=== PATIENT | male | born 1955 | race Caucasian/White ===

== ENCOUNTER 2016-11-01 20:53 | Inpatient (IN) | payer OTHER ==
[~2016-11-01] VITALS: Ht 177.8 cm; Wt 167.9 kg
[~2016-11-01 20:53] MED LIST: ADVIN25/60 INH; ALBINS/ INH; ALPR-411 PO; ARFO15NE NEB; BENZ100C84 PO; CIPR1TAB11 PO; CRFL PO; GABA-112 PO; GLC/500 PO; GLY/5 PO; INSDGIPEN SQ; LPT40 PO; LSN5 PO; OXYC1CAP5 PO; PANT40TA PO; POTA-74 PO; PRD10 PO; SPIR25TA89 PO; TPRSR/25 PO; ULT/50 PO; WARF-246 PO; WARF5TAB90 PO; ZLF50 PO
[2016-11-01] MEDS ORDERED: BUMETANIDE SOLN 1 MG/4 ML VIAL IV STA (21:08)
[2016-11-01] MEDS ORDERED: LEVALBUTEROL 1.25MG/0.5ML NEB INH STA (21:08)
[2016-11-01] MEDS ORDERED: METOPROLOL TARTRATE 1 MG/ML VIAL IV STA (21:08)
[2016-11-01] MEDS ORDERED: IPRATROPIUM BROMIDE NEB SOLN 0.02% 2.5 ML VIAL INH STA (21:08)
--- NOTE | 2016-11-01 21:37 | EMERGENCY ROOM VISIT NOTE ---
History Report prepared by Jessica: Latasha Fraser Under the Supervision of: Dr. Robbin Zaidi M.D. First contact with patient: 21:06 Chief Complaint: IRREGULAR HEARTBEAT Stated Complaint: AFIB- FLUID BUILD UP History of Present Illness The patient is a 61 year old male who presents to the Emergency Room with complaints of worsening shortness of breath for the past week. The patient saw his PCP nine days ago and was noted to be 10-11 pounds heavier than usual. He has been retaining fluid and is more swollen in his legs. The patient is on 40mg of Lasix. He takes a potassium supplement with his Lasix. He was also noted to be in A-fib when he saw his doctor. Three days ago the patient followed -up with cardiology and was still in A-fib. His medications were adjusted at that time. The patient states that since then he has been getting worse. He feels more short of breath. His symptoms are worse with exertion and talking. He has been diaphoretic this evening. The patient denies fever and cough. He is on Coumadin. He notes a personal history of CHF, asthma, and COPD. He does not wear oxygen at home, but uses CPAP at night. The patient rates his current pain as a 4/10 in severity. Source of History: patient, spouse/significant other Onset: the past week Position: chest (respiratory) Symptom Intensity: 4/10 Quality: other (SOB) Timing: worsening Modifying Factors (Worsening): exertion, other (talking) Associated Symptoms: + diaphoresis, No cough, No fevers Note: Pt notes that he has been retaining fluid and he has been in A-fib. Review of Systems See HPI for pertinent positives & negatives. A total of 10 systems reviewed and were otherwise negative. Past Medical & Surgical Medical Problems: (1) Asthma (2) BODY MASS INDEX 50.0-59.9, ADULT (3) Cerebral aneurysm (4) CHRONIC OBSTRUCTIVE ASTHMA, W (ACUTE) EXACERBATION (5) Chronic obstructive lung disease (6) CHRONIC SYSTOLIC/DIASTOLIC HRT FAILURE (7) Congestive heart failure (8) CORONARY ATHEROSCLEROSIS OF [place] CORONARY VESSEL (9) DIAB MCKAYLA WO COMPL, TYPE II OR UNSPEC TYPE, UNCONTROLLED (10) Factor 5 Leiden mutation, heterozygous (11) Hernia (12) HYPERLIPIDEMIA NEC/NOS (13) HYPERTENSION NOS (14) MORBID OBESITY (15) Nonruptured cerebral aneurysm (16) Rapid atrial fibrillation Surgical Problems: (1) Hx of appendectomy (2) Hx of cholecystectomy Family History Diabetes mellitus FH: CAD (coronary artery disease) Gallbladder disease Hypertension Lung disease Thromboembolic disease Social History Smoking Status: Never Smoker Alcohol Use: none Drug Use: none Marital Status: Housing Status: lives with family Occupation Status: disabled Current/Historical Medications Scheduled Alprazolam (Xanax), 0.5 MG PO DAILY Arformoterol Tartrate (Brovana), 1 VIAL NEB DIRECTED Atorvastatin (Atorvastatin Calcium), 40 MG PO HS Fluticasone Prop/Salmeterol (Advair Diskus 250/50 60 Dose), 1 PUFF INH BID Gabapentin (Neurontin), 100 MG PO BID Insulin Glargine (Lantus Solostar), 35 UNITS SQ QAM Lisinopril (Lisinopril), 5 MG PO DAILY Metformin Hcl (Glucophage), 500 MG PO BID Metoprolol Succinate (Metoprolol Succinate ER), 50 MG PO DAILY Pantoprazole (Protonix), 40 MG PO BID Potassium Chloride (Potassium Chloride Er), 20 MEQ PO BID Sertraline HCl (Sertraline HCl), 50 MG PO DAILY Sitagliptin (Januvia), 1 TAB PO DAILY Spironolactone (Aldactone), 25 MG PO QAM Sucralfate (Carafate), 10 ML PO Q12 Warfarin Sodium (Warfarin Sodium), 5 MG PO [id number] Warfarin Sodium (Coumadin), 2.5 MG PO WK Scheduled PRN Albuterol Sulf (Proventil 0.083% 2.5MG/3ML), 1 AMP INH QID PRN for SOB/Wheezing Ciprofloxacin Tab (Cipro), 500 MG PO BID PRN for cold symptoms or prior to dent Prednisone (Prednisone), 10 MG PO DAILY PRN for Shortness of Breath Tramadol Hcl (Ultram), 50-100 MG PO Q8 PRN for Pain Allergies Coded Allergies: Iodinated Contrast Media (Verified Allergy, Severe, SHORTNESS OF BREATH, ) Imipenem (Verified Allergy, Unknown, ., 12/03/12) Penicillins (Verified Allergy, Unknown, UNSURE OF RXN, STATED ALLERGY A CHILD, 12/03/12) Edetic Acid (Verified Adverse Reaction, Severe, SHORTNESS OF BREATH, ) Propylene Glycol (Verified Adverse Reaction, Severe, SHORTNESS OF BREATH, 04/05/14) Regadenoson (Verified Adverse Reaction, Severe, SHORTNESS OF BREATH, ) Physical Exam Vital Signs Date Time Temp Pulse Resp B/P Pulse Ox O2 Delivery O2 Flow Rate FiO2 11/01/16 22:52 Nasal Cannula 2.0 11/01/16 22:32 100/67 11/01/16 22:23 112 21 97 11/01/16 22:02 149/94 11/01/16 22:00 106 20 149/94 97 11/01/16 21:53 100 18 94 11/01/16 21:38 123/85 11/01/16 21:38 88 20 123/85 98 11/01/16 21:36 97 Nasal Cannula 2.0 11/01/16 21:34 103 142/76 11/01/16 21:23 117 24 95 11/01/16 21:19 96 Room Air 11/01/16 21:19 96 Room Air 11/01/16 21:19 104 18 142/96 94 11/01/16 21:12 107 11/01/16 21:09 142/76 11/01/16 20:56 36.7 105 22 165/85 95 Room Air Physical Exam GENERAL: Patient is in no acute distress. HEENT: No acute trauma, normocephalic atraumatic, mucous membranes moist, no nasal congestion, no scleral icterus. NECK: No stridor, no adenopathy, no meningismus, trachea is midline. LUNGS: Decreased breath sounds bilaterally, breath sounds are equal. Wheezing bilaterally. Seems short of breath with speaking. HEART: Tachycardic with an irregular rhythm, no murmurs. ABDOMEN: Soft, nontender, bowel sounds positive, no hernias, no peritonitis. EXTREMITIES: Moderate bilateral pedal edema. No cyanosis, full range of motion of all the joints without pain or difficulty, no signs for acute trauma. NEUROLOGIC: Oriented x 3, no acute motor or sensory deficits, no focal weakness. SKIN: No rash, no jaundice. Mild diaphoresis. Medical Decision & Procedures ER Provider Diagnostic Interpretation: Radiology results as stated below per my review and radiologist interpretation: CHEST ONE VIEW PORTABLE CLINICAL HISTORY: Respiratory distress COMPARISON STUDY: 04/12/2015 FINDINGS: The heart is enlarged. There is no focal pulmonary consolidation. There are no pleural effusions. There is no overt failure. The study is limited from a technical standpoint due to the patient's large body habitus.[ IMPRESSION: Cardiomegaly. No evidence of overt failure. No evidence of focal pulmonary consolidation Electronically signed by: Mahad Baxter M.D. 11/01/2016 10:00 PM Dictated Date/Time: 11/01/2016 10:00 PM Laboratory Results 11/01/16 21:25 Red Blood Count 4.71, Mean Corpuscular Volume 85.4, Mean Corpuscular Hemoglobin 27.4, Mean Corpuscular Hemoglobin Concent 32.1, Mean Platelet Volume 9.5, Neutrophils (%) (Auto) 60.7, Lymphocytes (%) (Auto) 26.8, Monocytes (%) (Auto) 7.1, Eosinophils (%) (Auto) 4.7, Basophils (%) (Auto) 0.4, Neutrophils # (Auto) 6.33, Lymphocytes # (Auto) 2.80, Monocytes # (Auto) 0.74, Eosinophils # (Auto) 0.49, Basophils # (Auto) 0.04 11/01/16 21:25 Test 11/01/16 21:25 White Blood Count 10.43 K/uL (4.8-10.8) Red Blood Count 4.71 M/uL (4.7-6.1) Hemoglobin 12.9 g/dL (14.0-18.0) Hematocrit 40.2 % (42-52) Mean Corpuscular Volume 85.4 fL (80-100) Mean Corpuscular Hemoglobin 27.4 pg (25-34) Mean Corpuscular Hemoglobin Concent 32.1 g/dl (32-36) Platelet Count 218 K/uL (130-400) Mean Platelet Volume 9.5 fL (7.4-10.4) Neutrophils (%) (Auto) 60.7 % Lymphocytes (%) (Auto) 26.8 % Monocytes (%) (Auto) 7.1 % Eosinophils (%) (Auto) 4.7 % Basophils (%) (Auto) 0.4 % Neutrophils # (Auto) 6.33 K/uL (1.4-6.5) Lymphocytes # (Auto) 2.80 K/uL (1.2-3.4) Monocytes # (Auto) 0.74 K/uL (0.11-0.59) Eosinophils # (Auto) 0.49 K/uL (0-0.5) Basophils # (Auto) 0.04 K/uL (0-0.2) RDW Standard Deviation 47.8 fL (36.4-46.3) RDW Coefficient of Variation 15.1 % (11.5-14.5) Immature Granulocyte % (Auto) 0.3 % Immature Granulocyte # (Auto) 0.03 K/uL (0.00-0.02) Prothrombin Time 25.4 SECONDS (9.0-12.0) Prothromb Time International Ratio 2.3 (0.9-1.1) Activated Partial Thromboplast Time 39.6 SECONDS (21.0-31.0) Partial Thromboplastin Ratio 1.5 Anion Gap 11.0 mmol/L (3-11) Est Creatinine Clear Calc Drug Dose 118.0 ml/min Estimated GFR () 103.1 Estimated GFR (Non- 88.9 BUN/Creatinine Ratio 21.1 (10-20) Calcium Level 8.9 mg/dl (8.5-10.1) Magnesium Level 1.4 mg/dl (1.8-2.4) Total Bilirubin 0.9 mg/dl (0.2-1) Aspartate Amino Transf (AST/SGOT) 38 U/L (15-37) Alanine Aminotransferase (ALT/SGPT) 37 U/L (12-78) Alkaline Phosphatase 74 U/L (45-117) Troponin I 0.097 ng/ml (0-0.045) Pro-B-Type Natriuretic Peptide 544 pg/ml (0-900) Total Protein 7.3 gm/dl (6.4-8.2) Albumin 3.3 gm/dl (3.4-5.0) Globulin 4.0 gm/dl (2.5-4.0) Albumin/Globulin Ratio 0.8 (0.9-2) Laboratory results reviewed by me. Medications Administered Medications (Trade) Dose Ordered Sig/Ramirez Route Start Time Stop Time Status Last Admin Dose Admin Bumetanide (Bumex IV) 1 mg NOW STAT IV 11/01/16 21:08 11/01/16 21:14 DC 11/01/16 21:34 1 MG Levalbuterol (Xopenex 1.25MG/ 0.5ML Neb) 1.25 mg NOW STAT INH 11/01/16 21:08 11/01/16 21:14 DC 11/01/16 21:33 1.25 MG Ipratropium [place] (Atrovent 0.02% 0.5MG/2.5ML Neb) 0.5 mg NOW STAT INH 11/01/16 21:08 11/01/16 21:14 DC 11/01/16 21:33 0.5 MG Metoprolol Tartrate (Lopressor Iv) 5 mg NOW STAT IV 11/01/16 21:08 11/01/16 21:14 DC 11/01/16 21:34 5 MG Magnesium Sulfate (Magnesium Sulfate) 2 gm NOW STAT IV 11/01/16 22:06 11/01/16 22:07 DC 11/01/16 22:15 2 GM Potassium Chloride (Klor-Con M10) 40 meq NOW STAT PO 11/01/16 22:23 11/01/16 22:39 DC 11/01/16 22:54 40 MEQ ECG Indication: palpitations Rate (beats per minute): 106 Rhythm: atrial fibrillation Findings: PVC, no acute ischemic change ED Course 2105: The patient was evaluated in room B11B. A complete history and physical exam was performed. 2107: Lopressor 5 mg IV, Ipratropium [place] 0.5 mg INH, Levalbuterol 1.25 mg INH, Bumex 1 mg IV 2205: Magnesium sulfate 2 gm IV 4: I reassessed the patient at this time. He is feeling better and resting comfortably. I discussed the results and treatment plan with the patient. I answered all pertaining questions that he had. He expressed understanding and verbalized agreement. 2217: I spoke with Dr. Carlton. We discussed the patients results and treatment plan. The patient will be evaluated by the [facility] for further management. Medical Decision Differential diagnoses includes exacerbation of asthma, acute bronchitis, pneumonia, CHF, fluid overload, anemia, electrolyte imbalance, [place]. There is no leukocytosis or concerning anemia. Renal panel testing shows a hypomagnesemia, no kidney failure. There was no hepatitis. INR is therapeutic for someone using Coumadin. EKG showed a rapid A. fib with PVCs, no acute ischemic change. Cardiac enzyme testing 1 was slightly elevated, consistent with possible cardiac injury or strain. Chest x-ray shows cardiomegaly, no CHF or pneumonia. BNP was not elevated, this really makes CHF less likely. The patient did have blood cultures ordered because of his complaints of sweats , these are pending. He Patient was given IV Bumex, IV magnesium, a Xopenex Atrovent neb, IV Lopressor. He looks improved and seems to be resting comfortably. Given the fluid overload, given the dyspnea with speaking, given his wheezing, given the rapid A. fib and the elevated troponin, admission/observation was felt warranted. I did speak to the patient and to case management. The on- call hospitalist was consulted. Consults Time Called: 2215 Consulting Physician: Dr. Carlton Returned Call: [address] Carlton. We discussed the patients results and treatment plan. The patient will be evaluated by the [facility] for further management. Impression Primary Impression: Fluid overload Additional Impressions: Shortness of breath Rapid atrial fibrillation Elevated troponin Hypomagnesemia Scribe Attestation The scribe's documentation has been prepared under my direction and personally reviewed by me in its entirety. I confirm that the note above accurately reflects all work, treatment, procedures, and medical decision making performed by me. Departure Information Dispostion Being Evaluated By Hospitalist Referrals Tristen Gutierrez PA-C (PCP) Patient Instructions My [facility] Problem Qualifiers Primary Impression: Fluid overload Hypervolemia type: unspecified Qualified Codes: E87.70 - Fluid overload, unspecified
[2016-11-01 21:49] LABS: BASO % 0.4 %; BASO ABS # 0.04 K/uL (0-0.2); COMPLETE YES; EOS % 4.7 %; HEMATOCRIT 40.2 % (42-52); IG% 0.3 %; LYMPH % 26.8 %; MEAN CELL VOLUME 85.4 fL (80-100); MEAN CORPUSCULAR HEMOGLOBIN 27.4 pg (25-34); MEAN CORPUSCULAR HGB CONC 32.1 g/dl (32-36); MEAN PLATELET VOLUME 9.5 fL (7.4-10.4); MONO % 7.1 %; NEUT % 60.7 %; PLATELET COUNT 218 K/uL (130-400); RED BLOOD COUNT 4.71 M/uL (4.7-6.1); WHITE BLOOD COUNT 10.43 K/uL (4.8-10.8)
[2016-11-01] MEDS ORDERED: SITA50TA3 PO (21:54)
[2016-11-01 21:58] LABS: INR 2.3 (0.9-1.1); PARTIAL THROMBOPLASTIN RATIO 1.5; PROTHROMBIN TIME (PATIENT) 25.4 SECONDS (9.0-12.0)
[2016-11-01 22:01] LABS: BUN/CREATININE RATIO 21.1 (10-20); CREATININE 0.93 mg/dl (0.60-1.40); MAGNESIUM 1.4 mg/dl (1.8-2.4); POTASSIUM 3.8 mmol/L (3.5-5.1)
[2016-11-01 22:02] LABS: CALCIUM 8.9 mg/dl (8.5-10.1)
--- NOTE | 2016-11-01 22:02 | DIAGNOSTIC IMAGING REPORT ---
CHEST ONE VIEW PORTABLE CLINICAL HISTORY: Respiratory distress COMPARISON STUDY: 04/12/2015 FINDINGS: The heart is enlarged. There is no focal pulmonary consolidation. There are no pleural effusions. There is no overt failure. The study is limited from a technical standpoint due to the patient's large body habitus.[ IMPRESSION: Cardiomegaly. No evidence of overt failure. No evidence of focal pulmonary consolidation Electronically signed by: Mahad Baxter M.D. 11/01/2016 10:00 PM Dictated Date/Time: 11/01/2016 10:00 PM
[2016-11-01] MEDS ORDERED: MAGNESIUM SULFATE 1GM / D5W 1 GM BAG IV STA (22:06)
[2016-11-01 22:08] LABS: ALB/GLOB RATIO 0.8 (0.9-2)
[2016-11-01] MEDS ORDERED: POTASSIUM CHLORIDE 10 MEQ TABCR PO STA (22:23)
[2016-11-01 22:52] VITALS: Ht 177.8 cm; Wt 167.9 kg
[2016-11-01] MEDS ORDERED: METOPROLOL SUCC 25MG EXT REL TAB PO ONE (23:13)
[2016-11-01] MEDS ORDERED: MoRPHine SULFATE 4 MG/ML 1 ML CARP\\VIAL IV PRN (23:15)
[2016-11-01] MEDS ORDERED: ONDANSETRON INJ 2 MG/ML 2 ML VIAL IV PRN ×2 (23:15)
[2016-11-01] MEDS ORDERED: GLUCAGON FOR INJ 1 MG VIAL SQ PRN (23:15)
[2016-11-01] MEDS ORDERED: NITROGLYCERIN 0.4 MG SL PER TAB CHARGE SL PRN (23:15)
[2016-11-01] MEDS ORDERED: TRAMADOL HCL 50 MG TAB PO PRN (23:15)
[2016-11-01] MEDS ORDERED: DEXTROSE 50% 50 ML SYR IV PRN (23:15)
[2016-11-01] MEDS ORDERED: LEVALBUTEROL/IPRATROPIUM NEB INH PRN (23:15)
[2016-11-01] MEDS ORDERED: GLUCOSE 10 TABS/TUBE PO PRN (23:15)
[2016-11-01] MEDS ORDERED: ACETAMINOPHEN 325 MG TAB PO PRN (23:15)
[2016-11-01] MEDS ORDERED: GLUCOSE 40% GEL 15 GM TUBE PO PRN (23:15)
[2016-11-01 23:18] LABS: THYROID STIMULATING HORMONE 0.801 uIu/ml (0.300-4.500)
[2016-11-01] MEDS ORDERED: INSULIN GLARGINE SOLOSTAR 100 UNITS/ML 3 ML PEN SC STA (23:19)
[2016-11-01 23:25] VITALS: BP 138/90; PULSE 86; TEMP 37.1; O2SAT 98
[2016-11-01] MEDS ORDERED: INSULIN ASPART 100 UNITS/ML 3 ML PEN SC STA (23:34)
[2016-11-01] MEDS ORDERED: LEVALBUTEROL 1.25MG/0.5ML NEB INH PRN (23:45)
[2016-11-01] MEDS ORDERED: IPRATROPIUM BROMIDE NEB SOLN 0.02% 2.5 ML VIAL INH PRN (23:45)
[2016-11-01] MEDS ORDERED: METOPROLOL TARTRATE 25 MG TAB PO STA (23:57)
[2016-11-02] VITALS (10 sets, daily range): BP systolic 104–152; BP diastolic 59–88; PULSE 73–85; TEMP 36.4–36.9; O2SAT 94–97
--- NOTE | 2016-11-02 01:59 | HISTORY & PHYSICAL EXAMINATION ---
DATE OF ADMISSION: 11/01/2016 PRIMARY CARE DOCTOR: Miss Odalis RaineyJULIA of [facility] Hx obtained from px, , and records. CHIEF COMPLAINT: Shortness of breath, chest discomfort HISTORY OF PRESENT ILLNESS: Medical history is significant for COPD as per records, KIRSTEN on CPAP, chronic diastolic heart failure EF of 65% from March 2014, hypertension, A-Fib on Coumadin, DM2 on oral medications, medication noncompliance as per records, cerebral aneurysm status post surgery, hx factor V Leiden deficiency. chronic anemia (baseline hemoglobin of 12) Recent confinement in last December 2014 for decompensated heart failure. Px seen at PCP's office last week and noted to be 10 pounds heavier than usual Patient admits to some leg swelling, some shortness of breath on exertion. Px admits to partial noncompliance w/ home diuretics secondary to inconvenience from urination. Admits to be non-compliant w/ salt restriction. PCP recommended compliance with diuretic regimen. Px had a followup with [facility] last we. As per px, his heart beat was going a little fast. He was told to decrease his Toprol-XL from 100 mg to 50 mg daily and to start taking a new beta effie (px/ cannot recall name of new med) starting tomorrow. Tonight the patient noted palpitations, dull chest discomfort and increasing shortness of breath. No unusual cough symptoms. At the Emergency Room, the patient was noted to be in rapid A-Fib with heart rate in 110s. Given Lopressor IV. Also given Bumex for heart failure. MEDICAL HISTORY: As above. A 2D echo from March 2014 showed mildly dilated LV with normal wall motion, systolic function, EF of 65%, moderate to severe LVH and mildly dilated right ventricle with moderate biatrial dilatation. SURGERIES: He has had appendectomy, aneurysm surgery of the brain, tonsillectomy, cholecystectomy, hernia repair, ear surgery and vasectomy. HOME MEDICATIONS: Include; Xanax, Advair Diskus, Neurontin, lisinopril, Glucophage, metoprolol, potassium chloride, Protonix, Aldactone, Carafate, Januvia, Ultram and Coumadin, sertraline, glyburide, furosemide, Toprol XL 50 mg daily, sitagliptin, sucralfate, vitamin C, Aristocort, Lipitor, gabapentin, spironolactone, Spiriva. ALLERGIES: TO DYE, LORAZEPAM, CEFEPIME, PENICILLIN, [place] FAMILY HISTORY: Heart disease. PERSONAL AND SOCIAL HISTORY: Nonsmoker. No chronic intake of alcoholic beverages. Disabled. REVIEW OF SYSTEMS: As per HPI, all other ROS negative. PHYSICAL EXAMINATION: VITAL SIGNS: Blood pressure was noted to be 142/96, pulse rate 104, RR 24, temperature 36.7 and sats 95 on room air. GENERAL: Noted to be obese, uncomfortable SKIN: Pallor. HEENT: Pale palpebral conjunctivae. Dry mucosa. NECK: Short neck. LUNGS: Decreased breath sounds. Occasional wheeze. HEART: Irregular, tachycardic. ABDOMEN: Some distension, nontender. EXTREMITIES: Bilateral lower extremity edema. no tenderness NE No gross focality. LABORATORIES: Hemoglobin was noted to be 12.9, hematocrit 40, white cell count 10.4, platelets 218. Sodium 135, potassium 3.8, chloride 101, CO2 27, BUN 20, creatinine 0.9, glucose 215. Mag was 1.4 and troponin was 0.09. Normal BNP. INR 2.3, Chest x-ray; cardiomegaly, no overt failure. EKG; as per my interpretation rate of 105. Atrial fibrillation, LAD, LAFB, premature ventricular contractions, ASSESSMENT: 1. Decompensated heart failure mainly right-sided HF sx px admits medication noncompliance/dietary indiscretion 2. chest pain, palpitations from rapid atrial fibrillation likely related to recent decrease in dose for home beta effie (and contemplated switch to another BB) following recent outpatient cardiology visit, electrolyte abnormalities contributory. INR therapeutic 3. Hypertension, slightly elevated. 4. KIRSTEN on CPAP. 5. Chronic anemia, hemoglobin at baseline. 6. COPD as per records, not in acute exacerbation 7. DM2, on oral meds suboptimal control as of recent Hg 1c from 2016 ( 9.7 ) 8. hx cerebral aneurysm sp surgery PLAN: PCU. Diuretic therapy Strict IOs, daily weights, CHF education update TTE RE CHF Cardiology consult RE CHF, rapid AF (Patient known to Dr. Hansen) Increase maintenance home Toprol XL 50mg to BID dosing until px seen by Cardiology Replace electrolytes. Basal insulin, ISS BG goal 140-180. Carb count coverage indicated for suboptimal blood sugar control. Patient is due for hemoglobin A1c check. DVT prophylaxis. Coumadin INR 2-3. Full code. MTDD
[2016-11-02 06:53] LABS: ESTIMATED AVERAGE GLUCOSE 229 mg/dl; HA1C FLAG Normal (Normal)
[2016-11-02 07:05] LABS: BASO % 0.6 %; BASO ABS # 0.05 K/uL (0-0.2); COMPLETE YES; EOS % 6.5 %; HEMATOCRIT 39.3 % (42-52); IG% 0.1 %; LYMPH % 24.9 %; LYMPH ABS # 2.08 K/uL (1.2-3.4); MEAN CELL VOLUME 85.4 fL (80-100); MEAN CORPUSCULAR HEMOGLOBIN 27.2 pg (25-34); MEAN CORPUSCULAR HGB CONC 31.8 g/dl (32-36); MEAN PLATELET VOLUME 8.9 fL (7.4-10.4); MONO % 7.8 %; NEUT % 60.1 %; PLATELET COUNT 185 K/uL (130-400); WHITE BLOOD COUNT 8.34 K/uL (4.8-10.8)
[2016-11-02 07:14] LABS: INR 2.1 (0.9-1.1); PROTHROMBIN TIME (PATIENT) 23.4 SECONDS (9.0-12.0)
[2016-11-02] MEDS ORDERED: PERFLUTREN LIPID MICROSPHERE (DEFINITY) IV ONE (07:15)
[2016-11-02 07:32] LABS: BUN/CREATININE RATIO 19.7 (10-20); CALCIUM 8.6 mg/dl (8.5-10.1); CREATININE 0.87 mg/dl (0.60-1.40); POTASSIUM 4.2 mmol/L (3.5-5.1)
[2016-11-02] MEDS ORDERED: INSULIN GLARGINE SOLOSTAR 100 UNITS/ML 3 ML PEN SC SCH ×2 (09:00)
[2016-11-02] MEDS: GABAPENTIN 100 MG CAP PO SCH ×2 (09:10→19:56)
[2016-11-02] MEDS: FUROSEMIDE INJ 40 MG in SYRINGE 0 ML IV SCH ×2 (09:10→19:50)
[2016-11-02] MEDS: FLUTICASONE/SALMETEROL 250/50 (ADVAIR) 14 PUFF/1 INHALER INH SCH ×2 (09:11→19:49)
[2016-11-02] MEDS: METOPROLOL SUCC 25MG EXT REL TAB PO SCH ×2 (09:11→19:53)
[2016-11-02] MEDS: SUCRALFATE 1 GM/10 ML UDC PO SCH ×2 (09:12→19:56)
[2016-11-02] MEDS: DRONEDARONE 400 MG TAB PO SCH ×2 (09:12→19:54)
[2016-11-02] MEDS: POTASSIUM CHLORIDE 10 MEQ TABCR PO SCH ×2 (09:12→19:55)
[2016-11-02] MEDS: PANTOprazole SOD 40 MG TAB PO SCH ×2 (09:13→19:56)
[2016-11-02] MEDS: INSULIN ASPART 100 UNITS/ML 3 ML PEN SC SCH ×4 (09:14→21:48)
[2016-11-02] MEDS: SPIRONOLACTONE 25 MG TAB PO SCH (09:15)
[2016-11-02] MEDS: LISINOPRIL 5 MG TAB PO SCH (09:15)
[2016-11-02] MEDS: SERTRALINE HCL 50 MG TAB PO SCH (09:15)
[2016-11-02] MEDS: ALPRAZOLAM 0.5 MG TAB PO SCH (09:19)
--- NOTE | 2016-11-02 10:15 | CARDIOLOGY CONSULTATION ---
DATE OF CONSULTATION: 11/02/2016 CONSULTING PHYSICIAN: Dr. David Carlton. REASON FOR CONSULTATION: AFib with RVR and heart failure. HISTORY OF PRESENT ILLNESS: Mr. Carroll is a pleasant 61-year-old gentleman with a history significant for paroxysmal atrial fibrillation, diastolic CHF, hypertension, paroxysmal ventricular tachycardia noted on event monitor (4-beat run), dyslipidemia, medication noncompliance, and chest discomfort. He also has type 2 diabetes and obstructive sleep apnea on CPAP at bedtime. He was last seen in cardiology office on 10/27/2016 at which point he was found to be in a rate controlled atrial fibrillation. He is symptomatic with his atrial fibrillation and has described it as a fluttering sensation intermittently. He is known to have paroxysmal atrial fibrillation. He also feels fatigued and worn out throughout the day while in atrial fibrillation. For that reason, antiarrhythmic therapy was recommended. He has declined that in the past, but was agreeable last week. Therefore, Multaq was initiated 400 mg twice daily. Given the fact that he was already rate controlled, metoprolol was recommended to be reduced from a 100 mg daily to 50 mg daily. He did not change either of these medications. He continued to take metoprolol 100 mg daily, and did not yet start Multaq. He purchased it but wanted to finish out his pillbox for the week before adjusting any medications. Therefore, he has continued to take metoprolol succinate 100 mg daily, which is his usual dose, Lasix 80 mg daily, had been prescribed in the past. He did not take Lasix on a regular basis. In fact, he would go long periods of time without taking any diuretic. Due to increased weight of approximately 10 pounds and feeling as though he was retaining fluid, he started taking Lasix 80 mg daily for the past 2-3 weeks. Despite this, he had no improvement in his symptoms. Yesterday, he acutely became short of breath and described it both shortness of breath at rest and with exertion. He also had orthopnea. He had a nonproductive cough. Later that evening, he developed substernal chest discomfort described as a pressure feeling. It did not radiate. He was not given nitroglycerin, but did receive intravenous Bumex. After several hours of chest discomfort, his chest discomfort spontaneously resolved overnight. He now feels much better, both from breathing and a chest discomfort standpoint. While hospitalized, he has been given IV metoprolol 5 mg as well as metoprolol tartrate 12.5 mg. He still feels as though he is retaining fluid but breathing has improved and he no longer experiences chest pain. He denies fevers, rash, stroke or like symptoms, syncope, near syncope or bleeding such as melena, hematochezia or hematuria. He has chronic lower extremity edema and he believes that symptom is stable. He states he is trying to do a better job with a low sodium diet. He does eat at restaurants but states otherwise he has been doing a better job from the sodium consumption standpoint. REVIEW OF SYSTEMS: As above and review of systems otherwise negative. PAST MEDICAL HISTORY: 1. Chronic diastolic CHF. 2. Hypertension. 3. Paroxysmal atrial fibrillation. 4. Medication noncompliance. 5. Hypertension. 6. Dyslipidemia. 7. Paroxysmal ventricular tachycardia described as a 4-beat run on a 30-day event monitor, for which he was asymptomatic. 8. Chest discomfort. 9. Type 2 diabetes. 10. Obstructive sleep apnea on CPAP at bedtime. 11. Right internal carotid aneurysm status post clipping. 12. Morbid obesity. 13. Anemia. 14. Arthritis. 15. COPD. 16. Esophagitis. 17. Depression. 18. Diabetic nephropathy. 19. Nephrolithiasis. HOME MEDICATIONS: Include: 1. Metoprolol succinate however, it was recommended that that be reduced to 50 mg daily while start any antiarrhythmic therapy. 2. Multaq 400 mg twice daily, which he has not yet started, however, was prescribed last week on 10/27/2016. 3. Potassium chloride 10 mEq twice daily. 4. Advair Diskus. 5. Glyburide 10 mg twice daily. 6. Gabapentin 100 mg twice daily. 7. Alprazolam. 8. Atorvastatin 40 mg daily. 9. Lisinopril 10 mg daily. 10. Warfarin 7.5 mg on Tuesdays and 5 mg all other days. 11. Carafate 2 teaspoons hours. 12. Clindamycin prior to dental appointments. 13. Lasix 80 mg daily, however, he has been noncompliant. 14. Metformin 1000 mg twice daily. 15. Protonix 40 mg twice daily. 16. Zoloft 75 mg daily. INPATIENT MEDICATIONS: Include: 1. Atorvastatin 40 mg at bedtime. 2. Bumex 1 mg IV x1. 3. Lasix 40 mg IV b.i.d. 4. Gabapentin 100 mg b.i.d. 5. Metoprolol succinate 50 mg twice daily. 6. Lisinopril 5 mg daily. 7. Protonix 40 mg b.i.d. 8. Potassium chloride 20 mEq p.o. b.i.d. 9. Spironolactone 25 mg daily. 10. Carafate 1 gram p.o. q. 12 hours. ALLERGIES: INCLUDE: 1. IMIPENEM. 2. IV CONTRAST. 3. PENICILLIN. 4. PROPYLENE GLYCOL. 5. REGADENOSON. 6. EDETIC ACID. SOCIAL HISTORY: Denies tobacco, alcohol or drug abuse. He is . Two children. Currently, unaccompanied in his hospital room. FAMILY HISTORY: Father had heart disease and at the age of 80. His father apparently developed embolization of plaque during a cardiac catheterization requiring surgical intervention of his lower extremities. His mother also has history of heart disease and hypertension. There is a family history of factor V Leiden deficiency. PHYSICAL EXAMINATION: VITAL SIGNS: Temperature 36.6 degrees, heart rate 75 beats per minute, respiration rate 19, blood pressure 138/84 mmHg, oxygen saturation 95% on room air. I's and O's negative 1.5 liters thus far during this hospitalization. Weight is 168.7 kg. GENERAL: No acute distress. He is alert and oriented. HEENT: Anicteric sclerae. NECK: Thick, cannot assess JVD. Cardiac upstrokes normal bilaterally. No carotid bruits. CARDIAC EXAMINATION: PMI was nonpalpable. There was no ventricular heave, irregularly irregular, normal S1, S2. There were no audible murmurs, rubs or gallops. LUNGS: Clear to auscultation bilaterally without wheezes, rales or rhonchi. ABDOMEN: Obese, soft, nontender, nondistended, normoactive bowel sounds, no bruits noted. EXTREMITIES: Trace bilateral lower extremity edema. Bilateral lower extremity varicose veins. 2+ radial pulses bilaterally. 2+ dorsalis pedis pulses bilaterally. No cyanosis, no palpable cords. PSYCHIATRIC: Affect appears appropriate. LABORATORY DATA: INR 2.1. Sodium 140, potassium 4.2, BUN 17, creatinine 0.87, glucose 224, magnesium 2; however, it was 1.4 on presentation. Troponin 0.097. TSH 0.801. White blood cell count 8.34, hemoglobin 12.5, platelets 185. IMAGING DATA: Chest x-ray underpenetrated. No obvious infiltrate. Chest x-ray image personally reviewed. Radiology interpretation cardiomegaly, no evidence of overt failure. No evidence of focal consolidation. ECGs personally reviewed. ECG upon presentation; atrial fibrillation with PVCs at 106 beats per minute. Left anterior fascicular block. Repeat ECG performed this morning, atrial fibrillation at 91 beats per minute. Left axis deviation. He has an echocardiogram currently pending. His last echocardiogram was 04/04/2014 demonstrating mildly dilated LV with normal systolic function and wall motion EF 65%. Moderate to severe LVH. Mildly dilated RV with normal systolic function. Moderate biatrial dilation. No significant valvular abnormalities. Event monitor report reviewed from 03/30/2014-05/04/2014 demonstrating paroxysmal atrial fibrillation with RVR. Average heart rate in AFib was 96 beats per minute. One episode of ventricular tachycardia consisting of 4 beats. The predominant rhythm was sinus. Estimated time in atrial fibrillation was 1%, 4 hours and 51 minutes. ASSESSMENT AND PLAN: 1. Paroxysmal atrial fibrillation: It appears as though he has been in atrial fibrillation more often than not recently. He is symptomatic and tends to develop fatigue, fluttering and shortness of breath. For these reasons, antiarrhythmic therapy is recommended. He has Multaq at home but did not yet started taking it. It was prescribed on 10/27/2016. He is willing to initiate that medication now and therefore Multaq 400 mg twice daily will be started in the hospital. Maintain INR at a therapeutic level. Coumadin will be ordered at this time at his home dose 7.5 mg on Tuesdays, 5 mg all others. He will be given a total of 7.5 mg today; however, it appears as though he did not receive Coumadin yesterday and his INR has trended down. He is adequately rate controlled at this time. If he does not convert to sinus rhythm on Multaq, electrical cardioversion will be contemplated as an outpatient as there is no urgent indication and this will give ample time for Multaq to be loaded into the system. 2. Chronic diastolic congestive heart failure: He does not appear overtly hypervolemic on exam; however, his exam is limited due to morbid obesity. Given his symptoms of increased weight gain and shortness of breath and also medication noncompliance as an outpatient, agree with intravenous diuretic therapy. Can continue Lasix 40 mg IV b.i.d., but if he does not have adequate output, can increase to 80 mg twice daily. Thus far, he is negative 1.5 liters. We discussed again the importance of low sodium diet and medication compliance. Check daily weights and strict I's and O's. 3. Chest pain: Etiology uncertain. Troponins are not diagnostic of myocardial infarction. Could be secondary to atrial fibrillation with rapid ventricular response from demand ischemia as well as with his shortness of breath. 4. Elevated troponins: It is not diagnostic of myocardial infarction. We discussed further evaluation. He has had stress testing in the past. He does not wish to undergo cardiac catheterization and states that he would like to do so only as a "last resort." There is no urgent indication for cardiac catheterization and demand ischemia could be responsible for these minimally elevated troponin levels. Conservative management is reasonable at this time. Continue beta effie. 5. Hypertension: Blood pressure adequately controlled currently. However, he was hypertensive upon presentation. Continue lisinopril and consider increasing 10 mg which is his list of home dose; however, currently his blood pressure is adequately controlled. Continue beta effie and diuretic. 6. Disposition: Cardiology will continue to follow. I will be away from the hospital tomorrow if there are any questions or concerns, please do not hesitate to contact the on-call dental manager for [facility]. Echocardiogram is pending. Thank you for allowing me to participate in the care of Mr. Carroll.
--- NOTE | 2016-11-02 14:35 | ECHOCARDIOGRAM REPORT ---
*NOTICE TO RECEIVING CONSTITUTION [employer]Y AGENCY This information is strictly Confidential and protected under [place] law. [place] law prohibits you from making any further disclosure of this information unless further disclosure is expressly permitted by the written consent of the person to whom it pertains or is authorized by law. A general authorization for the release of medical or other information is not sufficient for this purpose. Hospital accepts no responsibility if the information is made available to any other person, INCLUDING THE PATIENT. Interpretation Summary * Name: YEN HIDALGO Study Date: 11/02/2016 06:51 AM BP: 114/75 mmHg * Patient Location: C.2T\S\S244\S\1 HR: 76 * : 1955 (M/d/yyyy) Gender: Male Height: 70 in * Age: 61 yrs Ethnicity: [place] Weight: 302 lb * Ordering Physician: David Carlton * Referring Physician: LAVELL * Performed By: Karine Otero RDCS * * Reason For Study: CHF, CP * BSA: 2.5 m2 * -- Conclusions -- * Technically limited study despite use of ultrasound contrast. * 1. Normal LV size. Moderate concentric LVH. * 2. Grossly normal systolic function. LVEF 50-55%. Paradoxical septal motion consistent with conduction abnormality. * 3. RV not well visualized. Mildly dilated RV. Normal RV function. * 4. No significant valvular pathology. * 5. Compared with prior study from 04/04/2014: No significant changes. Procedure Details * A contrast injection of Definity was performed to improve assessment of LV function. * Contrast was injected into an intravenous site in the right arm. * One vial of Definity ultrasound contrast was diluted in normal saline to a total volume of 10 ml. A total of '2' ml of solution was administered during imaging. * Lot # [id number] of Definity utilized for procedure. * Expiration date OCT 13. * The attending nurse who injected the contrast agent was NAT GIBSON. Left Ventricle * The left ventricle is grossly normal size. * There is moderate concentric left ventricular hypertrophy. * Ejection Fraction = 50-55%. * Septal motion is consistent with conduction abnormality. Right Ventricle * The right ventricle is mildly dilated. * The right ventricle is not well visualized. * The right ventricular systolic function is normal as assessed by tricuspid annular plane systolic excursion (TAPSE) (normal >1.5 cm). Atria * The left atrial size is normal. * The right atrium is moderately dilated. * No ASD detected; PFO is not assessed. Mitral Valve * The mitral valve is grossly normal. * There is no mitral valve stenosis. * Significant mitral regurgitation is absent. Tricuspid Valve * The tricuspid valve is not well visualized. * Significant tricuspid regurgitation is absent. Aortic Valve * The aortic valve opens well. * No hemodynamically significant valvular aortic stenosis. * There is no significant aortic regurgitation. Great Vessels * Borderline dilated ascending aorta. Pericardium/Pleural * There is no pericardial effusion. MMode 2D Measurements and Calculations IVSd 1.7 cm IVSs 1.7 cm LVIDd 5.2 cm LVIDs 3.7 cm LVPWd 2.0 cm LVPWs 2.3 cm IVS/LVPW 0.83 FS 28.5 % EDV(Teich) 127.0 ml ESV(Teich) 57.6 ml EF(Teich) 54.6 % EDV(cubed) 137.1 ml ESV(cubed) 50.1 ml EF(cubed) 63.5 % % IVS thick 3.5 % % LVPW thick 14.2 % LV mass(C)d 452.2 grams LV mass(C)dI 181.8 grams/m\S\2 LV mass(C)s 333.1 grams LV mass(C)sI 133.9 grams/m\S\2 SV(Teich) 69.4 ml SI(Teich) 27.9 ml/m\S\2 SV(cubed) 87.0 ml SI(cubed) 35.0 ml/m\S\2 Ao root diam 3.9 cm Ao root area 12.0 cm\S\2 LA dimension 4.7 cm LA/Ao 1.2 LVAd ap4 44.3 cm\S\2 LVLd ap4 9.8 cm EDV(MOD-sp4) 165.0 ml LVAs ap4 28.9 cm\S\2 LVLs ap4 9.1 cm ESV(MOD-sp4) 75.9 ml EF(MOD-sp4) 54.0 % LVAd ap2 31.7 cm\S\2 LVLd ap2 8.8 cm EDV(MOD-sp2) 91.6 ml LVAs ap2 17.8 cm\S\2 LVLs ap2 8.0 cm ESV(MOD-sp2) 34.2 ml EF(MOD-sp2) 62.7 % SV(MOD-sp4) 89.1 ml SI(MOD-sp4) 35.8 ml/m\S\2 SV(MOD-sp2) 57.4 ml SI(MOD-sp2) 23.1 ml/m\S\2 Doppler Measurements and Calculations Ao V2 max 88.2 cm/sec Ao max PG 3.1 mmHg Ao max PG (full) 0.70 mmHg LV V1 max PG 2.4 mmHg LV V1 max 77.6 cm/sec
[2016-11-02] MEDS ORDERED: WARFARIN SOD 7.5 MG TAB PO SCH (16:00)
[2016-11-02] MEDS: WARFARIN SOD 5 MG TAB PO SCH (16:50)
[2016-11-02] MEDS: ATORVASTATIN 40 MG TAB PO SCH (19:54)
[2016-11-02] MEDS ORDERED: PHARMACY GLYCEMIC MGMT CONSULT PRN (22:24)
--- NOTE | 2016-11-02 22:25 | Progress Note ---
Medicine Progress Note Date & Time of Visit: November 02, 2016 at 11:04. Subjective 61 yo M presents with SOB for one week associated with weight gain -pt reports noncompliance with diuretics and salt restriction -denies chest pain -feels somewhat improved since admission -doesn't feel like he is urinating as much as he expected on the IV Lasix. -tolerating PO Objective Last 8 Hrs Date Time Temp Pulse Resp B/P Pulse Ox O2 Delivery O2 Flow Rate FiO2 11/02/16 07:51 Room Air 11/02/16 07:34 36.6 75 19 138/84 95 Room Air 11/02/16 04:00 CPAP 2.0 11/02/16 04:00 36.4 76 20 114/75 97 CPAP Physical Exam: GEN: obesity, in no acute distress, alert and appropriate, not tachypneic, no conversational dyspnea HEENT: NC/AT, PERRL, normal sclerae, MMM CARDIO: irreg rhythm, S1/2 heard without m/g/r, no JVD noted LUNGS: CTA bilaterally, no crackles, rales or wheezes, good diaphragmatic excursion ABD: soft, protuberant, non-tender, non-distended, no rebound or guarding, +BS EXTREMITY: RP and DP palpable 2+ bilat, 1+ edema, extremities are warm and well- perfused N/M: CN 2-12 grossly intact, no gross focal deficits SKIN: warm and dry Laboratory Results: 11/02/16 06:55 Red Blood Count 4.60, Mean Corpuscular Volume 85.4, Mean Corpuscular Hemoglobin 27.2, Mean Corpuscular Hemoglobin Concent 31.8, Mean Platelet Volume 8.9, Neutrophils (%) (Auto) 60.1, Lymphocytes (%) (Auto) 24.9, Monocytes (%) (Auto) 7.8, Eosinophils (%) (Auto) 6.5, Basophils (%) (Auto) 0.6, Neutrophils # (Auto) 5.01, Lymphocytes # (Auto) 2.08, Monocytes # (Auto) 0.65, Eosinophils # (Auto) 0.54, Basophils # (Auto) 0.05 11/02/16 06:55 Test 11/01/16 21:25 11/02/16 06:55 11/02/16 16:31 Activated Partial Thromboplast Time 39.6 SECONDS (21.0-31.0) Partial Thromboplastin Ratio 1.5 Estimated Average Glucose 229 mg/dl Hemoglobin A1c 9.6 % (4.5-5.6) Total Bilirubin 0.9 mg/dl (0.2-1) Aspartate Amino Transf (AST/SGOT) 38 U/L (15-37) Alanine Aminotransferase (ALT/SGPT) 37 U/L (12-78) Alkaline Phosphatase 74 U/L (45-117) Pro-B-Type Natriuretic Peptide 544 pg/ml (0-900) Total Protein 7.3 gm/dl (6.4-8.2) Albumin 3.3 gm/dl (3.4-5.0) Globulin 4.0 gm/dl (2.5-4.0) Albumin/Globulin Ratio 0.8 (0.9-2) Thyroid Stimulating Hormone (TSH) 0.801 uIu/ml (0.300-4.500) White Blood Count 8.34 K/uL (4.8-10.8) Red Blood Count 4.60 M/uL (4.7-6.1) Hemoglobin 12.5 g/dL (14.0-18.0) Hematocrit 39.3 % (42-52) Mean Corpuscular Volume 85.4 fL (80-100) Mean Corpuscular Hemoglobin 27.2 pg (25-34) Mean Corpuscular Hemoglobin Concent 31.8 g/dl (32-36) Platelet Count 185 K/uL (130-400) Mean Platelet Volume 8.9 fL (7.4-10.4) Neutrophils (%) (Auto) 60.1 % Lymphocytes (%) (Auto) 24.9 % Monocytes (%) (Auto) 7.8 % Eosinophils (%) (Auto) 6.5 % Basophils (%) (Auto) 0.6 % Neutrophils # (Auto) 5.01 K/uL (1.4-6.5) Lymphocytes # (Auto) 2.08 K/uL (1.2-3.4) Monocytes # (Auto) 0.65 K/uL (0.11-0.59) Eosinophils # (Auto) 0.54 K/uL (0-0.5) Basophils # (Auto) 0.05 K/uL (0-0.2) RDW Standard Deviation 48.1 fL (36.4-46.3) RDW Coefficient of Variation 15.3 % (11.5-14.5) Immature Granulocyte % (Auto) 0.1 % Immature Granulocyte # (Auto) 0.01 K/uL (0.00-0.02) Prothrombin Time 23.4 SECONDS (9.0-12.0) Prothromb Time International Ratio 2.1 (0.9-1.1) Anion Gap 6.0 mmol/L (3-11) Est Creatinine Clear Calc Drug Dose 142.1 ml/min Estimated GFR () 108.7 Estimated GFR (Non- 93.8 BUN/Creatinine Ratio 19.7 (10-20) Calcium Level 8.6 mg/dl (8.5-10.1) Magnesium Level 2.0 mg/dl (1.8-2.4) Troponin I 0.088 ng/ml (0-0.045) Bedside Glucose 217 mg/dl (70-99) Date/Time Source Procedure Growth Status 11/01/16 21:30 Blood Blood Culture Pending Received Last 24 Hours Test 11/01/16 21:25 11/01/16 23:41 11/02/16 06:34 11/02/16 06:55 White Blood Count 10.43 K/uL 8.34 K/uL Red Blood Count 4.71 M/uL 4.60 M/uL Hemoglobin 12.9 g/dL 12.5 g/dL Hematocrit 40.2 % 39.3 % Mean Corpuscular Volume 85.4 fL 85.4 fL Mean Corpuscular Hemoglobin 27.4 pg 27.2 pg Mean Corpuscular Hemoglobin Concent 32.1 g/dl 31.8 g/dl Platelet Count 218 K/uL 185 K/uL Mean Platelet Volume 9.5 fL 8.9 fL Neutrophils (%) (Auto) 60.7 % 60.1 % Lymphocytes (%) (Auto) 26.8 % 24.9 % Monocytes (%) (Auto) 7.1 % 7.8 % Eosinophils (%) (Auto) 4.7 % 6.5 % Basophils (%) (Auto) 0.4 % 0.6 % Neutrophils # (Auto) 6.33 K/uL 5.01 K/uL Lymphocytes # (Auto) 2.80 K/uL 2.08 K/uL Monocytes # (Auto) 0.74 K/uL 0.65 K/uL Eosinophils # (Auto) 0.49 K/uL 0.54 K/uL Basophils # (Auto) 0.04 K/uL 0.05 K/uL RDW Standard Deviation 47.8 fL 48.1 fL RDW Coefficient of Variation 15.1 % 15.3 % Immature Granulocyte % (Auto) 0.3 % 0.1 % Immature Granulocyte # (Auto) 0.03 K/uL 0.01 K/uL Prothrombin Time 25.4 SECONDS 23.4 SECONDS Prothromb Time International Ratio 2.3 2.1 Activated Partial Thromboplast Time 39.6 SECONDS Partial Thromboplastin Ratio 1.5 Sodium Level 139 mmol/L 140 mmol/L Potassium Level 3.8 mmol/L 4.2 mmol/L Chloride Level 101 mmol/L 102 mmol/L Carbon Dioxide Level 27 mmol/L 32 mmol/L Anion Gap 11.0 mmol/L 6.0 mmol/L Blood Urea Nitrogen 20 mg/dl 17 mg/dl Creatinine 0.93 mg/dl 0.87 mg/dl Est Creatinine Clear Calc Drug Dose 118.0 ml/min 142.1 ml/min Estimated GFR () 103.1 108.7 Estimated GFR (Non- 88.9 93.8 BUN/Creatinine Ratio 21.1 19.7 Random Glucose 215 mg/dl 224 mg/dl Estimated Average Glucose 229 mg/dl Hemoglobin A1c 9.6 % Calcium Level 8.9 mg/dl 8.6 mg/dl Magnesium Level 1.4 mg/dl 2.0 mg/dl Total Bilirubin 0.9 mg/dl Aspartate Amino Transf (AST/SGOT) 38 U/L Alanine Aminotransferase (ALT/SGPT) 37 U/L Alkaline Phosphatase 74 U/L Troponin I 0.097 ng/ml 0.088 ng/ml Pro-B-Type Natriuretic Peptide 544 pg/ml Total Protein 7.3 gm/dl Albumin 3.3 gm/dl Globulin 4.0 gm/dl Albumin/Globulin Ratio 0.8 Thyroid Stimulating Hormone (TSH) 0.801 uIu/ml Bedside Glucose 205 mg/dl 214 mg/dl Date/Time Source Procedure Growth Status 11/01/16 21:30 Blood Blood Culture Pending Received 11/01/16 21:25 Blood Blood Culture Pending Received Assessment & Plan 61 yo obese M with acute heart failure 1. Chronic diastolic heart failure-recent weight gain, LE edema. Pt admits to diuretic and salt restriction non-compliance. IV Lasix per Cardiology, TTE 2. Afib w/ RVR-pt was advised to start dronedarone and decrease metoprolol in recent outpatient cardiology visit, but didn't do this because his pills were already set out for the week. Dronedarone was added and metoprolol continued with continuous tele monitoring. Cont coumadin with goal INR 2-3 3. HTN-controlled, cont lisinopril 4. KIRSTEN on CPAP. 5. Chronic anemia, hemoglobin at baseline. 6. COPD as per records, not in acute exacerbation 7. DM2-ISS/Lantus 8. hx cerebral aneurysm sp surgery DVT prophylaxis- Coumadin Full code. Ksenia Swartz DO [facility] Hospitalist Current Inpatient Medications: Current Inpatient Medications Medications (Trade) Dose Ordered Sig/Ramirez Route Start Time Stop Time Status Last Admin Dose Admin Acetaminophen (Tylenol Tab) 650 mg Q4H PRN PO 11/01/16 23:15 12/01/16 23:14 Nitroglycerin (Nitrostat Tab) 0.4 mg UD PRN SL 11/01/16 23:15 12/01/16 23:14 Insulin Aspart (novoLOG ASPART) SLIDING SCALE If C... ACHS SC 11/02/16 07:00 12/02/16 06:59 11/02/16 09:14 3 UNITS Glucose (Glucose 40% Gel) 15-30 GRAMS 15 GRAMS... UD PRN PO 11/01/16 23:15 12/01/16 23:14 Glucose (Glucose Chew Tab) 4-8 Tablets 4 Tabl... UD PRN PO 11/01/16 23:15 12/01/16 23:14 Dextrose (Dextrose 50% 50ML Syringe) 25-50ML OF 50% DW IV FOR... UD PRN IV 11/01/16 23:15 12/01/16 23:14 Glucagon (Glucagon Inj) 1 mg UD PRN SQ 11/01/16 23:15 12/01/16 23:14 Tramadol HCl (Ultram Tab) 25 mg Q6H PRN PO 11/01/16 23:15 12/01/16 23:14 Morphine Sulfate (MoRPHine SULFATE INJ) 4 mg Q4H PRN IV 11/01/16 23:15 11/15/16 23:14 Alprazolam (Xanax Tab) 0.5 mg DAILY PO 11/02/16 09:00 12/02/16 08:59 11/02/16 09:19 0.5 MG Atorvastatin Calcium (Lipitor Tab) 40 mg HS PO 11/02/16 21:00 12/02/16 20:59 Salmeterol Xinafoate/ Fluticasone (Advair Diskus 250/50 Inh) 1 puff BID INH 11/02/16 09:00 12/02/16 08:59 11/02/16 09:11 1 PUFF Gabapentin (Neurontin Cap) 100 mg BID PO 11/02/16 09:00 12/02/16 08:59 11/02/16 09:10 100 MG Lisinopril (Zestril Tab) 5 mg DAILY PO 11/02/16 09:00 12/02/16 08:59 11/02/16 09:15 5 MG Metoprolol Succinate (Toprol Xl Tab) 50 mg BID PO 11/02/16 09:00 12/02/16 08:59 11/02/16 09:11 50 MG Pantoprazole Sodium (Protonix Tab) 40 mg BID PO 11/02/16 09:00 12/02/16 08:59 11/02/16 09:13 40 MG Sertraline HCl (Zoloft Tab) 50 mg DAILY PO 11/02/16 09:00 12/02/16 08:59 11/02/16 09:15 50 MG Spironolactone (Aldactone Tab) 25 mg QAM PO 11/02/16 09:00 12/02/16 08:59 11/02/16 09:15 25 MG Sucralfate (Carafate Susp) 1 gm Q12 PO 11/02/16 09:00 12/02/16 08:59 11/02/16 09:12 1 GM Potassium Chloride 20 meq 20 meq BID PO 11/02/16 09:00 12/02/16 08:59 11/02/16 09:12 20 MEQ Furosemide/Syringe (Lasix Inj/ Syringe) 4 ml @ 4 mls/min BID IV 11/02/16 09:00 11/03/16 08:59 11/02/16 09:10 4 MLS/MIN Ondansetron HCl (Zofran Inj) 4 mg Q6H PRN IV 11/01/16 23:15 12/01/16 23:14 Ipratropium [place] (Atrovent 0.02% 0.5MG/2.5ML Neb) 0.5 mg Q4H PRN INH 11/01/16 23:45 12/01/16 23:44 Levalbuterol (Xopenex 1.25MG/ 0.5ML Neb) 1.25 mg Q4H PRN INH 11/01/16 23:45 12/01/16 23:44 Insulin Glargine (Lantus Solostar Pen) 10 unit DAILY SC 11/02/16 09:00 12/02/16 08:59 11/02/16 09:13 10 UNIT Dronedarone (Multaq Tab) 400 mg BID PO 11/02/16 09:00 12/02/16 08:59 11/02/16 09:12 400 MG Warfarin Sodium (Coumadin Tab) 5 mg SuMoWeThFrSa@1600 PO 11/04/16 16:00 12/04/16 15:59 Warfarin Sodium (Coumadin Tab) 5 mg MoTu@1600 PO 11/02/16 16:00 11/03/16 16:01 Warfarin Sodium (Coumadin Tab) 2.5 mg Tu@1600 PO 11/10/16 16:00 12/10/16 15:59
--- NOTE | 2016-11-02 22:57 | Pharmacy Progress Note ---
Glycemic Control Intl Consult Date of Service November 02, 2016. Scope Glycemic Pharmacist consulted by Dr Swartz on 11/02/16 for glycemic control and to write orders per [facility] inpatient glycemic control protocol Objective Weight (Kilograms): 168.700 Accuchecks BSG (last 24hrs): Test 11/01/16 23:41 11/02/16 06:34 11/02/16 06:55 11/02/16 11:21 Bedside Glucose 205 mg/dl (70-99) 214 mg/dl (70-99) 265 mg/dl (70-99) Random Glucose 224 mg/dl (70-99) Test 11/02/16 16:31 Bedside Glucose 217 mg/dl (70-99) Laboratory Data (last 24hrs) Test 11/02/16 06:55 Anion Gap 6.0 mmol/L BUN/Creatinine Ratio 19.7 Blood Urea Nitrogen 17 mg/dl Creatinine 0.87 mg/dl Potassium Level 4.2 mmol/L Sodium Level 140 mmol/L White Blood Count 8.34 K/uL Red Blood Count 4.60 M/uL Hemoglobin 12.5 g/dL Hematocrit 39.3 % Mean Corpuscular Volume 85.4 fL Mean Corpuscular Hemoglobin 27.2 pg Mean Corpuscular Hemoglobin Concent 31.8 g/dl Platelet Count 185 K/uL Mean Platelet Volume 8.9 fL Neutrophils (%) (Auto) 60.1 % Lymphocytes (%) (Auto) 24.9 % Monocytes (%) (Auto) 7.8 % Eosinophils (%) (Auto) 6.5 % Basophils (%) (Auto) 0.6 % Neutrophils # (Auto) 5.01 K/uL Lymphocytes # (Auto) 2.08 K/uL Monocytes # (Auto) 0.65 K/uL Eosinophils # (Auto) 0.54 K/uL Basophils # (Auto) 0.05 K/uL HbA1c Test 11/01/16 21:25 Hemoglobin A1c 9.6 % (4.5-5.6) H Recent Pertinent Medications Outpatient Anti-diabetic Regimen: * Lantus 35 units SC qAM * Metformin 500mg BID * Januvia 50mg daily * A1c = 9.6 % (11/01/16) The patient is currently receiving: * Basal insulin: Lantus 10 units every 24 hours * Correctional Insulin: Novolog Correction per scale ACHS Goal Range: Low 140 mg/dL - High 180 mg/dL Correction Factor: 25 mg/dL/unit * Prandial insulin: Per carb ratio of 1 unit per 15 grams CHO consumed Risk Factors for Insulin Resistance: * Diet: Type II DM Assessment & Plan ASSESSMENT: * ADA & AACE recommend a goal blood sugar range 140-180 mg/dl for the majority of critically ill & non-critically ill patients. However, more stringent targets may be selected in individual cases. * Patient admitted on 11/01/16 for exacerbation of diastolic HF and AF. * Recent HbA1c of 9.6% shows poor outpatient DM control. However, HbA1c possibly not accurate due to his anemia. He has persistent hyperglycemia with BG >200 mg/dL since admission. Will increase basal insulin and tighten Novolog to target lower BG. Novolog CF and CR picked using median value between weight- based and outpatient regimen of 35 units of insulin per day. PLAN FOR INPATIENT GLYCEMIC CONTROL: * Holding outpatient oral diabetes medications * Increasing Lantus to 20 units SQ BID * Give Lantus 10 units if BG <140 mg/dL * Correctional Insulin with NOVOLOG / REGULAR per scale ACHS or Q6hrs while NPO * Goal Range: Low 140 mg/dL - High 180 mg/dL * Changing correction factor to 20 mg/dl/unit * Changing carb ratio to 1 unit per 10 grams CHO consumed * Please note that the plan above was derived based on current level of insulin resistance and hospital stress. These recommendations are appropriate for inpatient admission only. Plan of care upon discharge will need to be reassessed to avoid potential outpatient hypo/hyperglycemia. Thank you.
[2016-11-02] MEDS: INSULIN GLARGINE SOLOSTAR 100 UNITS/ML 3 ML PEN SC SCH (23:34)
[2016-11-03] VITALS (7 sets, daily range): BP systolic 96–133; BP diastolic 61–88; PULSE 68–85; TEMP 36.4–37.2; O2SAT 91–98
[2016-11-03] MEDS: INSULIN ASPART 100 UNITS/ML 3 ML PEN SC SCH ×4 (07:00→20:48)
[2016-11-03 07:11] LABS: INR 1.9 (0.9-1.1); PROTHROMBIN TIME (PATIENT) 21.1 SECONDS (9.0-12.0)
[2016-11-03 07:30] LABS: CALCIUM 8.2 mg/dl (8.5-10.1); CREATININE 0.85 mg/dl (0.60-1.40); MAGNESIUM 2.1 mg/dl (1.8-2.4); POTASSIUM 3.7 mmol/L (3.5-5.1)
[2016-11-03] MEDS: INSULIN GLARGINE SOLOSTAR 100 UNITS/ML 3 ML PEN SC SCH ×2 (07:55→20:53)
[2016-11-03] MEDS: FLUTICASONE/SALMETEROL 250/50 (ADVAIR) 14 PUFF/1 INHALER INH SCH ×2 (08:09→20:45)
[2016-11-03] MEDS: ALPRAZOLAM 0.5 MG TAB PO SCH (08:09)
[2016-11-03] MEDS: POTASSIUM CHLORIDE 10 MEQ TABCR PO SCH ×2 (08:10→20:46)
[2016-11-03] MEDS: METOPROLOL SUCC 25MG EXT REL TAB PO SCH ×2 (08:10→20:48)
[2016-11-03] MEDS: GABAPENTIN 100 MG CAP PO SCH ×2 (08:10→20:47)
[2016-11-03] MEDS: LISINOPRIL 5 MG TAB PO SCH (08:11)
[2016-11-03] MEDS: SERTRALINE HCL 50 MG TAB PO SCH (08:12)
[2016-11-03] MEDS: DRONEDARONE 400 MG TAB PO SCH ×2 (08:12→20:47)
[2016-11-03] MEDS: SPIRONOLACTONE 25 MG TAB PO SCH (08:12)
[2016-11-03] MEDS: SUCRALFATE 1 GM/10 ML UDC PO SCH ×2 (08:13→20:46)
[2016-11-03] MEDS: PANTOprazole SOD 40 MG TAB PO SCH ×2 (08:13→20:48)
--- NOTE | 2016-11-03 10:04 | Progress Note ---
Medicine Progress Note Date & Time of Visit: November 03, 2016 at 09:55. Subjective -tele reviewed, still in afib but rate controlled -diuresed >2L yesterday in response to furosemide -feels improved today reporting improvement in breathing, denies chest pain -ambulatory -tolerating PO Objective Last 8 Hrs Date Time Temp Pulse Resp B/P Pulse Ox O2 Delivery O2 Flow Rate FiO2 11/03/16 08:05 Room Air 11/03/16 07:33 36.7 82 18 133/84 91 CPAP 11/03/16 04:22 36.5 68 20 96/61 97 CPAP 11/03/16 04:00 94 Room Air Physical Exam: GEN: obesity, in no acute distress, alert and appropriate, not tachypneic, no conversational dyspnea HEENT: NC/AT, normal sclerae, MMM CARDIO: irreg rhythm, S1/2 heard without m/g/r, no JVD noted LUNGS: CTA bilaterally, no crackles, rales or wheezes, good diaphragmatic excursion ABD: soft, protuberant, non-tender, non-distended, no rebound or guarding, +BS EXTREMITY: RP and DP palpable 2+ bilat, no edema, extremities are warm and well- perfused N/M: CN 2-12 grossly intact, no gross focal deficits SKIN: warm and dry Laboratory Results: 11/02/16 06:55 Red Blood Count 4.60, Mean Corpuscular Volume 85.4, Mean Corpuscular Hemoglobin 27.2, Mean Corpuscular Hemoglobin Concent 31.8, Mean Platelet Volume 8.9, Neutrophils (%) (Auto) 60.1, Lymphocytes (%) (Auto) 24.9, Monocytes (%) (Auto) 7.8, Eosinophils (%) (Auto) 6.5, Basophils (%) (Auto) 0.6, Neutrophils # (Auto) 5.01, Lymphocytes # (Auto) 2.08, Monocytes # (Auto) 0.65, Eosinophils # (Auto) 0.54, Basophils # (Auto) 0.05 11/03/16 06:56 Test 11/01/16 21:25 11/02/16 06:55 11/03/16 06:38 11/03/16 06:56 Activated Partial Thromboplast Time 39.6 SECONDS (21.0-31.0) Partial Thromboplastin Ratio 1.5 Estimated Average Glucose 229 mg/dl Hemoglobin A1c 9.6 % (4.5-5.6) Total Bilirubin 0.9 mg/dl (0.2-1) Aspartate Amino Transf (AST/SGOT) 38 U/L (15-37) Alanine Aminotransferase (ALT/SGPT) 37 U/L (12-78) Alkaline Phosphatase 74 U/L (45-117) Pro-B-Type Natriuretic Peptide 544 pg/ml (0-900) Total Protein 7.3 gm/dl (6.4-8.2) Albumin 3.3 gm/dl (3.4-5.0) Globulin 4.0 gm/dl (2.5-4.0) Albumin/Globulin Ratio 0.8 (0.9-2) Thyroid Stimulating Hormone (TSH) 0.801 uIu/ml (0.300-4.500) White Blood Count 8.34 K/uL (4.8-10.8) Red Blood Count 4.60 M/uL (4.7-6.1) Hemoglobin 12.5 g/dL (14.0-18.0) Hematocrit 39.3 % (42-52) Mean Corpuscular Volume 85.4 fL (80-100) Mean Corpuscular Hemoglobin 27.2 pg (25-34) Mean Corpuscular Hemoglobin Concent 31.8 g/dl (32-36) Platelet Count 185 K/uL (130-400) Mean Platelet Volume 8.9 fL (7.4-10.4) Neutrophils (%) (Auto) 60.1 % Lymphocytes (%) (Auto) 24.9 % Monocytes (%) (Auto) 7.8 % Eosinophils (%) (Auto) 6.5 % Basophils (%) (Auto) 0.6 % Neutrophils # (Auto) 5.01 K/uL (1.4-6.5) Lymphocytes # (Auto) 2.08 K/uL (1.2-3.4) Monocytes # (Auto) 0.65 K/uL (0.11-0.59) Eosinophils # (Auto) 0.54 K/uL (0-0.5) Basophils # (Auto) 0.05 K/uL (0-0.2) RDW Standard Deviation 48.1 fL (36.4-46.3) RDW Coefficient of Variation 15.3 % (11.5-14.5) Immature Granulocyte % (Auto) 0.1 % Immature Granulocyte # (Auto) 0.01 K/uL (0.00-0.02) Troponin I 0.088 ng/ml (0-0.045) Bedside Glucose 202 mg/dl (70-99) Prothrombin Time 21.1 SECONDS (9.0-12.0) Prothromb Time International Ratio 1.9 (0.9-1.1) Anion Gap 8.0 mmol/L (3-11) Est Creatinine Clear Calc Drug Dose 145.5 ml/min Estimated GFR () 109.8 Estimated GFR (Non- 94.7 BUN/Creatinine Ratio 22.0 (10-20) Calcium Level 8.2 mg/dl (8.5-10.1) Magnesium Level 2.1 mg/dl (1.8-2.4) Date/Time Source Procedure Growth Status 11/01/16 21:30 Blood Blood Culture - Preliminary NO GROWTH TO DATE. Resulted Last 24 Hours Test 11/02/16 11:21 11/02/16 16:31 11/02/16 20:37 11/03/16 06:38 Bedside Glucose 265 mg/dl 217 mg/dl 216 mg/dl 202 mg/dl Test 11/03/16 06:56 Prothrombin Time 21.1 SECONDS Prothromb Time International Ratio 1.9 Sodium Level 138 mmol/L Potassium Level 3.7 mmol/L Chloride Level 101 mmol/L Carbon Dioxide Level 29 mmol/L Anion Gap 8.0 mmol/L Blood Urea Nitrogen 19 mg/dl Creatinine 0.85 mg/dl Est Creatinine Clear Calc Drug Dose 145.5 ml/min Estimated GFR () 109.8 Estimated GFR (Non- 94.7 BUN/Creatinine Ratio 22.0 Random Glucose 217 mg/dl Calcium Level 8.2 mg/dl Magnesium Level 2.1 mg/dl Assessment & Plan 61 yo obese M with acute heart failure 1. Chronic diastolic heart failure-recent weight gain, LE edema. Pt admits to diuretic and salt restriction non-compliance. IV Lasix per Cardiology, TTE with no acute findings and preserved EF 50-55% 2. Afib-rate control achieved. Pt was advised to start dronedarone and decrease metoprolol in recent outpatient cardiology visit, but didn't do this because his pills were already set out for the week. Dronedarone was added and metoprolol continued with continuous tele monitoring. Cont with current dosing and any adjustments by cardiology. Full dose coumadin today as INR slightly below 2. 3. HTN-controlled, cont lisinopril 4. KIRSTEN on CPAP. 5. Chronic anemia, hemoglobin at baseline. 6. COPD as per records, not in acute exacerbation 7. DM2-ISS/Lantus-appreciate pharmacy glycemic consult 8. hx cerebral aneurysm sp surgery DVT prophylaxis- Coumadin Full code. DO [facility] Current Inpatient Medications: Current Inpatient Medications Medications (Trade) Dose Ordered Sig/Ramirez Route Start Time Stop Time Status Last Admin Dose Admin Acetaminophen (Tylenol Tab) 650 mg Q4H PRN PO 11/01/16 23:15 12/01/16 23:14 Nitroglycerin (Nitrostat Tab) 0.4 mg UD PRN SL 11/01/16 23:15 12/01/16 23:14 Insulin Aspart (novoLOG ASPART) SLIDING SCALE If C... ACHS SC 11/02/16 07:00 12/02/16 06:59 11/03/16 07:00 9 UNITS Glucose (Glucose 40% Gel) 15-30 GRAMS 15 GRAMS... UD PRN PO 11/01/16 23:15 12/01/16 23:14 Glucose (Glucose Chew Tab) 4-8 Tablets 4 Tabl... UD PRN PO 11/01/16 23:15 12/01/16 23:14 Dextrose (Dextrose 50% 50ML Syringe) 25-50ML OF 50% DW IV FOR... UD PRN IV 11/01/16 23:15 12/01/16 23:14 Glucagon (Glucagon Inj) 1 mg UD PRN SQ 11/01/16 23:15 12/01/16 23:14 Tramadol HCl (Ultram Tab) 25 mg Q6H PRN PO 11/01/16 23:15 12/01/16 23:14 Morphine Sulfate (MoRPHine SULFATE INJ) 4 mg Q4H PRN IV 11/01/16 23:15 11/15/16 23:14 Alprazolam (Xanax Tab) 0.5 mg DAILY PO 11/02/16 09:00 12/02/16 08:59 11/03/16 08:09 0.5 MG Atorvastatin Calcium (Lipitor Tab) 40 mg HS PO 11/02/16 21:00 12/02/16 20:59 11/02/16 19:54 40 MG Salmeterol Xinafoate/ Fluticasone (Advair Diskus 250/50 Inh) 1 puff BID INH 11/02/16 09:00 12/02/16 08:59 11/03/16 08:09 1 PUFF Gabapentin (Neurontin Cap) 100 mg BID PO 11/02/16 09:00 12/02/16 08:59 11/03/16 08:10 100 MG Lisinopril (Zestril Tab) 5 mg DAILY PO 11/02/16 09:00 12/02/16 08:59 11/03/16 08:11 5 MG Metoprolol Succinate (Toprol Xl Tab) 50 mg BID PO 11/02/16 09:00 12/02/16 08:59 11/03/16 08:10 50 MG Pantoprazole Sodium (Protonix Tab) 40 mg BID PO 11/02/16 09:00 12/02/16 08:59 11/03/16 08:13 40 MG Sertraline HCl (Zoloft Tab) 50 mg DAILY PO 11/02/16 09:00 12/02/16 08:59 11/03/16 08:12 50 MG Spironolactone (Aldactone Tab) 25 mg QAM PO 11/02/16 09:00 12/02/16 08:59 11/03/16 08:12 25 MG Sucralfate (Carafate Susp) 1 gm Q12 PO 11/02/16 09:00 12/02/16 08:59 11/03/16 08:13 1 GM Potassium Chloride (Klor-Con M10) 20 meq BID PO 11/02/16 09:00 12/02/16 08:59 11/03/16 08:10 20 MEQ Ondansetron HCl (Zofran Inj) 4 mg Q6H PRN IV 11/01/16 23:15 12/01/16 23:14 Ipratropium [place] (Atrovent 0.02% 0.5MG/2.5ML Neb) 0.5 mg Q4H PRN INH 11/01/16 23:45 12/01/16 23:44 Levalbuterol (Xopenex 1.25MG/ 0.5ML Neb) 1.25 mg Q4H PRN INH 11/01/16 23:45 12/01/16 23:44 Dronedarone (Multaq Tab) 400 mg BID PO 11/02/16 09:00 12/02/16 08:59 11/03/16 08:12 400 MG Warfarin Sodium (Coumadin Tab) 5 mg SuMoWeThFrSa@1600 PO 11/04/16 16:00 12/04/16 15:59 Warfarin Sodium (Coumadin Tab) 5 mg MoTu@1600 PO 11/02/16 16:00 11/03/16 16:01 11/02/16 16:50 5 MG Warfarin Sodium (Coumadin Tab) 2.5 mg Tu@1600 PO 11/10/16 16:00 12/10/16 15:59 Miscellaneous Information (Consult Glycemic Management Pharmacy) 1 ea UD PRN N/A 11/02/16 22:24 12/02/16 22:23 Insulin Glargine (Lantus Solostar Pen) SEE PROTOCOL BID SC 11/02/16 23:00 12/02/16 20:59 11/03/16 07:55 20 UNIT Insulin Aspart (novoLOG ASPART) SLIDING SCALE If C... 0200 SC 11/04/16 02:00 12/04/16 01:59
--- NOTE | 2016-11-03 12:09 | Pharmacy Progress Note ---
Glycemic Control: Progress Nt Date of Service November 03, 2016. Scope Glycemic Pharmacist consulted by on 11/02/16 for glycemic control and to write orders per [facility] inpatient glycemic control protocol. Objective Accuchecks BSG (last 24hrs): Test 11/02/16 16:31 11/02/16 20:37 11/03/16 06:38 11/03/16 06:56 Bedside Glucose 217 mg/dl (70-99) 216 mg/dl (70-99) 202 mg/dl (70-99) Random Glucose 217 mg/dl (70-99) Test 11/03/16 11:18 Bedside Glucose 260 mg/dl (70-99) Laboratory Data (last 24hrs) Test 11/03/16 06:56 Anion Gap 8.0 mmol/L BUN/Creatinine Ratio 22.0 Blood Urea Nitrogen 19 mg/dl Creatinine 0.85 mg/dl Potassium Level 3.7 mmol/L Sodium Level 138 mmol/L HbA1c: Test 11/01/16 21:25 Hemoglobin A1c 9.6 % (4.5-5.6) H Recent Pertinent Medications Outpatient Anti-diabetic Regimen: * Lantus 35 units SC qAM ( reports the pt does NOT take) * Metformin 500mg BID * Januvia 50mg daily * A1c = 9.6 % (11/01/16) Risk Factors for Insulin Resistance: * Diet: Type II DM Assessment & Plan ASSESSMENT: * ADA & AACE recommend a goal blood sugar range 140-180 mg/dl for the majority of critically ill & non-critically ill patients. However, more stringent targets may be selected in individual cases. Initial: * Patient admitted on 11/01/16 for exacerbation of diastolic HF and AF. * Recent HbA1c of 9.6% shows poor outpatient DM control. However, HbA1c possibly not accurate due to his anemia. He has persistent hyperglycemia with BG >200 mg/dL since admission. Will increase basal insulin and tighten Novolog to target lower BG. Novolog CF and CR picked using median value between weight- based and outpatient regimen of 35 units of insulin per day. 11/03/16: * Pt's BSGs remain moderately elevated > 200 mg/dl today. * BSGs are not correcting to goal range post-prandially so I suspect he may benefit from tighter Novolog parameters. * Lantus dose was increased at bedtime yesterday so have yet to reach SS and see full effect of dose increase. Will wait for more data to determine whether basal rate needs adjusted. * Add overnight accuchek at 0200 to assess basal rate more effectively and also resolve potential overnight hyperglycemia. * Of note, the pt's med rec indicates that the pt does NOT take Lantus as prescribed (per pt's ). See CDE note for further details. PLAN FOR INPATIENT GLYCEMIC CONTROL: * Holding outpatient oral diabetes medications * Continue Lantus to 20 units SQ BID * Give Lantus 10 units if BG <110 mg/dL * Correctional Insulin with NOVOLOG per scale ACHS + 02 (or Q6hrs while NPO) * Goal Range: Low 110 mg/dL - High 140 mg/dL * Changing correction factor to 15 mg/dl/unit * Changing carb ratio to 1 unit per 5 grams CHO consumed Looking ahead to discharge: * The patient's A1c indicates poorly controlled BSGs as an outpatient. However , pt does not take Lantus as prescribed. Per CDE note yesterday, the pt refuses to take insulin as an outpatient. Of note, doses of oral DM agents could be optimized further. The patient would benefit from intensive diabetes counselling and f/u with a CDE or MTM pharmacist as an outpatient. * Please note that the plan above was derived based on current level of insulin resistance and hospital stress. These recommendations are appropriate for inpatient admission only. Plan of care upon discharge will need to be reassessed to avoid potential outpatient hypo/hyperglycemia. Thank you.
[2016-11-03] MEDS ORDERED: FUROSEMIDE INJ 40 MG in SYRINGE 0 ML IV ONE (15:30)
[2016-11-03] MEDS ORDERED: WARFARIN SOD 5 MG TAB PO SCH (16:00)
[2016-11-03] MEDS: WARFARIN SOD 5 MG TAB PO SCH (16:47)
[2016-11-03] MEDS: ATORVASTATIN 40 MG TAB PO SCH (20:46)
[2016-11-04] VITALS: BP 120/73; PULSE 89; TEMP 36.9; O2SAT 97
[2016-11-04] MEDS ORDERED: INSULIN ASPART 100 UNITS/ML 3 ML PEN SC SCH (02:00)
[2016-11-04 04:00] VITALS: BP 99/64; PULSE 77; TEMP 36.7; O2SAT 97
[2016-11-04 07:41] VITALS: BP 167/95; PULSE 81; TEMP 36.8; O2SAT 96
[2016-11-04 08:03] LABS: INR 2.1 (0.9-1.1); PROTHROMBIN TIME (PATIENT) 23.4 SECONDS (9.0-12.0)
[2016-11-04 08:30] LABS: CREATININE 0.86 mg/dl (0.60-1.40); POTASSIUM 3.7 mmol/L (3.5-5.1)
[2016-11-04] MEDS: PANTOprazole SOD 40 MG TAB PO SCH (08:35)
[2016-11-04] MEDS: SERTRALINE HCL 50 MG TAB PO SCH (08:35)
[2016-11-04] MEDS: METOPROLOL SUCC 25MG EXT REL TAB PO SCH (08:35)
[2016-11-04] MEDS: DRONEDARONE 400 MG TAB PO SCH (08:36)
[2016-11-04] MEDS: SPIRONOLACTONE 25 MG TAB PO SCH (08:36)
[2016-11-04] MEDS: GABAPENTIN 100 MG CAP PO SCH (08:36)
[2016-11-04] MEDS: FLUTICASONE/SALMETEROL 250/50 (ADVAIR) 14 PUFF/1 INHALER INH SCH (08:37)
[2016-11-04] MEDS: SUCRALFATE 1 GM/10 ML UDC PO SCH (08:37)
[2016-11-04] MEDS: LISINOPRIL 5 MG TAB PO SCH (08:37)
[2016-11-04] MEDS: POTASSIUM CHLORIDE 10 MEQ TABCR PO SCH (08:37)
[2016-11-04] MEDS: INSULIN GLARGINE SOLOSTAR 100 UNITS/ML 3 ML PEN SC SCH (08:43)
[2016-11-04] MEDS: ALPRAZOLAM 0.5 MG TAB PO SCH (08:43)
[2016-11-04] MEDS: INSULIN ASPART 100 UNITS/ML 3 ML PEN SC SCH ×2 (08:43→12:07)
[2016-11-04 08:45] LABS: CALCIUM 8.6 mg/dl (8.5-10.1)
[2016-11-04] MEDS ORDERED: FUROSEMIDE INJ 40 MG in SYRINGE 0 ML IV SCH (09:00)
--- NOTE | 2016-11-04 09:00 | CARDIOLOGY PROGRESS NOTE ---
DATE: 11/04/2016 DATE: 11/04/2016. TIME: 8:22 a.m. SUBJECTIVE: Mr. Carroll feels much better. He states he feels back to baseline as far as his breathing goes. He was able to ambulate around the hallway on multiple occasions yesterday and tolerated it well. He denies chest pain, syncope, near syncope. He had one episode of palpitations; however, telemetry was personally reviewed and the rhythm remains a rate controlled atrial fibrillation with some ventricular ectopy versus aberrancy. OBJECTIVE: VITAL SIGNS: Temperature 36.8 degrees, heart rate 81 beats per minute, respiration rate 18, blood pressure mostly normotensive. He had one episode of 99/64 mmHg earlier this morning followed by 167/95 mmHg, but otherwise he has been normotensive since yesterday morning. Oxygen saturation 96% on room air. I's and O's positive 320 mL yesterday, weight is 167.9 kg. GENERAL: No acute distress. He is alert and oriented. NECK: Thick, cannot appreciate JVD. CARDIAC EXAMINATION: No ventricular heave, irregularly irregular, normal S1, S2. No audible murmurs, rubs or gallops. LUNGS: Clear to auscultation bilaterally without wheezes, rales or rhonchi. ABDOMEN: Soft, nontender, nondistended, normoactive bowel sounds. Obese. EXTREMITIES: Trace bilateral lower extremity edema. No cyanosis. PSYCHIATRIC: Affect appears appropriate. MEDICATIONS: Include atorvastatin 40 mg daily, Multaq 400 mg p.o. b.i.d., Lasix 40 mg IV b.i.d. He received only 1 dose of Lasix yesterday 40 mg, lisinopril 5 mg daily, metoprolol succinate 50 mg p.o. b.i.d., Protonix 40 mg p.o. b.i.d., potassium chloride 20 mEq p.o. b.i.d., spironolactone 25 mg daily, Coumadin 5 mg. Telemetry reviewed as noted above. LABORATORY DATA: INR therapeutic at 2.1. It was 1.9 yesterday. Basic metabolic panel is still pending. ASSESSMENT AND PLAN: 1. Atrial fibrillation with rapid ventricular response: His heart rate is now well controlled. Now that he is on Multaq, would like to achieve sinus rhythm. He was slightly subtherapeutic yesterday with his INR and therefore will not perform cardioversion as an inpatient. If he does not convert while on Multaq, then he will be arranged for outpatient electrical cardioversion after he is therapeutic for 4 weeks on his Coumadin. He has a history of paroxysmal atrial fibrillation; however, this episode appears to be persistent at this time. He is asymptomatic at the moment from his atrial fibrillation now that his heart rate is better controlled. Continue beta effie. Continue anticoagulation for stroke risk reduction. 2. Chronic diastolic congestive heart failure: He has termination clerk issues with noncompliance. He does not take Lasix as an outpatient on a regular basis. We discussed the importance of doing so. Continue Lasix 40 mg IV b.i.d. if his renal function remains stable. Labs are currently pending. He does feel back to baseline and therefore could be discharged later today if his labs are unremarkable but would discharge him home on his home dose of diuretic and strongly encouraged him to take as instructed. Low sodium diet. Daily weights. Strict I's and O's while hospitalized. 3. Chest pain: Etiology uncertain. Troponins were not diagnostic of myocardial infarction. Could be secondary to demand ischemia from atrial fibrillation with rapid ventricular response and hypervolemia. 4. Elevated troponins: He is not interested in undergoing cardiac catheterization. His chest pain occurred in the setting of hypervolemia and atrial fibrillation with rapid ventricular response and could be due to those issues and the elevated troponins from demand ischemia. He prefers conservative therapy. 5. Hypertension: Blood pressure has been adequately controlled for most of the last 24 hours with one episode of hypotension and one episode of hypertension. He was asymptomatic. 6. Disposition: If his labs are unremarkable and he continues to feel at baseline, could be discharged later today from a cardiac perspective. Recommend follow up in the outpatient cardiology office within 2-4 weeks to check an ECG, determine rhythm, evaluate volume status, and potentially arrange for electrical cardioversion as an outpatient if his INR remains therapeutic. Plan of care was discussed yesterday with Dr. Swartz of the [facility] hospitalist team. Please call with any questions or concerns.
[2016-11-04 11:26] VITALS: BP 124/88; PULSE 71; TEMP 37; O2SAT 94
--- NOTE | 2016-11-04 13:20 | Progress Note ---
Subjective Date of Service: November 04, 2016. Subjective Pt evaluation today including: conversation w/ patient, physical exam, lab review, review of studies, review of inpatient medication list Saw/examined the patient in room 244 No acute problems, no chest pain/palpitations/shortness of breath No other issues to note at this time Problem List Medical Problems: (1) Elevated troponin Status: Acute (2) Fluid overload Status: Acute (3) Hypomagnesemia Status: Acute (4) Rapid atrial fibrillation Status: Acute (5) Shortness of breath Status: Acute Review of Systems Constitutional: No chills, No fever Respiratory: No cough, No dyspnea at rest, No dyspnea on exertion, No hemoptysis, No shortness of breath (baseline), No sputum, No wheezing Cardiac: + edema, No chest pain (resolved), No palpitations Abdomen: No diarrhea, No nausea, No pain, No vomiting Male : No dysuria, No urinary frequency Medications Current Inpatient Medications Medications (Trade) Dose Ordered Sig/Ramirez Route Start Time Stop Time Status Last Admin Dose Admin Acetaminophen (Tylenol Tab) 650 mg Q4H PRN PO 11/01/16 23:15 12/01/16 23:14 Nitroglycerin (Nitrostat Tab) 0.4 mg UD PRN SL 11/01/16 23:15 12/01/16 23:14 Insulin Aspart (novoLOG ASPART) SLIDING SCALE If C... ACHS SC 11/02/16 07:00 12/02/16 06:59 11/04/16 12:07 18 UNITS Glucose (Glucose 40% Gel) 15-30 GRAMS 15 GRAMS... UD PRN PO 11/01/16 23:15 12/01/16 23:14 Glucose (Glucose Chew Tab) 4-8 Tablets 4 Tabl... UD PRN PO 11/01/16 23:15 12/01/16 23:14 Dextrose (Dextrose 50% 50ML Syringe) 25-50ML OF 50% DW IV FOR... UD PRN IV 11/01/16 23:15 12/01/16 23:14 Glucagon (Glucagon Inj) 1 mg UD PRN SQ 11/01/16 23:15 12/01/16 23:14 Tramadol HCl (Ultram Tab) 25 mg Q6H PRN PO 11/01/16 23:15 12/01/16 23:14 Morphine Sulfate (MoRPHine SULFATE INJ) 4 mg Q4H PRN IV 11/01/16 23:15 11/15/16 23:14 Alprazolam (Xanax Tab) 0.5 mg DAILY PO 11/02/16 09:00 12/02/16 08:59 11/04/16 08:43 0.5 MG Atorvastatin Calcium (Lipitor Tab) 40 mg HS PO 11/02/16 21:00 12/02/16 20:59 11/03/16 20:46 40 MG Salmeterol Xinafoate/ Fluticasone (Advair Diskus 250/50 Inh) 1 puff BID INH 11/02/16 09:00 12/02/16 08:59 11/04/16 08:37 1 PUFF Gabapentin (Neurontin Cap) 100 mg BID PO 11/02/16 09:00 12/02/16 08:59 11/04/16 08:36 100 MG Lisinopril (Zestril Tab) 5 mg DAILY PO 11/02/16 09:00 12/02/16 08:59 11/04/16 08:37 5 MG Metoprolol Succinate (Toprol Xl Tab) 50 mg BID PO 11/02/16 09:00 12/02/16 08:59 11/04/16 08:35 50 MG Pantoprazole Sodium (Protonix Tab) 40 mg BID PO 11/02/16 09:00 12/02/16 08:59 11/04/16 08:35 40 MG Sertraline HCl (Zoloft Tab) 50 mg DAILY PO 11/02/16 09:00 12/02/16 08:59 11/04/16 08:35 50 MG Spironolactone (Aldactone Tab) 25 mg QAM PO 11/02/16 09:00 12/02/16 08:59 11/04/16 08:36 25 MG Sucralfate (Carafate Susp) 1 gm Q12 PO 11/02/16 09:00 12/02/16 08:59 11/04/16 08:37 1 GM Potassium Chloride (Klor-Con M10) 20 meq BID PO 11/02/16 09:00 12/02/16 08:59 11/04/16 08:37 20 MEQ Ondansetron HCl (Zofran Inj) 4 mg Q6H PRN IV 11/01/16 23:15 12/01/16 23:14 Ipratropium [place] (Atrovent 0.02% 0.5MG/2.5ML Neb) 0.5 mg Q4H PRN INH 11/01/16 23:45 12/01/16 23:44 Levalbuterol (Xopenex 1.25MG/ 0.5ML Neb) 1.25 mg Q4H PRN INH 11/01/16 23:45 12/01/16 23:44 Dronedarone (Multaq Tab) 400 mg BID PO 11/02/16 09:00 12/02/16 08:59 11/04/16 08:36 400 MG Warfarin Sodium (Coumadin Tab) 5 mg SuMoWeThFrSa@1600 PO 11/04/16 16:00 12/04/16 15:59 Miscellaneous Information (Consult Glycemic Management Pharmacy) 1 ea UD PRN N/A 11/02/16 22:24 12/02/16 22:23 Insulin Glargine (Lantus Solostar Pen) SEE PROTOCOL BID SC 11/02/16 23:00 12/02/16 20:59 11/04/16 08:43 30 UNIT Insulin Aspart SLIDING SCALE If C... 0200 SC 11/04/16 02:00 12/04/16 01:59 11/04/16 02:12 2 UNITS Furosemide/Syringe (Lasix Inj/ Syringe) 4 ml @ 4 mls/min BID17 IV 11/04/16 09:00 12/04/16 08:59 11/04/16 08:39 4 MLS/MIN Objective Vital Signs Date Time Temp Pulse Resp B/P Pulse Ox O2 Delivery O2 Flow Rate FiO2 11/04/16 12:00 Room Air 11/04/16 11:26 37.0 71 18 124/88 94 Room Air 11/04/16 08:00 Room Air 11/04/16 07:41 36.8 81 18 167/95 96 Room Air 11/04/16 04:00 36.7 77 20 99/64 97 CPAP 11/04/16 03:40 BiPAP 11/04/16 00:00 36.9 89 20 120/73 97 CPAP 11/03/16 23:40 BiPAP 11/03/16 20:00 Room Air 11/03/16 19:59 37.2 82 18 123/73 94 Room Air 11/03/16 16:00 Room Air 11/03/16 15:35 36.4 76 18 119/69 96 Room Air Physical Exam General Appearance: no apparent distress, + obese Respiratory/Chest: no respiratory distress, no accessory muscle use, + wheezing (mild end expiratory wheezing) Cardiovascular: no murmur, + irregularly irregular Abdomen: normal bowel sounds, non tender, soft Extremities: + swelling (+1 pitting edema b/l LE) Neurologic/Psychiatric: no motor/sensory deficits, alert, normal mood/affect Skin: normal color Lymphatic: no adenopathy Laboratory Results Last 24 Hours Test 11/03/16 16:15 11/03/16 20:29 11/04/16 02:08 11/04/16 07:40 Bedside Glucose 216 mg/dl 138 mg/dl 159 mg/dl Prothrombin Time 23.4 SECONDS Prothromb Time International Ratio 2.1 Sodium Level 137 mmol/L Potassium Level 3.7 mmol/L Chloride Level 99 mmol/L Carbon Dioxide Level 28 mmol/L Anion Gap 10.0 mmol/L Blood Urea Nitrogen 17 mg/dl Creatinine 0.86 mg/dl Est Creatinine Clear Calc Drug Dose 143.4 ml/min Estimated GFR () 109.2 Estimated GFR (Non- 94.3 BUN/Creatinine Ratio 20.0 Random Glucose 192 mg/dl Calcium Level 8.6 mg/dl Test 11/04/16 11:15 Bedside Glucose 264 mg/dl Assessment and Plan This is a 61 year old male with a PMH of atrial fibrillation, DM2, asthma, chronic diastolic CHF, HTN, KIRSTEN on CPAP, Factor V Leiden deficiency, hx. of cerebral aneurysm s/p surgery presented with shortness of breath and chest pain and subsequently found to have A. Fib with RVR Atrial Fibrillation with RVR appreciate cardiology input for this patient, Multaq 400mg BID was started for rhythm control continue Toprol XL 50mg BID for rate control continue Coumadin - INR is therapeutic today outpatient cardiology follow-up in 2 weeks possible electrical cardioversion in 4 weeks Acute on Chronic Diastolic CHF patient with noncompliance with diuretic use he states he gained 10 lbs. prior to arrival with shortness of breath was given IV Lasix 40mg BID breathing improved, diuresed fairly well plan is to discharge home with home dose of diuretics (Lasix + Aldactone) - he is encouraged to never miss a dose Chest Pain/Elevated Troponin Level elevated troponin level, likely secondary to fluid overload from diastolic CHF as well as rapid A. Fib not likely myocardial infarction; patient does not want to pursue further, will manage medically continue b-effie, statin, RYAN-I DM2 patient is non-compliant was told to use insulin in the past, but refusing to do so Ha1c = 9.6%, very uncontrolled will adjust oral medications - counseled on the importance of compliance HTN blood pressure is stable continue current medications, including Toprol XL 50mg BID, Lisinopril 5mg daily and Lasix/Aldactone KIRSTEN uses CPAP nocturnally DVT ppx Coumadin FULL CODE
[2016-11-04] MEDS ORDERED: SITA50TA9 PO (13:30)
[2016-11-04] MEDS ORDERED: DRN400 PO (13:30)
[2016-11-04] MEDS ORDERED: METO-217 PO (13:30)
[2016-11-04] MEDS ORDERED: GLIP5TAB11 PO (13:30)
[2016-11-04] MEDS ORDERED: FRS/40 PO (13:31)
--- NOTE | 2016-11-04 13:43 | Discharge Instructions ---
Discharge Instructions Date of Service November 04, 2016. Admission Reason for Admission: Acute Exacerbation Of Chf, Rapid Atrial Fibrillati Discharge Discharge Diagnosis / Problem: Acute on Chronic Diastolic CHF, A. Fib with RVR , Elevated Troponin Discharge Goals Goal(s): Decrease discomfort, Improve function, Diagnostic testing, Therapeutic intervention Activity Recommendations Activity Limitations: resume your previous activity . Instructions / Follow-Up Instructions / Follow-Up Please follow-up with your primary care physician - Odalis Rainey NP in [place] on November 09 at 2:35PM * For your Atrial Fibrillation * You will be discharged with a new medication - Multaq; follow-up with cardiology in 2 weeks * You will be discharged on a new dose of Metoprolol - 50mg twice a day * Continue taking Coumadin as prescribed and have outpatient INR checks * Possible Electrical cardioversion in 4 weeks * For your diastolic heart failure * You will be discharged with Lasix 40mg twice a day and Aldactone - please take these as prescribed * Keep taking your potassium supplements - outpatient potassium and magnesium check in 1 week * Keep track of your weight; call primary care with weight gain * For your diabetes * Your A1c is 9.6%, which is very uncontrolled * You have stated that you would not use insulin; therefore, your dose of Januvia and metformin will be adjusted - take Janumet one tablet twice a day * Glipizide has been added Current Hospital Diet Patient's current hospital diet: Low Sodium Diet (2gm Na), Diabetes Type 2 Diet Discharge Diet Recommended Diet: Low Sodium Diet (2gm Na), Diabetes Type 2 Diet Pending Studies Studies pending at discharge: no Laboratory Results Hemoglobin A1c Test 11/01/16 21:25 Range/Units Estimated Average Glucose 229 mg/dl Hemoglobin A1c 9.6 H 4.5-5.6 % Medical Emergencies . Who to Call and When: Medical Emergencies: If at any time you feel your situation is an emergency, please call 911 immediately. . Non-Emergent Contact Non-Emergency issues call your: Primary Care Provider, Broadcast Chief Engineer . . "Provider Documentation" section prepared by Robbi Shaw. . VTE Core Measure Inpt VTE Proph given/why not?: Warfarin (Coumadin)
--- NOTE | 2016-11-04 13:45 | Discharge Summary ---
Discharge Summary Date of Service November 04, 2016. Discharge Summary Admission Date: November 01, 2016 at 22:29 Discharge Date: November 04, 2016 Discharge Disposition: Home Principal Diagnosis: Alon Lucio with RVR Acute on Chronic Diastolic CHF Elevated Troponin Medication Reconciliation New Medications: Furosemide (Lasix) 40 Mg Tab 40 MG PO BID for 30 Days, #60 TAB Glipizide (Glucotrol) 5 Mg Tab 1 TAB PO DAILY for 30 Days, #30 TAB 1 Refill Sitagliptin-Metformin Hcl (Janumet) 1 Tab Tab 1 TAB PO BID for 30 Days, #60 TAB 5 Refills Dronedarone (Multaq) 400 Mg Tab 400 MG PO BID for 30 Days, #60 TAB Changed Medications: Metoprolol Succinate (Toprol Xl) 50 Mg Tabcr 50 MG PO BID for 30 Days, #60 TAB (Changed from: Metoprolol Succinate ( Metoprolol Succinate ER) 25 Mg Tabcr 50 Mg PO DAILY) Continued Medications: Albuterol Sulf (Proventil 0.083% 2.5MG/3ML) 2.5 Mg/3 Ml Nebu 1 AMP INH QID PRN for SOB/Wheezing, #1 1 Refill Alprazolam (Xanax) 0.5 Mg Tab 0.5 MG PO DAILY, 0 Refills Arformoterol Tartrate (Brovana) 15 Mcg/2 Ml Neb 1 VIAL NEB DIRECTED for 30 Days bid as directed Atorvastatin (Atorvastatin Calcium) 40 Mg Tab 40 MG PO HS for 30 Days, TAB 1 Refill Ciprofloxacin Tab (Cipro) 250 Mg Tab 500 MG PO BID PRN for cold symptoms or prior to dent, TAB Fluticasone Prop/Salmeterol (Advair Diskus 250/50 60 Dose) 1 Ea Aerp 1 PUFF INH BID, INHALER Gabapentin (Neurontin) 100 Mg Cap 100 MG PO BID, 0 Refills Lisinopril (Lisinopril) 5 Mg Tab 5 MG PO DAILY Pantoprazole (Protonix) 40 Mg Tab 40 MG PO BID, #30 TAB Potassium Chloride (Potassium Chloride Er) 10 Meq Tab 20 MEQ PO BID Prednisone (Prednisone) 10 Mg Tab 10 MG PO DAILY PRN for Shortness of Breath Sertraline HCl (Sertraline HCl) 50 Mg Tab 50 MG PO DAILY, #30 TAB Spironolactone (Aldactone) 25 Mg Tab 25 MG PO QAM, TAB Sucralfate (Carafate) 1 Gm/10 Ml Dali 10 ML PO Q12 Tramadol Hcl (Ultram) 50 Mg Tab 50-100 MG PO Q8 PRN for Pain, TAB Warfarin Sodium (Warfarin Sodium) 5 Mg Tab 5 MG PO 6XWK all days except wednesday Warfarin Sodium (Coumadin) 5 Mg Tab 2.5 MG PO WK TUESDAYS Discontinued Medications: Insulin Glargine (Lantus Solostar) 100 Unit/Ml Inj 35 UNITS SQ QAM PER , HE WILL NOT TAKE THIS. Metformin Hcl (Glucophage) 500 Mg Tab 500 MG PO BID, TAB Sitagliptin (Januvia) 50 Mg Tab 1 TAB PO DAILY Admission Information HPI (per Admitting provider): DATE OF ADMISSION: 11/01/2016 PRIMARY CARE DOCTOR: JULIA Curry of [facility] Hx obtained from px, , and records. CHIEF COMPLAINT: Shortness of breath, chest discomfort HISTORY OF PRESENT ILLNESS: Medical history is significant for COPD as per records, KIRSTEN on CPAP, chronic diastolic heart failure EF of 65% from March 2014, hypertension, A-Fib on Coumadin, DM2 on oral medications, medication noncompliance as per records, cerebral aneurysm status post surgery, hx factor V Leiden deficiency. chronic anemia (baseline hemoglobin of 12) Recent confinement in last December 2014 for decompensated heart failure. Px seen at PCP's office last week and noted to be 10 pounds heavier than usual Patient admits to some leg swelling, some shortness of breath on exertion. Px admits to partial noncompliance w/ home diuretics secondary to inconvenience from urination. Admits to be non-compliant w/ salt restriction. PCP recommended compliance with diuretic regimen. P[place] [facility] [place] [facility] [place]. As per px, his heart beat was going a little fast. He was told to decrease his Toprol-XL from 100 mg to 50 mg daily and to start taking a new beta effie (px/ cannot recall name of new med) starting tomorrow. Tonight the patient noted palpitations, dull chest discomfort and increasing shortness of breath. No unusual cough symptoms. At the Emergency Room, the patient was noted to be in rapid A-Fib with heart rate in 110s. Given Lopressor IV. Also given Bumex for heart failure. MEDICAL HISTORY: As above. A 2D echo from March 2014 showed mildly dilated LV with normal wall motion, systolic function, EF of 65%, moderate to severe LVH and mildly dilated right ventricle with moderate biatrial dilatation. SURGERIES: He has had appendectomy, aneurysm surgery of the brain, tonsillectomy, cholecystectomy, hernia repair, ear surgery and vasectomy. HOME MEDICATIONS: Include; Xanax, Advair Diskus, Neurontin, lisinopril, Glucophage, metoprolol, potassium chloride, Protonix, Aldactone, Carafate, Januvia, Ultram and Coumadin, sertraline, glyburide, furosemide, Toprol XL 50 mg daily, sitagliptin, sucralfate, vitamin C, Aristocort, Lipitor, gabapentin, spironolactone, Spiriva. ALLERGIES: TO DYE, LORAZEPAM, CEFEPIME, PENICILLIN, REGADENOSON FAMILY HISTORY: Heart disease. PERSONAL AND SOCIAL HISTORY: Nonsmoker. No chronic intake of alcoholic beverages. Disabled. REVIEW OF SYSTEMS: As per HPI, all other ROS negative. PHYSICAL EXAMINATION: VITAL SIGNS: Blood pressure was noted to be 142/96, pulse rate 104, RR 24, temperature 36.7 and sats 95 on room air. GENERAL: Noted to be obese, uncomfortable SKIN: Pallor. HEENT: Pale palpebral conjunctivae. Dry mucosa. NECK: Short neck. LUNGS: Decreased breath sounds. Occasional wheeze. HEART: Irregular, tachycardic. ABDOMEN: Some distension, nontender. EXTREMITIES: Bilateral lower extremity edema. no tenderness NE No gross focality. LABORATORIES: Hemoglobin was noted to be 12.9, hematocrit 40, white cell count 10.4, platelets 218. Sodium 135, potassium 3.8, chloride 101, CO2 27, BUN 20, creatinine 0.9, glucose 215. Mag was 1.4 and troponin was 0.09. Normal BNP. INR 2.3, Chest x-ray; cardiomegaly, no overt failure. EKG; as per my interpretation rate of 105. Atrial fibrillation, LAD, LAFB, premature ventricular contractions, ASSESSMENT: 1. Decompensated heart failure mainly right-sided HF sx px admits medication noncompliance/dietary indiscretion 2. chest pain, palpitations from rapid atrial fibrillation likely related to recent decrease in dose for home beta effie (and contemplated switch to another BB) following recent outpatient cardiology visit, electrolyte abnormalities contributory. INR therapeutic 3. Hypertension, slightly elevated. 4. KIRSTEN on CPAP. 5. Chronic anemia, hemoglobin at baseline. 6. COPD as per records, not in acute exacerbation 7. DM2, on oral meds suboptimal control as of recent Hg 1c from 2016 ( 9.7 ) 8. hx cerebral aneurysm sp surgery PLAN: PCU. Diuretic therapy Strict IOs, daily weights, CHF education update TTE RE CHF Cardiology consult RE CHF, rapid AF (Patient known to Dr. Hansen) Increase maintenance home Toprol XL 50mg to BID dosing until px seen by Cardiology Replace electrolytes. Basal insulin, ISS BG goal 140-180. Carb count coverage indicated for suboptimal blood sugar control. Patient is due for hemoglobin A1c check. DVT prophylaxis. Coumadin INR 2-3. Full code. Hospital Course This is a 61 year old male with a PMH of atrial fibrillation, DM2, asthma, chronic diastolic CHF, HTN, KIRSTEN on CPAP, Factor V Leiden deficiency, hx. of cerebral aneurysm s/p surgery presented with shortness of breath and chest pain and subsequently found to have A. Fib with RVR Atrial Fibrillation with RVR appreciate cardiology input for this patient, Multaq 400mg BID was started for rhythm control continue Toprol XL 50mg BID for rate control continue Coumadin - INR is therapeutic today outpatient cardiology follow-up in 2 weeks possible electrical cardioversion in 4 weeks Acute on Chronic Diastolic CHF patient with noncompliance with diuretic use he states he gained 10 lbs. prior to arrival with shortness of breath was given IV Lasix 40mg BID breathing improved, diuresed fairly well plan is to discharge home with home dose of diuretics (Lasix + Aldactone) - he is encouraged to never miss a dose Chest Pain/Elevated Troponin Level elevated troponin level, likely secondary to fluid overload from diastolic CHF as well as rapid A. Fib not likely myocardial infarction; patient does not want to pursue further, will manage medically continue b-effie, statin, RYAN-I DM2 patient is non-compliant was told to use insulin in the past, but refusing to do so Ha1c = 9.6%, very uncontrolled will adjust oral medications - counseled on the importance of compliance HTN blood pressure is stable continue current medications, including Toprol XL 50mg BID, Lisinopril 5mg daily and Lasix/Aldactone KIRSTEN uses CPAP nocturnally DVT ppx Coumadin FULL CODE Total time spent on discharge = 45 minutes This includes examination of the patient, discharge planning, medication reconciliation, and communication with other providers. Discharge Instructions Please follow-up with your primary care physician - Odalis Rainey NP in [place] on November 09 at 2:35PM For your Atrial Fibrillation You will be discharged with a new medication - Multaq; follow-up with cardiology in 2 weeks You will be discharged on a new dose of Metoprolol - 50mg twice a day Continue taking Coumadin as prescribed and have outpatient INR checks Possible Electrical cardioversion in 4 weeks For your diastolic heart failure You will be discharged with Lasix 40mg twice a day and Aldactone - please take these as prescribed Keep taking your potassium supplements - outpatient potassium and magnesium check in 1 week Keep track of your weight; call primary care with weight gain For your diabetes Your A1c is 9.6%, which is very uncontrolled You have stated that you would not use insulin; therefore, your dose of Januvia and metformin will be adjusted - take Janumet one tablet twice a day Glipizide has been added Additional Copies To Odalis Rainey.
[2016-11-04 13:56] VITALS: BP 124/88; PULSE 71; TEMP 37; O2SAT 94
[2016-11-04] MEDS ORDERED: WARFARIN SOD 5 MG TAB PO SCH ×2 (16:00)
[2016-11-10] MEDS ORDERED: WARFARIN SOD 2.5 MG TAB PO SCH (16:00)
[2016-11-10] MEDS ORDERED: WARFARIN SOD 7.5 MG TAB PO SCH (16:00)
[2016-12-10] MEDS ORDERED: FERR324T PO (07:15)
[2016-12-10] MEDS ORDERED: FRS/40 PO (07:15)
[2016-12-10] MEDS ORDERED: METO-217 PO (07:15)
[2016-12-10] MEDS ORDERED: LISI-461 PO (07:15)
[2016-12-10] MEDS ORDERED: METF-384 PO (07:15)
[2016-12-10] MEDS ORDERED: SERT50TA PO (07:15)
[2017-02-12] MEDS ORDERED: AMIO200T4 PO ×2 (06:53→07:59)
== END 2016-11-04 14:43 | disposition home or self-care (01) | DRG 308 ==
LOC: ENRESERVDT → ENRESERVTM → C.EDB 20:55 → C.2T 22:29
PROVIDERS: ADMIT Hospitalist; ATTEND Hospitalist
DX: I48.91 Unspecified atrial fibrillation (principal); I50.43 Acute on chronic combined systolic (congestive) and diastolic (congestive) heart failure; Z68.43 Body mass index [BMI] 50.0-59.9, adult; G47.33 Obstructive sleep apnea (adult) (pediatric); R79.89 Other specified abnormal findings of blood chemistry; R07.9 Chest pain, unspecified; D64.9 Anemia, unspecified; J44.9 Chronic obstructive pulmonary disease, unspecified; F32.9 Major depressive disorder, single episode, unspecified; E78.5 Hyperlipidemia, unspecified; E66.01 Morbid (severe) obesity due to excess calories; R00.2 Palpitations; T44.7X6A Underdosing of beta-adrenoreceptor antagonists, initial encounter; E87.8 Other disorders of electrolyte and fluid balance, not elsewhere classified; I10 Essential (primary) hypertension; E11.40 Type 2 diabetes mellitus with diabetic neuropathy, unspecified; E87.70 Fluid overload, unspecified; M19.90 Unspecified osteoarthritis, unspecified site; E83.42 Hypomagnesemia; Z91.11 Patient's noncompliance with dietary regimen; Z99.89 Dependence on other enabling machines and devices; Z82.49 Family history of ischemic heart disease and other diseases of the circulatory system; Z86.2 Personal history of diseases of the blood and blood-forming organs and certain disorders involving the immune mechanism; Z95.828 Presence of other vascular implants and grafts; Z79.899 Other long term (current) drug therapy; Z91.14 Patient's other noncompliance with medication regimen; Z86.79 Personal history of other diseases of the circulatory system; Z79.51 Long term (current) use of inhaled steroids; Z79.4 Long term (current) use of insulin; Z79.84 Long term (current) use of oral hypoglycemic drugs; Z79.01 Long term (current) use of anticoagulants; Z79.52 Long term (current) use of systemic steroids

== ENCOUNTER → 2016-11-26 | Outpatient (CLI) | payer OTHER ==
[~2016-11-26] MED LIST changes: +AMIO200T4 PO; -BENZ100C84 PO; +DRN400 PO; +FERR324T PO; +FRS/40 PO; -GLC/500 PO; +GLIP5TAB11 PO; -GLY/5 PO; -INSDGIPEN SQ; +LISI-461 PO; +METF-384 PO; +METO-217 PO; -OXYC1CAP5 PO; +PRED-301 PO; +SERT50TA PO; +SITA50TA9 PO; -TPRSR/25 PO; +TPRSR25 PO
[2016-11-26 13:15] LABS: INR 3.6 (0.9-1.1); PROTHROMBIN TIME (PATIENT) 40.4 SECONDS (9.0-12.0)
== END | disposition home or self-care (01) ==
LOC: C.LABMFLN 09:21
PROVIDERS: ATTEND Internal Medicine Cardiovascular Disease
DX: I48.0 Paroxysmal atrial fibrillation (principal)

== ENCOUNTER → 2016-12-10 | Day surgery (SDC) | payer OTHER ==
[~2016-12-10] VITALS: Ht 160 cm; Wt 163.5 kg
[2016-12-10] VITALS (7 sets, daily range): BP systolic 99–161; BP diastolic 48–73; PULSE 52–88; TEMP 36.3; O2SAT 96–98; Ht 160 cm; Wt 163.5 kg
--- NOTE | 2016-12-10 07:53 | History & Physical Bridge Note ---
H&P Re-Evaluation Bridge Note: I have examined the patient, reviewed the History & Physical and in the interval since the performance of the History & Physical I have noted the following changes of clinical significance: No changes noted
--- NOTE | 2016-12-10 07:56 | Cardiology Procedure Brief Nt ---
Preliminary Cardiology Note Procedure Date Dec 10, 2016. Pre-Procedure Diagnosis Atrial fibrillation Post-Procedure Diagnosis Afib converted to sinus Procedure(s) Performed DC CV Hand Crocheter Tyrone Silk Winding Machine Operator(s) none Estimated Blood Loss none Preliminary Findings Sedation provided by Dr. Kauffman of Anesthesiology. Synchronized 300 J successfully converted afib to sinus rhythm. Recommendations continue anticoagulation and multaq therapy. Specimens none Complication(s) None Disposition
--- NOTE | 2016-12-10 08:06 | Anesthesiology Progress Note ---
Anesthesia Post Op Note Date & Time Dec 10, 2016 at 08:06 Vital Signs Pain Intensity: 0 Vital Signs Past 12 Hours Date Time Temp Pulse Resp B/P (MAP) Pulse Ox O2 Delivery O2 Flow Rate FiO2 12/10/16 07:55 70 16 103/52 96 Room Air 4 Nasal Cannula 12/10/16 07:50 52 16 99/48 96 Room Air 4 Nasal Cannula 12/10/16 07:45 88 16 116/73 96 Room Air 4 Nasal Cannula 12/10/16 07:42 87 16 161/73 96 Room Air 4 Nasal Cannula 12/10/16 07:09 36.3 88 16 161/73 96 Room Air Notes Mental Status: alert / awake / arousable, participated in evaluation Pt Amnestic to Procedure: Yes Nausea / Vomiting: adequately controlled Pain: adequately controlled Airway Patency, RR, SpO2: stable & adequate BP & HR: stable & adequate Hydration State: stable & adequate Anesthetic Complications: no major complications apparent
--- NOTE | 2016-12-10 08:42 | Discharge Instructions ---
Discharge Instructions Date of Service Dec 10, 2016. Visit Reason for Visit: Cardioversion for atrial fibrillation Discharge Discharge Diagnosis / Problem: Atrial fibrillation successfully cardioverted to sinus rhythm. Discharge Goals Goal(s): Therapeutic intervention Medications Restart Stopped Medication(s): Continue your usual medications. No changes were made toady. Activity Recommendations Activity Limitations: per Instructions/Follow-up section Anesthesia . Post Anesthesia Instructions: If you have had General Anesthesia or IV Sedation: * Do not drive today. * Resume driving when surgeon permits. * Do not make important decisions or sign legal documents today. * Call surgeon for: 1. Temperature elevations greater than 101 degrees F. 2. Uncontrollable pain. 3. Excessive bleeding. 4. Persistent nausea and vomiting. 5. Medication intolerance (nausea, vomiting or rash). * For nausea and vomiting use only clear liquids such as: tea, soda, bouillon until nausea subsides, then gradually increase diet as tolerated. * If you have any concerns or questions, call your surgeon's office. If physician is unavailable and it is an emergency, call 911 or go to the nearest emergency room. . Instructions / Follow-Up Instructions / Follow-Up Follow up: 1. Keep scheduled appointment with Ms. Elif Keen on December 22, 2016 at 0830 AM in [facility]. ACTIVITY RECOMMENDATIONS: * May resume driving tomorrow. SPECIAL CARE: * May apply burn ointment for skin irritation. * Please contact physician for any lightheadedness, dizziness or palpitations. Diet Recommendations Recommended Home Diet: resume previous diet Procedures Procedures Performed: Electrical cardioversion Pending Studies Studies pending at discharge: no Medical Emergencies . Who to Call and When: Medical Emergencies: If at any time you feel your situation is an emergency, please call 911 immediately. . Non-Emergent Contact Non-Emergency issues call your: Primary Care Provider, Press Tender [employer] . . "Provider Documentation" section prepared by Siva Vila. .
--- NOTE | 2016-12-10 09:12 | CARDIOVERSION ---
DATE OF OPERATION: 12/10/2016 TIME: 08:47 a.m. PRIMARY CARE PHYSICIAN: Dr. Odalis Rainey. RAIL CAR MAINTENANCE MECHANIC: Dr. Hansen. PROCEDURE: 1. Direct current cardioversion. INDICATIONS: 1. Atrial fibrillation. CONSENT: Informed and written consent was obtained prior to the procedure. SEDATION: Sedation was provided by Dr. Kauffman of anesthesiology. Please see his note under separate cover. PROCEDURAL DETAILS: After a time-out procedure, Mr. Carroll was sedated by anesthesiology. Once he was sufficiently sedated, 300 joules in a synchronized fashion were used to convert him to sinus rhythm successfully. Telemetry and ECG demonstrated sinus rhythm with PACs. He tolerated the procedure well and remained hemodynamically stable. There were no known complications. He had been maintained on anticoagulation in the form of Coumadin, and should continue Coumadin indefinitely. Continue Multaq 400 mg twice daily for antiarrhythmic therapy. Cardioversion was performed after several weeks of Multaq therapy. FOLLOW UP: He has a followup appointment in approximately 2 weeks in the outpatient setting, call sooner for any other questions or concerns. I attest to the content of the Intraoperative Record and any orders documented therein. Any exception s are noted below.
== END | disposition home or self-care (01) ==
LOC: C.CATH 06:25
PROVIDERS: ATTEND Internal Medicine Cardiovascular Disease
DX: I48.91 Unspecified atrial fibrillation (principal); I50.32 Chronic diastolic (congestive) heart failure; E78.5 Hyperlipidemia, unspecified; I10 Essential (primary) hypertension; E66.01 Morbid (severe) obesity due to excess calories; I47.2 Ventricular tachycardia; J44.9 Chronic obstructive pulmonary disease, unspecified; E11.40 Type 2 diabetes mellitus with diabetic neuropathy, unspecified; G47.33 Obstructive sleep apnea (adult) (pediatric); K21.9 Gastro-esophageal reflux disease without esophagitis; M19.90 Unspecified osteoarthritis, unspecified site; Z86.73 Personal history of transient ischemic attack (TIA), and cerebral infarction without residual deficits

== ENCOUNTER → 2017-01-19 | Outpatient (CLI) | payer OTHER ==
[~2017-01-19] MED LIST changes: -CIPR1TAB11 PO; -GLIP5TAB11 PO; -LSN5 PO; -PRD10 PO; -SITA50TA9 PO; -SPIR25TA89 PO; -ZLF50 PO
[2017-01-19 14:23] LABS: THYROID STIMULATING HORMONE 0.47 uIu/ml (0.300-4.500)
== END | disposition home or self-care (01) ==
LOC: C.LABMFLN 09:31
PROVIDERS: ATTEND Physician Assistant
DX: I48.0 Paroxysmal atrial fibrillation (principal)

== ENCOUNTER → 2017-02-12 | Day surgery (SDC) | payer OTHER ==
[~2017-02-12] VITALS: Ht 165.1 cm; Wt 171.0 kg
[~2017-02-12] MED LIST changes: +LIDOCAINE HCL 2% 2 ML VIAL (20MG/ML) ONE; +PROPOFOL IV EMULSION 10 MG/ML 20 ML VIAL IV ONE
[2017-02-12 06:54] VITALS: BP 157/75; PULSE 77; TEMP 36.7; O2SAT 98; Ht 165.1 cm; Wt 171.0 kg
[2017-02-12 07:35] VITALS: BP 153/56; PULSE 80; O2SAT 99
[2017-02-12 07:40] VITALS: BP 135/63; PULSE 61; O2SAT 99
[2017-02-12 07:45] VITALS: BP 135/63; PULSE 62; O2SAT 98
--- NOTE | 2017-02-12 07:57 | Cardioversion ---
Electricial Cardioversion Rpt Date of Service: 02/12/17 Electrical Cardioversion Rprt PROCEDURE: Direct current cardioversion Indications: Atrial fibrillation/flutter Consent: Informed written consent was obtained. Sedation: Dr. Wolff of Anesthesiology provided sedation. Procedure details: After a time-out was performed, patient was sedated and once appropriate, cardioverted successfully in a synchronized fashion with 300 joules. He converted to sinus rhythm. He remained hemodynamically stable. There were no known complications he was awake and was able to move all 4 extremities following the procedure. Plan: Continue amiodarone 200 mg twice daily as well as anticoagulation within the therapeutic range.
--- NOTE | 2017-02-12 08:02 | Discharge Instructions ---
Discharge Instructions Date of Service Feb 12, 2017. Visit Reason for Visit: Cardioversion Discharge Discharge Diagnosis / Problem: Atrial fibrillation successfully cardioverted to sinus rhythm Discharge Goals Goal(s): Therapeutic intervention Medications Restart Stopped Medication(s): Resume usual medications. Amiodarone dose is 200 mg orally twice daily. Activity Recommendations Activity Limitations: per Instructions/Follow-up section Anesthesia . Post Anesthesia Instructions: If you have had General Anesthesia or IV Sedation: * Do not drive today. * Resume driving when surgeon permits. * Do not make important decisions or sign legal documents today. * Call surgeon for: 1. Temperature elevations greater than 101 degrees F. 2. Uncontrollable pain. 3. Excessive bleeding. 4. Persistent nausea and vomiting. 5. Medication intolerance (nausea, vomiting or rash). * For nausea and vomiting use only clear liquids such as: tea, soda, bouillon until nausea subsides, then gradually increase diet as tolerated. * If you have any concerns or questions, call your surgeon's office. If physician is unavailable and it is an emergency, call 911 or go to the nearest emergency room. . Instructions / Follow-Up Instructions / Follow-Up ACTIVITY RECOMMENDATIONS: * May resume driving tomorrow. SPECIAL CARE: * May apply burn ointment for skin irritation. * Please contact physician for any lightheadedness, dizziness or palpitations. Diet Recommendations Recommended Home Diet: resume previous diet, diabetes diet Procedures Procedures Performed: Direct current cardioversion Pending Studies Studies pending at discharge: no Medical Emergencies . Who to Call and When: Medical Emergencies: If at any time you feel your situation is an emergency, please call 911 immediately. . Non-Emergent Contact Non-Emergency issues call your: Beam Worker . . "Provider Documentation" section prepared by Siva Vila. .
--- NOTE | 2017-02-12 08:03 | Anesthesiology Progress Note ---
Anesthesia Post Op Note Date & Time Feb 12, 2017 at 08:02 Vital Signs Pain Intensity: 0 Vital Signs Past 12 Hours Date Time Temp Pulse Resp B/P (MAP) Pulse Ox O2 Delivery O2 Flow Rate FiO2 02/12/17 07:55 65 18 106/55 (72) 97 Room Air 02/12/17 07:45 63 18 113/46 (68) 98 Room Air 02/12/17 07:45 62 16 135/63 98 Room Air 02/12/17 07:40 61 16 135/63 99 Nasal Cannula 6 02/12/17 07:35 80 16 153/56 99 Nasal Cannula 6 02/12/17 06:54 36.7 77 16 157/75 98 Room Air Notes Mental Status: alert / awake / arousable, participated in evaluation Pt Amnestic to Procedure: Yes Nausea / Vomiting: adequately controlled Pain: adequately controlled Airway Patency, RR, SpO2: stable & adequate BP & HR: stable & adequate Hydration State: stable & adequate Anesthetic Complications: no major complications apparent
[2017-02-12 08:15] VITALS: BP 132/74; PULSE 67; O2SAT 98
== END | disposition home or self-care (01) ==
LOC: C.CATH 06:40
PROVIDERS: ATTEND Internal Medicine Cardiovascular Disease
DX: I48.0 Paroxysmal atrial fibrillation (principal); I48.92 Unspecified atrial flutter; I11.0 Hypertensive heart disease with heart failure; I50.32 Chronic diastolic (congestive) heart failure; J44.9 Chronic obstructive pulmonary disease, unspecified; E78.5 Hyperlipidemia, unspecified; E66.01 Morbid (severe) obesity due to excess calories; G47.33 Obstructive sleep apnea (adult) (pediatric); Z90.49 Acquired absence of other specified parts of digestive tract; Z82.49 Family history of ischemic heart disease and other diseases of the circulatory system

== ENCOUNTER 2017-02-13 21:26 | Inpatient (IN) | payer OTHER ==
[~2017-02-13] VITALS: Ht 177.8 cm; Wt 178.7 kg
[~2017-02-13 21:26] MED LIST changes: -DRN400 PO; -LIDOCAINE HCL 2% 2 ML VIAL (20MG/ML) ONE; -PRED-301 PO; -PROPOFOL IV EMULSION 10 MG/ML 20 ML VIAL IV ONE; -TPRSR25 PO
[2017-02-13] MEDS ORDERED: ALBUT/IPRATROP 3MG/0.5MG NEB 3 ML VIAL ONE (21:53)
[2017-02-13] MEDS ORDERED: ALBUT/IPRATROP 3MG/0.5MG NEB 3 ML VIAL INH STA (21:54)
[2017-02-13 21:57] LABS: BASO % 0.4 %; BASO ABS # 0.04 K/uL (0-0.2); COMPLETE YES; EOS % 6.8 %; HEMATOCRIT 35.9 % (42-52); IG% 0.4 %; LYMPH % 18.3 %; LYMPH ABS # 1.64 K/uL (1.2-3.4); MEAN CELL VOLUME 87.6 fL (80-100); MEAN CORPUSCULAR HEMOGLOBIN 26.8 pg (25-34); MEAN CORPUSCULAR HGB CONC 30.6 g/dl (32-36); MONO % 6.8 %; NEUT % 67.3 %; PLATELET COUNT 190 K/uL (130-400); WHITE BLOOD COUNT 8.96 K/uL (4.8-10.8)
--- NOTE | 2017-02-13 22:10 | DIAGNOSTIC IMAGING REPORT ---
CHEST ONE VIEW PORTABLE CLINICAL HISTORY: Shortness of breath. COMPARISON STUDY: Chest radiograph November 01, 2016. FINDINGS: Exam is mildly compromised by suboptimal penetration. No pneumothorax or pleural effusion is present. Mild to moderate cardiomegaly is unchanged. There is no evidence of pulmonary edema. No consolidation is present. IMPRESSION: No acute cardiopulmonary findings. No change in appearance of the chest. Electronically signed by: Gianni Paniagua M.D. 02/13/2017 10:09 PM Dictated Date/Time: 02/13/2017 10:06 PM
[2017-02-13 22:12] LABS: INR 2.4 (0.9-1.1); PARTIAL THROMBOPLASTIN RATIO 1.6; PROTHROMBIN TIME (PATIENT) 26.9 SECONDS (9.0-12.0)
[2017-02-13 22:25] LABS: CALCIUM 8.8 mg/dl (8.5-10.1); CREATININE 1.1 mg/dl (0.60-1.40); POTASSIUM 3.9 mmol/L (3.5-5.1)
[2017-02-13 22:28] LABS: ALB/GLOB RATIO 0.8 (0.9-2)
[2017-02-13] MEDS ORDERED: ALBUTEROL 0.083% NEBU SOLN 3 ML VIAL INH STA (22:35)
[2017-02-13] MEDS ORDERED: METHYLPREDNISOLONE 125 MG VIAL IV STA (22:35)
[2017-02-13] MEDS ORDERED: LEVAQUIN 750MG / 150ML D5W IV ONE (22:45)
[2017-02-13 22:50] VITALS: O2SAT 100
[2017-02-13 23:00] VITALS: PULSE 88; O2SAT 100
[2017-02-13] MEDS ORDERED: ACETAMINOPHEN 325 MG TAB PO ONE (23:05)
[2017-02-13] MEDS ORDERED: ACETAMINOPHEN 325 MG TAB PO PRN (23:15)
[2017-02-13 23:32] LABS: MAGNESIUM 1.4 mg/dl (1.8-2.4)
[2017-02-13] MEDS ORDERED: INSULIN GLARGINE SOLOSTAR 100 UNITS/ML 3 ML PEN SC ONE (23:32)
[2017-02-13] MEDS ORDERED: INSULIN ASPART 100 UNITS/ML 3 ML PEN SC ONE (23:47)
[2017-02-13 23:55] LABS: VEN BLD GAS O2 SATURATION 61.6 %; VEN BLOOD GAS BASE EXCESS 4.4 mEq/L; VENOUS BLOOD GAS PCO2 55 mmHg (38.0-50.0); VENOUS BLOOD GAS PO2 34 mmHg
[2017-02-14] VITALS (18 sets, daily range): BP systolic 109–160; BP diastolic 52–81; PULSE 54–88; TEMP 36.5–36.7; O2SAT 90–99; Ht 177.8 cm; Wt 178.7 kg
[2017-02-14] MEDS ORDERED: GLUCOSE 40% GEL 15 GM TUBE PO PRN
[2017-02-14] MEDS ORDERED: GLUCAGON FOR INJ 1 MG VIAL SQ PRN
[2017-02-14] MEDS ORDERED: GLUCOSE 10 TABS/TUBE PO PRN
[2017-02-14] MEDS ORDERED: DEXTROSE 50% 50 ML SYR IV PRN
[2017-02-14] MEDS ORDERED: DOXYCYCLINE IV 100 MG in DEXTROSE 5% 100ML 100 ML IV ONE (00:07)
[2017-02-14] MEDS ORDERED: ONDANSETRON INJ 2 MG/ML 2 ML VIAL IV PRN (00:15)
[2017-02-14] MEDS ORDERED: TRAMADOL HCL 50 MG TAB PO PRN (00:15)
[2017-02-14] MEDS ORDERED: NSS + 20MEQ KCL 1000ML 1,000 ML IV ONE ×2 (00:15→01:00)
[2017-02-14] MEDS ORDERED: ACETAMINOPHEN 325 MG TAB PO PRN (00:15)
[2017-02-14] MEDS ORDERED: NITROGLYCERIN 0.4 MG SL PER TAB CHARGE SL PRN (00:15)
--- NOTE | 2017-02-14 00:41 | EMERGENCY ROOM VISIT NOTE ---
History Report prepared by Jessica: Noe Chirinos Under the Supervision of: Dr. Jam Cruz D.O. First contact with patient: 22:28 Chief Complaint: SHORTNESS OF BREATH Stated Complaint: SOB Nursing Triage Summary: sob x 1 week. pt had cardioversion yesterday and was told his lungs were okay. hx copd, asthma. History of Present Illness The patient is a 61 year old male who presents to the Emergency Room with complaints of worsening shortness of breath for the past week. The patient additionally states that he has been having a worsening cough. He states that yesterday he was cardioverted and put on new medications due to A-fib for the past month or so. Additionally, he states that he is on Coumadin, and his level was 4.2 yesterday, and he has not had any lows. The patient denies any history of valve replacements or blood clots in his legs. The patient states that he uses a nebulizer, though it does not help, and he uses CPAP when he sleeps. He has a history of asthma and COPD. Pt denies headache, change in vision, fevers, chest pain, nausea, vomiting, diarrhea, pain with urination, and melena. Source of History: patient Onset: a week Position: other (global) Quality: other (shortness of breath) Timing: worsening Associated Symptoms: No chest pain, No nausea, No vomiting Review of Systems See HPI for pertinent positives & negatives. A total of 10 systems reviewed and were otherwise negative. Past Medical & Surgical Medical Problems: (1) Asthma (2) BODY MASS INDEX 50.0-59.9, ADULT (3) Cerebral aneurysm (4) CHRONIC OBSTRUCTIVE ASTHMA, W (ACUTE) EXACERBATION (5) Chronic obstructive lung disease (6) CHRONIC SYSTOLIC/DIASTOLIC HRT FAILURE (7) Congestive heart failure (8) CORONARY ATHEROSCLEROSIS OF [place] CORONARY VESSEL (9) DIAB MCKAYLA WO COMPL, TYPE II OR UNSPEC TYPE, UNCONTROLLED (10) Factor 5 Leiden mutation, heterozygous (11) Hernia (12) HYPERLIPIDEMIA NEC/NOS (13) HYPERTENSION NOS (14) MORBID OBESITY (15) Nonruptured cerebral aneurysm (16) Rapid atrial fibrillation (17) Respiratory failure, acute Surgical Problems: (1) Hx of appendectomy (2) Hx of cholecystectomy Family History Diabetes mellitus FH: CAD (coronary artery disease) Gallbladder disease Hypertension Lung disease Thromboembolic disease Social History Smoking Status: Never Smoker Alcohol Use: none Drug Use: none Marital Status: Housing Status: lives with family Occupation Status: disabled Current/Historical Medications Scheduled Alprazolam (Xanax), 0.5 MG PO BID Amiodarone Hcl (Cordarone), 1 TAB PO BID Arformoterol Tartrate (Brovana), 1 VIAL NEB DIRECTED Atorvastatin (Atorvastatin Calcium), 40 MG PO HS Ferrous Gluconate (Iron Supplement), 324 MG PO BID Fluticasone Prop/Salmeterol (Advair Diskus 250/50 60 Dose), 1 PUFF INH BID Furosemide (Lasix), 40 MG PO BID Gabapentin (Neurontin), 100 MG PO BID Lisinopril (Zestril), 10 MG PO DAILY Metformin Hcl (Glucophage), 1,000 MG PO BID Metoprolol Succinate (Toprol Xl), 100 MG PO DAILY Pantoprazole (Protonix), 40 MG PO BID Potassium Chloride (Potassium Chloride Er), 10 MEQ PO BID Sertraline (Zoloft), 1.5 TAB PO DAILY Sucralfate (Carafate), 10 ML PO Q12 Warfarin Sodium (Warfarin Sodium), 5 MG PO [id number] Warfarin Sodium (Coumadin), 2.5 MG PO WK Scheduled PRN Albuterol Sulf (Proventil 0.083% 2.5MG/3ML), 1 AMP INH QID PRN for SOB/Wheezing Tramadol Hcl (Ultram), 50-100 MG PO Q8 PRN for Pain Allergies Coded Allergies: Iodinated Contrast Media (Verified Allergy, Severe, SHORTNESS OF BREATH, ) Lorazepam (Verified Allergy, Mild, HIVES, 02/13/17) Imipenem (Verified Allergy, Unknown, ., 12/03/12) Penicillins (Verified Allergy, Unknown, UNSURE OF RXN, STATED ALLERGY A CHILD, 12/03/12) Edetic Acid (Verified Adverse Reaction, Severe, SHORTNESS OF BREATH, ) Propylene Glycol (Verified Adverse Reaction, Severe, SHORTNESS OF BREATH, 04/05/14) Regadenoson (Verified Adverse Reaction, Severe, SHORTNESS OF BREATH, ) Physical Exam Vital Signs Date Time Temp Pulse Resp B/P (MAP) Pulse Ox O2 Delivery O2 Flow Rate FiO2 8/19/17 23:21 37.8 80 28 105/84 100 BiPAP 40 02/13/17 23:00 88 16 100 BiPAP/CPAP 02/13/17 22:50 100 02/13/17 22:23 77 32 125/59 98 Nasal Cannula 2.0 02/13/17 21:59 99 Nasal Cannula 2.0 02/13/17 21:48 99 Nasal Cannula 2.0 02/13/17 21:47 99 Nasal Cannula 2.0 02/13/17 21:45 70 02/13/17 21:30 37.6 84 165/88 89 Room Air Physical Exam GENERAL: Sitting up in bed, disheveled, dyspneic, ill-appearing in moderate distress EYE EXAM: normal conjunctiva OROPHARYNX: no exudate, no erythema, lips, buccal mucosa, and tongue normal and mucous membranes are moist NECK: supple, no nuchal rigidity, no adenopathy, non-tender LUNGS: Minimal air movement bilaterally. Normal chest wall mechanics HEART: no murmurs, S1 normal and S2 normal ABDOMEN: abdomen soft, non-tender, normo-active bowel sounds, no masses, no rebound or guarding. BACK: Back is symmetrical on inspection and there is no deformity, no midline tenderness, no CVA tenderness. SKIN: no rashes and no bruising UPPER EXTREMITIES: upper extremities are grossly normal. LOWER EXTREMITIES: Calves equal bilaterally. Pitting edema bilaterally. NEURO EXAM: Normal sensorium, cranial nerves II-XII grossly intact, normal speech, no gross weakness of arms, no gross weakness of legs. Gross sensation intact. Medical Decision & Procedures ER Provider Diagnostic Interpretation: Radiology results as stated below per my review and the radiologist's interpretation: CHEST ONE VIEW PORTABLE CLINICAL HISTORY: Shortness of breath. COMPARISON STUDY: Chest radiograph November 01, 2016. FINDINGS: Exam is mildly compromised by suboptimal penetration. No pneumothorax or pleural effusion is present. Mild to moderate cardiomegaly is unchanged. There is no evidence of pulmonary edema. No consolidation is present. IMPRESSION: No acute cardiopulmonary findings. No change in appearance of the chest. Electronically signed by: Gianni Paniagua M.D. 02/13/2017 10:09 PM Dictated Date/Time: 02/13/2017 10:06 PM Laboratory Results 02/13/17 21:45 Red Blood Count 4.10, Mean Corpuscular Volume 87.6, Mean Corpuscular Hemoglobin 26.8, Mean Corpuscular Hemoglobin Concent 30.6, Mean Platelet Volume 9.0, Neutrophils (%) (Auto) 67.3, Lymphocytes (%) (Auto) 18.3, Monocytes (%) (Auto) 6.8, Eosinophils (%) (Auto) 6.8, Basophils (%) (Auto) 0.4, Neutrophils # (Auto) 6.02, Lymphocytes # (Auto) 1.64, Monocytes # (Auto) 0.61, Eosinophils # (Auto) 0.61, Basophils # (Auto) 0.04 02/13/17 21:45 Test 02/13/17 21:45 02/13/17 22:05 02/13/17 23:30 White Blood Count 8.96 K/uL (4.8-10.8) Red Blood Count 4.10 M/uL (4.7-6.1) Hemoglobin 11.0 g/dL (14.0-18.0) Hematocrit 35.9 % (42-52) Mean Corpuscular Volume 87.6 fL (80-100) Mean Corpuscular Hemoglobin 26.8 pg (25-34) Mean Corpuscular Hemoglobin Concent 30.6 g/dl (32-36) Platelet Count 190 K/uL (130-400) Mean Platelet Volume 9.0 fL (7.4-10.4) Neutrophils (%) (Auto) 67.3 % Lymphocytes (%) (Auto) 18.3 % Monocytes (%) (Auto) 6.8 % Eosinophils (%) (Auto) 6.8 % Basophils (%) (Auto) 0.4 % Neutrophils # (Auto) 6.02 K/uL (1.4-6.5) Lymphocytes # (Auto) 1.64 K/uL (1.2-3.4) Monocytes # (Auto) 0.61 K/uL (0.11-0.59) Eosinophils # (Auto) 0.61 K/uL (0-0.5) Basophils # (Auto) 0.04 K/uL (0-0.2) RDW Standard Deviation 50.8 fL (36.4-46.3) RDW Coefficient of Variation 15.9 % (11.5-14.5) Immature Granulocyte % (Auto) 0.4 % Immature Granulocyte # (Auto) 0.04 K/uL (0.00-0.02) Prothrombin Time 26.9 SECONDS (9.0-12.0) Prothromb Time International Ratio 2.4 (0.9-1.1) Activated Partial Thromboplast Time 42.7 SECONDS (21.0-31.0) Partial Thromboplastin Ratio 1.6 Anion Gap 7.0 mmol/L (3-11) Est Creatinine Clear Calc Drug Dose 112.7 ml/min Estimated GFR () 84.1 Estimated GFR (Non- 72.6 BUN/Creatinine Ratio 14.0 (10-20) Calcium Level 8.8 mg/dl (8.5-10.1) Magnesium Level 1.4 mg/dl (1.8-2.4) Total Bilirubin 1.0 mg/dl (0.2-1) Aspartate Amino Transf (AST/SGOT) 32 U/L (15-37) Alanine Aminotransferase (ALT/SGPT) 39 U/L (12-78) Alkaline Phosphatase 71 U/L (45-117) Pro-B-Type Natriuretic Peptide 338 pg/ml (0-900) Total Protein 7.0 gm/dl (6.4-8.2) Albumin 3.2 gm/dl (3.4-5.0) Globulin 3.8 gm/dl (2.5-4.0) Albumin/Globulin Ratio 0.8 (0.9-2) Bedside Troponin I 0.030 ng/ml (0-0.045) Venous Blood pH 7.37 (7.36-7.41) Venous Blood Partial Pressure CO2 55 mmHg (38.0-50.0) Venous Blood Partial Pressure O2 34 mmHg Venous Blood HCO3 31 mmol/L Venous Blood Oxygen Saturation 61.6 % Venous Blood Base Excess 4.4 mEq/L Lactic Acid Level 2.7 mmol/L (0.4-2.0) Laboratory results per my review. Medications Administered Medications (Trade) Dose Ordered Sig/Ramierz Route Start Time Stop Time Status Last Admin Dose Admin Albuterol/ Ipratropium (Duoneb) 3 ml STK-MED ONCE .ROUTE 02/13/17 21:53 02/13/17 21:54 DC 02/13/17 21:56 3 ML Albuterol Sulfate (Ventolin 0.083% 2.5MG/3ML Neb) 7.5 mg NOW STAT INH 02/13/17 22:35 02/13/17 22:37 DC 02/13/17 22:35 7.5 MG Methylprednisolone Sodium Succinate (Solu-Medrol IV) 125 mg NOW STAT IV 02/13/17 22:35 02/13/17 22:37 DC 02/13/17 22:49 125 MG Levofloxacin (Levaquin / D5W) 750 mg NOW ONCE IV 02/13/17 22:45 02/13/17 22:46 DC 02/13/17 22:49 750 MG Acetaminophen (Tylenol Tab) 650 mg 2305 ONCE PO 02/13/17 23:05 02/13/17 23:14 DC 02/13/17 23:21 650 MG Insulin Glargine (Lantus Solostar Pen) 20 units 2332 ONCE SC 02/13/17 23:32 02/13/17 23:35 DC 02/14/17 00:17 20 UNITS ECG Indication: SOB/dyspnea Rate (beats per minute): 70 Rhythm: sinus rhythm Findings: left axis deviation, other (Intraventricular conduction delay) ED Course ED COURSE: Vital signs were reviewed and showed hypoxia and tachypnea The patients medical record was reviewed The above diagnostic studies were performed and reviewed. ED treatments and interventions as stated above. 2228: The patient was evaluated in room C9. A complete history and physical examination was performed. 2235: Solu-Medrol 125mg IV, Ventolin 0.083% 2.5mg/3ml Neb 7.5mg INH 2245: Levaquin/D5W 750mg IV 2252: I reviewed the patient's case with Dr. Carlton. He will evaluate the patient for further management. 2324: Upon reevaluation, the patient is feeling slightly better on the BIPAP.I discussed my findings with the patient and he understands and agrees with the treatment plan. Based on the patients age, coexisting illnesses, exam and lab findings the decision to treat as an inpatient was made. The patient remained stable while under my care. The patient will be evaluated for further management. Medical Decision Differential diagnoses includes but is not limited to pneumonia, bronchitis, COPD/Asthma exacerbation, pneumothorax, pulmonary embolism, congestive heart failure, acute coronary syndrome. Patient is a 61-year-old male who presents the ER for shortness of breath associated with a cough which has been worsening over the past week. He was cardioverted yesterday. He has not missed any doses of his Coumadin. His Coumadin levels have been high recently. Patient has a history of CHF, COPD and asthma per report. CBC shows no significant leukocytosis. BMP along with LFTs, troponin and BNP was unremarkable. Chest x-ray shows no infiltrate. INR was therapeutic at 2.4. VBG shows a slight elevation in CO2. EKG shows no acute ischemia. With his therapeutic INR PE was not pursued. I do favor this is likely secondary to a bronchitis versus COPD flare. He is placed on BiPAP and given albuterol 3. He was given IV steroids and Levaquin and admitted to internal medicine for COPD exacerbation with hypoxia. Medication Reconcilliation Current Medication List: was personally reviewed by me Blood Pressure Screening Patient's blood pressure: Normal blood pressure Consults Time Called: 2249 Consulting Physician: Dr. Carlton Returned Call: [phone] I reviewed the patient's case with Dr. Cartlon. He will evaluate the patient for further management. Impression Primary Impression: COPD exacerbation Critical Care I have personally spent 35 minutes of critical care time in the direct management of this patient. This includes bedside care, interpretation of diagnostic studies, and testing, discussion with consultants, patient, and family members, and other required patient management activities. This 35 minutes is in excess of all separately billable procedures. Scribe Attestation The scribe's documentation has been prepared under my direction and personally reviewed by me in its entirety. I confirm that the note above accurately reflects all work, treatment, procedures, and medical decision making performed by me. Departure Information Dispostion Being Evaluated By Hospitalist Referrals Odalis Rainey (PCP) Patient Instructions My [facility]
[2017-02-14] MEDS ORDERED: LEVALBUTEROL/IPRATROPIUM NEB INH PRN (00:45)
[2017-02-14] MEDS: MAGNESIUM SULFATE 1GM / D5W 1 GM in PREMIXED IN D5W 100 ML IV SCH ×2 (01:06→02:23)
[2017-02-14] MEDS: IPRATROPIUM BROMIDE NEB SOLN 0.02% 2.5 ML VIAL INH SCH ×4 (02:00→18:53)
[2017-02-14] MEDS: LEVALBUTEROL 1.25MG/0.5ML NEB INH SCH ×4 (02:00→18:53)
[2017-02-14] MEDS ORDERED: LEVALBUTEROL/IPRATROPIUM NEB INH SCH (03:00)
[2017-02-14 04:24] LABS: BASO % 0.4 %; BASO ABS # 0.03 K/uL (0-0.2); COMPLETE YES; EOS % 0.8 %; HEMATOCRIT 34.2 % (42-52); IG% 0.6 %; LYMPH % 10.1 %; LYMPH ABS # 0.85 K/uL (1.2-3.4); MEAN CELL VOLUME 87.5 fL (80-100); MEAN CORPUSCULAR HEMOGLOBIN 28.1 pg (25-34); MEAN CORPUSCULAR HGB CONC 32.2 g/dl (32-36); MEAN PLATELET VOLUME 9.1 fL (7.4-10.4); NEUT % 86.1 %; PLATELET COUNT 163 K/uL (130-400); RED BLOOD COUNT 3.91 M/uL (4.7-6.1); WHITE BLOOD COUNT 8.41 K/uL (4.8-10.8)
[2017-02-14 04:29] LABS: ARTERIAL BLD GAS O2 SATURATION 97.8 % (90-95); ARTERIAL BLOOD GAS BASE EXCESS -3.3 mEq/L (-9-1.8); ARTERIAL BLOOD GAS HCO3 23 mmol/L (19-24); ARTERIAL BLOOD GAS PO2 119 mm/Hg (80-95); ARTERIAL BLOOD GAS pH 7.32 (7.35-7.45)
[2017-02-14 04:40] LABS: INR 2.5 (0.9-1.1); PROTHROMBIN TIME (PATIENT) 28.1 SECONDS (9.0-12.0)
[2017-02-14 04:52] LABS: ALLEN TEST POS (POS); O2 ADMINISTRATION 30%
[2017-02-14 05:10] LABS: BUN/CREATININE RATIO 11.6 (10-20); CALCIUM 8.6 mg/dl (8.5-10.1); CREATININE 1.3 mg/dl (0.60-1.40); MAGNESIUM 1.9 mg/dl (1.8-2.4); POTASSIUM 4.2 mmol/L (3.5-5.1)
[2017-02-14 05:21] LABS: BETA-HYDROXYBUTYRATE 3.6 mg/dL (0.2-2.81)
[2017-02-14] MEDS ORDERED: INSULIN GLARGINE SOLOSTAR 100 UNITS/ML 3 ML PEN SC ONE ×2 (05:32→05:43)
[2017-02-14] MEDS ORDERED: INSULIN ASPART 100 UNITS/ML 3 ML PEN SC ONE (05:32)
--- NOTE | 2017-02-14 05:40 | HISTORY & PHYSICAL EXAMINATION ---
DATE OF ADMISSION: 02/13/2017 PATIENT'S PRIMARY CARE DOCTOR: JULIA Gambino CHIEF COMPLAINT: Shortness of breath. HISTORY OF PRESENT ILLNESS: History was obtained from patient and records. Medical history is significant for chronic respiratory failure secondary to COPD on home O2, sleep apnea on CPAP, chronic diastolic heart failure with EF of 50- 55%, PA-Fib status post recent cardioversion on Coumadin, hypertension, chronic anemia (baseline hemoglobin of 11-12), DM2 on oral meds. Recent confinement in last October 2016 for decompensated heart failure and A-Fib with RVR. Patient underwent elective electrical cardioversion a few days ago. Yesterday, the patient noted cough symptoms, unable to expectorate, shortness of breath, low-grade fever and no aspiration. He was around a sick aunt at [facility]. No chest pain. He denies unusual weight gain. At the Emergency Room the patient was noted to be in respiratory distress, 89 on room air. Px placed on BiPAP. Given Levaquin, Solu-Medrol and nebs for COPD exacerbation. MEDICAL HISTORY: As above. SURGERIES: History of appendectomy, tonsillectomy, hernia surgery, ear surgery and vasectomy. HOME MEDICATIONS: Include; Coumadin, Glucophage, Toprol, potassium, Protonix, sucralfate, Zoloft, Ultram, Xanax, Advair Diskus, Lasix, gabapentin and lisinopril. ALLERGIES: TO EDTA, LORAZEPAM, PROPYLENE GLYCOL, IMIPENEM, PENICILLIN, IODINATED CONTRAST MEDIA AND REGADENOSON. FAMILY HISTORY: Heart disease. PERSONAL AND SOCIAL HISTORY: Nonsmoker. No chronic intake of alcoholic beverages. Disabled. REVIEW OF SYSTEMS: As per HPI, all other ROS negative. PHYSICAL EXAMINATION: VITAL SIGNS: Blood pressure was noted to be 165/88 later 135/80, pulse rate 84, RR 32, temperature 37.8 and O2 sats initially 89 on room air and later 100 on BiPAP. GENERAL: Morbidly obese, minimal respiratory distress, slightly anxious. SKIN: Pallor. HEENT: Pale palpable conjunctivae. Dry mucosa. NECK: Short neck. LUNGS: Decreased breath sounds. HEART: Regular rate and rhythm. ABDOMEN: Some distention, nontender. EXTREMITIES: Minimal LE edema, no tenderness. NEUROLOGIC: No gross focality. LABORATORIES: Hemoglobin was noted to be 11, hematocrit 35, white cell count 8.9 and platelets 190. Sodium 139, potassium 3.9, chloride 105, CO2 21, BUN 50, creatinine of 1 and glucose was noted to be 246. Troponin was 0.03. INR was noted to be 2.4. Hemoglobin A1c from January 2017 was 10. Chest x-ray showed no pleural effusion, cardiomegaly, no consolidation. EKG as per my interpretation : normal sinus rhythm, left axis deviation, LAFB, T-wave flattening in the inferior and septal leads. ASSESSMENT: 1. Acute on chronic hypoxemic respiratory failure secondary to chronic obstructive pulmonary disease exacerbation 2 to complicated bronchitis, possible sepsis. 2. Hypertension, stable 3. chronic diastolic heart failure, patient on the dry side. 4. Atrial fibrillation sp recent cardioversion. NSR, INR therapeutic. 5. DM2, on oral medications, suboptimal control as of recent hemoglobin A1c Has adamantly refused PCPs recommendations for home insulin Rx. 6. Chronic anemia, hemoglobin at baseline. PLAN: PCU. BiPAP. Baseline ABG. Cultures, check lactic acid. Doxycycline for now. IV fluids. Hold home diuretics for now. nebs, steroids for COPD exacerbation. Pulmonary consultation. RE respiratory failure, COPD exacerbation (Patient known to Dr. Pickering.) Basal insulin, ISS BG goal 140-180 Carb count coverage indicated for suboptimal blood sugar control. Patient will benefit from diabetic education. DVT prophylaxis, Coumadin. INR 2-3. Full code. MTDD
[2017-02-14] MEDS ORDERED: SODIUM CHLORIDE 0.9% 1000ML 1,000 ML IV ONE (05:45)
[2017-02-14] MEDS ORDERED: INSULIN ASPART 100 UNITS/ML 3 ML PEN SC SCH ×2 (07:00→11:00)
--- NOTE | 2017-02-14 08:41 | Progress Note ---
Subjective Date of Service: Feb 14, 2017. Subjective Pt evaluation today including: conversation w/ patient, physical exam, lab review, review of studies, review of inpatient medication list Saw/examined the patient in room 244 Wednesday, had elective cardioversion for paroxysmal a. fib - felt fine throughout the day States his breathing worsened Wednesday morning; Wednesday he tried CPAP and oxygen (which he has at home for nocturnal use) - with little improvement, so he came to the ER bipap currently on; in no distress, sitting up during exam, denies chest pain/ fevers/nausea/vomiting Problem List Medical Problems: (1) COPD exacerbation Status: Acute (2) Fluid overload Status: Acute (3) Hypomagnesemia Status: Acute (4) Rapid atrial fibrillation Status: Acute (5) Shortness of breath Status: Acute Review of Systems Constitutional: No fever, No chills Respiratory: + wheezing, + shortness of breath, + dyspnea on exertion, + dyspnea at rest, + hemoptysis, No cough, No sputum Cardiac: + PND, No chest pain, No edema, No palpitations Abdomen: No pain, No nausea, No vomiting, No diarrhea Musculoskeletal: No joint pain Male : No dysuria, No urinary frequency Heme: No abnormal bleeding/bruising Medications Current Inpatient Medications Medications (Trade) Dose Ordered Sig/Ramirez Route Start Time Stop Time Status Last Admin Dose Admin Glucose (Glucose 40% Gel) 15-30 GRAMS 15 GRAMS... UD PRN PO 02/14/17 00:00 03/16/17 00:00 Glucose (Glucose Chew Tab) 4-8 Tablets 4 Tabl... UD PRN PO 02/14/17 00:00 03/16/17 00:00 Dextrose (Dextrose 50% 50ML Syringe) 25-50ML OF 50% DW IV FOR... UD PRN IV 02/14/17 00:00 03/16/17 00:00 Glucagon (Glucagon Inj) 1 mg UD PRN SQ 02/14/17 00:00 03/16/17 00:00 Doxycycline Hyclate 100 mg/ Dextrose 110 ml @ 50 mls/hr BID@0200,1400 IV 02/14/17 14:00 02/21/17 13:59 Acetaminophen (Tylenol Tab) 650 mg Q4H PRN PO 02/14/17 00:15 03/16/17 00:14 Nitroglycerin (Nitrostat Tab) 0.4 mg UD PRN SL 02/14/17 00:15 03/16/17 00:14 Alprazolam (Xanax Tab) 0.5 mg BID PO 02/14/17 09:00 03/16/17 08:59 Amiodarone HCl (Cordarone Tab) 200 mg BID PO 02/14/17 09:00 03/16/17 08:59 Atorvastatin Calcium (Lipitor Tab) 40 mg HS PO 02/14/17 21:00 03/16/17 20:59 Ferrous Gluconate (Ferrous Gluconate Tab) 324 mg BID PO 02/14/17 09:00 03/16/17 08:59 Gabapentin (Neurontin Cap) 100 mg BID PO 02/14/17 09:00 03/16/17 08:59 Pantoprazole Sodium (Protonix Tab) 40 mg BID PO 02/14/17 09:00 03/16/17 08:59 Sertraline HCl (Zoloft Tab) 75 mg DAILY PO 02/14/17 09:00 03/16/17 08:59 Sucralfate (Carafate Susp) 1 gm Q12 PO 02/14/17 09:00 03/16/17 08:59 Tramadol HCl (Ultram Tab) not relieved by tylenol @ Q6H PRN PO 02/14/17 00:15 03/16/17 00:14 Ondansetron HCl (Zofran Inj) 4 mg Q6H PRN IV 02/14/17 00:15 03/16/17 00:14 Ipratropium Moffit (Atrovent 0.02% 0.5MG/2.5ML Neb) 0.5 mg Q6R INH 02/14/17 03:00 03/16/17 02:59 02/14/17 07:14 0.5 MG Levalbuterol (Xopenex 1.25MG/ 0.5ML Neb) 1.25 mg Q6R INH 02/14/17 03:00 03/16/17 02:59 02/14/17 07:14 1.25 MG Insulin Aspart (novoLOG ASPART) SLIDING SCALE If C... ACHS SC 02/14/17 11:00 03/16/17 06:59 Sodium Chloride 1,000 ml @ 250 mls/hr Q4H ONCE IV 02/14/17 05:45 02/14/17 09:44 02/14/17 06:03 250 MLS/HR Insulin Glargine (Lantus Solostar Pen) 30 units BID SC 02/14/17 21:00 03/16/17 20:59 Sodium Chloride 1,000 ml @ 100 mls/hr Q10H IV 02/14/17 10:00 02/14/17 17:59 Prednisone (PredniSONE TAB) 20 mg DAILY PO 02/14/17 09:00 02/19/17 08:59 Metoprolol Succinate (Toprol Xl Tab) 25 mg DAILY PO 02/14/17 09:00 03/16/17 08:59 Lisinopril (Zestril Tab) 10 mg DAILY PO 02/15/17 09:00 03/16/17 08:59 Objective Vital Signs Date Time Temp Pulse Resp B/P (MAP) Pulse Ox O2 Delivery O2 Flow Rate FiO2 02/14/17 07:15 76 99 30 02/14/17 07:14 76 16 99 BiPAP/CPAP 30 02/14/17 06:06 64 97 30 02/14/17 04:00 BiPAP 30 02/14/17 03:44 36.6 61 20 109/52 (71) 98 BiPAP 02/14/17 02:01 73 98 30 02/14/17 02:00 73 17 98 BiPAP/CPAP 30 02/14/17 01:00 BiPAP 30 02/14/17 00:39 36.7 78 18 152/61 99 BiPAP 30 02/14/17 00:35 88 98 30 02/14/17 00:20 37.5 02/13/17 23:21 37.8 80 28 105/84 100 BiPAP 40 02/13/17 23:00 88 16 100 BiPAP/CPAP 40 02/13/17 22:50 100 02/13/17 22:23 77 32 125/59 98 Nasal Cannula 2.0 02/13/17 21:59 99 Nasal Cannula 2.0 02/13/17 21:48 99 Nasal Cannula 2.0 02/13/17 21:47 99 Nasal Cannula 2.0 02/13/17 21:45 70 02/13/17 21:30 37.6 84 165/88 89 Room Air Physical Exam General Appearance: no apparent distress, + obese (morbidly obese) ENT: hearing grossly normal Respiratory/Chest: no respiratory distress, no accessory muscle use, + decreased breath sounds Cardiovascular: regular rate, rhythm, no murmur Abdomen: + pertinent finding (+obese) Extremities: normal inspection, no pedal edema, + pertinent finding (no pitting edema noted, no erythema) Neurologic/Psychiatric: no motor/sensory deficits, alert, normal mood/affect Laboratory Results Last 24 Hours Test 02/13/17 21:45 02/13/17 22:05 02/13/17 23:30 02/14/17 00:38 White Blood Count 8.96 K/uL Red Blood Count 4.10 M/uL Hemoglobin 11.0 g/dL Hematocrit 35.9 % Mean Corpuscular Volume 87.6 fL Mean Corpuscular Hemoglobin 26.8 pg Mean Corpuscular Hemoglobin Concent 30.6 g/dl Platelet Count 190 K/uL Mean Platelet Volume 9.0 fL Neutrophils (%) (Auto) 67.3 % Lymphocytes (%) (Auto) 18.3 % Monocytes (%) (Auto) 6.8 % Eosinophils (%) (Auto) 6.8 % Basophils (%) (Auto) 0.4 % Neutrophils # (Auto) 6.02 K/uL Lymphocytes # (Auto) 1.64 K/uL Monocytes # (Auto) 0.61 K/uL Eosinophils # (Auto) 0.61 K/uL Basophils # (Auto) 0.04 K/uL RDW Standard Deviation 50.8 fL RDW Coefficient of Variation 15.9 % Immature Granulocyte % (Auto) 0.4 % Immature Granulocyte # (Auto) 0.04 K/uL Prothrombin Time 26.9 SECONDS Prothromb Time International Ratio 2.4 Activated Partial Thromboplast Time 42.7 SECONDS Partial Thromboplastin Ratio 1.6 Sodium Level 139 mmol/L Potassium Level 3.9 mmol/L Chloride Level 101 mmol/L Carbon Dioxide Level 31 mmol/L Anion Gap 7.0 mmol/L Blood Urea Nitrogen 15 mg/dl Creatinine 1.10 mg/dl Est Creatinine Clear Calc Drug Dose 112.7 ml/min Estimated GFR () 84.1 Estimated GFR (Non- 72.6 BUN/Creatinine Ratio 14.0 Random Glucose 246 mg/dl Calcium Level 8.8 mg/dl Magnesium Level 1.4 mg/dl Total Bilirubin 1.0 mg/dl Aspartate Amino Transf (AST/SGOT) 32 U/L Alanine Aminotransferase (ALT/SGPT) 39 U/L Alkaline Phosphatase 71 U/L Pro-B-Type Natriuretic Peptide 338 pg/ml Total Protein 7.0 gm/dl Albumin 3.2 gm/dl Globulin 3.8 gm/dl Albumin/Globulin Ratio 0.8 Bedside Troponin I 0.030 ng/ml Venous Blood pH 7.37 Venous Blood Partial Pressure CO2 55 mmHg Venous Blood Partial Pressure O2 34 mmHg Venous Blood HCO3 31 mmol/L Venous Blood Oxygen Saturation 61.6 % Venous Blood Base Excess 4.4 mEq/L Lactic Acid Level 2.7 mmol/L Bedside Glucose 366 mg/dl Test 02/14/17 04:12 02/14/17 07:30 White Blood Count 8.41 K/uL Red Blood Count 3.91 M/uL Hemoglobin 11.0 g/dL Hematocrit 34.2 % Mean Corpuscular Volume 87.5 fL Mean Corpuscular Hemoglobin 28.1 pg Mean Corpuscular Hemoglobin Concent 32.2 g/dl Platelet Count 163 K/uL Mean Platelet Volume 9.1 fL Neutrophils (%) (Auto) 86.1 % Lymphocytes (%) (Auto) 10.1 % Monocytes (%) (Auto) 2.0 % Eosinophils (%) (Auto) 0.8 % Basophils (%) (Auto) 0.4 % Neutrophils # (Auto) 7.24 K/uL Lymphocytes # (Auto) 0.85 K/uL Monocytes # (Auto) 0.17 K/uL Eosinophils # (Auto) 0.07 K/uL Basophils # (Auto) 0.03 K/uL RDW Standard Deviation 51.1 fL RDW Coefficient of Variation 15.9 % Immature Granulocyte % (Auto) 0.6 % Immature Granulocyte # (Auto) 0.05 K/uL Prothrombin Time 28.1 SECONDS Prothromb Time International Ratio 2.5 Arterial Blood pH 7.32 Arterial Blood Partial Pressure CO2 46 mmHg Arterial Blood Partial Pressure O2 119 mm/Hg Arterial Blood HCO3 23 mmol/L Arterial Blood Oxygen Saturation 97.8 % Arterial Blood Base Excess -3.3 mEq/L Arterial Blood Gas Delivery 30% [place] Test POS Sodium Level 137 mmol/L Potassium Level 4.2 mmol/L Chloride Level 103 mmol/L Carbon Dioxide Level 24 mmol/L Anion Gap 10.0 mmol/L Blood Urea Nitrogen 15 mg/dl Creatinine 1.30 mg/dl Est Creatinine Clear Calc Drug Dose 96.5 ml/min Estimated GFR () 68.7 Estimated GFR (Non- 59.3 BUN/Creatinine Ratio 11.6 Random Glucose 389 mg/dl Lactic Acid Level 6.5 mmol/L Calcium Level 8.6 mg/dl Magnesium Level 1.9 mg/dl Troponin I 0.105 ng/ml Beta-Hydroxybutyric Acid 3.60 mg/dL Bedside Glucose 324 mg/dl Assessment and Plan This is a 61 year old morbidly obese male with a PMH of COPD, KIRSTEN on CPAP, uncontrolled DM2, paroxysmal atrial fibrillation with recent elective cardioversion, Factor V Leiden mutation on long-term anticoagulation, HTN, anxiety/depression presents with worsening shortness of breath Acute Hypoxemic Respiratory Failure Acute COPD exacerbation significant issues due to morbid obesity likely obesity hypoventilation follows with pulmonology - will consult pulm for further input for now, started on low dose prednisone due to blood sugar issues continue IV doxy nebulizers as needed wean bipap as tolerated KIRSTEN continue nocturnal CPAP/O2 use Uncontrolled DM2 patient with an A1c >10% refuses insulin treatment at home significant morbid obesity; counseled on weight management and dietary changes diabetic education consulted will start insulin 30 units BID and sliding scale monitor BSGs, if still >350 during next reading will need insulin infusion will wean steroids quickly to prevent further hyperglycemia Elevated Troponin level this is likely due to recent cardioversion on Wednesday (February 12) denies chest pain monitor in tele Lactic Acidemia does not seem to be related to infection no leukocytosis noted, afebrile, hemodynamically stable possibly related to medications, including metformin give fluids, recheck lactic acid at 1000 Paroxysmal A. Fib recent cardioversion, currently NSR continue Amiodarone continue Coumadin Factor V Leiden mutation on Coumadin, which we will continue with a goal INR of 2-3 HTN blood pressure is on the lower end hold Lasix Depression/Anxiety continue home medications DVT ppx Coumadin FULL CODE
[2017-02-14] MEDS: AMIODARONE 200 MG TAB PO SCH ×2 (08:56→20:53)
[2017-02-14] MEDS: FERROUS GLUCONATE 324 MG TAB PO SCH ×2 (08:56→20:53)
[2017-02-14] MEDS: SUCRALFATE 1 GM/10 ML UDC PO SCH ×2 (08:56→20:52)
[2017-02-14] MEDS: GABAPENTIN 100 MG CAP PO SCH ×2 (08:56→20:53)
[2017-02-14] MEDS: METOPROLOL SUCC 25MG EXT REL TAB PO SCH (08:57)
[2017-02-14] MEDS: PANTOprazole SOD 40 MG TAB PO SCH ×2 (08:57→20:53)
[2017-02-14] MEDS: SERTRALINE HCL 50 MG TAB PO SCH (08:58)
[2017-02-14] MEDS ORDERED: METOPROLOL SUCC 50MG EXT REL TAB PO SCH (09:00)
[2017-02-14] MEDS ORDERED: LISINOPRIL 10 MG TAB PO SCH (09:00)
[2017-02-14] MEDS ORDERED: INSULIN GLARGINE SOLOSTAR 100 UNITS/ML 3 ML PEN SC SCH ×3 (09:00→21:00)
[2017-02-14] MEDS: ALPRAZOLAM 0.5 MG TAB PO SCH ×2 (09:05→20:53)
--- NOTE | 2017-02-14 09:56 | Pulmonary Consultation ---
History General Date of Service: Feb 14, 2017. Stated Complaint: Respiratory Failure, Acute HPI The patient is a 61 year old male who presents to [facility] with complaints of Respiratory Failure, Acute. The patient's primary care provider is Odalis Rainey. Mr. Carroll is a 61-year-old male with history history of asthma since age 20 , chronic hypercapnic respiratory failure on home oxygen, obstructive sleep apnea on CPAP, obesity hypoventilation syndrome secondary to morbid obesity with a BMI of 57.6, chronic diastolic heart failure with EF of 50-55%. Status post recent ablation and cardioversion for atrial fibrillation on 02/12/2017. One day prior to admission he noted low-grade subjective fever, increased shortness of breath, dyspnea at rest, and increased cough associated with wheezing and chest tightness. He states that cough is dry and nonproductive, but increased over the last week making him feel lousy. He denies chest pain, palpitations, hemoptysis, night sweats, lower extremity edema or swelling, or recent travel. He admits to exposure to sick contact recently. He put on his CPAP most of the day yesterday after ablation on Wednesday, but did not feel any better on Wednesday. Vital signs at admission showed temperature 37.6, pulse 84, blood pressure 165/ 88 pulse oximetry 89% on room air. He was subsequently placed on 2 L nasal cannula and his pulse oximetry increased to 99%. Due to his increased respiratory rate of 32 he was placed on BiPAP settings 15/5 respiratory rate of 15. Chemistry on admission was within normal limits except for random glucose of 246 and albumin of 3.2. This morning creatinine has increased slightly to 1.3 from 1.1 yesterday glucose remained high at 324. His hematology labs white blood cell count of 8.96 on admission, hemoglobin of 11 and platelet count of 190. Lactate was 2.7 which increased to 6.5. Troponin this morning was 0.105. His coagulation was PT 26.9 PTT 42.7 and INR 2.4. This morning INR is 2.5 VBG 7.37/55/34/31/61.6% on BiPAP settings 12/5- with FiO2 of 40% he was titrated down to 30% and with the course of the morning. ABG this when he was 7.32/46/119/23/97.8%. EKG showed sinus rhythm with first-degree AV block. Ventricular rate of 70 bpm , left axis deviation and intraventricular conduction delay and nonspecific T- wave abnormalities. Chest x-ray showed mild to moderate cardiomegaly with no acute cardiopulmonary findings. In the ER he received DuoNeb , Solu-Medrol 125 IV 1 dose, Levaquin 750 mg IV, doxycycline IV, acetaminophen 650 mg by mouth 1 dose, insulin glargine 20 units , and insulin sliding scale. He was admitted for acute on chronic hypoxic respiratory failure secondary to possible COPD exacerbation. He is currently on albuterol and ipratropium nebulizers every 6 hours. He states that he feels a little better today. He is coughing less since coming in. However, still feels dyspneic when off of the BIPAP. Her pulmonary standpoint he follows with Dr. Pickering/Zahida García in outpatient clinic. He is currently on Advair Diskus 500/50, Brovana nebulizer twice daily as well as albuterol nebulizer every 4-6 hours when necessary. He also takes Coumadin, Glucophage Topol, potassium, Protonix, sucralfate, Zoloft, Xanax, Lasix, gabapentin, lisinopril and Ultram. He was last seen in the office 12/27/2016. He had an overnight sleep study titration study done on 05/23/2013 and CPAP at that time was titrated to 14 cm of water with an AHI of 0 events per hour. On 04/26/2013 he had a nocturnal oximetry done which showed mean high was 94.8% . The mean low was 88.2%. The meaning this event was 29.3 seconds PFT done on 10/26/2012 showed FEV1 to FVC ratio 74% pre-and post bronchodilator. FEV1 of 61% pre-and 71% post-bronchodilation response. Patient had a significant bronchodilator response. Vital capacity was 82%. Total lung capacity 82%. Review of Systems Constitutional: reports: fever Respiratory: reports: cough, shortness of breath Past Medical History Past Medical History: Morbid obesity Moderate persistent asthma Chronic hypercapnic respiratory failure on home oxygen Sleep apnea on CPAP Pulmonary hypertension Chronic diastolic failure with EF of 50-55% Atrial fibrillation status post recent ablation and cardioversion Hypertension hyperlipidemia History of seizures Anemia GERD Factor V Leyden deficiency Chronic anemia (Baseline hemoglobin 11-12) Type 2 diabetes. Diabetic peripheral neuropathy Nephrolithiasis Generalized anxiety disorder Last admission was in October 2016 for decompensated heart failure secondary to A. fib with RVR Past Medical History: COPD, diabetes, high cholesterol Past Surgical History: Appendectomy Tonsillectomy Umbilical Hernia repair Cholecystectomy Appendectomy Vasectomy Bilateral carpal tunnel repair Bilateral tympanostomy tube Right internal carotid aneurysm clipping in 2010 Past Surgical History: no surgical history Family History Diabetes mellitus FH: CAD (coronary artery disease) Gallbladder disease Hypertension Lung disease Thromboembolic disease Family history significant for mother with heart disease, aneurysm and hypertension. Maternal relatives have history of asthma. Father had peripheral vascular disease and at age 60 secondary to accept. His symptoms are healthy. Social History He is a nonsmoker. Denies any alcohol or illicit drug use. He is disabled. 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 He is and lives at home with his . Hx Tobacco Use In Past Year?: No Smoking Status: Never Smoker Alcohol: never Marital status: Housing status: lives with family Occupational Status: disabled Immunizations History of Influenza Vaccine: Yes Influenza Vaccine Date: Mar 14, 2013 History of Tetanus Vaccine?: Yes Tetanus Immunization Date: Jul 23, 2011 History of Pneumococcal: Yes Pneumococcal Date: Mar 23, 2010 History of Hepatitis B Vaccine: Yes Hepatitis Immunization Date: Jul 23, 2011 Allergies Coded Allergies: Iodinated Diagnostic Agents (Verified Allergy, Severe, SHORTNESS OF BREATH , 02/14/17) Lorazepam (Verified Allergy, Mild, HIVES, 02/13/17) Imipenem (Verified Allergy, Unknown, ., 12/03/12) Penicillins (Verified Allergy, Unknown, UNSURE OF RXN, STATED ALLERGY A CHILD, 12/03/12) Edetic Acid (Verified Adverse Reaction, Severe, SHORTNESS OF BREATH, ) Propylene Glycol (Verified Adverse Reaction, Severe, SHORTNESS OF BREATH, 04/05/14) Regadenoson (Verified Adverse Reaction, Severe, SHORTNESS OF BREATH, ) Current Medications Reported Home Medications Medications Dose Route/Sig Max Daily Dose Days Date Category Dose Instructions Cordarone (Amiodarone Hcl) 200 Mg Tab 1 Tab PO BID 90 02/12/17 Rx Zoloft (Sertraline HCl) 50 Mg Tab 1.5 Tab PO DAILY 30 12/10/16 Reported Glucophage (Metformin Hcl) 1,000 Mg Tab 1,000 Mg PO BID 12/10/16 Reported Lasix (Furosemide) 40 Mg Tab 40 Mg PO BID 12/10/16 Reported Iron Supplement (Ferrous Gluconate) 324 Mg Tab 324 Mg PO BID 12/10/16 Reported Toprol Xl (Metoprolol Succinate) 50 Mg Tabcr 100 Mg PO DAILY 12/10/16 Reported Zestril (Lisinopril) 10 Mg Tab 10 Mg PO DAILY 12/10/16 Reported Advair Diskus 250/50 60 Dose (Fluticasone Prop/Salmeterol) 1 Ea Aerp 1 Puff INH BID 01/21/15 Reported Coumadin (Warfarin Sodium) 5 Mg Tab 2.5 Mg PO WK 01/21/15 Reported TUESDAYS Protonix (Pantoprazole Sodium) 40 Mg Tab 40 Mg PO BID 01/21/15 Reported Atorvastatin Calcium (Atorvastatin) 40 Mg Tab 40 Mg PO HS 30 04/05/14 Rx Brovana (Arformoterol Tartrate) 15 Mcg/2 Ml Neb 1 Vial NEB DIRECTED 30 04/05/14 Rx bid as directed Proventil 0.083% 2.5MG/3ML (Albuterol Sulf) 2.5 Mg/3 Ml Nebu 1 Amp INH QID PRN 04/05/14 Rx Carafate (Sucralfate) 1 Gm/10 Ml Dali 10 Ml PO Q12 04/03/14 Reported Warfarin Sodium 5 Mg Tab 5 Mg PO [id number] 09/08/13 Reported all days except wednesday Potassium Chloride Er (Potassium Chloride) 10 Meq Tab 10 Meq PO BID 12/03/12 Reported Ultram (Tramadol Hcl) 50 Mg Tab 50-100 Mg PO Q8 PRN 03/16/12 Reported Xanax (Alprazolam) 0.5 Mg Tab 0.5 Mg PO BID 09/18/10 Reported Neurontin (Gabapentin) 100 Mg Cap 100 Mg PO BID 09/18/10 Reported Physical Physical Exam Vital Signs: Date Time Temp Pulse Resp B/P (MAP) Pulse Ox O2 Delivery O2 Flow Rate FiO2 02/14/17 08:16 36.6 80 24 160/81 (107) 90 Room Air 02/14/17 07:15 76 99 30 02/14/17 07:14 76 16 99 BiPAP/CPAP 30 02/14/17 06:06 64 97 30 02/14/17 04:00 BiPAP 30 02/14/17 03:44 36.6 61 20 109/52 (71) 98 BiPAP 02/14/17 02:01 73 98 30 02/14/17 02:00 73 17 98 BiPAP/CPAP 30 02/14/17 01:00 BiPAP 30 02/14/17 00:39 36.7 78 18 152/61 99 BiPAP 30 02/14/17 00:35 88 98 30 02/14/17 00:20 37.5 02/13/17 23:21 37.8 80 28 105/84 100 BiPAP 40 02/13/17 23:00 88 16 100 BiPAP/CPAP 40 02/13/17 22:50 100 02/13/17 22:23 77 32 125/59 98 Nasal Cannula 2.0 02/13/17 21:59 99 Nasal Cannula 2.0 02/13/17 21:48 99 Nasal Cannula 2.0 02/13/17 21:47 99 Nasal Cannula 2.0 02/13/17 21:45 70 02/13/17 21:30 37.6 84 165/88 89 Room Air General Appearance: WD/WN, NO APPARENT DISTRESS, obese Diagnostics Labs Results Past 24 Hours Test 02/13/17 21:45 02/13/17 22:05 02/13/17 23:30 02/14/17 00:38 Range/Units White Blood Count 8.96 4.8-10.8 K/uL Red Blood Count 4.10 4.7-6.1 M/uL Hemoglobin 11.0 14.0-18.0 g/dL Hematocrit 35.9 42-52 % Mean Corpuscular Volume 87.6 80-100 fL Mean Corpuscular Hemoglobin 26.8 25-34 pg Mean Corpuscular Hemoglobin Concent 30.6 32-36 g/dl Platelet Count 190 130-400 K/uL Mean Platelet Volume 9.0 7.4-10.4 fL Neutrophils (%) (Auto) 67.3 % Lymphocytes (%) (Auto) 18.3 % Monocytes (%) (Auto) 6.8 % Eosinophils (%) (Auto) 6.8 % Basophils (%) (Auto) 0.4 % Neutrophils # (Auto) 6.02 1.4-6.5 K/uL Lymphocytes # (Auto) 1.64 1.2-3.4 K/uL Monocytes # (Auto) 0.61 0.11-0.59 K/uL Eosinophils # (Auto) 0.61 0-0.5 K/uL Basophils # (Auto) 0.04 0-0.2 K/uL RDW Standard Deviation 50.8 36.4-46.3 fL RDW Coefficient of Variation 15.9 11.5-14.5 % Immature Granulocyte % (Auto) 0.4 % Immature Granulocyte # (Auto) 0.04 0.00-0.02 K/uL Prothrombin Time 26.9 9.0-12.0 SECONDS Prothromb Time International Ratio 2.4 0.9-1.1 Activated Partial Thromboplast Time 42.7 21.0-31.0 SECONDS Partial Thromboplastin Ratio 1.6 Sodium Level 139 136-145 mmol/L Potassium Level 3.9 3.5-5.1 mmol/L Chloride Level 101 98-107 mmol/L Carbon Dioxide Level 31 21-32 mmol/L Anion Gap 7.0 3-11 mmol/L Blood Urea Nitrogen 15 7-18 mg/dl Creatinine 1.10 0.60-1.40 mg/dl Est Creatinine Clear Calc Drug Dose 112.7 ml/min Estimated GFR () 84.1 Estimated GFR (Non- 72.6 BUN/Creatinine Ratio 14.0 10-20 Random Glucose 246 70-99 mg/dl Calcium Level 8.8 8.5-10.1 mg/dl Magnesium Level 1.4 1.8-2.4 mg/dl Total Bilirubin 1.0 0.2-1 mg/dl Aspartate Amino Transf (AST/SGOT) 32 15-37 U/L Alanine Aminotransferase (ALT/SGPT) 39 12-78 U/L Alkaline Phosphatase 71 45-117 U/L Pro-B-Type Natriuretic Peptide 338 0-900 pg/ml Total Protein 7.0 6.4-8.2 gm/dl Albumin 3.2 3.4-5.0 gm/dl Globulin 3.8 2.5-4.0 gm/dl Albumin/Globulin Ratio 0.8 0.9-2 Bedside Troponin I 0.030 0-0.045 ng/ml Venous Blood pH 7.37 7.36-7.41 Venous Blood Partial Pressure CO2 55 38.0-50.0 mmHg Venous Blood Partial Pressure O2 34 mmHg Venous Blood HCO3 31 mmol/L Venous Blood Oxygen Saturation 61.6 % Venous Blood Base Excess 4.4 mEq/L Lactic Acid Level 2.7 0.4-2.0 mmol/L Bedside Glucose 366 70-99 mg/dl Test 02/14/17 04:12 02/14/17 07:30 Range/Units White Blood Count 8.41 4.8-10.8 K/uL Red Blood Count 3.91 4.7-6.1 M/uL Hemoglobin 11.0 14.0-18.0 g/dL Hematocrit 34.2 42-52 % Mean Corpuscular Volume 87.5 80-100 fL Mean Corpuscular Hemoglobin 28.1 25-34 pg Mean Corpuscular Hemoglobin Concent 32.2 32-36 g/dl Platelet Count 163 130-400 K/uL Mean Platelet Volume 9.1 7.4-10.4 fL Neutrophils (%) (Auto) 86.1 % Lymphocytes (%) (Auto) 10.1 % Monocytes (%) (Auto) 2.0 % Eosinophils (%) (Auto) 0.8 % Basophils (%) (Auto) 0.4 % Neutrophils # (Auto) 7.24 1.4-6.5 K/uL Lymphocytes # (Auto) 0.85 1.2-3.4 K/uL Monocytes # (Auto) 0.17 0.11-0.59 K/uL Eosinophils # (Auto) 0.07 0-0.5 K/uL Basophils # (Auto) 0.03 0-0.2 K/uL RDW Standard Deviation 51.1 36.4-46.3 fL RDW Coefficient of Variation 15.9 11.5-14.5 % Immature Granulocyte % (Auto) 0.6 % Immature Granulocyte # (Auto) 0.05 0.00-0.02 K/uL Prothrombin Time 28.1 9.0-12.0 SECONDS Prothromb Time International Ratio 2.5 0.9-1.1 Arterial Blood pH 7.32 7.35-7.45 Arterial Blood Partial Pressure CO2 46 35-46 mmHg Arterial Blood Partial Pressure O2 119 80-95 mm/Hg Arterial Blood HCO3 23 19-24 mmol/L Arterial Blood Oxygen Saturation 97.8 90-95 % Arterial Blood Base Excess -3.3 -9-1.8 mEq/L Arterial Blood Gas Delivery 30% [place] Test POS POS Sodium Level 137 136-145 mmol/L Potassium Level 4.2 3.5-5.1 mmol/L Chloride Level 103 98-107 mmol/L Carbon Dioxide Level 24 21-32 mmol/L Anion Gap 10.0 3-11 mmol/L Blood Urea Nitrogen 15 7-18 mg/dl Creatinine 1.30 0.60-1.40 mg/dl Est Creatinine Clear Calc Drug Dose 96.5 ml/min Estimated GFR () 68.7 Estimated GFR (Non- 59.3 BUN/Creatinine Ratio 11.6 10-20 Random Glucose 389 70-99 mg/dl Lactic Acid Level 6.5 0.4-2.0 mmol/L Calcium Level 8.6 8.5-10.1 mg/dl Magnesium Level 1.9 1.8-2.4 mg/dl Troponin I 0.105 0-0.045 ng/ml Beta-Hydroxybutyric Acid 3.60 0.2-2.81 mg/dL Bedside Glucose 324 70-99 mg/dl Microbiology Results 02/13/17 Blood Culture, Received Pending 02/13/17 Blood Culture, Received Pending Diagnostic Radiology Chest x-ray from 02/13/2017 FINDINGS: Exam is mildly compromised by suboptimal penetration. No pneumothorax or pleural effusion is present. Mild to moderate cardiomegaly is unchanged. There is no evidence of pulmonary edema. No consolidation is present. IMPRESSION: No acute cardiopulmonary findings. No change in appearance of the chest. TTE on 11/02/2016 * -- Conclusions -- * Technically limited study despite use of ultrasound contrast. * 1. Normal LV size. Moderate concentric LVH. * 2. Grossly normal systolic function. LVEF 50-55%. Paradoxical septal motion consistent with conduction abnormality. * 3. RV not well visualized. Mildly dilated RV. Normal RV function. * 4. No significant valvular pathology. * 5. Compared with prior study from 04/04/2014: No significant changes. Impression Assessment and Plan Acute on chronic hypercarbic respiratory failure Asthma/COPD overlap Obesity hypoventilation syndrome Morbid obesity Nocturnal hypoxemia Diastolic dysfunction Troponinemia Uncontrolled diabetes Patient symptoms are multifactorial in nature. He carries a diagnosis of asthma /COPD this may be an overlap syndrome. He does have a very good bronchodilator response on PFTs. Patient does have a history of chronic dyspnea on exertion, however due to increased dyspnea and cough, I would treat this and is as an exacerbation of COPD. He does have baseline hypercapnic with an increase in BiPAP seen on his chemistry. He is also on diuretics which can increase this as well as anxiolytics decreased respiratory drive and precipitate worsening hypercapnia. In the meantime I would continue with BiPAP as needed to maintain PaO2 of 88-92% . I would be judicious about decreasing his PCO2 to less than 50. I feel that this is his baseline. Decreasing this much further may precipitate respiratory alkalosis. Continue with supplemental oxygen as needed. Continue with antibiotics, bronchodilators and inhaled corticosteroids. Continue will all other management per primary team. I appreciate the consult and will continue to follow with you.
[2017-02-14] MEDS ORDERED: SODIUM CHLORIDE 0.9% 1000ML 1,000 ML IV SCH (10:00)
[2017-02-14 11:01] LABS: THYROID STIMULATING HORMONE 0.54 uIu/ml (0.300-4.500)
[2017-02-14] MEDS ORDERED: PHARMACY GLYCEMIC MGMT CONSULT SCH (13:55)
[2017-02-14] MEDS ORDERED: INSULIN HUMAN REGULAR IV BOLUS 10 UNIT in SYRINGE 0 ML IV SCH (14:00)
[2017-02-14] MEDS: DOXYCYCLINE IV 100 MG in DEXTROSE 5% 100ML 100 ML IV SCH (15:16)
--- NOTE | 2017-02-14 15:23 | Pharmacy Progress Note ---
Glycemic Control Intl Consult Date of Service Feb 14, 2017. Scope Glycemic Pharmacist consulted by Dr Shaw on 02/14/2017 for glycemic control and to write orders per [facility] inpatient glycemic control protocol Objective Weight (Kilograms): 182.200 Accuchecks BSG (last 24hrs): Test 02/13/17 21:45 02/14/17 00:38 02/14/17 04:12 02/14/17 07:30 Random Glucose 246 mg/dl (70-99) 389 mg/dl (70-99) Bedside Glucose 366 mg/dl (70-99) 324 mg/dl (70-99) Test 02/14/17 11:13 Bedside Glucose 385 mg/dl (70-99) Laboratory Data (last 24hrs) Test 02/13/17 21:45 02/14/17 04:12 Anion Gap 7.0 mmol/L 10.0 mmol/L BUN/Creatinine Ratio 14.0 11.6 Blood Urea Nitrogen 15 mg/dl 15 mg/dl Creatinine 1.10 mg/dl 1.30 mg/dl Potassium Level 3.9 mmol/L 4.2 mmol/L Sodium Level 139 mmol/L 137 mmol/L White Blood Count 8.96 K/uL 8.41 K/uL Red Blood Count 4.10 M/uL 3.91 M/uL Hemoglobin 11.0 g/dL 11.0 g/dL Hematocrit 35.9 % 34.2 % Mean Corpuscular Volume 87.6 fL 87.5 fL Mean Corpuscular Hemoglobin 26.8 pg 28.1 pg Mean Corpuscular Hemoglobin Concent 30.6 g/dl 32.2 g/dl Platelet Count 190 K/uL 163 K/uL Mean Platelet Volume 9.0 fL 9.1 fL Neutrophils (%) (Auto) 67.3 % 86.1 % Lymphocytes (%) (Auto) 18.3 % 10.1 % Monocytes (%) (Auto) 6.8 % 2.0 % Eosinophils (%) (Auto) 6.8 % 0.8 % Basophils (%) (Auto) 0.4 % 0.4 % Neutrophils # (Auto) 6.02 K/uL 7.24 K/uL Lymphocytes # (Auto) 1.64 K/uL 0.85 K/uL Monocytes # (Auto) 0.61 K/uL 0.17 K/uL Eosinophils # (Auto) 0.61 K/uL 0.07 K/uL Basophils # (Auto) 0.04 K/uL 0.03 K/uL Recent Pertinent Medications Outpatient Anti-diabetic Regimen: * metformin 1 gm PO BID (patient refuses metformin) * A1c = pending (over 9% previously) The patient is currently receiving: * Basal insulin: Lantus 20 units SQ x 1 yesterday and 30 units this morning * Correctional Insulin: Novolog Correction per scale ACHS Goal Range: Low 140 mg/dL - High 180 mg/dL Correction Factor: 25 mg/dL/unit * Prandial insulin: Per carb ratio of 1 unit per 15 grams CHO consumed Risk Factors for Insulin Resistance: * Steroids: 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 However, more stringent targets may be selected in individual cases. Will utilize more stringent goal of 110-140mg/dl based on patient age & comorbidities. Additionally, tighter glycemic control is warranted to facilitate infection healing. * Mr Carroll is a 61 y/o M who presented with difficulty breathing after having a cardioversion on Wednesday. He was in excellent health after the procedure but had progressive SOB and low grade fever. He has a PMH of COPD on home oxygen, CHF, and anemia. He was admitted with a COPD exacerbation. At home , the patient is on metformin 1 gm PO BID; it is recorded that he refuses insulin at home. * Last night the patient was given Solu-Medrol 125 mg IV x 1 then started on prednisone 20 mg PO daily. His blood sugar this morning was 324 mg/dL. The patient was given Lantus 20 units last night and 30 units this morning (31 units is weight based stress of 2). The patient received 9 units of Novolog and at lunch he was 385 mg/dL. He received 14 units of Novolog. * Once pharmacy was consulted, an insulin bolus of 10 units was sent. Will await recheck with dinner. If blood sugar still above 300 mg/dL, it is reasonable to start an insulin infusion (confirmed with Dr Shaw). Will continue Lantus during insulin infusion to ease transition. * Correctional insulin weight based stress of 2-3 will be started as well unless insulin infusion necessary. PLAN FOR INPATIENT GLYCEMIC CONTROL: * Holding outpatient oral diabetes medications * Basal insulin with LANTUS 30 units SQ BID * Correctional Insulin with NOVOLOG per scale ACHS * Goal Range: Low 110 mg/dL - High 140 mg/dL * Correction Factor: 15 mg/dL/unit * Nutritional / Prandial insulin per carb ratio of 1 unit per 3 grams CHO consumed * Please note that the plan above was derived based on current level of insulin resistance and hospital stress. These recommendations are appropriate for inpatient admission only. Plan of care upon discharge will need to be reassessed to avoid potential outpatient hypo/hyperglycemia. Thank you.
[2017-02-14] MEDS ORDERED: INSULIN IV INFUSION PROTOCOL STA (17:07)
[2017-02-14] MEDS ORDERED: MODERATE STRESS LEVEL ONE (17:15)
[2017-02-14] MEDS ORDERED: INSULIN PROTOCOL GOAL RANGE ONE (17:15)
[2017-02-14] MEDS: INSULIN ASPART 100 UNITS/ML 3 ML PEN SC SCH ×2 (17:30→20:57)
[2017-02-14] MEDS ORDERED: INSULIN HUMAN REGULAR IV BOLUS 4.5 UNIT in SYRINGE 0 ML IV ONE (17:45)
[2017-02-14] MEDS: INSULIN REGULAR 250 UNITS in SODIUM CHLORIDE 0.9% 250ML 250 ML IV SCH (18:35)
[2017-02-14] MEDS ORDERED: NURSING VERBAL MED ORDER ONE (19:15)
[2017-02-14] MEDS: ATORVASTATIN 40 MG TAB PO SCH (20:53)
[2017-02-14] MEDS ORDERED: WARFARIN SOD 2.5 MG TAB PO STA (22:35)
[2017-02-15] VITALS (17 sets, daily range): BP systolic 112–156; BP diastolic 60–72; PULSE 55–84; TEMP 36.6–37.6; O2SAT 86–98
[2017-02-15] MEDS ORDERED: INSULIN ASPART 100 UNITS/ML 3 ML PEN SC SCH
[2017-02-15] MEDS: DOXYCYCLINE IV 100 MG in DEXTROSE 5% 100ML 100 ML IV SCH ×2 (01:35→16:24)
[2017-02-15] MEDS: IPRATROPIUM BROMIDE NEB SOLN 0.02% 2.5 ML VIAL INH SCH ×4 (02:03→19:15)
[2017-02-15] MEDS: LEVALBUTEROL 1.25MG/0.5ML NEB INH SCH ×4 (02:03→19:13)
[2017-02-15 07:36] LABS: BASO % 0.2 %; BASO ABS # 0.02 K/uL (0-0.2); COMPLETE YES; EOS % 0.2 %; HEMATOCRIT 31.9 % (42-52); IG% 0.5 %; LYMPH % 10.4 %; MEAN CELL VOLUME 88.9 fL (80-100); MEAN CORPUSCULAR HEMOGLOBIN 27.9 pg (25-34); MEAN CORPUSCULAR HGB CONC 31.3 g/dl (32-36); MEAN PLATELET VOLUME 8.6 fL (7.4-10.4); NEUT % 82.7 %; PLATELET COUNT 154 K/uL (130-400); RED BLOOD COUNT 3.59 M/uL (4.7-6.1); WHITE BLOOD COUNT 12.46 K/uL (4.8-10.8)
[2017-02-15 07:49] LABS: INR 2.8 (0.9-1.1); PROTHROMBIN TIME (PATIENT) 31.6 SECONDS (9.0-12.0)
[2017-02-15] MEDS: SUCRALFATE 1 GM/10 ML UDC PO SCH ×2 (07:57→20:49)
[2017-02-15] MEDS: GABAPENTIN 100 MG CAP PO SCH ×2 (07:58→20:47)
[2017-02-15] MEDS: AMIODARONE 200 MG TAB PO SCH ×2 (07:58→20:49)
[2017-02-15] MEDS: FERROUS GLUCONATE 324 MG TAB PO SCH ×2 (07:58→20:49)
[2017-02-15] MEDS: LISINOPRIL 10 MG TAB PO SCH (07:59)
[2017-02-15] MEDS: METOPROLOL SUCC 25MG EXT REL TAB PO SCH (07:59)
[2017-02-15] MEDS: PANTOprazole SOD 40 MG TAB PO SCH ×2 (07:59→20:48)
[2017-02-15] MEDS ORDERED: INSULIN GLARGINE SOLOSTAR 100 UNITS/ML 3 ML PEN SC SCH (08:00)
[2017-02-15] MEDS: SERTRALINE HCL 50 MG TAB PO SCH (08:00)
[2017-02-15] MEDS: ALPRAZOLAM 0.5 MG TAB PO SCH ×2 (08:05→20:45)
[2017-02-15] MEDS: INSULIN ASPART 100 UNITS/ML 3 ML PEN SC SCH ×4 (09:42→20:53)
--- NOTE | 2017-02-15 09:48 | Pulmonology Progress Note ---
Pulmonary Progress Note Date of Service Feb 15, 2017. Attending Dr. Pickering Subjective [place] improved this AM. Removed BiPAP and ate breakfast without difficulty then reports increased dyspnea and return to BiPAP where her can rest more comfortably. Denies associated chest pain or abdominal symptoms. Denies fevers or pharyngitis. States dyspnea is "in my bronchiole" with the sensation cannot get a deep breath. Objective 61-yo male with h/o asthma/COPD, home O2, diastolic dysfunction, KIRSTEN (CPAP 14cm H20 + 2LPM), and morbid obesity admitted through [facility] 02/14/17 symptomatic of cough and hypoxia in the setting of atrial fibrillation s/p recent cardioversion (on amiodarone) and supra-therapeutic INR. VBG 02/13/17: 7.37/55/34 /31. Also noted up-trending lactic acid with hyperglycemia. CXR 02/13/17: mild/moderate cardiomegaly. No acute cardiopulmonary process. He was treated with O2, BiPAP, steroids, antibiotics, and scheduled bronchodilators. ABG 02/14/17: 7.32/46/119-30%/23 Today: - SaO2 96-97% on BiPAP: i15/e5- 30% - Afebrile, HD stable, Wt: 182.54kg - WBC/Hgb/Hct/Plts: 12.46/10/31.9/154 - INR: 2.8, Lactic acid: pending - Prednisone: 20mg Physical Exam: Constitutional: Well developed, morbidly obese male lying in right lateral position on BiPAP. No acute distress. Head: + facial symmetry Eyes: EOMi, PERRLA, no conjunctival injection Mouth: BIPAP mask with good seal. Neck: Trachea midline. No adenopathy or masses Respiratory: Non-labored respirations. Very reduced BS bilaterally. NO wheeze audible. No clubbing or cyanosis. Cardiovascular: RRR, no MRG. +2 radial pulses. <1s capillary refill. Abdomen: soft, obese, active bowel sounds Integumentary: no rashes, or ecchymosis MSK/Extremities: Moving and developed symmetrically. Bilateral LE edema - no erythema or calf tenderness. Neurologic: A&O, data recall in-tact. Appropriate affect. Assessment & Plan 61-yo male admitted hypercarbic hypoxic respiratory failure complicated by elevated lactic acid and and hyperglycemia: - Responded well to BiPAP, slight regression today: repeat CXR - Add INH ICS - continue scheduled bronchodilators - Once lactic acid and hyperglycemia normalize, consider 1x andrew diuresis Patient indicates reviewed and agree with plan Data Medications: Current Inpatient Medications Medications (Trade) Dose Ordered Sig/Ramirez Route Start Time Stop Time Status Last Admin Dose Admin Glucose (Glucose 40% Gel) 15-30 GRAMS 15 GRAMS... UD PRN PO 02/14/17 00:00 03/16/17 00:00 Glucose (Glucose Chew Tab) 4-8 Tablets 4 Tabl... UD PRN PO 02/14/17 00:00 03/16/17 00:00 Dextrose (Dextrose 50% 50ML Syringe) 25-50ML OF 50% DW IV FOR... UD PRN IV 02/14/17 00:00 03/16/17 00:00 Glucagon (Glucagon Inj) 1 mg UD PRN SQ 02/14/17 00:00 03/16/17 00:00 Doxycycline Hyclate 100 mg/ Dextrose 110 ml @ 50 mls/hr BID@0200,1400 IV 02/14/17 14:00 02/21/17 13:59 02/15/17 01:35 50 MLS/HR Acetaminophen (Tylenol Tab) 650 mg Q4H PRN PO 02/14/17 00:15 03/16/17 00:14 Nitroglycerin (Nitrostat Tab) 0.4 mg UD PRN SL 02/14/17 00:15 03/16/17 00:14 Alprazolam (Xanax Tab) 0.5 mg BID PO 02/14/17 09:00 03/16/17 08:59 02/15/17 08:05 0.5 MG Amiodarone HCl (Cordarone Tab) 200 mg BID PO 02/14/17 09:00 03/16/17 08:59 02/15/17 07:58 200 MG Atorvastatin Calcium (Lipitor Tab) 40 mg HS PO 02/14/17 21:00 03/16/17 20:59 02/14/17 20:53 40 MG Ferrous Gluconate (Ferrous Gluconate Tab) 324 mg BID PO 02/14/17 09:00 03/16/17 08:59 02/15/17 07:58 324 MG Gabapentin (Neurontin Cap) 100 mg BID PO 02/14/17 09:00 03/16/17 08:59 02/15/17 07:58 100 MG Pantoprazole Sodium (Protonix Tab) 40 mg BID PO 02/14/17 09:00 03/16/17 08:59 02/15/17 07:59 40 MG Sertraline HCl (Zoloft Tab) 75 mg DAILY PO 02/14/17 09:00 03/16/17 08:59 02/15/17 08:00 75 MG Sucralfate (Carafate Susp) 1 gm Q12 PO 02/14/17 09:00 03/16/17 08:59 02/15/17 07:57 1 GM Tramadol HCl (Ultram Tab) not relieved by tylenol @ Q6H PRN PO 02/14/17 00:15 03/16/17 00:14 Ondansetron HCl (Zofran Inj) 4 mg Q6H PRN IV 02/14/17 00:15 03/16/17 00:14 Ipratropium [place] (Atrovent 0.02% 0.5MG/2.5ML Neb) 0.5 mg Q6R INH 02/14/17 03:00 03/16/17 02:59 02/15/17 07:11 0.5 MG Levalbuterol (Xopenex 1.25MG/ 0.5ML Neb) 1.25 mg Q6R INH 02/14/17 03:00 03/16/17 02:59 02/15/17 07:10 1.25 MG Prednisone (PredniSONE TAB) 20 mg DAILY PO 02/14/17 09:00 02/19/17 08:59 02/15/17 07:59 20 MG Metoprolol Succinate (Toprol Xl Tab) 25 mg DAILY PO 02/14/17 09:00 03/16/17 08:59 02/15/17 07:59 25 MG Lisinopril (Zestril Tab) 10 mg DAILY PO 02/15/17 09:00 03/16/17 08:59 02/15/17 07:59 10 MG Miscellaneous Information (Consult Glycemic Management Pharmacy) 1 ea UD N/A 02/14/17 13:55 03/16/17 13:54 Insulin Aspart (novoLOG ASPART) SLIDING SCALE PCHS NC 02/14/17 17:30 02/15/17 14:00 02/15/17 09:42 14 UNITS Insulin Human Regular 250 units/ Sodium Chloride 252.5 ml @ 0 mls/hr DAILY@1130 IV 02/14/17 17:45 02/15/17 14:00 02/14/17 18:35 4.546 MLS/HR Miscellaneous Information (Dc Iv Insulin Infusion) 1 ea TODAY@1400 N/A 02/15/17 14:00 02/15/17 14:01 Vital Signs: Date Time Temp Pulse Resp B/P (MAP) Pulse Ox O2 Delivery O2 Flow Rate FiO2 02/15/17 09:15 97 BiPAP 2.0 30 02/15/17 07:19 36.6 66 18 132/72 (92) 97 BiPAP CPAP 02/15/17 07:13 84 96 30 02/15/17 07:12 84 19 96 BiPAP/CPAP 30 02/15/17 05:34 59 98 30 02/15/17 04:00 36.7 57 24 156/70 (98) 97 BiPAP 30 02/15/17 04:00 98 BiPAP 2.0 30 02/15/17 02:04 55 86 30 02/15/17 02:03 55 16 96 BiPAP/CPAP 30 02/14/17 23:59 36.5 54 22 147/74 (98) 97 BiPAP 30 02/14/17 23:59 97 BiPAP 30 02/14/17 22:19 68 90 30 02/14/17 20:00 99 BiPAP 30 02/14/17 19:09 36.7 65 24 132/68 (89) 99 BiPAP 02/14/17 18:56 74 96 30 02/14/17 18:53 74 20 96 BiPAP/CPAP 30 02/14/17 16:00 BiPAP 30 02/14/17 15:20 36.6 61 20 111/56 (74) 97 BiPAP 02/14/17 14:25 68 16 98 BiPAP/CPAP 30 02/14/17 14:25 68 98 30 02/14/17 12:00 BiPAP 30 02/14/17 11:27 36.6 61 22 117/62 (80) 97 BiPAP Laboratory Results: Last 24 Hours Test 02/14/17 10:13 02/14/17 11:13 02/14/17 14:05 02/14/17 16:26 Lactic Acid Level 5.5 mmol/L Troponin I 0.101 ng/ml Thyroid Stimulating Hormone (TSH) 0.540 uIu/ml Bedside Glucose 385 mg/dl 312 mg/dl Procalcitonin < 0.05 ng/ml Test 02/14/17 16:27 02/14/17 18:31 02/14/17 19:30 02/14/17 20:43 Bedside Glucose 324 mg/dl 323 mg/dl 286 mg/dl 278 mg/dl Test 02/14/17 21:35 02/14/17 22:29 02/14/17 23:24 02/15/17 00:26 Bedside Glucose 265 mg/dl 239 mg/dl 244 mg/dl 184 mg/dl Test 02/15/17 01:33 02/15/17 02:21 02/15/17 03:26 02/15/17 04:24 Bedside Glucose 147 mg/dl 157 mg/dl 138 mg/dl 112 mg/dl Test 02/15/17 05:23 02/15/17 06:35 02/15/17 07:16 02/15/17 07:55 Bedside Glucose 108 mg/dl 117 mg/dl 91 mg/dl White Blood Count 12.46 K/uL Red Blood Count 3.59 M/uL Hemoglobin 10.0 g/dL Hematocrit 31.9 % Mean Corpuscular Volume 88.9 fL Mean Corpuscular Hemoglobin 27.9 pg Mean Corpuscular Hemoglobin Concent 31.3 g/dl Platelet Count 154 K/uL Mean Platelet Volume 8.6 fL Neutrophils (%) (Auto) 82.7 % Lymphocytes (%) (Auto) 10.4 % Monocytes (%) (Auto) 6.0 % Eosinophils (%) (Auto) 0.2 % Basophils (%) (Auto) 0.2 % Neutrophils # (Auto) 10.31 K/uL Lymphocytes # (Auto) 1.30 K/uL Monocytes # (Auto) 0.75 K/uL Eosinophils # (Auto) 0.02 K/uL Basophils # (Auto) 0.02 K/uL RDW Standard Deviation 52.8 fL RDW Coefficient of Variation 16.4 % Immature Granulocyte % (Auto) 0.5 % Immature Granulocyte # (Auto) 0.06 K/uL Prothrombin Time 31.6 SECONDS Prothromb Time International Ratio 2.8
--- NOTE | 2017-02-15 10:01 | Pharmacy Progress Note ---
Glycemic Control Progress Note Date of Service Feb 15, 2017. Scope Glycemic Pharmacist consulted for glycemic control to write orders per [facility] inpatient glycemic control protocol. Objective Accuchecks BSG (last 24hrs): Test 02/14/17 11:13 02/14/17 16:26 02/14/17 16:27 02/14/17 18:31 Bedside Glucose 385 mg/dl (70-99) 312 mg/dl (70-99) 324 mg/dl (70-99) 323 mg/dl (70-99) Test 02/14/17 19:30 02/14/17 20:43 02/14/17 21:35 02/14/17 22:29 Bedside Glucose 286 mg/dl (70-99) 278 mg/dl (70-99) 265 mg/dl (70-99) 239 mg/dl (70-99) Test 02/14/17 23:24 02/15/17 00:26 02/15/17 01:33 02/15/17 02:21 Bedside Glucose 244 mg/dl (70-99) 184 mg/dl (70-99) 147 mg/dl (70-99) 157 mg/dl (70-99) Test 02/15/17 03:26 02/15/17 04:24 02/15/17 05:23 02/15/17 06:35 Bedside Glucose 138 mg/dl (70-99) 112 mg/dl (70-99) 108 mg/dl (70-99) 117 mg/dl (70-99) Test 02/15/17 07:55 Bedside Glucose 91 mg/dl (70-99) HbA1c: Item Value Date Time Hemoglobin A1c 9.6 % H 11/01/162124 Estimated Average Glucose 229 mg/dl 11/01/162124 Recent Pertinent Medications The patient is currently receiving: * Basal insulin: Lantus 30 units every 12 hours * IV insulin drip per protocol Outpatient Anti-Diabetic Meds Metformin only; patient refuses insulin as outpatient Assessment & Plan ASSESSMENT: * See progress note from 02/14/17 for more background info, in short: * Pt receiving SQ basal bolus insulin regimen for hyperglycemia secondary to baseline DM (A1c >9%),stress/infection, and steroids. * Pt initiated on insulin drip in addition to Lantus last night ~1999 for BSGs > 300 mg/dL * BSGs have trended down nicely and patient is ready to transition off insulin drip * Insulin drip rates are very high, estimating insulin needs anywhere between 150-200 units per day * Rates driven up due to IV steroids; patient now on PO which will drastically reduce insulin requirements * Given uncontrolled diabetes and change to PO prednisone, I prefer to use wt based insulin recommendations instead of drip rates * Give Lantus 50 units X 1 now and turn drip off at 1400 PLAN FOR INPATIENT GLYCEMIC CONTROL: * Continue insulin drip per protocol until 1400 * Continue to hold metformin * Basal insulin * Lantus 50 units SQ X 1; continue BID based on BSG trend * BSG <180: 30 units (stress of 2) * BSG >180: 45 units (stress of 3) * Bolus insulin * NovoLog per scale ACHS + 00,04 * Goal Range: Low 110 mg/dL - High 150 mg/dL * Correction Factor: 10 mg/dL/unit * Nutritional / Prandial insulin per carb ratio of 1 unit per 4 grams CHO consumed RECOMMENDATIONS FOR DISCHARGE: * Metformin alone is not appropriate. Recommend insulin therapy if patient changes mind. * Please note that the plan above was derived based on current level of insulin resistance and hospital stress. These recommendations are appropriate for inpatient admission only. Plan of care upon discharge will need to be reassessed to avoid potential outpatient hypo/hyperglycemia. Thank you.
--- NOTE | 2017-02-15 10:54 | Progress Note ---
Subjective Date of Service: Feb 15, 2017. Subjective Pt evaluation today including: conversation w/ patient, physical exam, lab review, review of studies, review of inpatient medication list Saw/examined the patient in room 244 Has been requiring bipap for oxygen saturation, states his breathing is much improved Denies chest pain/palpitations Problem List Medical Problems: (1) COPD exacerbation Status: Acute (2) Fluid overload Status: Acute (3) Hypomagnesemia Status: Acute (4) Rapid atrial fibrillation Status: Acute (5) Shortness of breath Status: Acute Review of Systems Constitutional: No fever, No chills Respiratory: + wheezing, + shortness of breath, + dyspnea on exertion, + dyspnea at rest, No cough, No sputum, No hemoptysis Cardiac: No chest pain, No edema, No palpitations Abdomen: No nausea, No vomiting, No diarrhea Medications Current Inpatient Medications Medications (Trade) Dose Ordered Sig/Ramirez Route Start Time Stop Time Status Last Admin Dose Admin Glucose (Glucose 40% Gel) 15-30 GRAMS 15 GRAMS... UD PRN PO 02/14/17 00:00 03/16/17 00:00 Glucose (Glucose Chew Tab) 4-8 Tablets 4 Tabl... UD PRN PO 02/14/17 00:00 03/16/17 00:00 Dextrose (Dextrose 50% 50ML Syringe) 25-50ML OF 50% DW IV FOR... UD PRN IV 02/14/17 00:00 03/16/17 00:00 Glucagon (Glucagon Inj) 1 mg UD PRN SQ 02/14/17 00:00 03/16/17 00:00 Doxycycline Hyclate 100 mg/ Dextrose 110 ml @ 50 mls/hr BID@0200,1400 IV 02/14/17 14:00 02/21/17 13:59 02/15/17 01:35 50 MLS/HR Acetaminophen (Tylenol Tab) 650 mg Q4H PRN PO 02/14/17 00:15 03/16/17 00:14 Nitroglycerin (Nitrostat Tab) 0.4 mg UD PRN SL 02/14/17 00:15 03/16/17 00:14 Alprazolam (Xanax Tab) 0.5 mg BID PO 02/14/17 09:00 03/16/17 08:59 02/15/17 08:05 0.5 MG Amiodarone HCl (Cordarone Tab) 200 mg BID PO 02/14/17 09:00 03/16/17 08:59 02/15/17 07:58 200 MG Atorvastatin Calcium (Lipitor Tab) 40 mg HS PO 02/14/17 21:00 03/16/17 20:59 02/14/17 20:53 40 MG Ferrous Gluconate (Ferrous Gluconate Tab) 324 mg BID PO 02/14/17 09:00 03/16/17 08:59 02/15/17 07:58 324 MG Gabapentin (Neurontin Cap) 100 mg BID PO 02/14/17 09:00 03/16/17 08:59 02/15/17 07:58 100 MG Pantoprazole Sodium (Protonix Tab) 40 mg BID PO 02/14/17 09:00 03/16/17 08:59 02/15/17 07:59 40 MG Sertraline HCl (Zoloft Tab) 75 mg DAILY PO 02/14/17 09:00 03/16/17 08:59 02/15/17 08:00 75 MG Sucralfate (Carafate Susp) 1 gm Q12 PO 02/14/17 09:00 03/16/17 08:59 02/15/17 07:57 1 GM Tramadol HCl (Ultram Tab) not relieved by tylenol @ Q6H PRN PO 02/14/17 00:15 03/16/17 00:14 Ondansetron HCl (Zofran Inj) 4 mg Q6H PRN IV 02/14/17 00:15 03/16/17 00:14 Ipratropium [place] (Atrovent 0.02% 0.5MG/2.5ML Neb) 0.5 mg Q6R INH 02/14/17 03:00 03/16/17 02:59 02/15/17 07:11 0.5 MG Levalbuterol (Xopenex 1.25MG/ 0.5ML Neb) 1.25 mg Q6R INH 02/14/17 03:00 03/16/17 02:59 02/15/17 07:10 1.25 MG Prednisone (PredniSONE TAB) 20 mg DAILY PO 02/14/17 09:00 02/19/17 08:59 02/15/17 07:59 20 MG Metoprolol Succinate (Toprol Xl Tab) 25 mg DAILY PO 02/14/17 09:00 03/16/17 08:59 02/15/17 07:59 25 MG Lisinopril (Zestril Tab) 10 mg DAILY PO 02/15/17 09:00 03/16/17 08:59 02/15/17 07:59 10 MG Miscellaneous Information (Consult Glycemic Management Pharmacy) 1 ea UD N/A 02/14/17 13:55 03/16/17 13:54 Insulin Aspart (novoLOG ASPART) SLIDING SCALE PCHS SC 02/14/17 17:30 02/15/17 14:00 02/15/17 09:42 14 UNITS Insulin Human Regular 250 units/ Sodium Chloride 252.5 ml @ 0 mls/hr DAILY@1130 IV 02/14/17 17:45 02/15/17 14:00 02/14/17 18:35 4.546 MLS/HR Miscellaneous Information (Dc Iv Insulin Infusion) 1 ea TODAY@1400 N/A 02/15/17 14:00 02/15/17 14:01 Objective Vital Signs Date Time Temp Pulse Resp B/P (MAP) Pulse Ox O2 Delivery O2 Flow Rate FiO2 02/15/17 09:15 97 BiPAP 2.0 30 02/15/17 07:19 36.6 66 18 132/72 (92) 97 BiPAP CPAP 02/15/17 07:13 84 96 30 02/15/17 07:12 84 19 96 BiPAP/CPAP 30 02/15/17 05:34 59 98 30 02/15/17 04:00 36.7 57 24 156/70 (98) 97 BiPAP 30 02/15/17 04:00 98 BiPAP 2.0 30 02/15/17 02:04 55 86 30 02/15/17 02:03 55 16 96 BiPAP/CPAP 30 02/14/17 23:59 36.5 54 22 147/74 (98) 97 BiPAP 30 02/14/17 23:59 97 BiPAP 30 02/14/17 22:19 68 90 30 02/14/17 20:00 99 BiPAP 30 02/14/17 19:09 36.7 65 24 132/68 (89) 99 BiPAP 02/14/17 18:56 74 96 30 02/14/17 18:53 74 20 96 BiPAP/CPAP 30 02/14/17 16:00 BiPAP 30 02/14/17 15:20 36.6 61 20 111/56 (74) 97 BiPAP 02/14/17 14:25 68 16 98 BiPAP/CPAP 30 02/14/17 14:25 68 98 30 02/14/17 12:00 BiPAP 30 02/14/17 11:27 36.6 61 22 117/62 (80) 97 BiPAP Physical Exam General Appearance: no apparent distress, + obese, + pertinent finding (Bipap in place) Respiratory/Chest: + decreased breath sounds, + wheezing Cardiovascular: + irregularly irregular Extremities: normal inspection, no pedal edema Laboratory Results Last 24 Hours Test 02/14/17 11:13 02/14/17 14:05 02/14/17 16:26 02/14/17 16:27 Bedside Glucose 385 mg/dl 312 mg/dl 324 mg/dl Procalcitonin < 0.05 ng/ml Test 02/14/17 18:31 02/14/17 19:30 02/14/17 20:43 02/14/17 21:35 Bedside Glucose 323 mg/dl 286 mg/dl 278 mg/dl 265 mg/dl Test 02/14/17 22:29 02/14/17 23:24 02/15/17 00:26 02/15/17 01:33 Bedside Glucose 239 mg/dl 244 mg/dl 184 mg/dl 147 mg/dl Test 02/15/17 02:21 02/15/17 03:26 02/15/17 04:24 02/15/17 05:23 Bedside Glucose 157 mg/dl 138 mg/dl 112 mg/dl 108 mg/dl Test 02/15/17 06:35 02/15/17 07:16 02/15/17 07:55 02/15/17 09:36 Bedside Glucose 117 mg/dl 91 mg/dl 195 mg/dl White Blood Count 12.46 K/uL Red Blood Count 3.59 M/uL Hemoglobin 10.0 g/dL Hematocrit 31.9 % Mean Corpuscular Volume 88.9 fL Mean Corpuscular Hemoglobin 27.9 pg Mean Corpuscular Hemoglobin Concent 31.3 g/dl Platelet Count 154 K/uL Mean Platelet Volume 8.6 fL Neutrophils (%) (Auto) 82.7 % Lymphocytes (%) (Auto) 10.4 % Monocytes (%) (Auto) 6.0 % Eosinophils (%) (Auto) 0.2 % Basophils (%) (Auto) 0.2 % Neutrophils # (Auto) 10.31 K/uL Lymphocytes # (Auto) 1.30 K/uL Monocytes # (Auto) 0.75 K/uL Eosinophils # (Auto) 0.02 K/uL Basophils # (Auto) 0.02 K/uL RDW Standard Deviation 52.8 fL RDW Coefficient of Variation 16.4 % Immature Granulocyte % (Auto) 0.5 % Immature Granulocyte # (Auto) 0.06 K/uL Prothrombin Time 31.6 SECONDS Prothromb Time International Ratio 2.8 Assessment and Plan This is a 61 year old morbidly obese male with a PMH of COPD, KIRSTEN on CPAP, uncontrolled DM2, paroxysmal atrial fibrillation with recent elective cardioversion, Factor V Leiden mutation on long-term anticoagulation, HTN, anxiety/depression presents with worsening shortness of breath Acute Hypoxemic Respiratory Failure Acute COPD exacerbation 02/15 prednisone 20mg for now continue doxycycline appreciate pulmonology input bipap for now, will wean if tolerated 02/14 significant issues due to morbid obesity likely obesity hypoventilation follows with pulmonology - will consult pulm for further input for now, started on low dose prednisone due to blood sugar issues continue IV doxy nebulizers as needed wean bipap as tolerated KIRSTEN continue nocturnal CPAP/O2 use Uncontrolled DM2 02/15 appreciate glycemic control consultation started on insulin drip transition to subq insulin when able diabetic education consult placed 02/14 patient with an A1c >10% refuses insulin treatment at home significant morbid obesity; counseled on weight management and dietary changes diabetic education consulted will start insulin 30 units BID and sliding scale monitor BSGs, if still >350 during next reading will need insulin infusion will wean steroids quickly to prevent further hyperglycemia Elevated Troponin level this is likely due to recent cardioversion on Wednesday (February 12) denies chest pain monitor in tele Lactic Acidemia 02/15 procalcitonin negative recheck lactic acid, but more likely related to medication and not infection BP stable 02/14 does not seem to be related to infection no leukocytosis noted, afebrile, hemodynamically stable possibly related to medications, including metformin give fluids, recheck lactic acid at 1000 Paroxysmal A. Fib recent cardioversion, currently NSR continue Amiodarone continue Coumadin Factor V Leiden mutation on Coumadin, which we will continue with a goal INR of 2-3 HTN blood pressure is on the lower end hold Lasix Depression/Anxiety continue home medications DVT ppx Coumadin FULL CODE
[2017-02-15] MEDS: INSULIN REGULAR 250 UNITS in SODIUM CHLORIDE 0.9% 250ML 250 ML IV SCH (11:58)
--- NOTE | 2017-02-15 12:17 | DIAGNOSTIC IMAGING REPORT ---
CHEST ONE VIEW PORTABLE HISTORY: 61 years-old Male dyspnea COMPARISON: Chest radiograph 02/13/2017 TECHNIQUE: Portable semiupright AP view of the chest FINDINGS: Cardiac silhouette is again enlarged. There is prominence of the pulmonary vascularity with background interstitial coarsening. Hazy perihilar and bibasilar opacities are also noted which have progressed from prior study. No pneumothorax. Additionally, there is blunting of the cost phrenic angles. Patient obesity is noted. Bones appear grossly intact. IMPRESSION: Cardiomegaly with interval development of mixed bilateral interstitial and alveolar opacities with trace bilateral pleural effusions suggesting mild pulmonary edema with atelectasis. Superimposed pneumonia is also in the differential. The above report was generated using voice recognition software. It may contain grammatical, syntax or spelling errors. Electronically signed by: Juan Chicas M.D. 02/15/2017 12:15 PM Dictated Date/Time: 02/15/2017 12:14 PM
[2017-02-15] MEDS ORDERED: DC IV INSULIN INFUSION SCH (14:00)
[2017-02-15] MEDS ORDERED: FUROSEMIDE INJ 20 MG in SYRINGE 0 ML IV ONE (20:45)
[2017-02-15] MEDS: BUDESONIDE 90 MCG INH INH SCH (20:47)
[2017-02-15] MEDS: ATORVASTATIN 40 MG TAB PO SCH (20:48)
[2017-02-15] MEDS: INSULIN GLARGINE SOLOSTAR 100 UNITS/ML 3 ML PEN SC SCH (20:54)
[2017-02-15 22:02] LABS: ARTERIAL BLOOD GAS BASE EXCESS 1.7 mEq/L (-9-1.8); ARTERIAL BLOOD GAS HCO3 26 mmol/L (19-24); ARTERIAL BLOOD GAS PO2 65 mm/Hg (80-95); ARTERIAL BLOOD GAS pH 7.44 (7.35-7.45)
[2017-02-15 22:03] LABS: ALLEN TEST POS (POS); O2 ADMINISTRATION 2 L
[2017-02-15 22:18] LABS: BUN/CREATININE RATIO 21.6 (10-20); CALCIUM 8.1 mg/dl (8.5-10.1); CREATININE 0.82 mg/dl (0.60-1.40); MAGNESIUM 1.7 mg/dl (1.8-2.4); POTASSIUM 3.3 mmol/L (3.5-5.1)
[2017-02-15] MEDS ORDERED: POTASSIUM CHLORIDE 10 MEQ TABCR PO STA (22:30)
[2017-02-15] MEDS ORDERED: MAGNESIUM SULFATE 1GM / D5W 1 GM in PREMIXED IN D5W 100 ML IV ONE (22:45)
[2017-02-16] VITALS (9 sets, daily range): BP systolic 131–158; BP diastolic 70–80; PULSE 49–90; TEMP 36.4–37.5; O2SAT 87–98
[2017-02-16] MEDS: INSULIN ASPART 100 UNITS/ML 3 ML PEN SC SCH ×7 (00:34→23:49)
[2017-02-16] MEDS: DOXYCYCLINE IV 100 MG in DEXTROSE 5% 100ML 100 ML IV SCH ×2 (01:29→17:02)
[2017-02-16] MEDS: LEVALBUTEROL 1.25MG/0.5ML NEB INH SCH ×4 (02:13→19:31)
[2017-02-16] MEDS: IPRATROPIUM BROMIDE NEB SOLN 0.02% 2.5 ML VIAL INH SCH ×4 (02:13→19:31)
[2017-02-16 07:18] LABS: INR 2.3 (0.9-1.1); PROTHROMBIN TIME (PATIENT) 25.1 SECONDS (9.0-12.0)
[2017-02-16] MEDS: BUDESONIDE 90 MCG INH INH SCH ×2 (08:54→21:00)
[2017-02-16] MEDS: METOPROLOL SUCC 25MG EXT REL TAB PO SCH (08:54)
[2017-02-16] MEDS: PANTOprazole SOD 40 MG TAB PO SCH ×2 (08:54→21:04)
[2017-02-16] MEDS: SERTRALINE HCL 50 MG TAB PO SCH (08:54)
[2017-02-16] MEDS: FERROUS GLUCONATE 324 MG TAB PO SCH ×2 (08:55→21:04)
[2017-02-16] MEDS: GABAPENTIN 100 MG CAP PO SCH ×2 (08:55→21:04)
[2017-02-16] MEDS: AMIODARONE 200 MG TAB PO SCH ×2 (08:55→21:04)
[2017-02-16] MEDS: LISINOPRIL 10 MG TAB PO SCH (08:55)
[2017-02-16] MEDS: SUCRALFATE 1 GM/10 ML UDC PO SCH ×2 (08:55→21:03)
[2017-02-16] MEDS: ALPRAZOLAM 0.5 MG TAB PO SCH ×2 (08:59→21:04)
[2017-02-16] MEDS: INSULIN GLARGINE SOLOSTAR 100 UNITS/ML 3 ML PEN SC SCH ×2 (09:11→21:02)
[2017-02-16] MEDS ORDERED: MAGNESIUM SULFATE 1GM / D5W 1 GM in PREMIXED IN D5W 100 ML IV STA (11:44)
[2017-02-16] MEDS: POTASSIUM CHLR 10 MEQ / WTR 10 MEQ in PREMIXED WATER 100 ML IV SCH ×2 (12:23→14:10)
--- NOTE | 2017-02-16 13:01 | Progress Note ---
Subjective Date of Service: Feb 16, 2017. Subjective Pt evaluation today including: conversation w/ patient, physical exam, lab review, review of studies, review of inpatient medication list Saw/examined the patient in room 244 He is off of bipap, currently on nasal cannula states that the bipap was hurting his head, so he asked for it to be removed was on cpap overnight and he was doing well with that states he is a little short of breath with O2 via NC - willing to switch to bipap after lunch No chest pain/palpitations Problem List Medical Problems: (1) COPD exacerbation Status: Acute (2) Fluid overload Status: Acute (3) Hypomagnesemia Status: Acute (4) Rapid atrial fibrillation Status: Acute (5) Shortness of breath Status: Acute Review of Systems Constitutional: No fever, No chills Respiratory: + wheezing, + shortness of breath, + dyspnea on exertion, + dyspnea at rest, No cough, No sputum, No hemoptysis Cardiac: No chest pain, No palpitations Abdomen: No pain, No nausea, No vomiting, No diarrhea Medications Current Inpatient Medications Medications (Trade) Dose Ordered Sig/Ramirez Route Start Time Stop Time Status Last Admin Dose Admin Glucose (Glucose 40% Gel) 15-30 GRAMS 15 GRAMS... UD PRN PO 02/14/17 00:00 03/16/17 00:00 Glucose (Glucose Chew Tab) 4-8 Tablets 4 Tabl... UD PRN PO 02/14/17 00:00 03/16/17 00:00 Dextrose (Dextrose 50% 50ML Syringe) 25-50ML OF 50% DW IV FOR... UD PRN IV 02/14/17 00:00 03/16/17 00:00 Glucagon (Glucagon Inj) 1 mg UD PRN SQ 02/14/17 00:00 03/16/17 00:00 Doxycycline Hyclate 100 mg/ Dextrose 110 ml @ 50 mls/hr BID@0200,1400 IV 02/14/17 14:00 02/21/17 13:59 02/16/17 01:29 50 MLS/HR Acetaminophen (Tylenol Tab) 650 mg Q4H PRN PO 02/14/17 00:15 03/16/17 00:14 Nitroglycerin (Nitrostat Tab) 0.4 mg UD PRN SL 02/14/17 00:15 03/16/17 00:14 Alprazolam (Xanax Tab) 0.5 mg BID PO 02/14/17 09:00 03/16/17 08:59 02/16/17 08:59 0.5 MG Amiodarone HCl (Cordarone Tab) 200 mg BID PO 02/14/17 09:00 03/16/17 08:59 02/16/17 08:55 200 MG Atorvastatin Calcium (Lipitor Tab) 40 mg HS PO 02/14/17 21:00 03/16/17 20:59 02/15/17 20:48 40 MG Ferrous Gluconate (Ferrous Gluconate Tab) 324 mg BID PO 02/14/17 09:00 03/16/17 08:59 02/16/17 08:55 324 MG Gabapentin (Neurontin Cap) 100 mg BID PO 02/14/17 09:00 03/16/17 08:59 02/16/17 08:55 100 MG Pantoprazole Sodium (Protonix Tab) 40 mg BID PO 02/14/17 09:00 03/16/17 08:59 02/16/17 08:54 40 MG Sertraline HCl (Zoloft Tab) 75 mg DAILY PO 02/14/17 09:00 03/16/17 08:59 02/16/17 08:54 75 MG Sucralfate (Carafate Susp) 1 gm Q12 PO 02/14/17 09:00 03/16/17 08:59 02/16/17 08:55 1 GM Tramadol HCl (Ultram Tab) not relieved by tylenol @ Q6H PRN PO 02/14/17 00:15 03/16/17 00:14 02/15/17 20:46 50 MG Ondansetron HCl (Zofran Inj) 4 mg Q6H PRN IV 02/14/17 00:15 03/16/17 00:14 02/15/17 13:59 4 MG Ipratropium [place] (Atrovent 0.02% 0.5MG/2.5ML Neb) 0.5 mg Q6R INH 02/14/17 03:00 03/16/17 02:59 02/16/17 07:18 0.5 MG Levalbuterol (Xopenex 1.25MG/ 0.5ML Neb) 1.25 mg Q6R INH 02/14/17 03:00 03/16/17 02:59 02/16/17 07:18 1.25 MG Prednisone (PredniSONE TAB) 20 mg DAILY PO 02/14/17 09:00 02/19/17 08:59 02/16/17 08:54 20 MG Metoprolol Succinate (Toprol Xl Tab) 25 mg DAILY PO 02/14/17 09:00 03/16/17 08:59 02/16/17 08:54 25 MG Lisinopril (Zestril Tab) 10 mg DAILY PO 02/15/17 09:00 03/16/17 08:59 02/16/17 08:55 10 MG Miscellaneous Information (Consult Glycemic Management Pharmacy) 1 ea UD N/A 02/14/17 13:55 03/16/17 13:54 Budesonide (Pulmicort Inhaler) 2 puffs Q12 INH 02/15/17 21:00 03/17/17 20:59 02/16/17 08:54 2 PUFFS Insulin Aspart (novoLOG ASPART) SLIDING SCALE ACHS SC 02/15/17 16:15 03/17/17 16:14 02/16/17 12:26 20 UNITS Insulin Aspart (novoLOG ASPART) SLIDING SCALE 0000,0400 SC 02/16/17 00:00 03/18/17 00:00 Insulin Glargine (Lantus Solostar Pen) SEE PROTOCOL BID SC 02/15/17 21:00 03/17/17 20:59 02/16/17 09:11 30 UNITS Potassium Chloride 10 meq/ Prmx 100 ml @ 100 mls/hr Q1H IV 02/16/17 12:00 02/16/17 13:59 02/16/17 12:23 100 MLS/HR Objective Vital Signs Date Time Temp Pulse Resp B/P (MAP) Pulse Ox O2 Delivery O2 Flow Rate FiO2 02/16/17 11:46 36.8 63 16 158/73 (101) 98 Nasal Cannula 02/16/17 08:06 37.4 78 20 155/71 (99) 93 Nasal Cannula 4.0 02/16/17 07:20 90 20 91 BiPAP/CPAP 2.0 02/16/17 04:00 CPAP 2.0 02/16/17 03:24 37.5 70 20 131/70 (90) 87 CPAP 2.0 02/16/17 02:13 83 20 91 BiPAP/CPAP 2.0 02/15/17 23:59 CPAP 2.0 02/15/17 23:57 37.5 68 20 151/63 (92) 90 CPAP 02/15/17 20:00 98 BiPAP 2.0 30 02/15/17 19:15 67 28 97 BiPAP/CPAP 30 02/15/17 19:15 67 97 30 02/15/17 19:07 37.2 66 20 126/62 (83) 97 BiPAP 02/15/17 16:30 97 BiPAP 2.0 30 02/15/17 15:14 37.6 71 22 153/67 (95) 94 BiPAP 02/15/17 14:20 78 95 30 02/15/17 14:20 78 24 95 BiPAP/CPAP 30 02/15/17 13:00 97 BiPAP 2.0 30 Physical Exam General Appearance: no apparent distress, + obese Respiratory/Chest: no respiratory distress, no accessory muscle use, + decreased breath sounds, + wheezing Cardiovascular: regular rate, rhythm, no murmur Extremities: normal inspection, no pedal edema Laboratory Results Last 24 Hours Test 02/15/17 13:49 02/15/17 15:48 02/15/17 20:05 02/15/17 21:52 Bedside Glucose 107 mg/dl 82 mg/dl 192 mg/dl Arterial Blood pH 7.44 Arterial Blood Partial Pressure CO2 39 mmHg Arterial Blood Partial Pressure O2 65 mm/Hg Arterial Blood HCO3 26 mmol/L Arterial Blood Oxygen Saturation 91.0 % Arterial Blood Base Excess 1.7 mEq/L Arterial Blood Gas Delivery 2 L [place] Test POS Sodium Level 139 mmol/L Potassium Level 3.3 mmol/L Chloride Level 104 mmol/L Carbon Dioxide Level 26 mmol/L Anion Gap 9.0 mmol/L Blood Urea Nitrogen 18 mg/dl Creatinine 0.82 mg/dl Est Creatinine Clear Calc Drug Dose 158.2 ml/min Estimated GFR () 111.4 Estimated GFR (Non- 96.1 BUN/Creatinine Ratio 21.6 Random Glucose 125 mg/dl Calcium Level 8.1 mg/dl Magnesium Level 1.7 mg/dl Test 02/16/17 00:32 02/16/17 04:12 02/16/17 06:54 02/16/17 07:05 Bedside Glucose 105 mg/dl 112 mg/dl 129 mg/dl Prothrombin Time 25.1 SECONDS Prothromb Time International Ratio 2.3 Procalcitonin < 0.05 ng/ml Test 02/16/17 11:31 Bedside Glucose 200 mg/dl Assessment and Plan This is a 61 year old morbidly obese male with a PMH of COPD, KIRSTEN on CPAP, uncontrolled DM2, paroxysmal atrial fibrillation with recent elective cardioversion, Factor V Leiden mutation on long-term anticoagulation, HTN, anxiety/depression presents with worsening shortness of breath Acute Hypercarbic Respiratory Failure Acute COPD exacerbation 02/16 as of now prednisone and doxycycline has been on bipap and intermittently on O2 via [facility] pulmonary for further management 02/15 prednisone 20mg for now continue doxycycline appreciate pulmonology input bipap for now, will wean if tolerated 02/14 significant issues due to morbid obesity likely obesity hypoventilation follows with pulmonology - will consult pulm for further input for now, started on low dose prednisone due to blood sugar issues continue IV doxy nebulizers as needed wean bipap as tolerated KIRSTEN continue nocturnal CPAP/O2 use Uncontrolled DM2 02/15 appreciate glycemic control consultation started on insulin drip transition to subq insulin when able diabetic education consult placed 02/14 patient with an A1c >10% refuses insulin treatment at home significant morbid obesity; counseled on weight management and dietary changes diabetic education consulted will start insulin 30 units BID and sliding scale monitor BSGs, if still >350 during next reading will need insulin infusion will wean steroids quickly to prevent further hyperglycemia Elevated Troponin level this is likely due to recent cardioversion on Wednesday (February 12) denies chest pain monitor in tele Lactic Acidemia - resolved 02/15 procalcitonin negative recheck lactic acid, but more likely related to medication and not infection BP stable 02/14 does not seem to be related to infection no leukocytosis noted, afebrile, hemodynamically stable possibly related to medications, including metformin give fluids, recheck lactic acid at 1000 Paroxysmal A. Fib recent cardioversion, currently NSR continue Amiodarone continue Coumadin Factor V Leiden mutation on Coumadin, which we will continue with a goal INR of 2-3 HTN blood pressure is on the lower end hold Lasix Depression/Anxiety continue home medications DVT ppx Coumadin FULL CODE
--- NOTE | 2017-02-16 17:27 | Pulmonology Progress Note ---
Pulmonary Progress Note Date of Service Feb 16, 2017. Attending Dr. Pickering Subjective Patient notes he is still having dyspnea on exertion and minimal dyspnea at rest Objective Patient sitting up in bed able to eat his dinner and complete full sentences without signs of respiratory insufficiency VS: I/Os: +4.2L RR: 16-20 SaO2: 87-98% FiO2: 2-4Lnc RESP: Minimal expiratory wheezing is appreciated CARD: Distant heart sounds irregular rhythm unable to auscultate for murmurs rubs or gallops ABD: Positive bowel sounds soft nontender EXT: Bilateral lower extremity 2+ pitting edema as well as in the dependent regions LABS: WBC: 12K Platelet: 154K INR: 2.3 ABG (02/15/17) 7.44/39/65/26 2L Chest x-ray 02/15/2017: Cephalization, peribronchial cuffing, left costophrenic angle blunting Medications 1. Pulmonary cord 2 puffs b.i.d. 2. Doxycycline 100 milligrams b.i.d. 3. Xopenex nebulizer q.6 hours 4. Atrovent nebulizer q.6 hours Past medical history Morbid obesity Moderate persistent asthma Chronic hypercapnic respiratory failure on home oxygen Sleep apnea on CPAP Pulmonary hypertension Chronic diastolic failure with EF of 50-55% Atrial fibrillation status post recent ablation and cardioversion Hypertension hyperlipidemia History of seizures Anemia GERD Factor V Leyden deficiency Chronic anemia (Baseline hemoglobin 11-12) Type 2 diabetes. Diabetic peripheral neuropathy Nephrolithiasis Generalized anxiety disorder Last admission was in October 2016 for decompensated heart failure secondary to A. fib with RVR Assessment & Plan 61-year-old male admitted for acute on chronic respiratory insufficiency/ hypercapnia #1 Respiratory: Patient's acute on chronic respiratory insufficiency most likely combination of morbid obesity/obesity hypoventilation/diastolic heart failure/pulmonary hypertension (Group 2 & 3). This time continue patient's current medical regimen as well as his oxygen support and CPAP. #2 Hypercoagulable: Patient does have a history of factor V Leiden deficiency as well as atrial fibrillation suggesting hypercoagulable states. I will order a bilateral lower extremity DVT study. Also to speak to the radiologist and when the patient is ready perform V/Q evaluation for possible chronic thromboembolic pulmonary hypertension. Continue current Coumadin with INR 2.3. The patient is noted to have DVTs or possible notable V/Q mismatching might have to increase his overall INR dosing to 2.5-2.5 levels. Data Medications: Current Inpatient Medications Medications (Trade) Dose Ordered Sig/Ramirez Route Start Time Stop Time Status Last Admin Dose Admin Glucose (Glucose 40% Gel) 15-30 GRAMS 15 GRAMS... UD PRN PO 02/14/17 00:00 03/16/17 00:00 Glucose (Glucose Chew Tab) 4-8 Tablets 4 Tabl... UD PRN PO 02/14/17 00:00 03/16/17 00:00 Dextrose (Dextrose 50% 50ML Syringe) 25-50ML OF 50% DW IV FOR... UD PRN IV 02/14/17 00:00 03/16/17 00:00 Glucagon (Glucagon Inj) 1 mg UD PRN SQ 02/14/17 00:00 03/16/17 00:00 Doxycycline Hyclate 100 mg/ Dextrose 110 ml @ 50 mls/hr BID@0200,1400 IV 02/14/17 14:00 02/21/17 13:59 02/16/17 17:02 50 MLS/HR Acetaminophen (Tylenol Tab) 650 mg Q4H PRN PO 02/14/17 00:15 03/16/17 00:14 Nitroglycerin (Nitrostat Tab) 0.4 mg UD PRN SL 02/14/17 00:15 03/16/17 00:14 Alprazolam (Xanax Tab) 0.5 mg BID PO 02/14/17 09:00 03/16/17 08:59 02/16/17 08:59 0.5 MG Amiodarone HCl (Cordarone Tab) 200 mg BID PO 02/14/17 09:00 03/16/17 08:59 02/16/17 08:55 200 MG Atorvastatin Calcium (Lipitor Tab) 40 mg HS PO 02/14/17 21:00 03/16/17 20:59 02/15/17 20:48 40 MG Ferrous Gluconate (Ferrous Gluconate Tab) 324 mg BID PO 02/14/17 09:00 03/16/17 08:59 02/16/17 08:55 324 MG Gabapentin (Neurontin Cap) 100 mg BID PO 02/14/17 09:00 03/16/17 08:59 02/16/17 08:55 100 MG Pantoprazole Sodium (Protonix Tab) 40 mg BID PO 02/14/17 09:00 03/16/17 08:59 02/16/17 08:54 40 MG Sertraline HCl (Zoloft Tab) 75 mg DAILY PO 02/14/17 09:00 03/16/17 08:59 02/16/17 08:54 75 MG Sucralfate (Carafate Susp) 1 gm Q12 PO 02/14/17 09:00 03/16/17 08:59 02/16/17 08:55 1 GM Tramadol HCl (Ultram Tab) not relieved by tylenol @ Q6H PRN PO 02/14/17 00:15 03/16/17 00:14 02/15/17 20:46 50 MG Ondansetron HCl (Zofran Inj) 4 mg Q6H PRN IV 02/14/17 00:15 03/16/17 00:14 02/15/17 13:59 4 MG Ipratropium [place] (Atrovent 0.02% 0.5MG/2.5ML Neb) 0.5 mg Q6R INH 02/14/17 03:00 03/16/17 02:59 02/16/17 14:18 0.5 MG Levalbuterol (Xopenex 1.25MG/ 0.5ML Neb) 1.25 mg Q6R INH 02/14/17 03:00 03/16/17 02:59 02/16/17 14:18 1.25 MG Prednisone (PredniSONE TAB) 20 mg DAILY PO 02/14/17 09:00 02/19/17 08:59 02/16/17 08:54 20 MG Metoprolol Succinate (Toprol Xl Tab) 25 mg DAILY PO 02/14/17 09:00 03/16/17 08:59 02/16/17 08:54 25 MG Lisinopril (Zestril Tab) 10 mg DAILY PO 02/15/17 09:00 03/16/17 08:59 02/16/17 08:55 10 MG Miscellaneous Information (Consult Glycemic Management Pharmacy) 1 ea UD N/A 02/14/17 13:55 03/16/17 13:54 Budesonide (Pulmicort Inhaler) 2 puffs Q12 INH 02/15/17 21:00 03/17/17 20:59 02/16/17 08:54 2 PUFFS Insulin Aspart (novoLOG ASPART) SLIDING SCALE ACHS ME 02/15/17 16:15 03/17/17 16:14 02/16/17 17:04 25 UNITS Insulin Aspart (novoLOG ASPART) SLIDING SCALE 0000,0400 ME 02/16/17 00:00 03/18/17 00:00 Insulin Glargine (Lantus Solostar Pen) SEE PROTOCOL BID ME 02/15/17 21:00 03/17/17 20:59 02/16/17 09:11 30 UNITS I & O: 24-Hour Column 02/17/17 08:00 Intake Total 690 ml Output Total 600 ml Balance 90 ml Vital Signs: Date Time Temp Pulse Resp B/P (MAP) Pulse Ox O2 Delivery O2 Flow Rate FiO2 02/16/17 16:30 Nasal Cannula 4.0 02/16/17 14:59 36.4 60 22 135/74 (94) 97 Nasal Cannula 5.0 02/16/17 14:19 90 20 89 Nasal Cannula 2.0 02/16/17 12:00 Nasal Cannula 4.0 02/16/17 11:46 36.8 63 16 158/73 (101) 98 Nasal Cannula 02/16/17 08:06 37.4 78 20 155/71 (99) 93 Nasal Cannula 4.0 02/16/17 08:00 Nasal Cannula 4.0 02/16/17 07:20 90 20 91 BiPAP/CPAP 2.0 02/16/17 04:00 CPAP 2.0 02/16/17 03:24 37.5 70 20 131/70 (90) 87 CPAP 2.0 02/16/17 02:13 83 20 91 BiPAP/CPAP 2.0 02/15/17 23:59 CPAP 2.0 02/15/17 23:57 37.5 68 20 151/63 (92) 90 CPAP 02/15/17 20:00 98 BiPAP 2.0 30 02/15/17 19:15 67 28 97 BiPAP/CPAP 30 02/15/17 19:15 67 97 30 02/15/17 19:07 37.2 66 20 126/62 (83) 97 BiPAP Laboratory Results: Last 24 Hours Test 02/15/17 20:05 02/15/17 21:52 02/16/17 00:32 02/16/17 04:12 Bedside Glucose 192 mg/dl 105 mg/dl 112 mg/dl Arterial Blood pH 7.44 Arterial Blood Partial Pressure CO2 39 mmHg Arterial Blood Partial Pressure O2 65 mm/Hg Arterial Blood HCO3 26 mmol/L Arterial Blood Oxygen Saturation 91.0 % Arterial Blood Base Excess 1.7 mEq/L Arterial Blood Gas Delivery 2 L [place] Test POS Sodium Level 139 mmol/L Potassium Level 3.3 mmol/L Chloride Level 104 mmol/L Carbon Dioxide Level 26 mmol/L Anion Gap 9.0 mmol/L Blood Urea Nitrogen 18 mg/dl Creatinine 0.82 mg/dl Est Creatinine Clear Calc Drug Dose 158.2 ml/min Estimated GFR () 111.4 Estimated GFR (Non- 96.1 BUN/Creatinine Ratio 21.6 Random Glucose 125 mg/dl Calcium Level 8.1 mg/dl Magnesium Level 1.7 mg/dl Test 02/16/17 06:54 02/16/17 07:05 02/16/17 11:31 02/16/17 16:07 Prothrombin Time 25.1 SECONDS Prothromb Time International Ratio 2.3 Procalcitonin < 0.05 ng/ml Bedside Glucose 129 mg/dl 200 mg/dl 245 mg/dl
[2017-02-16] MEDS: ATORVASTATIN 40 MG TAB PO SCH (21:04)
[2017-02-16] MEDS ORDERED: WARFARIN SOD 3 MG TAB PO STA (21:33)
--- NOTE | 2017-02-16 22:03 | DIAGNOSTIC IMAGING REPORT ---
BILATERAL LOWER EXTREMITY VENOUS DOPPLER CLINICAL HISTORY: Respiratory failure. COMPARISON STUDY: Bilateral lower extremity venous Doppler April 25, 2013. TECHNIQUE: Sonography of the deep venous system of the bilateral lower extremities was performed. Compression and augmentation were evaluated. FINDINGS: The common femoral, superficial femoral and popliteal veins were compressible. Augmentation was normal. Flow was shown within the deep calf vessels although the calf vessels were suboptimally assessed on this exam. IMPRESSION: No evidence of deep venous thrombus within the bilateral lower extremities although the calf vessels were suboptimally assessed on this exam. Electronically signed by: Gianni Paniagua M.D. 02/16/2017 10:01 PM Dictated Date/Time: 02/16/2017 10:00 PM
[2017-02-17] VITALS (12 sets, daily range): BP systolic 112–171; BP diastolic 53–101; PULSE 47–77; TEMP 36.3–37.1; O2SAT 92–98
[2017-02-17] MEDS: LEVALBUTEROL 1.25MG/0.5ML NEB INH SCH ×4 (02:05→19:18)
[2017-02-17] MEDS: IPRATROPIUM BROMIDE NEB SOLN 0.02% 2.5 ML VIAL INH SCH ×4 (02:05→19:18)
[2017-02-17] MEDS: DOXYCYCLINE IV 100 MG in DEXTROSE 5% 100ML 100 ML IV SCH ×2 (02:09→13:08)
[2017-02-17] MEDS: INSULIN ASPART 100 UNITS/ML 3 ML PEN SC SCH ×5 (04:04→21:38)
[2017-02-17 07:36] LABS: INR 1.8 (0.9-1.1); PROTHROMBIN TIME (PATIENT) 19.9 SECONDS (9.0-12.0)
[2017-02-17] MEDS: SERTRALINE HCL 50 MG TAB PO SCH (07:42)
[2017-02-17] MEDS: SUCRALFATE 1 GM/10 ML UDC PO SCH ×2 (07:42→20:53)
[2017-02-17] MEDS: PANTOprazole SOD 40 MG TAB PO SCH ×2 (07:42→20:51)
[2017-02-17] MEDS: GABAPENTIN 100 MG CAP PO SCH ×2 (07:43→20:51)
[2017-02-17] MEDS: LISINOPRIL 10 MG TAB PO SCH (07:44)
[2017-02-17] MEDS: FERROUS GLUCONATE 324 MG TAB PO SCH ×2 (07:44→20:50)
[2017-02-17] MEDS: METOPROLOL SUCC 25MG EXT REL TAB PO SCH (07:44)
[2017-02-17] MEDS: BUDESONIDE 90 MCG INH INH SCH ×2 (07:45→20:53)
[2017-02-17] MEDS: AMIODARONE 200 MG TAB PO SCH ×2 (07:45→20:54)
[2017-02-17] MEDS: ALPRAZOLAM 0.5 MG TAB PO SCH ×2 (07:49→20:49)
[2017-02-17 07:55] LABS: BUN/CREATININE RATIO 20.9 (10-20); CALCIUM 7.8 mg/dl (8.5-10.1); CREATININE 0.78 mg/dl (0.60-1.40); POTASSIUM 3.4 mmol/L (3.5-5.1)
[2017-02-17] MEDS: INSULIN GLARGINE SOLOSTAR 100 UNITS/ML 3 ML PEN SC SCH ×2 (07:58→21:38)
[2017-02-17] MEDS ORDERED: POTASSIUM CHLORIDE 10 MEQ TABCR PO SCH (09:00)
--- NOTE | 2017-02-17 10:32 | Progress Note ---
Subjective Date of Service: Feb 17, 2017. Subjective Pt evaluation today including: conversation w/ patient, physical exam, lab review, review of studies, review of inpatient medication list Saw/examined the patient in room 244 seated in a chair still intermittently SOB, but improving Problem List Medical Problems: (1) COPD exacerbation Status: Acute (2) Fluid overload Status: Acute (3) Hypomagnesemia Status: Acute (4) Rapid atrial fibrillation Status: Acute (5) Shortness of breath Status: Acute Review of Systems Respiratory: + wheezing, + shortness of breath, + dyspnea on exertion, + dyspnea at rest, No cough, No sputum, No hemoptysis Cardiac: + edema, No chest pain, No palpitations Heme: No abnormal bleeding/bruising Medications Current Inpatient Medications Medications (Trade) Dose Ordered Sig/Ramirez Route Start Time Stop Time Status Last Admin Dose Admin Glucose (Glucose 40% Gel) 15-30 GRAMS 15 GRAMS... UD PRN PO 02/14/17 00:00 03/16/17 00:00 Glucose (Glucose Chew Tab) 4-8 Tablets 4 Tabl... UD PRN PO 02/14/17 00:00 03/16/17 00:00 Dextrose (Dextrose 50% 50ML Syringe) 25-50ML OF 50% DW IV FOR... UD PRN IV 02/14/17 00:00 03/16/17 00:00 Glucagon (Glucagon Inj) 1 mg UD PRN SQ 02/14/17 00:00 03/16/17 00:00 Doxycycline Hyclate 100 mg/ Dextrose 110 ml @ 50 mls/hr BID@0200,1400 IV 02/14/17 14:00 02/21/17 13:59 02/17/17 02:09 50 MLS/HR Acetaminophen (Tylenol Tab) 650 mg Q4H PRN PO 02/14/17 00:15 03/16/17 00:14 Nitroglycerin (Nitrostat Tab) 0.4 mg UD PRN SL 02/14/17 00:15 03/16/17 00:14 Alprazolam (Xanax Tab) 0.5 mg BID PO 02/14/17 09:00 03/16/17 08:59 02/17/17 07:49 0.5 MG Amiodarone HCl (Cordarone Tab) 200 mg BID PO 02/14/17 09:00 03/16/17 08:59 02/17/17 07:45 200 MG Atorvastatin Calcium (Lipitor Tab) 40 mg HS PO 02/14/17 21:00 03/16/17 20:59 02/16/17 21:04 40 MG Ferrous Gluconate (Ferrous Gluconate Tab) 324 mg BID PO 02/14/17 09:00 03/16/17 08:59 02/17/17 07:44 324 MG Gabapentin (Neurontin Cap) 100 mg BID PO 02/14/17 09:00 03/16/17 08:59 02/17/17 07:43 100 MG Pantoprazole Sodium (Protonix Tab) 40 mg BID PO 02/14/17 09:00 03/16/17 08:59 02/17/17 07:42 40 MG Sertraline HCl (Zoloft Tab) 75 mg DAILY PO 02/14/17 09:00 03/16/17 08:59 02/17/17 07:42 75 MG Sucralfate (Carafate Susp) 1 gm Q12 PO 02/14/17 09:00 03/16/17 08:59 02/17/17 07:42 1 GM Tramadol HCl (Ultram Tab) not relieved by tylenol @ Q6H PRN PO 02/14/17 00:15 03/16/17 00:14 02/15/17 20:46 50 MG Ondansetron HCl (Zofran Inj) 4 mg Q6H PRN IV 02/14/17 00:15 03/16/17 00:14 02/15/17 13:59 4 MG Ipratropium [place] (Atrovent 0.02% 0.5MG/2.5ML Neb) 0.5 mg Q6R INH 02/14/17 03:00 03/16/17 02:59 02/17/17 07:12 0.5 MG Levalbuterol (Xopenex 1.25MG/ 0.5ML Neb) 1.25 mg Q6R INH 02/14/17 03:00 03/16/17 02:59 02/17/17 07:12 1.25 MG Prednisone (PredniSONE TAB) 20 mg DAILY PO 02/14/17 09:00 02/19/17 08:59 02/17/17 07:42 20 MG Metoprolol Succinate (Toprol Xl Tab) 25 mg DAILY PO 02/14/17 09:00 03/16/17 08:59 02/17/17 07:44 25 MG Lisinopril (Zestril Tab) 10 mg DAILY PO 02/15/17 09:00 03/16/17 08:59 02/17/17 07:44 10 MG Miscellaneous Information (Consult Glycemic Management Pharmacy) 1 ea UD N/A 02/14/17 13:55 03/16/17 13:54 Budesonide (Pulmicort Inhaler) 2 puffs Q12 INH 02/15/17 21:00 03/17/17 20:59 02/17/17 07:45 2 PUFFS Insulin Aspart (novoLOG ASPART) SLIDING SCALE ACHS SC 02/15/17 16:15 03/17/17 16:14 02/17/17 07:57 28 UNITS Insulin Aspart (novoLOG ASPART) SLIDING SCALE 0000,0400 FL 02/16/17 00:00 03/18/17 00:00 02/17/17 04:04 3 UNITS Insulin Glargine (Lantus Solostar Pen) 38 units BID SC 02/17/17 09:00 03/19/17 08:59 02/17/17 07:58 38 UNITS Potassium Chloride (Klor-Con M10) 10 meq BID PO 02/17/17 09:00 03/19/17 08:59 Warfarin Sodium (Coumadin Tab) 5 mg DAILY@16 PO 02/17/17 16:00 03/19/17 15:59 Furosemide (Lasix Tab) 40 mg BID17 PO 02/17/17 21:00 03/19/17 20:59 Objective Vital Signs Date Time Temp Pulse Resp B/P (MAP) Pulse Ox O2 Delivery O2 Flow Rate FiO2 02/17/17 08:08 36.3 77 20 171/101 (124) 93 Nasal Cannula 4.0 02/17/17 08:00 Room Air 3.0 CPAP 02/17/17 07:14 52 18 94 Room Air 02/17/17 04:23 36.4 48 24 144/77 (99) 92 Room Air 02/17/17 04:00 Room Air 3.0 CPAP 02/17/17 02:05 47 18 96 BiPAP/CPAP 3.0 02/17/17 00:00 36.5 54 21 115/53 (73) 94 CPAP 02/16/17 23:59 CPAP 3.0 02/16/17 20:00 Nasal Cannula 3.0 CPAP 02/16/17 19:35 49 20 98 Nasal Cannula 4.0 02/16/17 18:35 36.7 50 20 143/80 (101) 98 Nasal Cannula 5.0 02/16/17 16:30 Nasal Cannula 4.0 02/16/17 14:59 36.4 60 22 135/74 (94) 97 Nasal Cannula 5.0 02/16/17 14:19 90 20 89 Nasal Cannula 2.0 02/16/17 12:00 Nasal Cannula 4.0 02/16/17 11:46 36.8 63 16 158/73 (101) 98 Nasal Cannula Physical Exam General Appearance: + mild distress (mild respiratory distress), + obese Respiratory/Chest: + respiratory distress, + decreased breath sounds, + wheezing Cardiovascular: regular rate, rhythm, no murmur Extremities: + pertinent finding (+edema noted, b/l LE) Neurologic/Psychiatric: no motor/sensory deficits, alert, normal mood/affect Laboratory Results Last 24 Hours Test 02/16/17 11:31 02/16/17 16:07 02/16/17 19:52 02/16/17 23:42 Bedside Glucose 200 mg/dl 245 mg/dl 249 mg/dl 206 mg/dl Test 02/17/17 03:58 02/17/17 07:01 02/17/17 07:05 Bedside Glucose 175 mg/dl 161 mg/dl Prothrombin Time 19.9 SECONDS Prothromb Time International Ratio 1.8 Sodium Level 139 mmol/L Potassium Level 3.4 mmol/L Chloride Level 104 mmol/L Carbon Dioxide Level 30 mmol/L Anion Gap 5.0 mmol/L Blood Urea Nitrogen 16 mg/dl Creatinine 0.78 mg/dl Est Creatinine Clear Calc Drug Dose 166.6 ml/min Estimated GFR () 113.7 Estimated GFR (Non- 98.1 BUN/Creatinine Ratio 20.9 Random Glucose 158 mg/dl Calcium Level 7.8 mg/dl Assessment and Plan This is a 61 year old morbidly obese male with a PMH of COPD, KIRSTEN on CPAP, uncontrolled DM2, paroxysmal atrial fibrillation with recent elective cardioversion, Factor V Leiden mutation on long-term anticoagulation, HTN, anxiety/depression presents with worsening shortness of breath Acute Hypercarbic Respiratory Failure Acute COPD exacerbation 02/17 appreciate pulmonary input agree about multifactorial nature of his respiratory distress: diastolic CHF, pulmonary HTN, obesity-hypoventilation currently on a fluid restriction 1.5L Lasix restarted at 40mg PO BID potassium started continue prednisone and doxycycline for now nocturnal CPAP/O2 02/16 as of now prednisone and doxycycline has been on bipap and intermittently on O2 via NC pulmonary for further management 02/15 prednisone 20mg for now continue doxycycline appreciate pulmonology input bipap for now, will wean if tolerated 02/14 significant issues due to morbid obesity likely obesity hypoventilation follows with pulmonology - will consult pulm for further input for now, started on low dose prednisone due to blood sugar issues continue IV doxy nebulizers as needed wean bipap as tolerated KIRSTEN continue nocturnal CPAP/O2 use Uncontrolled DM2 02/15 appreciate glycemic control consultation started on insulin drip transition to subq insulin when able diabetic education consult placed 02/14 patient with an A1c >10% refuses insulin treatment at home significant morbid obesity; counseled on weight management and dietary changes diabetic education consulted will start insulin 30 units BID and sliding scale monitor BSGs, if still >350 during next reading will need insulin infusion will wean steroids quickly to prevent further hyperglycemia Elevated Troponin level this is likely due to recent cardioversion on Wednesday (February 12) denies chest pain monitor in tele Lactic Acidemia - resolved 02/15 procalcitonin negative recheck lactic acid, but more likely related to medication and not infection BP stable 02/14 does not seem to be related to infection no leukocytosis noted, afebrile, hemodynamically stable possibly related to medications, including metformin give fluids, recheck lactic acid at 1000 Paroxysmal A. Fib recent cardioversion, currently NSR continue Amiodarone continue Coumadin Factor V Leiden mutation on Coumadin, which we will continue with a goal INR of 2-3 HTN blood pressure is on the lower end hold Lasix Depression/Anxiety continue home medications DVT ppx Coumadin FULL CODE
--- NOTE | 2017-02-17 10:40 | Pharmacy Progress Note ---
Glycemic Control Progress Note Date of Service Feb 17, 2017. Scope Glycemic Pharmacist consulted for glycemic control to write orders per [facility] inpatient glycemic control protocol. Objective Accuchecks BSG (last 24hrs): Test 02/16/17 11:31 02/16/17 16:07 02/16/17 19:52 02/16/17 23:42 Bedside Glucose 200 mg/dl (70-99) 245 mg/dl (70-99) 249 mg/dl (70-99) 206 mg/dl (70-99) Test 02/17/17 03:58 02/17/17 07:01 02/17/17 07:05 Bedside Glucose 175 mg/dl (70-99) 161 mg/dl (70-99) Random Glucose 158 mg/dl (70-99) HbA1c: Recent A1c noted per MD as >10% in outpatient setting Recent Pertinent Medications The patient is currently receiving: * Lantus 30 units Q12h * Novolog ACHS * Goal: 110-150 * CF: 10 * CR: 3 Outpatient Anti-Diabetic Meds Oral Agents Assessment & Plan ASSESSMENT: * See progress note from 02/14/17 for more background info, in short: * Pt receiving SQ basal bolus insulin regimen for hyperglycemia secondary to baseline DM (A1c >10%),stress/infection, and steroids. * BSGs climbed throughout the day indicating a need to tighten the entire regimen * Of note, wrong dose of Lantus given per nurse last night * Fasting BSG this AM 161 mg/dL * Continue to tighten regimen as necessary. Patient still refuses outpatient insulin. PLAN FOR INPATIENT GLYCEMIC CONTROL: * Continue to hold metformin * Basal insulin: Increase * Lantus 38 units SC BID * Bolus insulin: Tighten * NovoLog per scale ACHS * Goal Range: Low 110 mg/dL - High 150 mg/dL * Correction Factor: 8 mg/dL/unit * Nutritional / Prandial insulin per carb ratio of 1 unit per 2 grams CHO consumed RECOMMENDATIONS FOR DISCHARGE: * Metformin alone is not appropriate. Recommend insulin therapy if patient changes mind. * Please note that the plan above was derived based on current level of insulin resistance and hospital stress. These recommendations are appropriate for inpatient admission only. Plan of care upon discharge will need to be reassessed to avoid potential outpatient hypo/hyperglycemia. Thank you.
[2017-02-17] MEDS ORDERED: INSULIN ASPART 100 UNITS/ML 3 ML PEN SC SCH (11:00)
--- NOTE | 2017-02-17 11:39 | PROGRESS NOTE ---
DATE: 02/17/2017 DATE: 02/17/2017 PROBLEM LIST: Includes: 1. Acute on chronic respiratory insufficiency 2. Morbid obesity. 3. Hypoventilation syndrome. 4. Diastolic heart failure. 5. Pulmonary hypertension. SUBJECTIVE: The patient reports that he is feeling a little bit better today than he was yesterday. He states that he is feeling noticeably better than when he came in on Wednesday. States he still is having some shortness of breath when he gets up and moves around, not really having shortness of breath at rest. When I entered the room, he was standing looking out the window, did not appear in any acute respiratory distress. He has a little bit of cough, no significant mucus production. Does have a little bit of wheezing off and on. Has not really notice anything lately. He states just feeling tired and run down. No chest pain. No chest pressure. No chest heaviness or tightness. No abdominal pain. Bowels are moving well. Does have some chronic swelling in his extremities which is about the same as it normally is. No pain in his extremities at this time. The patient did have venous Doppler yesterday of the lower extremities which was unremarkable. OBJECTIVE: GENERAL: The patient is a 61-year-old male, morbidly obese. He is alert and oriented x3. Mood is good. Affect is good. No acute distress. No respiratory distress. He is able to complete sentences without breathlessness. VITAL SIGNS: Temperature is 36.3, pulse 77, respirations 20, blood pressure 170/100, pulse ox 93% on 4 liters. HEAD, EYES, EARS, NOSE, AND THROAT: Normocephalic, atraumatic. Pupils equal, round react to light and accommodation. Extraocular movements are intact. [place] moist gingival and buccal mucosa. NECK: Short, thick. No mass. No adenopathy. No bruit. CHEST: Diminished breath sounds bilaterally. I do not appreciate any wheeze, rales or rhonchi. CARDIOVASCULAR: When I listen to the patient, he actually sounded to be in regular rate and rhythm. Did look at the monitor and he was in regular rate and rhythm. Heart sounds are quiet, difficult to hear. I could not appreciate any murmurs, gallops or rubs. ABDOMEN: Morbidly obese, soft, nontender. No guarding, rigidity or organomegaly. EXTREMITIES: 2+ pitting edema bilaterally. NEUROLOGIC: Cranial nerves II through XII are intact. No focal deficit noted. LABORATORY DATA: Shows a white count of 12,000, H&H 10.0 and 31.9, platelet count 154,000. INR 1.8, BUN 16, creatinine 0.78. The patient did have venous Doppler studies that were negative for DVT. IMPRESSION: 1. This is a 61-year-old morbidly obese male, admitted for acute on chronic respiratory insufficiency, hypercapnia. From a pulmonary standpoint the patient is showing some slow improvement, although he does continue to have some difficulty with his breathing, difficulty with combination of his chronic respiratory insufficiency, morbid obesity as well as his diastolic heart failure. Of note, the patient did undergo cardioversion 2 days prior to admission. According to the patient, cardioversion went well. We have no record of this currently. 2. Chronic hypercoagulable state. The patient is on Coumadin. I did talk with Dr. Pickering who recommended we check the patient for chronic thromboembolic pulmonary hypertension. At this point, we need to see if the patient possibly could undergo a ventilation perfusion scan. Dr. Pickering recommended talking with radiology about this to see with the patient's respiratory status today being improved but still difficult. May be prudent to wait at least until tomorrow before attempting. Otherwise l plan is to continue his current treatments as they are. We will continue to follow through hospitalization. Will discuss with radiology about the possibility of doing a V/Q scan. Continue to monitor fluid balance as patient did have a positive fluid balance initially but unfortunately this has been going the other way the past day. His weight is also coming down a little bit. We will continue to follow through hospitalization. Patient and case reviewed and plan agreed upon. DENITA
[2017-02-17] MEDS ORDERED: NURSING VERBAL MED ORDER ONE (12:30)
[2017-02-17] MEDS ORDERED: LEVALBUTEROL 1.25MG/0.5ML NEB INH STA (12:37)
[2017-02-17] MEDS: WARFARIN SOD 5 MG TAB PO SCH (15:39)
[2017-02-17] MEDS: FUROSEMIDE 40 MG TAB PO SCH (20:51)
[2017-02-17] MEDS: ATORVASTATIN 40 MG TAB PO SCH (20:52)
[2017-02-17] MEDS: POTASSIUM CHLORIDE 10 MEQ TABCR PO SCH (20:52)
[2017-02-18] VITALS (10 sets, daily range): BP systolic 111–162; BP diastolic 50–82; PULSE 51–70; TEMP 36.5–37.1; O2SAT 92–98
[2017-02-18] MEDS: DOXYCYCLINE IV 100 MG in DEXTROSE 5% 100ML 100 ML IV SCH ×2 (01:23→14:38)
[2017-02-18] MEDS: IPRATROPIUM BROMIDE NEB SOLN 0.02% 2.5 ML VIAL INH SCH ×4 (02:26→19:55)
[2017-02-18] MEDS: LEVALBUTEROL 1.25MG/0.5ML NEB INH SCH ×4 (02:26→19:55)
[2017-02-18 07:00] LABS: BASO % 0.2 %; BASO ABS # 0.02 K/uL (0-0.2); COMPLETE YES; EOS % 2.7 %; IG% 0.6 %; LYMPH % 25.6 %; LYMPH ABS # 2.18 K/uL (1.2-3.4); MEAN CELL VOLUME 86.7 fL (80-100); MEAN CORPUSCULAR HEMOGLOBIN 28.3 pg (25-34); MEAN CORPUSCULAR HGB CONC 32.7 g/dl (32-36); MONO % 6.3 %; NEUT % 64.6 %; PLATELET COUNT 183 K/uL (130-400); RED BLOOD COUNT 3.46 M/uL (4.7-6.1); WHITE BLOOD COUNT 8.52 K/uL (4.8-10.8)
[2017-02-18 07:09] LABS: INR 1.9 (0.9-1.1); PROTHROMBIN TIME (PATIENT) 20.8 SECONDS (9.0-12.0)
[2017-02-18] MEDS: GABAPENTIN 100 MG CAP PO SCH ×2 (07:19→20:17)
[2017-02-18] MEDS: LISINOPRIL 10 MG TAB PO SCH (07:19)
[2017-02-18] MEDS: SUCRALFATE 1 GM/10 ML UDC PO SCH ×2 (07:19→20:18)
[2017-02-18] MEDS: AMIODARONE 200 MG TAB PO SCH ×2 (07:20→20:16)
[2017-02-18] MEDS: POTASSIUM CHLORIDE 10 MEQ TABCR PO SCH (07:20)
[2017-02-18] MEDS: FERROUS GLUCONATE 324 MG TAB PO SCH ×2 (07:20→20:17)
[2017-02-18] MEDS: SERTRALINE HCL 50 MG TAB PO SCH (07:21)
[2017-02-18] MEDS: PANTOprazole SOD 40 MG TAB PO SCH ×2 (07:21→20:19)
[2017-02-18] MEDS: METOPROLOL SUCC 25MG EXT REL TAB PO SCH ×2 (07:22→07:45)
[2017-02-18] MEDS: ALPRAZOLAM 0.5 MG TAB PO SCH ×2 (07:26→20:28)
[2017-02-18] MEDS: BUDESONIDE 90 MCG INH INH SCH ×2 (07:29→20:20)
[2017-02-18] MEDS: FUROSEMIDE 40 MG TAB PO SCH ×2 (07:29→15:46)
[2017-02-18] MEDS: INSULIN GLARGINE SOLOSTAR 100 UNITS/ML 3 ML PEN SC SCH ×2 (07:36→20:23)
[2017-02-18 07:42] LABS: BUN/CREATININE RATIO 18.2 (10-20); CALCIUM 7.7 mg/dl (8.5-10.1); CREATININE 0.73 mg/dl (0.60-1.40)
[2017-02-18] MEDS: INSULIN ASPART 100 UNITS/ML 3 ML PEN SC SCH ×4 (07:44→20:23)
[2017-02-18] MEDS: POTASSIUM CHLR 10 MEQ / WTR 10 MEQ in PREMIXED WATER 100 ML IV SCH ×2 (11:01→12:31)
--- NOTE | 2017-02-18 11:39 | Progress Note ---
Subjective Date of Service: Feb 18, 2017. Subjective Pt evaluation today including: conversation w/ patient, physical exam, lab review, review of studies, review of inpatient medication list Saw/examined the patient in room 244 Doing okay today; on O2 via NC at around 3L Improving, but episodes of dyspnea still occur, especially worse with exertion Problem List Medical Problems: (1) COPD exacerbation Status: Acute (2) Fluid overload Status: Acute (3) Hypomagnesemia Status: Acute (4) Rapid atrial fibrillation Status: Acute (5) Shortness of breath Status: Acute Review of Systems Constitutional: No fever, No chills Respiratory: + shortness of breath, + dyspnea on exertion Cardiac: + edema, No chest pain, No palpitations Abdomen: No pain, No nausea, No vomiting, No diarrhea Heme: No abnormal bleeding/bruising Medications Current Inpatient Medications Medications (Trade) Dose Ordered Sig/Ramirez Route Start Time Stop Time Status Last Admin Dose Admin Glucose (Glucose 40% Gel) 15-30 GRAMS 15 GRAMS... UD PRN PO 02/14/17 00:00 03/16/17 00:00 Glucose (Glucose Chew Tab) 4-8 Tablets 4 Tabl... UD PRN PO 02/14/17 00:00 03/16/17 00:00 Dextrose (Dextrose 50% 50ML Syringe) 25-50ML OF 50% DW IV FOR... UD PRN IV 02/14/17 00:00 03/16/17 00:00 Glucagon (Glucagon Inj) 1 mg UD PRN SQ 02/14/17 00:00 03/16/17 00:00 Doxycycline Hyclate 100 mg/ Dextrose 110 ml @ 50 mls/hr BID@0200,1400 IV 02/14/17 14:00 02/21/17 13:59 02/18/17 01:23 50 MLS/HR Acetaminophen (Tylenol Tab) 650 mg Q4H PRN PO 02/14/17 00:15 03/16/17 00:14 Nitroglycerin (Nitrostat Tab) 0.4 mg UD PRN SL 02/14/17 00:15 03/16/17 00:14 Alprazolam (Xanax Tab) 0.5 mg BID PO 02/14/17 09:00 03/16/17 08:59 02/18/17 07:26 0.5 MG Amiodarone HCl (Cordarone Tab) 200 mg BID PO 02/14/17 09:00 03/16/17 08:59 02/18/17 07:20 200 MG Atorvastatin Calcium (Lipitor Tab) 40 mg HS PO 02/14/17 21:00 03/16/17 20:59 02/17/17 20:52 40 MG Ferrous Gluconate (Ferrous Gluconate Tab) 324 mg BID PO 02/14/17 09:00 03/16/17 08:59 02/18/17 07:20 324 MG Gabapentin (Neurontin Cap) 100 mg BID PO 02/14/17 09:00 03/16/17 08:59 02/18/17 07:19 100 MG Pantoprazole Sodium (Protonix Tab) 40 mg BID PO 02/14/17 09:00 03/16/17 08:59 02/18/17 07:21 40 MG Sertraline HCl (Zoloft Tab) 75 mg DAILY PO 02/14/17 09:00 03/16/17 08:59 02/18/17 07:21 75 MG Sucralfate (Carafate Susp) 1 gm Q12 PO 02/14/17 09:00 03/16/17 08:59 02/18/17 07:19 1 GM Tramadol HCl (Ultram Tab) not relieved by tylenol @ Q6H PRN PO 02/14/17 00:15 03/16/17 00:14 02/15/17 20:46 50 MG Ondansetron HCl (Zofran Inj) 4 mg Q6H PRN IV 02/14/17 00:15 03/16/17 00:14 02/15/17 13:59 4 MG Ipratropium [place] (Atrovent 0.02% 0.5MG/2.5ML Neb) 0.5 mg Q6R INH 02/14/17 03:00 03/16/17 02:59 02/18/17 07:35 0.5 MG Levalbuterol (Xopenex 1.25MG/ 0.5ML Neb) 1.25 mg Q6R INH 02/14/17 03:00 03/16/17 02:59 02/18/17 07:35 1.25 MG Prednisone (PredniSONE TAB) 20 mg DAILY PO 02/14/17 09:00 02/19/17 08:59 02/18/17 07:21 20 MG Metoprolol Succinate (Toprol Xl Tab) 25 mg DAILY PO 02/14/17 09:00 03/16/17 08:59 02/17/17 07:44 25 MG Lisinopril (Zestril Tab) 10 mg DAILY PO 02/15/17 09:00 03/16/17 08:59 02/18/17 07:19 10 MG Miscellaneous Information (Consult Glycemic Management Pharmacy) 1 ea UD N/A 02/14/17 13:55 03/16/17 13:54 Budesonide (Pulmicort Inhaler) 2 puffs Q12 INH 02/15/17 21:00 03/17/17 20:59 02/18/17 07:29 2 PUFFS Insulin Aspart (novoLOG ASPART) SLIDING SCALE ACHS SC 02/15/17 16:15 03/17/17 16:14 02/18/17 07:44 26 UNITS Insulin Glargine (Lantus Solostar Pen) 38 units BID SC 02/17/17 09:00 03/19/17 08:59 02/18/17 07:36 38 UNITS Warfarin Sodium (Coumadin Tab) 5 mg DAILY@16 PO 02/17/17 16:00 03/19/17 15:59 02/17/17 15:39 5 MG Furosemide (Lasix Tab) 40 mg BID17 PO 02/17/17 21:00 03/19/17 20:59 02/18/17 07:29 40 MG Potassium Chloride (Klor-Con Tab) 40 meq TID PO 02/18/17 14:00 03/19/17 08:59 Potassium Chloride 10 meq/ Prmx 100 ml @ 100 mls/hr TODAY@1000,1100 IV 02/18/17 10:00 02/18/17 11:59 02/18/17 11:01 100 MLS/HR Objective Vital Signs Date Time Temp Pulse Resp B/P (MAP) Pulse Ox O2 Delivery O2 Flow Rate FiO2 02/18/17 11:24 Nasal Cannula 3.0 02/18/17 08:00 Nasal Cannula 3.0 02/18/17 07:35 67 16 98 Nasal Cannula 3.0 02/18/17 07:27 37.1 53 18 150/82 (104) 98 CPAP 02/18/17 04:04 36.6 51 18 111/50 (70) 96 CPAP 02/18/17 04:00 Nasal Cannula 3.0 02/18/17 02:26 51 18 93 BiPAP/CPAP 3.0 02/18/17 00:00 Nasal Cannula 3.0 02/17/17 23:03 36.8 54 22 112/56 (74) 95 CPAP 02/17/17 20:00 Nasal Cannula 3.0 02/17/17 19:50 37.1 59 20 160/64 (96) 97 Nasal Cannula 4.0 02/17/17 19:20 56 18 98 Nasal Cannula 4.0 02/17/17 15:32 36.8 61 18 161/70 (100) 97 Nasal Cannula 4.0 02/17/17 15:07 Room Air 3.0 CPAP 02/17/17 14:22 66 18 93 Nasal Cannula 4.0 02/17/17 12:42 51 18 92 Nasal Cannula 4.0 02/17/17 12:39 Room Air 3.0 CPAP 02/17/17 12:11 36.5 55 18 143/69 (93) 97 Nasal Cannula 4.0 Physical Exam General Appearance: no apparent distress, + obese Respiratory/Chest: no respiratory distress, no accessory muscle use, + decreased breath sounds, + wheezing Cardiovascular: regular rate, rhythm, no murmur Abdomen: normal bowel sounds, non tender, soft Extremities: + pertinent finding (+1 pitting edema b/l LE) Laboratory Results Last 24 Hours Test 02/17/17 16:11 02/17/17 21:17 02/18/17 06:07 02/18/17 06:47 Bedside Glucose 255 mg/dl 180 mg/dl 107 mg/dl White Blood Count 8.52 K/uL Red Blood Count 3.46 M/uL Hemoglobin 9.8 g/dL Hematocrit 30.0 % Mean Corpuscular Volume 86.7 fL Mean Corpuscular Hemoglobin 28.3 pg Mean Corpuscular Hemoglobin Concent 32.7 g/dl Platelet Count 183 K/uL Mean Platelet Volume 9.0 fL Neutrophils (%) (Auto) 64.6 % Lymphocytes (%) (Auto) 25.6 % Monocytes (%) (Auto) 6.3 % Eosinophils (%) (Auto) 2.7 % Basophils (%) (Auto) 0.2 % Neutrophils # (Auto) 5.50 K/uL Lymphocytes # (Auto) 2.18 K/uL Monocytes # (Auto) 0.54 K/uL Eosinophils # (Auto) 0.23 K/uL Basophils # (Auto) 0.02 K/uL RDW Standard Deviation 51.3 fL RDW Coefficient of Variation 16.1 % Immature Granulocyte % (Auto) 0.6 % Immature Granulocyte # (Auto) 0.05 K/uL Prothrombin Time 20.8 SECONDS Prothromb Time International Ratio 1.9 Sodium Level 143 mmol/L Potassium Level 3.0 mmol/L Chloride Level 107 mmol/L Carbon Dioxide Level 33 mmol/L Anion Gap 3.0 mmol/L Blood Urea Nitrogen 13 mg/dl Creatinine 0.73 mg/dl Est Creatinine Clear Calc Drug Dose 178.0 ml/min Estimated GFR () 116.9 Estimated GFR (Non- 100.8 BUN/Creatinine Ratio 18.2 Random Glucose 110 mg/dl Calcium Level 7.7 mg/dl Test 02/18/17 11:23 Bedside Glucose 137 mg/dl Assessment and Plan This is a 61 year old morbidly obese male with a PMH of COPD, KIRSTEN on CPAP, uncontrolled DM2, paroxysmal atrial fibrillation with recent elective cardioversion, Factor V Leiden mutation on long-term anticoagulation, HTN, anxiety/depression presents with worsening shortness of breath Acute Hypercarbic Respiratory Failure Acute COPD exacerbation 02/18 patient with intermittent improvement in his breathing Plan is for a V/Q scan later today vs. tomorrow INR is 1.9, will check tomorrow with a goal of 2-3 for now, may need a higher goal of 2.5-3.5 due to body weight, hypercoagulable state, etc. For now, continue Lasix 40mg PO BID; replace potassium continue Prednisone at current dose Doxycycline Nocturnal CPAP and O2 as needed, wean as tolerated, OOB to chair, PT/OT 02/17 appreciate pulmonary input agree about multifactorial nature of his respiratory distress: diastolic CHF, pulmonary HTN, obesity-hypoventilation currently on a fluid restriction 1.5L Lasix restarted at 40mg PO BID potassium started continue prednisone and doxycycline for now nocturnal CPAP/O2 02/16 as of now prednisone and doxycycline has been on bipap and intermittently on O2 via NC pulmonary for further management 02/15 prednisone 20mg for now continue doxycycline appreciate pulmonology input bipap for now, will wean if tolerated 02/14 significant issues due to morbid obesity likely obesity hypoventilation follows with pulmonology - will consult pulm for further input for now, started on low dose prednisone due to blood sugar issues continue IV doxy nebulizers as needed wean bipap as tolerated KIRSTEN continue nocturnal CPAP/O2 use Uncontrolled DM2 02/18 currently better controlled BSGs appreciate pharmacy glycemic control consult Lantus increased to 38 units BID sliding scale adjusted will need insulin on discharge, he seems agreeable, but compliance has been an issue with other medical conditions 02/15 appreciate glycemic control consultation started on insulin drip transition to subq insulin when able diabetic education consult placed 02/14 patient with an A1c >10% refuses insulin treatment at home significant morbid obesity; counseled on weight management and dietary changes diabetic education consulted will start insulin 30 units BID and sliding scale monitor BSGs, if still >350 during next reading will need insulin infusion will wean steroids quickly to prevent further hyperglycemia Elevated Troponin level this is likely due to recent cardioversion on Wednesday (February 12) denies chest pain monitor in tele Lactic Acidemia - resolved 02/15 procalcitonin negative recheck lactic acid, but more likely related to medication and not infection BP stable 02/14 does not seem to be related to infection no leukocytosis noted, afebrile, hemodynamically stable possibly related to medications, including metformin give fluids, recheck lactic acid at 1000 Paroxysmal A. Fib recent cardioversion, currently NSR continue Amiodarone continue Coumadin Factor V Leiden mutation on Coumadin, which we will continue with a goal INR of 2-3 HTN BP stable Depression/Anxiety continue home medications DVT ppx Coumadin FULL CODE
--- NOTE | 2017-02-18 12:44 | PROGRESS NOTE ---
DATE: 02/18/2017 DATE: 02/18/2017 PROBLEM LIST: Includes: 1. Acute on chronic respiratory insufficiency. 2. Morbid obesity. 3. Hypoventilation syndrome. 4. Diastolic heart failure. 5. Pulmonary hypertension. SUBJECTIVE: The patient reports that he is slowly feeling a little bit better. He still is requiring oxygen use during the day which is unusual for him. He still is having some cough. He has not really noticed any significant congestion. He is not really coughing anything up. He does have some wheezing when he is up moving around. He states that he did well yesterday until he tried to get a shower. He states that he was pretty short of breath and tired after the shower. He is not having any chest pain. No chest pressure. No chest heaviness or tightness. He denies any GI symptoms at this time. No abdominal pain, no nausea or vomiting, no indigestion or heartburn. He still has swelling in her legs, but it is improved compared to yesterday. Denies any numbness or tingling or weakness in the extremities. OBJECTIVE: GENERAL: The patient is a 61-year-old male in no acute distress. He is alert and oriented x3. Mood is good. Affect is good. VITAL SIGNS: Temp 36.8, pulse 64, respirations 22, blood pressure is 154/82, pulse ox 96% on 3-4 liters. HEAD, EYES, EARS, NOSE, AND THROAT: Normocephalic, atraumatic. Pupils equal, round and reactive to light and accommodation. Extraocular movements are intact. [place] moist gingival and buccal mucosa. NECK: Supple. No mass. No adenopathy. No bruit. CHEST: The patient has had a few expiratory wheeze, some of which clear with coughing. No rale or rhonchi noted. CARDIOVASCULAR: Regular rate and rhythm. No murmurs, gallops or rubs. ABDOMEN: Obese, soft, nontender. No guarding, rigidity or organomegaly. EXTREMITIES: The patient has 2+ pitting edema bilaterally, no erythema, no tenderness. LABORATORY DATA: Shows white count of 8.5, H&H 9.8 and 30.0, platelet count 183,000. INR 1.9. No new imaging. IMPRESSION: This is a 61-year-old male with morbid obesity who was admitted for acute on chronic respiratory insufficiency, hypercapnia. At this time, he does continue to show some slow improvement, but he is not responding as he typically does. He still has increased shortness of breath as well as increased oxygen demand. The patient currently is on a fluid restriction. Would recommend to continue that. Continue his other medications as they are. The patient does have chronic hypercoagulable state. The patient is on Coumadin routinely. At this point I would like to order a VQ scan tomorrow to evaluate for chronic thromboembolic pulmonary hypertension. The patient will be set up for this. This was explained to him. He is agreeable to having this done. Otherwise, he is to continue his medications as they are. We will await the results of the VQ scan in the morning. We will continue to follow through hospitalization. Patient plan reviewed and agreed upon. DENITA
[2017-02-18] MEDS: POTASSIUM CHLORIDE 20 MEQ TABCR PO SCH ×2 (13:10→20:19)
[2017-02-18] MEDS: WARFARIN SOD 5 MG TAB PO SCH (15:45)
[2017-02-18] MEDS: ATORVASTATIN 40 MG TAB PO SCH (20:17)
[2017-02-19] VITALS (11 sets, daily range): BP systolic 127–184; BP diastolic 63–97; PULSE 47–78; TEMP 36.5–36.8; O2SAT 95–98
[2017-02-19] MEDS: IPRATROPIUM BROMIDE NEB SOLN 0.02% 2.5 ML VIAL INH SCH ×4 (01:36→19:18)
[2017-02-19] MEDS: LEVALBUTEROL 1.25MG/0.5ML NEB INH SCH ×4 (01:36→19:19)
[2017-02-19] MEDS: DOXYCYCLINE IV 100 MG in DEXTROSE 5% 100ML 100 ML IV SCH (02:09)
[2017-02-19 07:59] LABS: PROTHROMBIN TIME (PATIENT) 22.2 SECONDS (9.0-12.0)
[2017-02-19 08:20] LABS: BUN/CREATININE RATIO 18.2 (10-20); CALCIUM 7.8 mg/dl (8.5-10.1); CREATININE 0.74 mg/dl (0.60-1.40); MAGNESIUM 1.9 mg/dl (1.8-2.4); POTASSIUM 3.5 mmol/L (3.5-5.1)
--- NOTE | 2017-02-19 09:10 | DIAGNOSTIC IMAGING REPORT ---
NUCLEAR MEDICINE VENTILATION/PERFUSION SCAN CLINICAL HISTORY: Acute respiratory failure. Evaluate for chronic thromboembolic disease. COMPARISON: Chest radiograph February 15, 2017. TECHNIQUE: For the ventilation portion of this exam, 33 mCi of DTPA was inhaled at 8:00 AM on February 19, 2017. Immediately following inhalation, imaging of the chest was carried out in the anterior, posterior, left lateral, right lateral, LPO, RPO, GHANAIAN and FLOOD projections. For the perfusion portion of exam, 5.5 mCi of technetium 99m MAA was injected IV at 8:40 AM on February 19, 2017. Immediately following injection, imaging of the chest was carried out in the same projections. FINDINGS: Central radiotracer deposition is noted on the ventilation images which suggests chronic lung disease. No mismatched defects are identified on the perfusion images. This study is considered low probability for pulmonary embolus. IMPRESSION: 1. Low probability for pulmonary embolus. 2. Central radiotracer deposition on the ventilation images suggestive of chronic lung disease. Electronically signed by: Gianni Paniagua M.D. 02/19/2017 9:09 AM Dictated Date/Time: 02/19/2017 9:06 AM
--- NOTE | 2017-02-19 09:21 | DIAGNOSTIC IMAGING REPORT ---
TWO VIEW CHEST CLINICAL HISTORY: Respiratory failure. FINDINGS: PA and lateral chest radiographs are compared to study dated 02/15/2017 and correlated with chest CT dated 07/23/2013. The examination is degraded by large body habitus. The heart is enlarged and there is atherosclerotic calcification of the thoracic aorta. There is mild pulmonary vascular congestion. Chronic interstitial thickening is similar to previous. Trace pleural effusions are suggested on the lateral view. There is no pneumothorax. The skeletal structures are osteopenic. Degenerative change is noted throughout the thoracic spine. IMPRESSION: 1. Cardiomegaly with mild pulmonary vascular congestion. 2. Trace pleural effusions Electronically signed by: Robbin Engle M.D. 02/19/2017 9:19 AM Dictated Date/Time: 02/19/2017 9:17 AM
[2017-02-19] MEDS: BUDESONIDE 90 MCG INH INH SCH ×2 (09:27→20:45)
[2017-02-19] MEDS: METOPROLOL SUCC 25MG EXT REL TAB PO SCH (09:28)
[2017-02-19] MEDS: FERROUS GLUCONATE 324 MG TAB PO SCH ×2 (09:28→20:47)
[2017-02-19] MEDS: PANTOprazole SOD 40 MG TAB PO SCH ×2 (09:29→20:47)
[2017-02-19] MEDS: FUROSEMIDE 40 MG TAB PO SCH ×2 (09:29→17:35)
[2017-02-19] MEDS: SERTRALINE HCL 50 MG TAB PO SCH (09:29)
[2017-02-19] MEDS: AMIODARONE 200 MG TAB PO SCH ×2 (09:30→20:47)
[2017-02-19] MEDS: LISINOPRIL 10 MG TAB PO SCH (09:30)
[2017-02-19] MEDS: POTASSIUM CHLORIDE 20 MEQ TABCR PO SCH ×3 (09:31→20:46)
[2017-02-19] MEDS: GABAPENTIN 100 MG CAP PO SCH ×2 (09:31→20:47)
[2017-02-19] MEDS: ALPRAZOLAM 0.5 MG TAB PO SCH ×2 (09:39→20:51)
[2017-02-19] MEDS: SUCRALFATE 1 GM/10 ML UDC PO SCH ×2 (09:40→20:45)
[2017-02-19] MEDS: INSULIN GLARGINE SOLOSTAR 100 UNITS/ML 3 ML PEN SC SCH ×2 (09:50→20:57)
[2017-02-19] MEDS: INSULIN ASPART 100 UNITS/ML 3 ML PEN SC SCH ×4 (09:50→20:56)
--- NOTE | 2017-02-19 11:25 | Progress Note ---
Subjective Date of Service: Feb 19, 2017. Subjective Pt evaluation today including: conversation w/ patient, physical exam, lab review, review of studies, review of inpatient medication list Saw/examined the patient in room 244 improving with his breathing, though still requiring O2 throughout the day, which is new for him had V/Q scan this morning, doing well afterwards, no chest pain Problem List Medical Problems: (1) COPD exacerbation Status: Acute (2) Fluid overload Status: Acute (3) Hypomagnesemia Status: Acute (4) Rapid atrial fibrillation Status: Acute (5) Shortness of breath Status: Acute Review of Systems Constitutional: No fever, No chills Respiratory: + wheezing, + shortness of breath, + dyspnea on exertion, + dyspnea at rest, No cough, No sputum, No hemoptysis Cardiac: No chest pain, No palpitations Abdomen: No pain, No nausea, No vomiting, No diarrhea Medications Current Inpatient Medications Medications (Trade) Dose Ordered Sig/Ramirez Route Start Time Stop Time Status Last Admin Dose Admin Glucose (Glucose 40% Gel) 15-30 GRAMS 15 GRAMS... UD PRN PO 02/14/17 00:00 03/16/17 00:00 Glucose (Glucose Chew Tab) 4-8 Tablets 4 Tabl... UD PRN PO 02/14/17 00:00 03/16/17 00:00 Dextrose (Dextrose 50% 50ML Syringe) 25-50ML OF 50% DW IV FOR... UD PRN IV 02/14/17 00:00 03/16/17 00:00 Glucagon (Glucagon Inj) 1 mg UD PRN SQ 02/14/17 00:00 03/16/17 00:00 Doxycycline Hyclate 100 mg/ Dextrose 110 ml @ 50 mls/hr BID@0200,1400 IV 02/14/17 14:00 02/21/17 13:59 02/19/17 02:09 50 MLS/HR Acetaminophen (Tylenol Tab) 650 mg Q4H PRN PO 02/14/17 00:15 03/16/17 00:14 Nitroglycerin (Nitrostat Tab) 0.4 mg UD PRN SL 02/14/17 00:15 03/16/17 00:14 Alprazolam (Xanax Tab) 0.5 mg BID PO 02/14/17 09:00 03/16/17 08:59 02/19/17 09:39 0.5 MG Amiodarone HCl (Cordarone Tab) 200 mg BID PO 02/14/17 09:00 03/16/17 08:59 02/19/17 09:30 200 MG Atorvastatin Calcium (Lipitor Tab) 40 mg HS PO 02/14/17 21:00 03/16/17 20:59 02/18/17 20:17 40 MG Ferrous Gluconate (Ferrous Gluconate Tab) 324 mg BID PO 02/14/17 09:00 03/16/17 08:59 02/19/17 09:28 324 MG Gabapentin (Neurontin Cap) 100 mg BID PO 02/14/17 09:00 03/16/17 08:59 02/19/17 09:31 100 MG Pantoprazole Sodium (Protonix Tab) 40 mg BID PO 02/14/17 09:00 03/16/17 08:59 02/19/17 09:29 40 MG Sertraline HCl (Zoloft Tab) 75 mg DAILY PO 02/14/17 09:00 03/16/17 08:59 02/19/17 09:29 75 MG Sucralfate (Carafate Susp) 1 gm Q12 PO 02/14/17 09:00 03/16/17 08:59 02/19/17 09:40 1 GM Tramadol HCl (Ultram Tab) not relieved by tylenol @ Q6H PRN PO 02/14/17 00:15 03/16/17 00:14 02/15/17 20:46 50 MG Ondansetron HCl (Zofran Inj) 4 mg Q6H PRN IV 02/14/17 00:15 03/16/17 00:14 02/15/17 13:59 4 MG Ipratropium [place] (Atrovent 0.02% 0.5MG/2.5ML Neb) 0.5 mg Q6R INH 02/14/17 03:00 03/16/17 02:59 02/19/17 07:18 0.5 MG Levalbuterol (Xopenex 1.25MG/ 0.5ML Neb) 1.25 mg Q6R INH 02/14/17 03:00 03/16/17 02:59 02/19/17 07:18 1.25 MG Metoprolol Succinate (Toprol Xl Tab) 25 mg DAILY PO 02/14/17 09:00 03/16/17 08:59 02/19/17 09:28 25 MG Lisinopril (Zestril Tab) 10 mg DAILY PO 02/15/17 09:00 03/16/17 08:59 02/19/17 09:30 10 MG Miscellaneous Information (Consult Glycemic Management Pharmacy) 1 ea UD N/A 02/14/17 13:55 03/16/17 13:54 Budesonide (Pulmicort Inhaler) 2 puffs Q12 INH 02/15/17 21:00 03/17/17 20:59 02/19/17 09:27 2 PUFFS Insulin Aspart (novoLOG ASPART) SLIDING SCALE ACHS SC 02/15/17 16:15 03/17/17 16:14 02/19/17 09:50 27 UNITS Insulin Glargine (Lantus Solostar Pen) 38 units BID SC 02/17/17 09:00 03/19/17 08:59 02/19/17 09:50 38 UNITS Warfarin Sodium (Coumadin Tab) 5 mg DAILY@16 PO 02/17/17 16:00 03/19/17 15:59 02/18/17 15:45 5 MG Furosemide (Lasix Tab) 40 mg BID17 PO 02/17/17 21:00 03/19/17 20:59 02/19/17 09:29 40 MG Potassium Chloride (Klor-Con Tab) 40 meq TID PO 02/18/17 14:00 03/19/17 08:59 02/19/17 09:31 40 MEQ Objective Vital Signs Date Time Temp Pulse Resp B/P (MAP) Pulse Ox O2 Delivery O2 Flow Rate FiO2 02/19/17 09:26 60 145/82 (103) 02/19/17 07:48 36.8 59 20 175/97 (123) 98 02/19/17 07:18 78 12 96 Nasal Cannula 3.0 02/19/17 04:00 CPAP 02/19/17 03:00 36.5 50 22 127/63 (84) 97 BiPAP 02/19/17 01:36 69 18 96 BiPAP/CPAP 3.0 02/19/17 00:00 CPAP 02/18/17 23:36 36.5 53 22 141/74 (96) 92 BiPAP 02/18/17 20:12 36.9 59 22 162/62 (95) 97 Nasal Cannula 4.0 02/18/17 20:00 Nasal Cannula 3.0 02/18/17 19:56 59 16 98 Nasal Cannula 3.0 02/18/17 16:14 36.9 58 20 138/61 (86) 97 Nasal Cannula 4.0 02/18/17 15:00 Nasal Cannula 3.0 02/18/17 14:15 70 16 97 Nasal Cannula 3.0 02/18/17 11:43 36.8 64 22 154/82 (106) 96 Nasal Cannula 4.0 02/18/17 11:24 Nasal Cannula 3.0 Physical Exam General Appearance: no apparent distress, + obese Respiratory/Chest: + decreased breath sounds, + wheezing Cardiovascular: regular rate, rhythm, no murmur Abdomen: normal bowel sounds, non tender, soft Extremities: + pertinent finding (+1 pitting edema b/l LE) Laboratory Results Last 24 Hours Test 02/18/17 11:23 02/18/17 16:16 02/18/17 20:16 02/19/17 07:09 Bedside Glucose 137 mg/dl 166 mg/dl 116 mg/dl 107 mg/dl Test 02/19/17 07:11 Prothrombin Time 22.2 SECONDS Prothromb Time International Ratio 2.0 Sodium Level 142 mmol/L Potassium Level 3.5 mmol/L Chloride Level 106 mmol/L Carbon Dioxide Level 33 mmol/L Anion Gap 3.0 mmol/L Blood Urea Nitrogen 14 mg/dl Creatinine 0.74 mg/dl Est Creatinine Clear Calc Drug Dose 175.7 ml/min Estimated GFR () 116.2 Estimated GFR (Non- 100.3 BUN/Creatinine Ratio 18.2 Random Glucose 90 mg/dl Calcium Level 7.8 mg/dl Magnesium Level 1.9 mg/dl Assessment and Plan This is a 61 year old morbidly obese male with a PMH of COPD, KIRSTEN on CPAP, uncontrolled DM2, paroxysmal atrial fibrillation with recent elective cardioversion, Factor V Leiden mutation on long-term anticoagulation, HTN, anxiety/depression presents with worsening shortness of breath Acute Hypercarbic Respiratory Failure Acute COPD exacerbation 02/19 V/Q scan done and negative CXR looks okay from this morning appreciate pulmonary input - due to patient's obesity/hypoventilation, COPD, KIRSTEN , etc. may need to stay over the weekend will stop IV doxycycline continue prednisone 20mg with nebulizer treatments wean O2 as tolerated continue PT/OT and ambulation 02/18 patient with intermittent improvement in his breathing Plan is for a V/Q scan later today vs. tomorrow INR is 1.9, will check tomorrow with a goal of 2-3 for now, may need a higher goal of 2.5-3.5 due to body weight, hypercoagulable state, etc. For now, continue Lasix 40mg PO BID; replace potassium continue Prednisone at current dose Doxycycline Nocturnal CPAP and O2 as needed, wean as tolerated, OOB to chair, PT/OT 02/17 appreciate pulmonary input agree about multifactorial nature of his respiratory distress: diastolic CHF, pulmonary HTN, obesity-hypoventilation currently on a fluid restriction 1.5L Lasix restarted at 40mg PO BID potassium started continue prednisone and doxycycline for now nocturnal CPAP/O2 02/16 as of now prednisone and doxycycline has been on bipap and intermittently on O2 via [facility] for further management 02/15 prednisone 20mg for now continue doxycycline appreciate pulmonology input bipap for now, will wean if tolerated 02/14 significant issues due to morbid obesity likely obesity hypoventilation follows with pulmonology - will consult pulm for further input for now, started on low dose prednisone due to blood sugar issues continue IV doxy nebulizers as needed wean bipap as tolerated KIRSTEN continue nocturnal CPAP/O2 use Uncontrolled DM2 02/19 agreeable to insulin use on discharge may be beneficial to use just Lantus and avoid Novolog for compliance issues 02/18 currently better controlled BSGs appreciate pharmacy glycemic control consult Lantus increased to 38 units BID sliding scale adjusted will need insulin on discharge, he seems agreeable, but compliance has been an issue with other medical conditions 02/15 appreciate glycemic control consultation started on insulin drip transition to subq insulin when able diabetic education consult placed 02/14 patient with an A1c >10% refuses insulin treatment at home significant morbid obesity; counseled on weight management and dietary changes diabetic education consulted will start insulin 30 units BID and sliding scale monitor BSGs, if still >350 during next reading will need insulin infusion will wean steroids quickly to prevent further hyperglycemia Elevated Troponin level this is likely due to recent cardioversion on Wednesday (February 12) denies chest pain monitor in tele Lactic Acidemia - resolved 02/15 procalcitonin negative recheck lactic acid, but more likely related to medication and not infection BP stable 02/14 does not seem to be related to infection no leukocytosis noted, afebrile, hemodynamically stable possibly related to medications, including metformin give fluids, recheck lactic acid at 1000 Paroxysmal A. Fib recent cardioversion, currently NSR continue Amiodarone continue Coumadin Factor V Leiden mutation on Coumadin, which we will continue with a goal INR of 2-3 HTN BP stable Depression/Anxiety continue home medications DVT ppx Coumadin FULL CODE
--- NOTE | 2017-02-19 11:58 | PROGRESS NOTE ---
DATE: 02/19/2017 PROBLEM LIST: Includes: 1. Acute on chronic respiratory insufficiency. 2. Morbid obesity. 3. Hypoventilation syndrome. 4. Diastolic heart failure. 5. Pulmonary hypertension. SUBJECTIVE: The patient reports that his breathing is doing okay. He feels that it is continuing to slowly improve. He states that this morning he did start with some coughing. The cough has been nonproductive, although he feels like there may be a little bit of mucus in there. He has not noted any wheezing, no chest congestion or tightness, no chest heaviness. He still is requiring some oxygen, more so when he lays down and when he is upright. He has not noted any chest pain. No chest pressure, no chest heaviness. He has not had any GI symptoms at this point. No diarrhea, no nausea or vomiting. Appetite is normal, continues to avoid, has not had any increased swelling in his extremities. In fact his swelling has started to decrease a little bit. The patient did have a V/Q scan this morning to evaluate for chronic thromboembolic disease. OBJECTIVE: GENERAL: The patient is a 61-year-old male in no acute distress. He is alert and oriented x3. Mood is good. Affect is good. VITAL SIGNS: Temp 36.8, pulse 60, respirations 20, blood pressure is 145/82, pulse ox is 98% on 3 liters. HEENT: Normocephalic, atraumatic. Pupils equal, round and react to light and accommodation. Extraocular movements are intact. [place] moist gingival and buccal mucosa. NECK: Short, thick, no mass. No adenopathy. No bruit. CHEST: Breath sounds are diminished, but overall clear today. No appreciated wheeze, rale or rhonchi noted. CARDIOVASCULAR: Regular rate and rhythm. There are no murmurs, gallops or rubs. ABDOMEN: Bowel sounds are present. Abdomen soft, nontender. No guarding, rigidity or organomegaly. EXTREMITIES: +2 edema bilaterally, no erythema, no tenderness. NEUROLOGIC: Cranial nerves II-XII are intact. No focal deficit noted. LABORATORY DATA: INR 2.0. V/Q scan showing low probability for pulmonary embolism. The patient did have a chest x-ray today, showing persistent cardiomegaly and pulmonary vascular congestion. IMPRESSION: 1. This is a 61-year-old male who is morbidly obese, admitted for acute on chronic respiratory insufficiency and hypercapnia. The patient did have V/Q study done, showing no probability, therefore possibility of chronic thromboembolic disease is relatively low. Because of that, we will continue his INR target range of 2.0-3.0. 2. Acute on chronic respiratory insufficiency. The patient is showing slow improvement. He is coughing a little bit today, which makes me wonder if he is starting to have some loosening of the mucus in the chest, I think that is what is contributing to shortness of breath. 3. Hypoventilation syndrome. The patient is on BiPAP and oxygen at nighttime for diastolic heart failure, improving. 4. Hypoxia. The patient's oxygen demand is still present, but I believe is improving. PLAN: At this point is to continue to monitor the patient. My past experience with the patient, he sometimes is very slow to recover and I think this may be one of those cases. May need to consider continuing prednisone, but for now with no wheezing, we will hold off. Continue aggressive pulmonary toilet. We will continue to follow through hospitalization. The patient and plan has been reviewed and agreed upon. DENITA
[2017-02-19] MEDS: WARFARIN SOD 5 MG TAB PO SCH (15:52)
[2017-02-19] MEDS: ATORVASTATIN 40 MG TAB PO SCH (20:47)
[2017-02-20] VITALS (10 sets, daily range): BP systolic 157–183; BP diastolic 72–93; PULSE 46–62; TEMP 36.5–36.9; O2SAT 94–99
[2017-02-20] MEDS: LEVALBUTEROL 1.25MG/0.5ML NEB INH SCH ×4 (01:50→19:59)
[2017-02-20] MEDS: IPRATROPIUM BROMIDE NEB SOLN 0.02% 2.5 ML VIAL INH SCH ×4 (01:50→19:59)
[2017-02-20] MEDS ORDERED: INSULIN ASPART 100 UNITS/ML 3 ML PEN SC SCH (02:00)
[2017-02-20 08:11] LABS: HEMATOCRIT 32.7 % (42-52); MEAN CELL VOLUME 86.7 fL (80-100); MEAN CORPUSCULAR HEMOGLOBIN 27.6 pg (25-34); MEAN CORPUSCULAR HGB CONC 31.8 g/dl (32-36); MEAN PLATELET VOLUME 8.6 fL (7.4-10.4); PLATELET COUNT 208 K/uL (130-400); RED BLOOD COUNT 3.77 M/uL (4.7-6.1)
[2017-02-20 08:32] LABS: INR 2.2 (0.9-1.1); PROTHROMBIN TIME (PATIENT) 24.1 SECONDS (9.0-12.0)
[2017-02-20] MEDS: BUDESONIDE 90 MCG INH INH SCH ×2 (08:41→20:38)
[2017-02-20] MEDS: PANTOprazole SOD 40 MG TAB PO SCH ×2 (08:43→20:39)
[2017-02-20] MEDS: SUCRALFATE 1 GM/10 ML UDC PO SCH ×2 (08:43→20:39)
[2017-02-20] MEDS: GABAPENTIN 100 MG CAP PO SCH ×2 (08:43→20:39)
[2017-02-20] MEDS: AMIODARONE 200 MG TAB PO SCH ×2 (08:44→20:39)
[2017-02-20] MEDS: FERROUS GLUCONATE 324 MG TAB PO SCH ×2 (08:44→20:39)
[2017-02-20] MEDS: FUROSEMIDE 40 MG TAB PO SCH ×2 (08:44→17:14)
[2017-02-20 08:46] LABS: BUN/CREATININE RATIO 17.1 (10-20); CALCIUM 8.1 mg/dl (8.5-10.1); CREATININE 0.73 mg/dl (0.60-1.40); MAGNESIUM 1.9 mg/dl (1.8-2.4); POTASSIUM 3.8 mmol/L (3.5-5.1)
[2017-02-20] MEDS: POTASSIUM CHLORIDE 20 MEQ TABCR PO SCH ×3 (08:46→20:40)
[2017-02-20] MEDS: METOPROLOL SUCC 25MG EXT REL TAB PO SCH (09:00)
[2017-02-20] MEDS: INSULIN ASPART 100 UNITS/ML 3 ML PEN SC SCH ×4 (09:03→20:45)
[2017-02-20] MEDS: INSULIN GLARGINE SOLOSTAR 100 UNITS/ML 3 ML PEN SC SCH ×2 (09:04→20:46)
[2017-02-20] MEDS: LISINOPRIL 10 MG TAB PO SCH (09:08)
[2017-02-20] MEDS: SERTRALINE HCL 50 MG TAB PO SCH (09:08)
[2017-02-20] MEDS: ALPRAZOLAM 0.5 MG TAB PO SCH ×2 (09:11→20:38)
--- NOTE | 2017-02-20 11:36 | Pharmacy Progress Note ---
Glycemic Control Progress Note Date of Service Feb 20, 2017. Scope Glycemic Pharmacist consulted for glycemic control to write orders per [facility] inpatient glycemic control protocol. Objective Accuchecks BSG (last 24hrs): Test 02/19/17 11:34 02/19/17 16:32 02/19/17 16:33 02/19/17 16:52 Bedside Glucose 128 mg/dl (70-99) 68 mg/dl (70-99) 65 mg/dl (70-99) 72 mg/dl (70-99) Test 02/19/17 17:31 02/19/17 20:19 02/19/17 22:40 02/20/17 07:41 Bedside Glucose 112 mg/dl (70-99) 182 mg/dl (70-99) 206 mg/dl (70-99) 134 mg/dl (70-99) Test 02/20/17 07:43 02/20/17 11:11 Random Glucose 152 mg/dl (70-99) Bedside Glucose 98 mg/dl (70-99) Recent Pertinent Medications The patient is currently receiving: * Lantus 38 units Q12h * Novolog ACHS * Goal: 110-150 * CF: 8 * CR: 2 Outpatient Anti-Diabetic Meds Oral Agents Assessment & Plan ASSESSMENT: * See progress note from 02/14/17 for more background info, in short: * Pt receiving SQ basal bolus insulin regimen for hyperglycemia secondary to baseline DM (A1c >10%),stress/infection, and steroids. * Patient is currently receiving an average of 142 units of insulin per day * 76 units of basal insulin * 66 units of prandial/correctional insulin * BSGs ranging 68 -185 over the past 24hrs * Anticipating insulin regimen will need DECREASED for the next 24hrs d/t : * Patient had symptomatic hypoglycemia at dinner last night (BSG = 68), drank juice, refused coverage and was back up to 185 at bedtime * Fasting BSG this AM 134 and Lunch BSG 98 * My plan today is to overall reduce regimen by loosening both Lantus and Novolog by estimating his needs to be ~100-125 units of insulin/day PLAN FOR INPATIENT GLYCEMIC CONTROL: * Continue to hold metformin * Basal insulin: Decrease * Lantus 25 units SC BID * Bolus insulin: Loosen * NovoLog per scale ACHS * Goal Range: Low 110 mg/dL - High 150 mg/dL * Correction Factor: 15 mg/dL/unit * Nutritional / Prandial insulin per carb ratio of 1 unit per 5 grams CHO consumed RECOMMENDATIONS FOR DISCHARGE: * Per MD's note, patient is agreeable to insulin therapy - maybe basal only to start * Lantus dose TBD closer to discharge * Please note that the plan above was derived based on current level of insulin resistance and hospital stress. These recommendations are appropriate for inpatient admission only. Plan of care upon discharge will need to be reassessed to avoid potential outpatient hypo/hyperglycemia. Thank you.
[2017-02-20] MEDS: WARFARIN SOD 5 MG TAB PO SCH (16:36)
--- NOTE | 2017-02-20 17:48 | Pulmonology Progress Note ---
Pulmonary Progress Note Date of Service Feb 20, 2017. Attending Dr. Pickering Subjective Patient notes he is dramatically improving and is almost 90's percent back to his baseline. He still notes a notable increase in his bilateral lower extremity swelling. Objective Patient is sitting up in bed today eating his dinner and able to complete full sentences with no signs of respiratory insufficiency at this time I/Os: -870cc RR: 16-22 SaO2: 94-99% FiO2: 2-4L RESP: Increase overall respiratory volume with mild expiratory wheezing CARD: Distant heart sounds but regular rate and rhythm EXT: 3+ bilateral pitting edema ABD: Positive bowel sounds soft nontender Laboratory WBC: 8K INR: 2.2 Cr: 0.73 Carbon dioxide: 33 Microbiology: No significant findings to date Venous Dopplers 02/16/2017: No evidence of DVT bilaterally VQ scan scan 02/19/2017: Low probability for pulmonary embolism Chest x-ray the 14/11/2016: Signs of cardiomegaly with mild bilateral costophrenic blunting LABS: WBC: 12K Platelet: 154K INR: 2.3 ABG (02/15/17) 7.44/39/65/26 2L Chest x-ray 02/15/2017: Cephalization, peribronchial cuffing, left costophrenic angle blunting Medications: Prednisone 20 mg daily Coumadin 5 mg daily Pulmicort 2 puffs twice a day Xopenex/Atrovent nebulizer every 6 hours Lasix 40 mg orally twice daily Past medical history Morbid obesity Moderate persistent asthma Chronic hypercapnic respiratory failure on home oxygen Sleep apnea on CPAP Pulmonary hypertension Chronic diastolic failure with EF of 50-55% Atrial fibrillation status post recent ablation and cardioversion Hypertension hyperlipidemia History of seizures Anemia GERD Factor V Leyden deficiency Chronic anemia (Baseline hemoglobin 11-12) Type 2 diabetes. Diabetic peripheral neuropathy Nephrolithiasis Generalized anxiety disorder Last admission was in October 2016 for decompensated heart failure secondary to A. fib with RVR Assessment & Plan 61-year-old male admitted for acute on chronic respiratory insufficiency/ hypercapnia #1 Respiratory: Patient's respiratory insufficiency is a combination of his morbid obesity/obesity hypoventilation, diastolic heart failure with associated group 2 and 3 pulmonary hypertension and underlying obesity. This time we should continue his current medical regimen. I will also discuss initiating Spiriva for 4-6 week trial with the patient prior to his discharge. Patient will also require two-step study prior to discharge to determine his overall oxygen requirement. #2 Hypercoagulable: Patient does have a history of factor V Leiden deficiency as well as atrial fibrillation suggesting hypercoagulable states. Bilateral lower extremity DVT studies 02/16/2017 as well as VQ scan performed 02/19/2017 showed no signs of chronic thromboembolic disease. Due to this the patient should be maintained on his current therapeutic range of an INR 2-3. Data Medications: Current Inpatient Medications Medications (Trade) Dose Ordered Sig/Ramirez Route Start Time Stop Time Status Last Admin Dose Admin Glucose (Glucose 40% Gel) 15-30 GRAMS 15 GRAMS... UD PRN PO 02/14/17 00:00 03/16/17 00:00 Glucose (Glucose Chew Tab) 4-8 Tablets 4 Tabl... UD PRN PO 02/14/17 00:00 03/16/17 00:00 Dextrose (Dextrose 50% 50ML Syringe) 25-50ML OF 50% DW IV FOR... UD PRN IV 02/14/17 00:00 03/16/17 00:00 Glucagon (Glucagon Inj) 1 mg UD PRN SQ 02/14/17 00:00 03/16/17 00:00 Acetaminophen (Tylenol Tab) 650 mg Q4H PRN PO 02/14/17 00:15 03/16/17 00:14 Nitroglycerin (Nitrostat Tab) 0.4 mg UD PRN SL 02/14/17 00:15 03/16/17 00:14 Alprazolam (Xanax Tab) 0.5 mg BID PO 02/14/17 09:00 03/16/17 08:59 02/20/17 09:11 0.5 MG Amiodarone HCl (Cordarone Tab) 200 mg BID PO 02/14/17 09:00 03/16/17 08:59 02/20/17 08:44 200 MG Atorvastatin Calcium (Lipitor Tab) 40 mg HS PO 02/14/17 21:00 03/16/17 20:59 02/19/17 20:47 40 MG Ferrous Gluconate (Ferrous Gluconate Tab) 324 mg BID PO 02/14/17 09:00 03/16/17 08:59 02/20/17 08:44 324 MG Gabapentin (Neurontin Cap) 100 mg BID PO 02/14/17 09:00 03/16/17 08:59 02/20/17 08:43 100 MG Pantoprazole Sodium (Protonix Tab) 40 mg BID PO 02/14/17 09:00 03/16/17 08:59 02/20/17 08:43 40 MG Sertraline HCl (Zoloft Tab) 75 mg DAILY PO 02/14/17 09:00 03/16/17 08:59 02/20/17 09:08 75 MG Sucralfate (Carafate Susp) 1 gm Q12 PO 02/14/17 09:00 03/16/17 08:59 02/20/17 08:43 1 GM Tramadol HCl (Ultram Tab) not relieved by tylenol @ Q6H PRN PO 02/14/17 00:15 03/16/17 00:14 02/15/17 20:46 50 MG Ondansetron HCl (Zofran Inj) 4 mg Q6H PRN IV 02/14/17 00:15 03/16/17 00:14 02/15/17 13:59 4 MG Ipratropium [place] (Atrovent 0.02% 0.5MG/2.5ML Neb) 0.5 mg Q6R INH 02/14/17 03:00 03/16/17 02:59 02/20/17 14:08 0.5 MG Levalbuterol (Xopenex 1.25MG/ 0.5ML Neb) 1.25 mg Q6R INH 02/14/17 03:00 03/16/17 02:59 02/20/17 14:08 1.25 MG Metoprolol Succinate (Toprol Xl Tab) 25 mg DAILY PO 02/14/17 09:00 03/16/17 08:59 02/19/17 09:28 25 MG Lisinopril (Zestril Tab) 10 mg DAILY PO 02/15/17 09:00 03/16/17 08:59 02/20/17 09:08 10 MG Miscellaneous Information (Consult Glycemic Management Pharmacy) 1 ea UD N/A 02/14/17 13:55 03/16/17 13:54 Budesonide (Pulmicort Inhaler) 2 puffs Q12 INH 02/15/17 21:00 03/17/17 20:59 02/20/17 08:41 2 PUFFS Insulin Aspart (novoLOG ASPART) SLIDING SCALE ACHS SC 02/15/17 16:15 03/17/17 16:14 02/20/17 17:13 20 UNITS Warfarin Sodium (Coumadin Tab) 5 mg DAILY@16 PO 02/17/17 16:00 03/19/17 15:59 02/20/17 16:36 5 MG Furosemide (Lasix Tab) 40 mg BID17 PO 02/17/17 21:00 03/19/17 20:59 02/20/17 17:14 40 MG Potassium Chloride (Klor-Con Tab) 40 meq TID PO 02/18/17 14:00 03/19/17 08:59 02/20/17 14:37 40 MEQ Prednisone (PredniSONE TAB) 20 mg DAILY PO 02/20/17 09:00 02/21/17 09:01 02/20/17 09:12 20 MG Insulin Glargine (Lantus Solostar Pen) 30 units BID SC 02/20/17 09:00 03/22/17 08:59 02/20/17 09:04 30 UNITS I & O: 24-Hour Column 02/21/17 08:00 Intake Total 720 ml Output Total 1400 ml Balance -680 ml Vital Signs: Date Time Temp Pulse Resp B/P (MAP) Pulse Ox O2 Delivery O2 Flow Rate FiO2 02/20/17 15:43 36.9 62 22 159/79 (105) 94 CPAP 02/20/17 14:08 58 16 98 Nasal Cannula 2.0 02/20/17 12:11 36.8 55 22 175/72 (106) 99 Nasal Cannula 3.0 02/20/17 12:00 Nasal Cannula 3.0 02/20/17 08:02 36.5 54 20 157/93 (114) 97 Nasal Cannula 3.0 02/20/17 08:00 Nasal Cannula 4.0 02/20/17 08:00 Nasal Cannula 3.0 02/20/17 07:18 48 16 97 Nasal Cannula 3.0 02/20/17 04:00 Nasal Cannula 4.0 02/20/17 02:24 36.5 49 20 159/86 (110) 94 CPAP 02/20/17 01:50 46 16 98 Nasal Cannula 3.0 02/20/17 00:01 Nasal Cannula 4.0 02/19/17 22:40 36.5 57 24 174/85 (114) 95 02/19/17 20:10 36.6 47 22 163/79 (107) 96 Nasal Cannula 4.0 02/19/17 20:00 Nasal Cannula 4.0 02/19/17 19:20 63 16 98 Nasal Cannula 3.0 Laboratory Results: Last 24 Hours Test 02/19/17 20:19 02/19/17 22:40 02/20/17 07:41 02/20/17 07:43 Bedside Glucose 182 mg/dl 206 mg/dl 134 mg/dl White Blood Count 7.80 K/uL Red Blood Count 3.77 M/uL Hemoglobin 10.4 g/dL Hematocrit 32.7 % Mean Corpuscular Volume 86.7 fL Mean Corpuscular Hemoglobin 27.6 pg Mean Corpuscular Hemoglobin Concent 31.8 g/dl RDW Standard Deviation 51.0 fL RDW Coefficient of Variation 16.2 % Platelet Count 208 K/uL Mean Platelet Volume 8.6 fL Prothrombin Time 24.1 SECONDS Prothromb Time International Ratio 2.2 Sodium Level 141 mmol/L Potassium Level 3.8 mmol/L Chloride Level 104 mmol/L Carbon Dioxide Level 33 mmol/L Anion Gap 4.0 mmol/L Blood Urea Nitrogen 13 mg/dl Creatinine 0.73 mg/dl Est Creatinine Clear Calc Drug Dose 178.1 ml/min Estimated GFR () 116.9 Estimated GFR (Non- 100.8 BUN/Creatinine Ratio 17.1 Random Glucose 152 mg/dl Calcium Level 8.1 mg/dl Magnesium Level 1.9 mg/dl Test 02/20/17 11:11 02/20/17 14:02 02/20/17 16:16 Bedside Glucose 98 mg/dl 163 mg/dl 173 mg/dl
[2017-02-20] MEDS ORDERED: FUROSEMIDE INJ 20 MG in SYRINGE 0 ML IV SCH (19:00)
[2017-02-20] MEDS: ATORVASTATIN 40 MG TAB PO SCH (20:39)
[2017-02-21] MEDS: LEVALBUTEROL 1.25MG/0.5ML NEB INH SCH ×3 (02:11→14:15)
[2017-02-21] MEDS: IPRATROPIUM BROMIDE NEB SOLN 0.02% 2.5 ML VIAL INH SCH ×3 (02:11→14:15)
[2017-02-21 02:12] VITALS: PULSE 50; O2SAT 97
[2017-02-21 03:55] VITALS: BP 145/81; PULSE 51; TEMP 36.5; O2SAT 94
[2017-02-21 06:52] VITALS: PULSE 52; O2SAT 97
[2017-02-21 07:39] LABS: INR 2.7 (0.9-1.1); PROTHROMBIN TIME (PATIENT) 29.7 SECONDS (9.0-12.0)
[2017-02-21] MEDS: ALPRAZOLAM 0.5 MG TAB PO SCH (08:05)
[2017-02-21] MEDS: FUROSEMIDE 40 MG TAB PO SCH (08:05)
[2017-02-21] MEDS: LISINOPRIL 10 MG TAB PO SCH (08:06)
[2017-02-21] MEDS: METOPROLOL SUCC 25MG EXT REL TAB PO SCH (08:06)
[2017-02-21] MEDS: BUDESONIDE 90 MCG INH INH SCH (08:06)
[2017-02-21] MEDS: POTASSIUM CHLORIDE 20 MEQ TABCR PO SCH ×2 (08:07→13:43)
[2017-02-21] MEDS: PANTOprazole SOD 40 MG TAB PO SCH (08:08)
[2017-02-21] MEDS: SERTRALINE HCL 50 MG TAB PO SCH (08:08)
[2017-02-21] MEDS: FERROUS GLUCONATE 324 MG TAB PO SCH (08:09)
[2017-02-21] MEDS: AMIODARONE 200 MG TAB PO SCH (08:09)
[2017-02-21] MEDS: GABAPENTIN 100 MG CAP PO SCH (08:10)
[2017-02-21] MEDS: SUCRALFATE 1 GM/10 ML UDC PO SCH (08:10)
[2017-02-21] MEDS: INSULIN ASPART 100 UNITS/ML 3 ML PEN SC SCH ×2 (08:15→12:02)
[2017-02-21 08:16] LABS: BASO % 0.2 %; BASO ABS # 0.02 K/uL (0-0.2); COMPLETE YES; EOS % 3.3 %; HEMATOCRIT 33.8 % (42-52); IG% 0.7 %; LYMPH % 26.4 %; LYMPH ABS # 2.26 K/uL (1.2-3.4); MEAN CELL VOLUME 87.1 fL (80-100); MEAN CORPUSCULAR HEMOGLOBIN 26.3 pg (25-34); MEAN CORPUSCULAR HGB CONC 30.2 g/dl (32-36); MEAN PLATELET VOLUME 8.8 fL (7.4-10.4); MONO % 6.4 %; PLATELET COUNT 241 K/uL (130-400); RED BLOOD COUNT 3.88 M/uL (4.7-6.1); WHITE BLOOD COUNT 8.57 K/uL (4.8-10.8)
[2017-02-21 08:24] LABS: BUN/CREATININE RATIO 17.2 (10-20); CALCIUM 8.3 mg/dl (8.5-10.1); CREATININE 0.74 mg/dl (0.60-1.40); POTASSIUM 3.7 mmol/L (3.5-5.1)
[2017-02-21 08:46] VITALS: BP 148/80; PULSE 55; TEMP 36.5; O2SAT 95
--- NOTE | 2017-02-21 08:52 | Pulmonology Progress Note ---
Pulmonary Progress Note Date of Service Feb 21, 2017. Attending Dr. Pcikering Subjective Patient states she is back to his baseline today. He also notes increasing mucous clearance still having some difficulty completely expectorating. Objective The patient looks significantly better today sitting up in a chair completing full sentences showing no signs of excessive muscle use and/or increased work of breathing. I/Os: -4.6L RR: 16-18 SaO2: 94-97% FiO2: 2L RESP: Mild expiratory wheezing but greatly improved CARD: S1-S2 regular rate and rhythm EXT: 3+ pitting edema ABD: Positive bowel sounds soft nontender Laboratory INR: 2.7 Medications: #1 furosemide #2 Coumadin #3 Pulmicort 2 puffs twice a day #4 sucralfate #5 Xopenex/Atrovent nebulizer every 6 hours ABG (02/15/17) 7.44/39/65/26 2L Chest x-ray 02/15/2017: Cephalization, peribronchial cuffing, left costophrenic angle blunting Assessment & Plan 61-year-old male admitted for acute on chronic respiratory insufficiency/ hypercapnia: #1 Respiratory: Patient appears back to his baseline today with notable improvement in his overall mucous clearance. Still believe the most likely etiologies for his acute on chronic respiratory insufficiency result VC/ hypoventilation syndrome, pulmonary hypertension secondary to group to include 3 and underlying obesity. #2 Hypercoagulable: Patient does have a history of factor V Leiden deficiency as well as atrial fibrillation suggesting hypercoagulable states. Bilateral lower extremity DVT studies 02/16/2017 as well as VQ scan performed 02/19/2017 showed no signs of chronic thromboembolic disease. Due to this the patient should be maintained on his current therapeutic range of an INR 2-3. #3 Discharge: I believe the patient is ready for discharge today. He will be placed back on his outpatient regimen and continued on his prednisone which can be slowly tapered as an outpatient. Also the patient will need to step prior to his discharge for oxygen prescription. Data Medications: Current Inpatient Medications Medications (Trade) Dose Ordered Sig/Ramirez Route Start Time Stop Time Status Last Admin Dose Admin Glucose (Glucose 40% Gel) 15-30 GRAMS 15 GRAMS... UD PRN PO 02/14/17 00:00 03/16/17 00:00 Glucose (Glucose Chew Tab) 4-8 Tablets 4 Tabl... UD PRN PO 02/14/17 00:00 03/16/17 00:00 Dextrose (Dextrose 50% 50ML Syringe) 25-50ML OF 50% DW IV FOR... UD PRN IV 02/14/17 00:00 03/16/17 00:00 Glucagon (Glucagon Inj) 1 mg UD PRN SQ 02/14/17 00:00 03/16/17 00:00 Acetaminophen (Tylenol Tab) 650 mg Q4H PRN PO 02/14/17 00:15 03/16/17 00:14 Nitroglycerin (Nitrostat Tab) 0.4 mg UD PRN SL 02/14/17 00:15 03/16/17 00:14 Alprazolam (Xanax Tab) 0.5 mg BID PO 02/14/17 09:00 03/16/17 08:59 02/21/17 08:05 0.5 MG Amiodarone HCl (Cordarone Tab) 200 mg BID PO 02/14/17 09:00 03/16/17 08:59 02/21/17 08:09 200 MG Atorvastatin Calcium (Lipitor Tab) 40 mg HS PO 02/14/17 21:00 03/16/17 20:59 02/20/17 20:39 40 MG Ferrous Gluconate (Ferrous Gluconate Tab) 324 mg BID PO 02/14/17 09:00 03/16/17 08:59 02/21/17 08:09 324 MG Gabapentin (Neurontin Cap) 100 mg BID PO 02/14/17 09:00 03/16/17 08:59 02/21/17 08:10 100 MG Pantoprazole Sodium (Protonix Tab) 40 mg BID PO 02/14/17 09:00 03/16/17 08:59 02/21/17 08:08 40 MG Sertraline HCl (Zoloft Tab) 75 mg DAILY PO 02/14/17 09:00 03/16/17 08:59 02/21/17 08:08 75 MG Sucralfate (Carafate Susp) 1 gm Q12 PO 02/14/17 09:00 03/16/17 08:59 02/21/17 08:10 1 GM Tramadol HCl (Ultram Tab) not relieved by tylenol @ Q6H PRN PO 02/14/17 00:15 03/16/17 00:14 02/15/17 20:46 50 MG Ondansetron HCl (Zofran Inj) 4 mg Q6H PRN IV 02/14/17 00:15 03/16/17 00:14 02/15/17 13:59 4 MG Ipratropium [place] (Atrovent 0.02% 0.5MG/2.5ML Neb) 0.5 mg Q6R INH 02/14/17 03:00 03/16/17 02:59 02/21/17 06:50 0.5 MG Levalbuterol (Xopenex 1.25MG/ 0.5ML Neb) 1.25 mg Q6R INH 02/14/17 03:00 03/16/17 02:59 02/21/17 06:50 1.25 MG Metoprolol Succinate (Toprol Xl Tab) 25 mg DAILY PO 02/14/17 09:00 03/16/17 08:59 02/21/17 08:06 25 MG Lisinopril (Zestril Tab) 10 mg DAILY PO 02/15/17 09:00 03/16/17 08:59 02/21/17 08:06 10 MG Miscellaneous Information (Consult Glycemic Management Pharmacy) 1 ea UD N/A 02/14/17 13:55 03/16/17 13:54 Budesonide (Pulmicort Inhaler) 2 puffs Q12 INH 02/15/17 21:00 03/17/17 20:59 02/21/17 08:06 2 PUFFS Insulin Aspart (novoLOG ASPART) SLIDING SCALE ACHS SC 02/15/17 16:15 03/17/17 16:14 02/21/17 08:15 12 UNITS Warfarin Sodium (Coumadin Tab) 5 mg DAILY@16 PO 02/17/17 16:00 03/19/17 15:59 02/20/17 16:36 5 MG Furosemide (Lasix Tab) 40 mg BID17 PO 02/17/17 21:00 03/19/17 20:59 Future hold 02/21/17 08:05 40 MG Potassium Chloride (Klor-Con Tab) 40 meq TID PO 02/18/17 14:00 03/19/17 08:59 02/21/17 08:07 40 MEQ Prednisone (PredniSONE TAB) 20 mg DAILY PO 02/20/17 09:00 02/21/17 09:01 02/21/17 08:08 20 MG Insulin Glargine (Lantus Solostar Pen) 25 units BID SC 02/21/17 09:00 03/23/17 08:59 02/21/17 08:16 25 UNITS Vital Signs: Date Time Temp Pulse Resp B/P (MAP) Pulse Ox O2 Delivery O2 Flow Rate FiO2 02/21/17 08:46 36.5 55 22 148/80 (102) 95 Nasal Cannula 3.0 02/21/17 06:52 52 16 97 BiPAP/CPAP 2.0 02/21/17 04:00 CPAP 2.0 02/21/17 03:55 36.5 51 18 145/81 (102) 94 BiPAP 02/21/17 02:12 50 16 97 Nasal Cannula 2.0 02/20/17 23:59 CPAP 2.0 02/20/17 22:55 36.7 53 18 166/75 (105) 97 BiPAP 02/20/17 20:00 57 16 98 Nasal Cannula 2.0 02/20/17 20:00 Nasal Cannula 2.0 02/20/17 19:46 36.9 59 22 183/86 (118) 95 Room Air 02/20/17 16:00 Nasal Cannula 2.0 02/20/17 15:43 36.9 62 22 159/79 (105) 94 CPAP 02/20/17 14:08 58 16 98 Nasal Cannula 2.0 02/20/17 12:11 36.8 55 22 175/72 (106) 99 Nasal Cannula 3.0 02/20/17 12:00 Nasal Cannula 3.0 Laboratory Results: Last 24 Hours Test 02/20/17 11:11 02/20/17 14:02 02/20/17 16:16 02/20/17 20:13 Bedside Glucose 98 mg/dl 163 mg/dl 173 mg/dl 162 mg/dl Test 02/21/17 06:19 02/21/17 07:13 02/21/17 07:25 Bedside Glucose 112 mg/dl Prothrombin Time 29.7 SECONDS Prothromb Time International Ratio 2.7 White Blood Count 8.57 K/uL Red Blood Count 3.88 M/uL Hemoglobin 10.2 g/dL Hematocrit 33.8 % Mean Corpuscular Volume 87.1 fL Mean Corpuscular Hemoglobin 26.3 pg Mean Corpuscular Hemoglobin Concent 30.2 g/dl Platelet Count 241 K/uL Mean Platelet Volume 8.8 fL Neutrophils (%) (Auto) 63.0 % Lymphocytes (%) (Auto) 26.4 % Monocytes (%) (Auto) 6.4 % Eosinophils (%) (Auto) 3.3 % Basophils (%) (Auto) 0.2 % Neutrophils # (Auto) 5.40 K/uL Lymphocytes # (Auto) 2.26 K/uL Monocytes # (Auto) 0.55 K/uL Eosinophils # (Auto) 0.28 K/uL Basophils # (Auto) 0.02 K/uL RDW Standard Deviation 51.6 fL RDW Coefficient of Variation 16.4 % Immature Granulocyte % (Auto) 0.7 % Immature Granulocyte # (Auto) 0.06 K/uL Sodium Level 141 mmol/L Potassium Level 3.7 mmol/L Chloride Level 104 mmol/L Carbon Dioxide Level 32 mmol/L Anion Gap 5.0 mmol/L Blood Urea Nitrogen 13 mg/dl Creatinine 0.74 mg/dl Est Creatinine Clear Calc Drug Dose 173.1 ml/min Estimated GFR () 116.2 Estimated GFR (Non- 100.3 BUN/Creatinine Ratio 17.2 Random Glucose 118 mg/dl Calcium Level 8.3 mg/dl
[2017-02-21] MEDS ORDERED: INSULIN GLARGINE SOLOSTAR 100 UNITS/ML 3 ML PEN SC SCH (09:00)
[2017-02-21 11:39] VITALS: BP 157/83; PULSE 54; TEMP 36.6; O2SAT 97
[2017-02-21 11:43] VITALS: BP 157/83; PULSE 54; TEMP 36.6; O2SAT 97
--- NOTE | 2017-02-21 11:54 | Progress Note ---
Medicine Progress Note Date & Time of Visit: Feb 20, 2017 at 12:14. Subjective tolerating PO feels breathing has improved since admission no fevers or chills Objective Last 8 Hrs Date Time Temp Pulse Resp B/P (MAP) Pulse Ox O2 Delivery O2 Flow Rate FiO2 02/20/17 12:11 36.8 55 22 175/72 (106) 99 Nasal Cannula 3.0 02/20/17 08:02 36.5 54 20 157/93 (114) 97 Nasal Cannula 3.0 02/20/17 08:00 Nasal Cannula 4.0 02/20/17 08:00 Nasal Cannula 3.0 02/20/17 07:18 48 16 97 Nasal Cannula 3.0 Physical Exam: GEN: obese, in no acute distress, alert and appropriate, oxygen in place HEENT: NC/AT, normal sclerae, MMM CARDIO: reg rate, S1/2 heard without m/g/r LUNGS: CTA bilaterally, no crackles, rales or wheezes, good diaphragmatic excursion ABD: soft, non-tender, non-distended, no rebound or guarding, +BS, protuberant EXTREMITY: RP and DP palpable 2+ bilat, no LE swelling or edema, extremities are warm and well-perfused NEURO: CN 2-12 grossly intact MUSC: 5/5 strength throughout, no focal deficits, ambulatory SKIN: warm and dry Laboratory Results: Last 24 Hours Test 02/19/17 16:32 02/19/17 16:33 02/19/17 16:52 02/19/17 17:31 Bedside Glucose 68 mg/dl 65 mg/dl 72 mg/dl 112 mg/dl Test 02/19/17 20:19 02/19/17 22:40 02/20/17 07:41 02/20/17 07:43 Bedside Glucose 182 mg/dl 206 mg/dl 134 mg/dl White Blood Count 7.80 K/uL Red Blood Count 3.77 M/uL Hemoglobin 10.4 g/dL Hematocrit 32.7 % Mean Corpuscular Volume 86.7 fL Mean Corpuscular Hemoglobin 27.6 pg Mean Corpuscular Hemoglobin Concent 31.8 g/dl RDW Standard Deviation 51.0 fL RDW Coefficient of Variation 16.2 % Platelet Count 208 K/uL Mean Platelet Volume 8.6 fL Prothrombin Time 24.1 SECONDS Prothromb Time International Ratio 2.2 Sodium Level 141 mmol/L Potassium Level 3.8 mmol/L Chloride Level 104 mmol/L Carbon Dioxide Level 33 mmol/L Anion Gap 4.0 mmol/L Blood Urea Nitrogen 13 mg/dl Creatinine 0.73 mg/dl Est Creatinine Clear Calc Drug Dose 178.1 ml/min Estimated GFR () 116.9 Estimated GFR (Non- 100.8 BUN/Creatinine Ratio 17.1 Random Glucose 152 mg/dl Calcium Level 8.1 mg/dl Magnesium Level 1.9 mg/dl Test 02/20/17 11:11 Bedside Glucose 98 mg/dl Assessment & Plan 61 yo obese M with h/o COPD and KIRSTEN on CPAP presents with SOB after failure of an outpatient rescue pack, admitted and treated for COPD exacerbation. 1. Acute Hypercarbic respiratory failure 2/2 acute COPD exacerbation-Duonebs, steroids, finished doxy. Pulm following. Wean O2 2. KIRSTEN-cont CPAP qHS 3. DMII-agreeable to insulin use on discharge, at goal as inpatient with some overcontrol. Pharmacy loosened insulin parameters. 4. elevated troponin-denies chest pain, likely 2/2 recent DCCV on 02/12 5. PAF-DCCV on 02/12, recently started on amio. Discussed with cardiology who agrees that bradycardia is acceptable as long as asymptomatic. Cont reduced dose of Toprol 25mg PO daily. Cont coumadin s/p DCCV as instructed. 6. 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 HTN-controlled, cont current therapy 8. Depression-stable, cont home meds 9. Morbid obesity DVT proph-coumadin FULL CODE Dispo-likely to home in 1-2 days [facility] Consultants: Shyann Current Inpatient Medications: Current Inpatient Medications Medications (Trade) Dose Ordered Sig/Ramirez Route Start Time Stop Time Status Last Admin Dose Admin Glucose (Glucose 40% Gel) 15-30 GRAMS 15 GRAMS... UD PRN PO 02/14/17 00:00 03/16/17 00:00 Glucose (Glucose Chew Tab) 4-8 Tablets 4 Tabl... UD PRN PO 02/14/17 00:00 03/16/17 00:00 Dextrose (Dextrose 50% 50ML Syringe) 25-50ML OF 50% DW IV FOR... UD PRN IV 02/14/17 00:00 03/16/17 00:00 Glucagon (Glucagon Inj) 1 mg UD PRN SQ 02/14/17 00:00 03/16/17 00:00 Acetaminophen (Tylenol Tab) 650 mg Q4H PRN PO 02/14/17 00:15 03/16/17 00:14 Nitroglycerin (Nitrostat Tab) 0.4 mg UD PRN SL 02/14/17 00:15 03/16/17 00:14 Alprazolam (Xanax Tab) 0.5 mg BID PO 02/14/17 09:00 03/16/17 08:59 02/20/17 09:11 0.5 MG Amiodarone HCl (Cordarone Tab) 200 mg BID PO 02/14/17 09:00 03/16/17 08:59 02/20/17 08:44 200 MG Atorvastatin Calcium (Lipitor Tab) 40 mg HS PO 02/14/17 21:00 03/16/17 20:59 02/19/17 20:47 40 MG Ferrous Gluconate (Ferrous Gluconate Tab) 324 mg BID PO 02/14/17 09:00 03/16/17 08:59 02/20/17 08:44 324 MG Gabapentin (Neurontin Cap) 100 mg BID PO 02/14/17 09:00 03/16/17 08:59 02/20/17 08:43 100 MG Pantoprazole Sodium (Protonix Tab) 40 mg BID PO 02/14/17 09:00 03/16/17 08:59 02/20/17 08:43 40 MG Sertraline HCl (Zoloft Tab) 75 mg DAILY PO 02/14/17 09:00 03/16/17 08:59 02/20/17 09:08 75 MG Sucralfate (Carafate Susp) 1 gm Q12 PO 02/14/17 09:00 03/16/17 08:59 02/20/17 08:43 1 GM Tramadol HCl (Ultram Tab) not relieved by tylenol @ Q6H PRN PO 02/14/17 00:15 03/16/17 00:14 02/15/17 20:46 50 MG Ondansetron HCl (Zofran Inj) 4 mg Q6H PRN IV 02/14/17 00:15 03/16/17 00:14 02/15/17 13:59 4 MG Ipratropium [place] (Atrovent 0.02% 0.5MG/2.5ML Neb) 0.5 mg Q6R INH 02/14/17 03:00 03/16/17 02:59 02/20/17 07:17 0.5 MG Levalbuterol (Xopenex 1.25MG/ 0.5ML Neb) 1.25 mg Q6R INH 02/14/17 03:00 03/16/17 02:59 02/20/17 07:18 1.25 MG Metoprolol Succinate (Toprol Xl Tab) 25 mg DAILY PO 02/14/17 09:00 03/16/17 08:59 02/19/17 09:28 25 MG Lisinopril (Zestril Tab) 10 mg DAILY PO 02/15/17 09:00 03/16/17 08:59 02/20/17 09:08 10 MG Miscellaneous Information (Consult Glycemic Management Pharmacy) 1 ea UD N/A 02/14/17 13:55 03/16/17 13:54 Budesonide (Pulmicort Inhaler) 2 puffs Q12 INH 02/15/17 21:00 03/17/17 20:59 02/20/17 08:41 2 PUFFS Insulin Aspart (novoLOG ASPART) SLIDING SCALE ACHS SC 02/15/17 16:15 03/17/17 16:14 02/20/17 09:03 33 UNITS Warfarin Sodium (Coumadin Tab) 5 mg DAILY@16 PO 02/17/17 16:00 03/19/17 15:59 02/19/17 15:52 5 MG Furosemide (Lasix Tab) 40 mg BID17 PO 02/17/17 21:00 03/19/17 20:59 02/20/17 08:44 40 MG Potassium Chloride (Klor-Con Tab) 40 meq TID PO 02/18/17 14:00 03/19/17 08:59 02/20/17 08:46 40 MEQ Prednisone (PredniSONE TAB) 20 mg DAILY PO 02/20/17 09:00 02/21/17 09:01 02/20/17 09:12 20 MG Insulin Glargine (Lantus Solostar Pen) 30 units BID SC 8/26/17 09:00 03/22/17 08:59 02/20/17 09:04 30 UNITS
[2017-02-21] MEDS ORDERED: TPRSR25 PO (12:54)
[2017-02-21] MEDS ORDERED: PRED-301 PO (13:00)
--- NOTE | 2017-02-21 13:08 | Discharge Instructions ---
Discharge Instructions Date of Service Feb 21, 2017. Admission Reason for Admission: Respiratory Failure, Acute Discharge Discharge Diagnosis / Problem: COPD exacerbation Discharge Goals Goal(s): Prevent Disease Progression Activity Recommendations Activity Limitations: per Instructions/Follow-up section . Instructions / Follow-Up Instructions / Follow-Up Please take all medications as instructed on list above. You have a follow-up appointment with your PCP, JULIA Gambino on 02/24 @ 12: 55pm for follow-up from this hospitalization. It is very important that she address your uncontrolled diabetes at this visit and strongly consider starting you on long-acting insulin. You should take and record your blood sugar measurements at home fasting prior to breakfast every day. Please record these values on a log for review by your doctors every time you are seen. Additional blood sugar values that may be helpful are taken 2 hours post-meal, but the fasting sugars are the most important to know at this point. Please follow-up with your lung doctor as instructed post-discharge. Please continue all your home inhalers and you have been given a steroid taper to take for an additional 8 days at home. Please start with 20mg daily (4 tabs), then decrease by 5mg (1 tab) every two days until gone. Please follow-up with cardiology as recommended post-cardioversion procedure. Please follow-up with [facility] upon discharge to ensure INR is within goal range (2-3). It was a pleasure taking care of you! Call if you have any questions or problems. You can reach a [facility] hospitalist on duty at [facility] 24 hours a day by calling [phone]. Take care of yourself. Ksenia Swartz DO [facility] Hospitalist Current Hospital Diet Patient's current hospital diet: Diabetes Type 2 Diet, Low Lactose Diet Discharge Diet Recommended Diet: Diabetes Type 2 Diet, Low Lactose Diet Procedures Procedures Performed: None. Pending Studies Studies pending at discharge: no Medical Emergencies . Who to Call and When: Medical Emergencies: If at any time you feel your situation is an emergency, please call 911 immediately. . Non-Emergent Contact Non-Emergency issues call your: Primary Care Provider . . "Provider Documentation" section prepared by Ksenia Swartz. . VTE Core Measure Inpt VTE Proph given/why not?: Warfarin (Coumadin)
--- NOTE | 2017-02-21 13:11 | Discharge Summary ---
Discharge Summary Date of Service Feb 21, 2017. Discharge Summary Admission Date: Feb 13, 2017 at 23:48 Discharge Date: Feb 21, 2017 Discharge Disposition: Home Principal Diagnosis: Acute hypercarbic respiratory failure 2/2 acute COPD exacerbation KIRSTEN on CPAP with O2 at night only DMII-uncontrolled PAF s/p DCCV on 02/12, on coumadin and amio FVL mutation HTN Depression Morbid Obesity Procedures: None. Vaccinations: None. Consultations: [facility] Pending Studies/Follow-Up: see instructions below Medication Reconciliation New Medications: Prednisone (Prednisone) 5 Mg Tab 5 MG PO UD for 8 Days, #20 TAB Start with 4 tabs daily for two days, then decrease by one tab (5mg) every 2 days. Metoprolol Succinate (Metoprolol Succinate ER) 25 Mg Tabcr 25 MG PO DAILY for 30 Days, #30 TAB 1 Refill Continued Medications: Albuterol Sulf (Proventil 0.083% 2.5MG/3ML) 2.5 Mg/3 Ml Nebu 1 AMP INH QID PRN for SOB/Wheezing, #1 1 Refill Alprazolam (Xanax) 0.5 Mg Tab 0.5 MG PO BID, 0 Refills Amiodarone Hcl (Cordarone) 200 Mg Tab 1 TAB PO BID for 90 Days, #180 TAB 1 Refill Arformoterol Tartrate (Brovana) 15 Mcg/2 Ml Neb 1 VIAL NEB DIRECTED for 30 Days bid as directed Atorvastatin (Atorvastatin Calcium) 40 Mg Tab 40 MG PO HS for 30 Days, TAB 1 Refill Ferrous Gluconate (Iron Supplement) 324 Mg Tab 324 MG PO BID, TAB Fluticasone Prop/Salmeterol (Advair Diskus 250/50 60 Dose) 1 Ea Aerp 1 PUFF INH BID, INHALER Furosemide (Lasix) 40 Mg Tab 40 MG PO BID, TAB Gabapentin (Neurontin) 100 Mg Cap 100 MG PO BID, 0 Refills Lisinopril (Zestril) 10 Mg Tab 10 MG PO DAILY, TAB Metformin Hcl (Glucophage) 1,000 Mg Tab 1000 MG PO BID, TAB Pantoprazole (Protonix) 40 Mg Tab 40 MG PO BID, #30 TAB Potassium Chloride (Potassium Chloride Er) 10 Meq Tab 10 MEQ PO BID Sertraline (Zoloft) 50 Mg Tab 1.5 TAB PO DAILY for 30 Days, #45 TAB 2 Refills Sucralfate (Carafate) 1 Gm/10 Ml Dali 10 ML PO Q12 Tramadol Hcl (Ultram) 50 Mg Tab 50-100 MG PO Q8 PRN for Pain, TAB Warfarin Sodium (Warfarin Sodium) 5 Mg Tab 5 MG PO 6XWK all days except wednesday Warfarin Sodium (Coumadin) 5 Mg Tab 2.5 MG PO WK TUESDAYS Discontinued Medications: Metoprolol Succinate (Toprol Xl) 50 Mg Tabcr 100 MG PO DAILY, #30 TAB Admission Information HPI (per Admitting provider): HISTORY OF PRESENT ILLNESS: History was obtained from patient and records. Medical history is significant for chronic respiratory failure secondary to COPD on home O2, sleep apnea on CPAP, chronic diastolic heart failure with EF of 50- 55%, PA-Fib status post recent cardioversion on Coumadin, hypertension, chronic anemia (baseline hemoglobin of 11-12), DM2 on oral meds. Recent confinement in last October 2016 for decompensated heart failure and A-Fib with RVR. Patient underwent elective electrical cardioversion a few days ago. Yesterday, the patient noted cough symptoms, unable to expectorate, shortness of breath, low-grade fever and no aspiration. He was around a sick aunt at [facility]. No chest pain. He denies unusual weight gain. At the Emergency Room the patient was noted to be in respiratory distress, 89 on room air. Px placed on BiPAP. Given Levaquin, Solu-Medrol and nebs for COPD exacerbation. Physical Exam (per Admitting): PHYSICAL EXAMINATION: VITAL SIGNS: Blood pressure was noted to be 165/88 later 135/80, pulse rate 84, RR 32, temperature 37.8 and O2 sats initially 89 on room air and later 100 on BiPAP. GENERAL: Morbidly obese, minimal respiratory distress, slightly anxious. SKIN: Pallor. HEENT: Pale palpable conjunctivae. Dry mucosa. NECK: Short neck. LUNGS: Decreased breath sounds. HEART: Regular rate and rhythm. ABDOMEN: Some distention, nontender. EXTREMITIES: Minimal LE edema, no tenderness. NEUROLOGIC: No gross focality. Hospital Course 61 yo obese M with h/o COPD and KIRSTEN on CPAP presents with SOB after failure of an outpatient rescue pack, admitted and treated for COPD exacerbation. 1. Acute Hypercarbic respiratory failure 2/2 acute COPD exacerbation-Duonebs, steroids, finished doxy. Pulm following. Wean O2 2. KIRSTEN-cont CPAP qHS 3. DMII-agreeable to insulin use on discharge, at goal as inpatient with some overcontrol. Pharmacy loosened insulin parameters. 4. elevated troponin-denies chest pain, likely 2/2 recent DCCV on 02/12 5. PAF-DCCV on 02/12, recently started on amio. Discussed with cardiology who agrees that bradycardia is acceptable as long as asymptomatic. Cont reduced dose of Toprol 25mg PO daily. Cont coumadin s/p DCCV as instructed. 6. 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 HTN-controlled, cont current therapy 8. Depression-stable, cont home meds 9. Morbid obesity On day of discharge he was hemodynamically stable and afebrile and had been breathing at his baseline for >24 hours. He was cleared by pulm for discharge and physical exam was unchanged and unremarkable aside from morbid obesity. He had no conversational dyspnea and was ambulating and mentating at baseline. He was discharged in stable condition with close PCP follow-up. Important to note , although his A1C reveals uncontrolled diabetes, he reported to me that he, in fact, has not been compliant with his metformin at home. He will need a good 3 months at least of taking this regularly before addition of insulin should be considered. He already had insulin in the past and developed shot fatigue. Encouraged metformin use for best compliance. We discussed in detail the drawbacks and health hazards of uncontrolled diabetes. He verbalized understanding with intent to comply. Total time spent on discharge = 60 minutes This includes examination of the patient, discharge planning, medication reconciliation, and communication with other providers. Discharge Instructions [address] [address] Discharge Medical Patient Name: Mohinder Carroll Unit Number: [id number] Date of : 1955 Patient Status: Admitted Inpatient Attending Doctor: Ksenia Swartz DO DI: Medical v4 Discharge Instructions Date of Service Feb 21, 2017. Admission Reason for Admission: Respiratory Failure, Acute Discharge Discharge Diagnosis / Problem: COPD exacerbation Discharge Goals Goal(s): Prevent Disease Progression Activity Recommendations Activity Limitations: per Instructions/Follow-up section . Instructions / Follow-Up Instructions / Follow-Up Please take all medications as instructed on list above. You have a follow-up appointment with your PCP, JULIA Gambino on 02/24 @ 12: 55pm for follow-up from this hospitalization. It is very important that she address your uncontrolled diabetes at this visit and strongly consider starting you on long-acting insulin. You should take and record your blood sugar measurements at home fasting prior to breakfast every day. Please record these values on a log for review by your doctors every time you are seen. Additional blood sugar values that may be helpful are taken 2 hours post-meal, but the fasting sugars are the most important to know at this point. Please follow-up with your lung doctor as instructed post-discharge. Please continue all your home inhalers and you have been given a steroid taper to take for an additional 8 days at home. Please start with 20mg daily (4 tabs), then decrease by 5mg (1 tab) every two days until gone. Please follow-up with cardiology as recommended post-cardioversion procedure. Please follow-up with [facility] upon discharge to ensure INR is within goal range (2-3). It was a pleasure taking care of you! Call if you have any questions or problems. You can reach a [facility] hospitalist on duty at [facility] 24 hours a day by calling [phone]. Take care of yourself. Ksenia Swartz DO [facility] Hospitalist Current Hospital Diet Patient's current hospital diet: Diabetes Type 2 Diet, Low Lactose Diet Discharge Diet Recommended Diet: Diabetes Type 2 Diet, Low Lactose Diet Procedures Procedures Performed: None. Pending Studies Studies pending at discharge: no Medical Emergencies . Who to Call and When: Medical Emergencies: If at any time you feel your situation is an emergency, please call 911 immediately. . Non-Emergent Contact Non-Emergency issues call your: Primary Care Provider . . "Provider Documentation" section prepared by Ksenia Swartz. . VTE Core Measure Inpt VTE Proph given/why not?: Warfarin (Coumadin) Additional Copies To Odalis Rainey
== END 2017-02-21 15:31 | disposition home or self-care (01) | DRG 190 ==
LOC: C.EDB 21:27 → C.2T 23:48 → ENRESERV 23:55
PROVIDERS: ADMIT Family Medicine; ATTEND Hospitalist
DX: J44.1 Chronic obstructive pulmonary disease with (acute) exacerbation (principal); J96.20 Acute and chronic respiratory failure, unspecified whether with hypoxia or hypercapnia; D68.51 Activated protein C resistance; Z68.43 Body mass index [BMI] 50.0-59.9, adult; E87.2 Acidosis; I48.91 Unspecified atrial fibrillation; J45.909 Unspecified asthma, uncomplicated; I25.10 Atherosclerotic heart disease of native coronary artery without angina pectoris; E11.9 Type 2 diabetes mellitus without complications; E78.5 Hyperlipidemia, unspecified; I10 Essential (primary) hypertension; E66.01 Morbid (severe) obesity due to excess calories; Z79.01 Long term (current) use of anticoagulants; Z90.49 Acquired absence of other specified parts of digestive tract; Z99.81 Dependence on supplemental oxygen; D64.9 Anemia, unspecified; G47.33 Obstructive sleep apnea (adult) (pediatric); F32.9 Major depressive disorder, single episode, unspecified; F41.9 Anxiety disorder, unspecified; Z83.3 Family history of diabetes mellitus; Z82.49 Family history of ischemic heart disease and other diseases of the circulatory system

== ENCOUNTER → 2017-04-20 | Outpatient (CLI) | payer OTHER ==
[~2017-04-20] MED LIST changes: -METO-217 PO; +TPRSR25 PO
[2017-04-20 13:26] LABS: INR 2.7 (0.9-1.1)
[2017-04-24 18:37] LABS: AMIODARONE 0.8 mcg/mL (1.5-2.5); DESMETHYLAMIODARONE 0.5 mcg/mL (1.5-2.5)
== END | disposition home or self-care (01) ==
LOC: C.LABMFLN 10:33
PROVIDERS: ATTEND Internal Medicine Cardiovascular Disease
DX: Z51.81 Encounter for therapeutic drug level monitoring (principal); I11.0 Hypertensive heart disease with heart failure; I48.0 Paroxysmal atrial fibrillation; I50.32 Chronic diastolic (congestive) heart failure; Z79.899 Other long term (current) drug therapy

== ENCOUNTER 2017-06-03 10:51 | Inpatient (IN) | payer OTHER ==
[~2017-06-03] VITALS: Ht 172.7 cm; Wt 172.9 kg
[2017-06-03 11:28] VITALS: BP 147/75; PULSE 65; TEMP 37; O2SAT 95
[2017-06-03 12:39] VITALS: BMI 58.0
[2017-06-03] MEDS ORDERED: CONSULT PHARMACY STA (13:38)
[2017-06-03] MEDS ORDERED: GLUCOSE 10 TABS/TUBE PO PRN (13:45)
[2017-06-03] MEDS ORDERED: GLUCOSE 40% GEL 15 GM TUBE PO PRN (13:45)
[2017-06-03] MEDS ORDERED: GLUCAGON FOR INJ 1 MG VIAL SQ PRN (13:45)
[2017-06-03] MEDS ORDERED: DEXTROSE 50% 50 ML SYR IV PRN (13:45)
[2017-06-03] MEDS ORDERED: ACETAMINOPHEN 325 MG TAB PO PRN (14:00)
[2017-06-03] MEDS ORDERED: DAPTOMYCIN CONSULT ACTIVE PRN ×2 (14:00)
[2017-06-03] MEDS ORDERED: AZTREONAM CONSULT ACTIVE PRN ×2 (14:00)
[2017-06-03] MEDS ORDERED: PHARMACY GLYCEMIC MGMT CONSULT PRN (14:05)
--- NOTE | 2017-06-03 14:11 | History and Physical ---
History & Physical Date & Time of Service: Jun 03, 2017 at 13:54 Chief Complaint: R Lower Ext Cellulitis Primary Care Physician: Odalis Rainey C.R.N.P. History of Present Illness Source: patient, clinic records 62 year old male with history of DM, HTN, CHF, A fib on coumadin, COPD, KIRSTEN, Factor V Deficiency and other problems noted below presenting with progressive right lower extremity swelling, redness and pain. Follows with COLETTE Rainey for PCP, COLETTE Gutierrez for Pulm, Dr. Ruth for Cardio. Patient reports pain, redness and swelling on the right calf over the weekend, which progressed to involve his right knee and foot. He does report subjective fever. He was seen at the [facility] two days ago and was given Ceftri and prescription for Bactrim, with no improvement. Today, he was seen at the [facility] by COLETTE Gutierrez for increased dry cough and dyspnea for the past weeks, not improving with daily Prednisone 30mg. He was sent to the hospital for admission for worsening of possible leg cellulitis. On exam, patient seen resting in bed, pleasant, comfortable Reports moderate pain on the right lower leg worse with walking. Denies active chest pain, dyspnea, palpitations, dizziness, nausea. No other symptoms. Past Medical/Surgical History Medical Problems: (1) Asthma Status: Chronic (2) BODY MASS INDEX 50.0-59.9, ADULT Status: Chronic (3) Cerebral aneurysm Status: Resolved (4) CHRONIC OBSTRUCTIVE ASTHMA, W (ACUTE) EXACERBATION Status: Chronic (5) Chronic obstructive lung disease Status: Chronic (6) CHRONIC SYSTOLIC/DIASTOLIC HRT FAILURE Status: Chronic (7) Congestive heart failure Status: Chronic (8) CORONARY ATHEROSCLEROSIS OF [place] CORONARY VESSEL Status: Chronic (9) DIAB MCKAYLA WO COMPL, TYPE II OR UNSPEC TYPE, UNCONTROLLED Status: Chronic (10) Factor 5 Leiden mutation, heterozygous Status: Chronic (11) Hernia Status: Resolved (12) HYPERLIPIDEMIA NEC/NOS Status: Chronic (13) HYPERTENSION NOS Status: Chronic (14) MORBID OBESITY Status: Chronic (15) Nonruptured cerebral aneurysm Status: Resolved Surgical Problems: (1) Hx of appendectomy Status: Resolved (2) Hx of cholecystectomy Status: Resolved Family History Diabetes mellitus FH: CAD (coronary artery disease) Gallbladder disease Hypertension Lung disease Thromboembolic disease Social History Smoking Status: Never Smoker Drug Use: none Marital Status: Housing status: lives with family Occupational Status: disabled Immunizations History of Influenza Vaccine: Yes Influenza Vaccine Date: Mar 14, 2013 History of Tetanus Vaccine?: Yes Tetanus Immunization Date: Jul 23, 2011 History of Pneumococcal: Yes Pneumococcal Date: Mar 23, 2010 History of Hepatitis B Vaccine: Yes Hepatitis Immunization Date: Jul 23, 2011 Allergies Coded Allergies: Iodinated Diagnostic Agents (Verified Allergy, Severe, SHORTNESS OF BREATH , 02/14/17) Lorazepam (Verified Allergy, Mild, HIVES, 02/13/17) Imipenem (Verified Allergy, Unknown, ., 12/03/12) Penicillins (Verified Allergy, Unknown, UNSURE OF RXN, STATED ALLERGY A CHILD, 12/03/12) Edetic Acid (Verified Adverse Reaction, Severe, SHORTNESS OF BREATH, ) Propylene Glycol (Verified Adverse Reaction, Severe, SHORTNESS OF BREATH, 04/05/14) Regadenoson (Verified Adverse Reaction, Severe, SHORTNESS OF BREATH, ) Home Medications Scheduled Alprazolam (Xanax), 0.5 MG PO BID Amiodarone Hcl (Cordarone), 1 TAB PO BID Arformoterol Tartrate (Brovana), 1 VIAL NEB DIRECTED Atorvastatin (Atorvastatin Calcium), 40 MG PO HS Ferrous Gluconate (Iron Supplement), 324 MG PO BID Fluticasone Prop/Salmeterol (Advair Diskus 250/50 60 Dose), 1 PUFF INH BID Furosemide (Lasix), 40 MG PO BID Gabapentin (Neurontin), 100 MG PO BID Lisinopril (Zestril), 10 MG PO DAILY Metformin Hcl (Glucophage), 1,000 MG PO BID Metoprolol Succinate (Metoprolol Succinate ER), 25 MG PO DAILY Pantoprazole (Protonix), 40 MG PO BID Potassium Chloride (Potassium Chloride Er), 10 MEQ PO BID Sertraline (Zoloft), 1.5 TAB PO DAILY Sucralfate (Carafate), 10 ML PO Q12 Warfarin Sodium (Warfarin Sodium), 5 MG PO 6XWK Warfarin Sodium (Coumadin), 2.5 MG PO WK Scheduled PRN Albuterol Sulf (Proventil 0.083% 2.5MG/3ML), 1 AMP INH QID PRN for SOB/Wheezing Tramadol Hcl (Ultram), 50-100 MG PO Q8 PRN for Pain Physical Exam Vital Signs Date Time Temp Pulse Resp B/P (MAP) Pulse Ox O2 Delivery O2 Flow Rate FiO2 06/03/17 12:39 Room Air 06/03/17 11:28 37.0 65 18 147/75 (99) 95 Room Air Extremities/Musculoskelatal: + pertinent finding (right lower ext: (+) grade 1- 2 edema, erythema mainly on the medial aspect, mild swelling on the right knee, poor rom due to pain, (+) mild warmth and tenderness) Diagnostics Laboratory Results Results Past 24 Hours Test 06/03/17 12:51 06/03/17 13:38 Range/Units Bedside Glucose 117 70-99 mg/dl Microbiology Results 06/03/17 Blood Culture, Ordered Pending 06/03/17 Blood Culture, Ordered Pending Impression Assessment and Plan 62 year old male with history of DM, HTN, CHF, A fib on coumadin, COPD, KIRSTEN, Factor V Deficiency and other problems noted below presenting with progressive right lower extremity swelling, redness and pain. RIGHT LOWER EXTREMITY CELLULITIS - no improvement with Bactrim and Ceftri - no signs of sepsis - blood cultures - empiric Vanco + Aztreonam - r/o DVT already on coumadin, always therapeutic as per patient does have a history of factor v deficiency, was hunting last week, mostly staying in his vehicle check Leg US r/o Knee Effusion has poor ROM of the knee check Knee US COPD possible MILD EXACERBATION - non productive cough mild wheeze on the right base - CXR - Prednisone 40mg po slow taper Nebs Antibiotics as noted above - follows with COLETTE Gutierrez DM 2 - hold oral meds - ISS Pharm consulted HTN - continue Metoprolol CHF - euvolemic - continue Lasix A FIB ON COUMADIN - check INR - continue Amio, Metoprolol check INR and titrate Coumadin - usually takes Coumadin 5mg po daily except M--F 2.5mg po daily. Dr. Ruth monitors INR KIRSTEN may use own CPAP DVT PROPH HISTORY OF FACTOR V DEFICIENCY check INR on chronic coumadin FULL CODE PER PATIENT DISPOSITION pending lives with family at home anticipate d/c home when stable ff up with PCP Odalis Rainey, Pulm COLETTE Gutierrez and Cardio Dr. Ruth Advanced Directives Existing Living Will: No Existing Power of Bridge Repair Crew Person: Yes VTE Prophylaxis VTE Risk Assessment Done? Y/N: Yes Risk Level: Moderate
[2017-06-03] MEDS: TRAMADOL HCL 50 MG TAB PO PRN ×2 (14:22→19:48)
--- NOTE | 2017-06-03 14:23 | Pharmacy Progress Note ---
Glycemic Control Intl Consult Date of Service Jun 03, 2017. Scope Glycemic Pharmacist consulted by Dr Alex on 06/03/17 for glycemic control and to write orders per [facility] inpatient glycemic control protocol Objective Weight (Kilograms): 172.900 Accuchecks BSG (last 24hrs): Test 06/03/17 12:51 06/03/17 14:17 Bedside Glucose 117 mg/dl (70-99) Laboratory Data (last 24hrs) Test 06/03/17 14:17 Recent Pertinent Medications Outpatient Anti-diabetic Regimen: * Metformin 1 gm BID * A1c = 9.6 % 11/01/16 Risk Factors for Insulin Resistance: * Steroids: prednisone 40 mg daily on admission to start tomorrow, has been taking prednisone x 1 wk already * Infection: leg cellulitis - on dapto and Azactam * Diet: type 2 diabetes/ low Na diet ordered on admission Assessment & Plan ASSESSMENT: * 62 y/o male admitted with leg cellulitis and possible COPD exacerbation, known to the pharmacy glycemic service from previous admissions * He is maintained on metformin only as an outpatient for his diabetes - last A1c available > 90 days ago so difficult to assess outpatient control, however, it is most likely elevated as patient refuses insulin as an outpatient * Based on last admission when on prednisone 20 mg daily, he was requiring upwards of 190 units of insulin/day * I am surprised that his BSG on this admission is WNL. I confirmed with the patient over the phone that he has been taking prednisone for a week and he did take it today (although he initially told me he didn't take it). He has not been checking his BSGs while on prednisone. * Will plan to initiate a CF/CR based on wt/stress of 2, but wait to initiate basal until tonight (dosing based on a scale of stress level of 1 or 2 since the prednisone will wear off overnight) * For tomorrow, it may be reasonable to utilize once daily NPH to coincide with the once daily prednisone. Will need to assess BSGs and insulin requirements today to determine dose of NPH tomorrow. PLAN FOR INPATIENT GLYCEMIC CONTROL: * Holding outpatient oral diabetes medications * Basal insulin with LANTUS 15 or 30 units x 1 tonight (none if BSG less than 110) * Consider once daily NPH 0.4 units/kg starting tomorrow depending on BSGs today * Correctional Insulin with NOVOLOG per scale ACHS or Q6hrs while NPO * Goal Range: Low 110 mg/dL - High 140 mg/dL * Correction Factor: 15 mg/dL/unit * Nutritional / Prandial insulin per carb ratio of 1 unit per 5 grams CHO consumed * Evaluate A1c to be drawn with AM labs to assist with outpatient recommendations * Please note that the plan above was derived based on current level of insulin resistance and hospital stress. These recommendations are appropriate for inpatient admission only. Plan of care upon discharge will need to be reassessed to avoid potential outpatient hypo/hyperglycemia. Thank you.
[2017-06-03 14:41] LABS: INR 2.9 (0.9-1.1); PROTHROMBIN TIME (PATIENT) 30.1 SECONDS (9.0-12.0)
[2017-06-03 14:42] LABS: BASO % 0.5 %; BASO ABS # 0.04 K/uL (0-0.2); COMPLETE YES; EOS % 5.9 %; HEMATOCRIT 38.4 % (42-52); IG% 0.3 %; LYMPH % 17.3 %; LYMPH ABS # 1.49 K/uL (1.2-3.4); MEAN CELL VOLUME 85.9 fL (80-100); MEAN CORPUSCULAR HEMOGLOBIN 27.3 pg (25-34); MEAN CORPUSCULAR HGB CONC 31.8 g/dl (32-36); PLATELET COUNT 176 K/uL (130-400); RED BLOOD COUNT 4.47 M/uL (4.7-6.1); WHITE BLOOD COUNT 8.61 K/uL (4.8-10.8)
[2017-06-03 15:00] VITALS: BP 165/79; PULSE 65; TEMP 37; O2SAT 95
[2017-06-03 15:00] LABS: BUN/CREATININE RATIO 10.3 (10-20); CALCIUM 8.3 mg/dl (8.5-10.1); CREATININE 0.83 mg/dl (0.60-1.40); POTASSIUM 3.3 mmol/L (3.5-5.1)
[2017-06-03] MEDS ORDERED: LEVALBUTEROL/IPRATROPIUM NEB INH SCH (15:00)
[2017-06-03] MEDS ORDERED: AZTREONAM IV 1,000 MG in DEXTROSE 5% 100ML IV SCH (15:00)
--- NOTE | 2017-06-03 15:20 | DIAGNOSTIC IMAGING REPORT ---
R VENOUS DOPP LOWER EXT UNILAT HISTORY: 62 years-old Male r/o dvt acute right lower cavity swelling with synovitis COMPARISON: None available TECHNIQUE: Multiple real-time sonographic images of the right lower extremity deep venous structures were obtained assessing grayscale appearance, color Doppler flow with spectral analysis FINDINGS: There is normal flow, phasicity, augmentation and compressibility of the right lower extremity deep venous structures. Subtle note is made of a mildly complex hypoechoic structure within the right popliteal fossa, 1.6 x 2.8 x 1.6 cm suggesting Escalona's cyst. IMPRESSION: 1. No sonographic evidence of deep venous thrombosis. 2. Mildly complex Escalona's cyst, 2.8 cm. The above report was generated using voice recognition software. It may contain grammatical, syntax or spelling errors. Electronically signed by: Juan Chicas M.D. 06/03/2017 3:19 PM Dictated Date/Time: 06/03/2017 3:18 PM
--- NOTE | 2017-06-03 15:46 | DIAGNOSTIC IMAGING REPORT ---
SINGLE VIEW CHEST CLINICAL HISTORY: Dyspnea. FINDINGS: 2 AP, portable, upright chest radiographs are compared to study dated 02/19/2017. The examination is degraded by portable technique, large body habitus, and patient rotation. The heart is enlarged and there is atherosclerotic calcification of the thoracic aorta. The pulmonary vasculature is noncongested. There is mild left basilar atelectasis. No airspace consolidation is seen typical for pneumonia. No large pleural effusion or pneumothorax is seen. The skeletal structures are osteopenic. Degenerative change is seen throughout the thoracic spine. IMPRESSION: Cardiomegaly with no acute cardiopulmonary abnormality. Electronically signed by: Robbin Engle M.D. 06/03/2017 3:44 PM Dictated Date/Time: 06/03/2017 3:43 PM
--- NOTE | 2017-06-03 15:54 | DIAGNOSTIC IMAGING REPORT ---
ULTRASOUND RIGHT KNEE NONVASCULAR CLINICAL HISTORY: Right knee swelling. COMPARISON STUDY: Venous ultrasound the right lower extremity dated 06/03/2017. FINDINGS: Real-time, grayscale, and color flow sonography of the soft tissues of the right knee are performed. A small joint effusion is identified. The overlying prepatellar soft tissues are normal as imaged. IMPRESSION: A small joint effusion is noted. Electronically signed by: Robbin Engle M.D. 06/03/2017 3:52 PM Dictated Date/Time: 06/03/2017 3:51 PM
[2017-06-03] MEDS: DAPTOmycin IV 450 MG in SYRINGE 0 ML IV SCH (15:55)
[2017-06-03] MEDS: SUCRALFATE 1 GM/10 ML UDC PO SCH (17:56)
[2017-06-03] MEDS ORDERED: POTASSIUM CHLORIDE 10 MEQ TABCR PO ONE (18:16)
[2017-06-03 19:06] VITALS: O2SAT 95
[2017-06-03] MEDS: LEVALBUTEROL 0.63MG/3 ML NEB INH SCH (19:15)
[2017-06-03] MEDS: IPRATROPIUM BROMIDE NEB SOLN 0.02% 2.5 ML VIAL INH SCH (19:15)
[2017-06-03] MEDS: WARFARIN SOD 5 MG TAB PO SCH (19:18)
[2017-06-03] MEDS: INSULIN ASPART 100 UNITS/ML 3 ML PEN SC SCH ×2 (19:19→21:00)
[2017-06-03 19:22] VITALS: PULSE 86; O2SAT 99
[2017-06-03] MEDS: FUROSEMIDE 40 MG TAB PO SCH (19:49)
[2017-06-03] MEDS ORDERED: LANTUS PER UNIT CHARGE SQ ONE (21:00)
[2017-06-03] MEDS: FLUTICASONE/SALMETEROL 250/50 (ADVAIR) 14 PUFF/1 INHALER INH SCH (21:36)
[2017-06-03] MEDS: ATORVASTATIN 40 MG TAB PO SCH (21:37)
[2017-06-03] MEDS: AMIODARONE 200 MG TAB PO SCH (21:37)
[2017-06-03] MEDS: POTASSIUM CHLORIDE 10 MEQ TABCR PO SCH (21:37)
[2017-06-03] MEDS: FERROUS GLUCONATE 324 MG TAB PO SCH (21:38)
[2017-06-03] MEDS: GABAPENTIN 100 MG CAP PO SCH (21:38)
[2017-06-03] MEDS: PANTOprazole SOD 40 MG TAB PO SCH (21:38)
[2017-06-03] MEDS: AZTREONAM 2000 MG in DEXTROSE 5% 100 ML IV SCH (21:55)
[2017-06-03 23:28] VITALS: BP 127/67; PULSE 62; TEMP 37; O2SAT 98
[2017-06-04] VITALS (8 sets, daily range): BP systolic 152–161; BP diastolic 70–98; PULSE 60–84; TEMP 36.8–37; O2SAT 94–99; BMI 58.0
[2017-06-04] MEDS: AZTREONAM 2000 MG in DEXTROSE 5% 100 ML IV SCH ×3 (05:58→23:08)
[2017-06-04 07:02] LABS: BASO % 0.5 %; BASO ABS # 0.04 K/uL (0-0.2); COMPLETE YES; EOS % 7.4 %; HEMATOCRIT 36.4 % (42-52); IG% 0.3 %; LYMPH % 16.4 %; LYMPH ABS # 1.24 K/uL (1.2-3.4); MEAN CELL VOLUME 86.3 fL (80-100); MEAN CORPUSCULAR HGB CONC 31.3 g/dl (32-36); MONO % 9.5 %; NEUT % 65.9 %; PLATELET COUNT 158 K/uL (130-400); RED BLOOD COUNT 4.22 M/uL (4.7-6.1); WHITE BLOOD COUNT 7.57 K/uL (4.8-10.8)
[2017-06-04 07:09] LABS: INR 2.6 (0.9-1.1); PROTHROMBIN TIME (PATIENT) 27.1 SECONDS (9.0-12.0)
[2017-06-04 07:34] LABS: BUN/CREATININE RATIO 10.7 (10-20); CALCIUM 7.7 mg/dl (8.5-10.1); CREATININE 0.89 mg/dl (0.60-1.40); POTASSIUM 3.5 mmol/L (3.5-5.1)
[2017-06-04 07:53] LABS: ESTIMATED AVERAGE GLUCOSE 200 mg/dl; HA1C FLAG Normal (Normal)
[2017-06-04] MEDS: FERROUS GLUCONATE 324 MG TAB PO SCH ×2 (07:55→21:15)
[2017-06-04] MEDS: GABAPENTIN 100 MG CAP PO SCH ×2 (07:56→21:15)
[2017-06-04] MEDS: AMIODARONE 200 MG TAB PO SCH ×2 (07:56→21:15)
[2017-06-04] MEDS: POTASSIUM CHLORIDE 10 MEQ TABCR PO SCH ×2 (07:56→21:15)
[2017-06-04] MEDS: FUROSEMIDE 40 MG TAB PO SCH ×2 (07:56→16:04)
[2017-06-04] MEDS: FLUTICASONE/SALMETEROL 250/50 (ADVAIR) 14 PUFF/1 INHALER INH SCH ×2 (07:57→21:14)
[2017-06-04] MEDS: SUCRALFATE 1 GM/10 ML UDC PO SCH ×2 (07:57→16:04)
[2017-06-04] MEDS: LISINOPRIL 10 MG TAB PO SCH (08:56)
[2017-06-04] MEDS: METOPROLOL SUCC 25MG EXT REL TAB PO SCH (08:56)
[2017-06-04] MEDS: PANTOprazole SOD 40 MG TAB PO SCH ×2 (08:56→21:15)
[2017-06-04] MEDS: SERTRALINE HCL 50 MG TAB PO SCH (08:56)
[2017-06-04] MEDS: IPRATROPIUM BROMIDE NEB SOLN 0.02% 2.5 ML VIAL INH SCH ×3 (09:00→19:44)
[2017-06-04] MEDS ORDERED: INSULIN HUMAN NPH SC SCH (09:00)
[2017-06-04] MEDS: LEVALBUTEROL 0.63MG/3 ML NEB INH SCH ×3 (09:00→19:44)
[2017-06-04] MEDS ORDERED: ALPRAZOLAM 0.5 MG TAB PO PRN (09:00)
[2017-06-04] MEDS: TRAMADOL HCL 50 MG TAB PO PRN ×3 (09:02→21:24)
[2017-06-04] MEDS: ARFORMOTEROL TART 15MCG/2ML VIAL INH SCH (09:23)
[2017-06-04] MEDS: INSULIN ASPART 100 UNITS/ML 3 ML PEN SC SCH ×4 (09:41→21:22)
[2017-06-04] MEDS: DAPTOmycin IV 450 MG in SYRINGE 0 ML IV SCH (14:55)
--- NOTE | 2017-06-04 15:37 | Pharmacy Progress Note ---
Pharmacy Glycemic Short Note 2 Date of Service Jun 04, 2017. OUTPATIENT ANTIDIABETIC REGIMEN: * Metformin 1 gm BID * A1c = 9.6 % 11/01/16 ASSESSMENT: 06/04/17: * 62 y/o male admitted with leg cellulitis and possible COPD exacerbation, known to the pharmacy glycemic service from previous admissions * He is maintained on metformin only as an outpatient for his diabetes - last A1c available > 90 days ago so difficult to assess outpatient control, however, it is most likely elevated as patient refuses insulin as an outpatient * Based on last admission when on prednisone 20 mg daily, he was requiring upwards of 190 units of insulin/day * I am surprised that his BSG on this admission is WNL. I confirmed with the patient over the phone that he has been taking prednisone for a week and he did take it today (although he initially told me he didn't take it). He has not been checking his BSGs while on prednisone. * Will plan to initiate a CF/CR based on wt/stress of 2, but wait to initiate basal until tonight (dosing based on a scale of stress level of 1 or 2 since the prednisone will wear off overnight) * For tomorrow, it may be reasonable to utilize once daily NPH to coincide with the once daily prednisone. Will need to assess BSGs and insulin requirements today to determine dose of NPH tomorrow. 06/05/17: * Start NPH for coverage of steroid induced hyperglycemia. NPH was initiated at 0.2 unit/kg (rather than 0.4 unit/kg) since hyperglycemia was not seen as of this morning, however, lunch BSG did become elevated. I one time dose of Lantus will be given with dinner to make up for partial NPH dose. NPH dose will be maximized tomorrow. * Tighten CF/CR PLAN FOR INPATIENT GLYCEMIC CONTROL: * Holding outpatient oral diabetes medications * LANTUS 30 units x 1 tonight * NPH 40 units (0.23 units/kg) this morning * plan to increase to 70 units (0.4 units/kg) on 06/05 * Correctional Insulin with NOVOLOG per scale ACHS or Q6hrs while NPO * Goal Range: Low 110 mg/dL - High 140 mg/dL * Correction Factor: 10 mg/dL/unit * Nutritional / Prandial insulin per carb ratio of 1 unit per 3 grams CHO consumed Thank you.
[2017-06-04] MEDS: WARFARIN SOD 2.5 MG TAB PO SCH (16:04)
[2017-06-04] MEDS ORDERED: LANTUS PER UNIT CHARGE SQ ONE (17:45)
[2017-06-04] MEDS: ATORVASTATIN 40 MG TAB PO SCH (21:15)
--- NOTE | 2017-06-04 21:54 | Progress Note ---
Medicine Progress Note Date & Time of Visit: Jun 04, 2017 at 17:00 . Subjective No fever. Persistent erythema and pain right leg. No chest pain. Respiratory status stable- intermittent mild wheezing. Occasional cough. No chest pain. No nausea, vomiting. Multiple loose stools today. . Objective Last 8 Hrs Date Time Temp Pulse Resp B/P (MAP) Pulse Ox O2 Delivery O2 Flow Rate FiO2 06/04/17 19:44 74 16 96 Room Air 06/04/17 15:11 36.8 64 18 161/75 (103) 94 Room Air Physical Exam: General- no distress Lungs- mild diffuse wheezing; no respiratory distress Heart- RRR, no murmur or gallop appreciated Abdomen- + BS, soft, nontender Extremities- 1+ pretibial edema; no calf tenderness Skin- warm & dry; moderate erythema and warmth right leg below knee Neuro- alert . Laboratory Results: Last 24 Hours Test 06/04/17 06:13 06/04/17 08:01 06/04/17 11:54 06/04/17 16:55 White Blood Count 7.57 K/uL Red Blood Count 4.22 M/uL Hemoglobin 11.4 g/dL Hematocrit 36.4 % Mean Corpuscular Volume 86.3 fL Mean Corpuscular Hemoglobin 27.0 pg Mean Corpuscular Hemoglobin Concent 31.3 g/dl Platelet Count 158 K/uL Mean Platelet Volume 9.0 fL Neutrophils (%) (Auto) 65.9 % Lymphocytes (%) (Auto) 16.4 % Monocytes (%) (Auto) 9.5 % Eosinophils (%) (Auto) 7.4 % Basophils (%) (Auto) 0.5 % Neutrophils # (Auto) 4.99 K/uL Lymphocytes # (Auto) 1.24 K/uL Monocytes # (Auto) 0.72 K/uL Eosinophils # (Auto) 0.56 K/uL Basophils # (Auto) 0.04 K/uL RDW Standard Deviation 51.0 fL RDW Coefficient of Variation 16.1 % Immature Granulocyte % (Auto) 0.3 % Immature Granulocyte # (Auto) 0.02 K/uL Prothrombin Time 27.1 SECONDS Prothromb Time International Ratio 2.6 Sodium Level 135 mmol/L Potassium Level 3.5 mmol/L Chloride Level 103 mmol/L Carbon Dioxide Level 25 mmol/L Anion Gap 7.0 mmol/L Blood Urea Nitrogen 9 mg/dl Creatinine 0.89 mg/dl Est Creatinine Clear Calc Drug Dose 135.8 ml/min Estimated GFR () 107.0 Estimated GFR (Non- 92.3 BUN/Creatinine Ratio 10.7 Random Glucose 155 mg/dl Estimated Average Glucose 200 mg/dl Hemoglobin A1c 8.6 % Calcium Level 7.7 mg/dl Bedside Glucose 153 mg/dl 234 mg/dl 259 mg/dl Test 06/04/17 20:18 Bedside Glucose 210 mg/dl Date/Time Source Procedure Growth Status 06/04/17 17:50 Stool C.difficile Toxin B Gene (PCR) - Final No C. difficile toxin B gene detected Complete Assessment & Plan CELLULITIS RIGHT LOWER EXTREMITY Afebrile. Continue daptomycin and aztreonam. CORONARY ARTERY DISEASE No anginal symptoms. Continue metoprolol. ATRIAL FIBRILLATION S/P ablation + cardioversion. Continue amiodarone, metoprolol, and warfarin. HYPERTENSION Continue metoprolol and lisinopril. OBSTRUCTIVE LUNG DISEASE (COPD / ASTHMA) Respiratory status stable. Continue usual regimen. SLEEP APNEA Continue CPAP. CHRONIC HYPOXIC RESPIRATORY FAILURE Continue supplemental O2. DM TYPE 2 Fair control. Hgb A1C = 8.6. Hold metformin during hospital stay. Continue NPH + NovoLog. DIARRHEA Check stool for C diff. VTE PROPHYLAXIS Continue warfarin. DISPOSITION Expected discharge to home. Primary Care follow-up with JULIA Gambino. Pulmonary follow-up with Tristen Gutierrez PA-C. Cardiology follow-up with Dr. Hansen. . Current Inpatient Medications: Current Inpatient Medications Medications (Trade) Dose Ordered Sig/Ramirez Route Start Time Stop Time Status Last Admin Dose Admin Tramadol HCl (Ultram Tab) 50 mg Q4H PRN PO 06/03/17 13:45 07/03/17 13:44 06/04/17 21:24 50 MG Insulin Aspart (novoLOG ASPART) SLIDING SCALE If C... ACHS SC 06/03/17 17:15 07/03/17 17:14 06/04/17 21:22 7 UNITS Glucose (Glucose 40% Gel) 15-30 GRAMS 15 GRAMS... UD PRN PO 06/03/17 13:45 07/03/17 13:44 Glucose (Glucose Chew Tab) 4-8 Tablets 4 Tabl... UD PRN PO 06/03/17 13:45 1/6/18 13:44 Dextrose (Dextrose 50% 50ML Syringe) 25-50ML OF 50% DW IV FOR... UD PRN IV 06/03/17 13:45 07/03/17 13:44 Glucagon (Glucagon Inj) 1 mg UD PRN SQ 06/03/17 13:45 07/03/17 13:44 Miscellaneous Information (Consult Glycemic Management Pharmacy) 1 ea UD PRN N/A 06/03/17 14:05 07/03/17 14:04 Daptomycin (Consult) 1 ea UD PRN N/A 06/03/17 14:00 07/03/17 13:59 Aztreonam (Consult) 1 ea UD PRN N/A 06/03/17 14:00 07/03/17 13:59 Alprazolam (Xanax Tab) 0.5 mg DAILY PRN PO 06/04/17 09:00 07/04/17 08:59 Amiodarone HCl (Cordarone Tab) 200 mg BID PO 06/03/17 21:00 07/03/17 20:59 06/04/17 21:15 200 MG Arformoterol Tartrate (Brovana 15MCG/ 2ML Neb Soln) 15 mcg DAILY INH 06/04/17 09:00 07/04/17 08:59 06/04/17 09:23 15 MCG Atorvastatin Calcium (Lipitor Tab) 40 mg HS PO 06/03/17 21:00 07/03/17 20:59 06/04/17 21:15 40 MG Ferrous Gluconate (Ferrous Gluconate Tab) 324 mg BID PO 06/03/17 21:00 07/03/17 20:59 06/04/17 21:15 324 MG Salmeterol Xinafoate/ Fluticasone (Advair Diskus 250/50 Inh) 1 puff BID INH 06/03/17 21:00 07/03/17 20:59 06/04/17 21:14 1 PUFF Furosemide (Lasix Tab) 40 mg BID17 PO 06/03/17 17:00 07/03/17 16:59 06/04/17 16:04 40 MG Gabapentin (Neurontin Cap) 100 mg BID PO 06/03/17 21:00 07/03/17 20:59 06/04/17 21:15 100 MG Lisinopril (Zestril Tab) 10 mg DAILY PO 06/04/17 09:00 07/04/17 08:59 06/04/17 08:56 10 MG Metoprolol Succinate (Toprol Xl Tab) 25 mg DAILY PO 06/04/17 09:00 07/04/17 08:59 06/04/17 08:56 25 MG Pantoprazole Sodium (Protonix Tab) 40 mg BID PO 06/03/17 21:00 07/03/17 20:59 06/04/17 21:15 40 MG Sertraline HCl (Zoloft Tab) 75 mg DAILY PO 06/04/17 09:00 07/04/17 08:59 06/04/17 08:56 75 MG Sucralfate (Carafate Susp) 1 gm BID@0800,1715 PO 06/03/17 17:15 07/03/17 17:14 06/04/17 16:04 1 GM Potassium Chloride (Klor-Con M10) 10 meq BID PO 06/03/17 21:00 07/03/17 20:59 06/04/17 21:15 10 MEQ Prednisone (PredniSONE TAB) 40 mg DAILY PO 06/04/17 09:00 07/04/17 08:59 06/04/17 07:56 40 MG Acetaminophen (Tylenol Tab) 650 mg Q4H PRN PO 06/03/17 14:00 07/03/17 13:59 Ipratropium [place] (Atrovent 0.02% 0.5MG/2.5ML Neb) 0.5 mg Q6RWA INH 06/03/17 15:00 07/03/17 14:59 06/04/17 19:44 0.5 MG Levalbuterol (Xopenex 0.63 Mg/ 3 Ml Neb) 0.63 mg Q6RWA INH 06/03/17 15:00 07/03/17 14:59 06/04/17 19:44 0.63 MG Daptomycin 450 mg/ Syringe 9 ml @ 4.5 mls/min Q24H IV 06/03/17 15:00 06/13/17 14:59 06/04/17 14:55 4.5 MLS/MIN Aztreonam 2000 mg/ Dextrose 110 ml @ 110 mls/hr Q8H IV 06/03/17 23:00 06/13/17 22:59 06/04/17 14:55 110 MLS/HR Warfarin Sodium (Coumadin Tab) 5 mg SuTuThSa@1600 PO 06/03/17 18:30 07/03/17 18:29 06/03/17 19:18 5 MG Warfarin Sodium (Coumadin Tab) 2.5 mg MoWeFr@1600 PO 06/04/17 16:00 07/04/17 15:59 06/04/17 16:04 2.5 MG Insulin Human NPH (novoLIN-N NPH) 70 units QAM SC 06/05/17 09:00 07/05/17 08:59
[2017-06-05] VITALS (7 sets, daily range): BP systolic 147–170; BP diastolic 67–85; PULSE 55–66; TEMP 36.5–37.2; O2SAT 95–97
[2017-06-05 06:38] LABS: INR 2.7 (0.9-1.1); PROTHROMBIN TIME (PATIENT) 28.3 SECONDS (9.0-12.0)
[2017-06-05] MEDS: AZTREONAM 2000 MG in DEXTROSE 5% 100 ML IV SCH ×3 (06:39→22:56)
[2017-06-05 06:51] LABS: BUN/CREATININE RATIO 14.6 (10-20); CALCIUM 8.1 mg/dl (8.5-10.1); CREATININE 0.86 mg/dl (0.60-1.40); POTASSIUM 3.2 mmol/L (3.5-5.1)
[2017-06-05] MEDS: SUCRALFATE 1 GM/10 ML UDC PO SCH ×2 (07:11→16:58)
[2017-06-05] MEDS: FLUTICASONE/SALMETEROL 250/50 (ADVAIR) 14 PUFF/1 INHALER INH SCH ×2 (07:11→21:23)
[2017-06-05] MEDS: LISINOPRIL 10 MG TAB PO SCH (07:12)
[2017-06-05] MEDS: GABAPENTIN 100 MG CAP PO SCH ×2 (07:12→21:29)
[2017-06-05] MEDS: METOPROLOL SUCC 25MG EXT REL TAB PO SCH (07:12)
[2017-06-05] MEDS: POTASSIUM CHLORIDE 10 MEQ TABCR PO SCH (07:12)
[2017-06-05] MEDS: FUROSEMIDE 40 MG TAB PO SCH ×2 (07:13→16:58)
[2017-06-05] MEDS: AMIODARONE 200 MG TAB PO SCH ×2 (07:13→21:29)
[2017-06-05] MEDS: PANTOprazole SOD 40 MG TAB PO SCH ×2 (07:13→21:29)
[2017-06-05] MEDS: FERROUS GLUCONATE 324 MG TAB PO SCH ×2 (07:13→21:29)
[2017-06-05] MEDS: SERTRALINE HCL 50 MG TAB PO SCH (07:14)
[2017-06-05] MEDS: ARFORMOTEROL TART 15MCG/2ML VIAL INH SCH (07:20)
[2017-06-05] MEDS: LEVALBUTEROL 0.63MG/3 ML NEB INH SCH ×3 (07:20→19:55)
[2017-06-05] MEDS: IPRATROPIUM BROMIDE NEB SOLN 0.02% 2.5 ML VIAL INH SCH ×3 (07:20→19:55)
[2017-06-05] MEDS ORDERED: INSULIN HUMAN NPH SC SCH (09:00)
[2017-06-05] MEDS: INSULIN ASPART 100 UNITS/ML 3 ML PEN SC SCH ×4 (09:09→21:00)
[2017-06-05] MEDS ORDERED: POTASSIUM CHLORIDE 20 MEQ TABCR PO ONE (10:21)
[2017-06-05] MEDS: DAPTOmycin IV 450 MG in SYRINGE 0 ML IV SCH (14:55)
[2017-06-05] MEDS: WARFARIN SOD 5 MG TAB PO SCH (16:13)
--- NOTE | 2017-06-05 17:55 | Progress Note ---
Medicine Progress Note Date & Time of Visit: Jun 05, 2017 at 15:00 . Subjective No fever. Right leg erythema and discomfort improved. Occasional wheezing. Using CPAP when sleeping. No chest pain. No nausea or vomiting. Persistent loose stools. . Objective Last 8 Hrs Date Time Temp Pulse Resp B/P (MAP) Pulse Ox O2 Delivery O2 Flow Rate FiO2 06/05/17 15:30 36.8 65 16 147/67 (93) 95 Room Air 06/05/17 15:15 Room Air 06/05/17 14:21 61 16 96 Room Air Physical Exam: General- no distress Lungs- mild diffuse wheezing; no respiratory distress Heart- RRR, no murmur or gallop appreciated Abdomen- + BS, soft, nontender Extremities- 1+ pretibial edema; no calf tenderness Skin- warm & dry; less erythema and warmth right leg below knee Neuro- alert . Laboratory Results: Last 24 Hours Test 06/04/17 20:18 06/05/17 05:46 06/05/17 08:10 06/05/17 12:01 Bedside Glucose 210 mg/dl 163 mg/dl 272 mg/dl Prothrombin Time 28.3 SECONDS Prothromb Time International Ratio 2.7 Sodium Level 137 mmol/L Potassium Level 3.2 mmol/L Chloride Level 102 mmol/L Carbon Dioxide Level 29 mmol/L Anion Gap 6.0 mmol/L Blood Urea Nitrogen 13 mg/dl Creatinine 0.86 mg/dl Est Creatinine Clear Calc Drug Dose 140.6 ml/min Estimated GFR () 108.5 Estimated GFR (Non- 93.6 BUN/Creatinine Ratio 14.6 Random Glucose 135 mg/dl Calcium Level 8.1 mg/dl Assessment & Plan CELLULITIS RIGHT LOWER EXTREMITY Afebrile. Improving. Continue daptomycin and aztreonam. Consult ID for recommendations. CORONARY ARTERY DISEASE No anginal symptoms. Continue metoprolol. ATRIAL FIBRILLATION S/P ablation + cardioversion. Continue amiodarone, metoprolol, and warfarin. HYPERTENSION Continue metoprolol and lisinopril. OBSTRUCTIVE LUNG DISEASE (COPD / ASTHMA) Respiratory status stable. Continue usual regimen. SLEEP APNEA Continue CPAP. CHRONIC HYPOXIC RESPIRATORY FAILURE Continue supplemental O2. DM TYPE 2 Fair control. Hgb A1C 8.6. Hold metformin during hospital stay. FBS today = 163. Continue NPH + NovoLog. DIARRHEA Stool negative for C diff. HYPOKALEMIA K = 3.2. Replace. Follow. VTE PROPHYLAXIS Continue warfarin. DISPOSITION Expected discharge to home. Primary Care follow-up with JULIA Gambino. Pulmonary follow-up with Tristen Gutierrez PA-C. Cardiology follow-up with Dr. Hansen. . Current Inpatient Medications: Current Inpatient Medications Medications (Trade) Dose Ordered Sig/Ramirez Route Start Time Stop Time Status Last Admin Dose Admin Tramadol HCl (Ultram Tab) 50 mg Q4H PRN PO 06/03/17 13:45 07/03/17 13:44 06/04/17 21:24 50 MG Insulin Aspart (novoLOG ASPART) SLIDING SCALE If C... ACHS SC 06/03/17 17:15 07/03/17 17:14 06/05/17 12:58 55 UNITS Glucose (Glucose 40% Gel) 15-30 GRAMS 15 GRAMS... UD PRN PO 06/03/17 13:45 07/03/17 13:44 Glucose (Glucose Chew Tab) 4-8 Tablets 4 Tabl... UD PRN PO 06/03/17 13:45 07/03/17 13:44 Dextrose (Dextrose 50% 50ML Syringe) 25-50ML OF 50% DW IV FOR... UD PRN IV 06/03/17 13:45 07/03/17 13:44 Glucagon (Glucagon Inj) 1 mg UD PRN SQ 06/03/17 13:45 07/03/17 13:44 Miscellaneous Information (Consult Glycemic Management Pharmacy) 1 ea UD PRN N/A 06/03/17 14:05 07/03/17 14:04 Daptomycin (Consult) 1 ea UD PRN N/A 06/03/17 14:00 07/03/17 13:59 Aztreonam (Consult) 1 ea UD PRN N/A 06/03/17 14:00 07/03/17 13:59 Alprazolam (Xanax Tab) 0.5 mg DAILY PRN PO 06/04/17 09:00 07/04/17 08:59 Amiodarone HCl (Cordarone Tab) 200 mg BID PO 06/03/17 21:00 07/03/17 20:59 06/05/17 07:13 200 MG Arformoterol Tartrate (Brovana 15MCG/ 2ML Neb Soln) 15 mcg DAILY INH 06/04/17 09:00 07/04/17 08:59 06/05/17 07:20 15 MCG Atorvastatin Calcium (Lipitor Tab) 40 mg HS PO 06/03/17 21:00 07/03/17 20:59 06/04/17 21:15 40 MG Ferrous Gluconate (Ferrous Gluconate Tab) 324 mg BID PO 06/03/17 21:00 07/03/17 20:59 06/05/17 07:13 324 MG Salmeterol Xinafoate/ Fluticasone (Advair Diskus 250/50 Inh) 1 puff BID INH 06/03/17 21:00 07/03/17 20:59 06/05/17 07:11 1 PUFF Furosemide (Lasix Tab) 40 mg BID17 PO 06/03/17 17:00 07/03/17 16:59 06/05/17 16:58 40 MG Gabapentin (Neurontin Cap) 100 mg BID PO 06/03/17 21:00 07/03/17 20:59 06/05/17 07:12 100 MG Lisinopril (Zestril Tab) 10 mg DAILY PO 06/04/17 09:00 07/04/17 08:59 06/05/17 07:12 10 MG Metoprolol Succinate (Toprol Xl Tab) 25 mg DAILY PO 06/04/17 09:00 07/04/17 08:59 06/05/17 07:12 25 MG Pantoprazole Sodium (Protonix Tab) 40 mg BID PO 06/03/17 21:00 07/03/17 20:59 06/05/17 07:13 40 MG Sertraline HCl (Zoloft Tab) 75 mg DAILY PO 06/04/17 09:00 07/04/17 08:59 06/05/17 07:14 75 MG Sucralfate (Carafate Susp) 1 gm BID@0800,1715 PO 06/03/17 17:15 07/03/17 17:14 06/05/17 16:58 1 GM Prednisone (PredniSONE TAB) 40 mg DAILY PO 06/04/17 09:00 07/04/17 08:59 06/05/17 07:13 40 MG Acetaminophen (Tylenol Tab) 650 mg Q4H PRN PO 06/03/17 14:00 07/03/17 13:59 Ipratropium [place] (Atrovent 0.02% 0.5MG/2.5ML Neb) 0.5 mg Q6RWA INH 06/03/17 15:00 07/03/17 14:59 06/05/17 14:19 0.5 MG Levalbuterol (Xopenex 0.63 Mg/ 3 Ml Neb) 0.63 mg Q6RWA INH 06/03/17 15:00 07/03/17 14:59 06/05/17 14:19 0.63 MG Daptomycin 450 mg/ Syringe 9 ml @ 4.5 mls/min Q24H IV 06/03/17 15:00 06/13/17 14:59 06/05/17 14:55 4.5 MLS/MIN Aztreonam 2000 mg/ Dextrose 110 ml @ 110 mls/hr Q8H IV 06/03/17 23:00 06/13/17 22:59 06/05/17 14:55 110 MLS/HR Warfarin Sodium (Coumadin Tab) 5 mg SuTuThSa@1600 PO 06/03/17 18:30 07/03/17 18:29 06/05/17 16:13 5 MG Warfarin Sodium (Coumadin Tab) 2.5 mg MoWeFr@1600 PO 06/04/17 16:00 07/04/17 15:59 06/04/17 16:04 2.5 MG Insulin Human NPH (novoLIN-N NPH) 70 units QAM SC 06/05/17 09:00 07/05/17 08:59 06/05/17 09:10 70 UNITS Potassium Chloride (Klor-Con Tab) 20 meq BID PO 06/05/17 21:00 07/05/17 20:59 Insulin Aspart (novoLOG ASPART) SLIDING SCALE If C... 0200 SC 06/06/17 02:00 06/06/17 02:01
[2017-06-05] MEDS: POTASSIUM CHLORIDE 20 MEQ TABCR PO SCH (21:29)
[2017-06-05] MEDS: ATORVASTATIN 40 MG TAB PO SCH (21:29)
[2017-06-06] MEDS ORDERED: INSULIN ASPART 100 UNITS/ML 3 ML PEN SC SCH (02:00)
[2017-06-06] MEDS: AZTREONAM 2000 MG in DEXTROSE 5% 100 ML IV SCH ×3 (06:39→22:41)
[2017-06-06 07:01] LABS: PROTHROMBIN TIME (PATIENT) 31.2 SECONDS (9.0-12.0)
[2017-06-06 07:25] VITALS: BP 152/77; PULSE 56; TEMP 37; O2SAT 97
[2017-06-06] MEDS: LEVALBUTEROL 0.63MG/3 ML NEB INH SCH ×3 (07:31→20:46)
[2017-06-06] MEDS: ARFORMOTEROL TART 15MCG/2ML VIAL INH SCH (07:31)
[2017-06-06] MEDS: IPRATROPIUM BROMIDE NEB SOLN 0.02% 2.5 ML VIAL INH SCH ×3 (07:31→20:46)
[2017-06-06 07:32] VITALS: PULSE 72; O2SAT 99
[2017-06-06 07:34] LABS: BUN/CREATININE RATIO 16.7 (10-20); CALCIUM 8.4 mg/dl (8.5-10.1); CREATININE 0.77 mg/dl (0.60-1.40); POTASSIUM 3.4 mmol/L (3.5-5.1)
[2017-06-06] MEDS: FUROSEMIDE 40 MG TAB PO SCH ×2 (07:46→17:01)
[2017-06-06] MEDS: FLUTICASONE/SALMETEROL 250/50 (ADVAIR) 14 PUFF/1 INHALER INH SCH ×2 (07:46→21:10)
[2017-06-06] MEDS: GABAPENTIN 100 MG CAP PO SCH ×2 (07:47→21:13)
[2017-06-06] MEDS: SUCRALFATE 1 GM/10 ML UDC PO SCH ×2 (07:47→17:02)
[2017-06-06] MEDS: LISINOPRIL 10 MG TAB PO SCH (07:47)
[2017-06-06] MEDS: POTASSIUM CHLORIDE 20 MEQ TABCR PO SCH ×2 (07:47→21:12)
[2017-06-06] MEDS: AMIODARONE 200 MG TAB PO SCH ×2 (07:48→21:11)
[2017-06-06] MEDS: SERTRALINE HCL 50 MG TAB PO SCH (07:48)
[2017-06-06] MEDS: METOPROLOL SUCC 25MG EXT REL TAB PO SCH (07:48)
[2017-06-06] MEDS: FERROUS GLUCONATE 324 MG TAB PO SCH ×2 (07:48→21:11)
[2017-06-06] MEDS: PANTOprazole SOD 40 MG TAB PO SCH ×2 (07:48→21:13)
--- NOTE | 2017-06-06 08:38 | Progress Note ---
Progress Note Date of Service Jun 06, 2017. Progress Note ID Consult Dictated #[id number] A/P: 1. RLE Cellulitis -Continue IV abx for now, cultures negative -Hopefully can transition to po soon -thank you
[2017-06-06] MEDS: INSULIN ASPART 100 UNITS/ML 3 ML PEN SC SCH ×2 (08:54→12:57)
[2017-06-06] MEDS ORDERED: INSULIN HUMAN NPH SC SCH (09:00)
--- NOTE | 2017-06-06 09:12 | INFECT. DISEASE CONSULTATION ---
DATE OF CONSULTATION: 06/06/2017 REQUESTING PHYSICIAN: Dr. Adam. HISTORY OF PRESENT ILLNESS: This is a 62-year-old gentleman who was admitted to the hospital for worsening right lower extremity cellulitis. He states he has had 6-7 episodes of cellulitis of his right lower extremity in the past. He was seen in the clinic in [place] and was given a prescription for Bactrim. He took this for 3 days and felt that he had significant worsening and presented to the hospital for IV antibiotics. He was placed on daptomycin and aztreonam and is tolerating these well. He states over the past 1-2 days, he has had significant improvement. He was able to ambulate without difficulty and he has minimal pain. He denies any fevers or chills. He has no open wounds. He did undergo ultrasound which showed no evidence of DVT, but he does have a small [place] cyst. He denies pain in the popliteal fossa. He is tolerating antibiotics well. All remaining review of systems is reviewed and is unremarkable. PAST MEDICAL HISTORY: Significant for asthma, obesity, history of cerebral aneurysm, COPD, diastolic heart failure, type 2 diabetes, factor V Leiden mutation, hernia repair, hyperlipidemia, and hypertension. PAST SURGICAL HISTORY: Significant for appendectomy and cholecystectomy. FAMILY HISTORY: Noncontributory. SOCIAL HISTORY: Negative for tobacco use, alcohol use and drug use. ALLERGIES: HE HAS MULTIPLE ALLERGIES INCLUDING IODINE, LORAZEPAM, IMIPENEM, PENICILLIN AND REGADENOSON. PHYSICAL EXAMINATION: VITAL SIGNS: He is afebrile and has been since admission to the hospital, pulse 72, respiratory rate 16, blood pressure 152/77, oxygen saturation is 99%. GENERAL: He is awake, alert and oriented x3. He is in no acute distress. HEENT: Mucous membranes are moist. Extraocular muscles are intact. HEART: Regular. LUNGS: Clear. ABDOMEN: Soft. EXTREMITIES: There is no lower extremity edema. Examination of the right lower extremity reveals some mild erythematous patch on the lateral aspect of the calf, there are no open wounds, not warm, tender to palpation. LABORATORY STUDIES: CBC reveals a white blood cell count of 7.7, hemoglobin 12, platelets are 158. Chemistry panel reveals a sodium of 140, potassium 3.4, chloride 106, bicarbonate 27, BUN 13, creatinine 0.7 and glucose is 100. Blood cultures are no growth to date. C. diff was negative. IMAGING DATA: Chest x-ray done in the ER on the 7th shows no cardiopulmonary abnormalities. Ultrasound is as above. ASSESSMENT AND PLAN: Right lower extremity cellulitis. He can continue on IV antibiotics and hopefully within the next 1-2 days, he can be transitioned to oral antibiotics. He does report Keflex has worked in the past and certainly this would be an option for discharge antibiotics. We will follow along with you. Thank you for this consultation.
[2017-06-06] MEDS: DAPTOmycin IV 450 MG in SYRINGE 0 ML IV SCH (14:51)
[2017-06-06 15:00] VITALS: PULSE 58; O2SAT 96
[2017-06-06 15:25] VITALS: BP 167/81; PULSE 58; TEMP 36.9; O2SAT 96
[2017-06-06] MEDS: WARFARIN SOD 5 MG TAB PO SCH (15:58)
--- NOTE | 2017-06-06 16:04 | Pharmacy Progress Note ---
Pharmacy Glycemic Short Note 2 Date of Service Jun 06, 2017. OUTPATIENT ANTIDIABETIC REGIMEN: * Metformin 1 gm BID * A1c = 9.6 % 11/01/16 ASSESSMENT: * 62 y/o male admitted with leg cellulitis and possible COPD exacerbation, known to the pharmacy glycemic service from previous admissions * Fasting BSG at goal today - slight decrease in NPH will be made due to overnight hypoglycemia, although I would expect NPH effects to have worn off by that time. * Meal time BSGs improved after CF/CR was tightened on 06/05. Continue same for now. * Prednisone dose remains at 40 mg po daily - will decrease NPH dose as prednisone dose is tapered. PLAN FOR INPATIENT GLYCEMIC CONTROL: * Holding outpatient oral diabetes medications * NPH 65 units (~0.4 units/kg) SQ qam * Correctional Insulin with NOVOLOG per scale ACHS or Q6hrs while NPO * Goal Range: Low 110 mg/dL - High 140 mg/dL * Correction Factor: 8 mg/dL/unit * Nutritional / Prandial insulin per carb ratio of 1 unit per 2 grams CHO consumed Thank you.
[2017-06-06] MEDS: INSULIN ASPART 100 UNITS/ML VIAL SC SCH ×2 (19:00→21:00)
--- NOTE | 2017-06-06 19:01 | Progress Note ---
Medicine Progress Note Date & Time of Visit: Jun 06, 2017 at 15:50 . Subjective No fever or chills. Right leg pain / erythema improved. No chest pain. No cough or SOB. No nausea or vomiting. Diarrhea improved. Hypoglycemic last night. . Objective Last 8 Hrs Date Time Temp Pulse Resp B/P (MAP) Pulse Ox O2 Delivery O2 Flow Rate FiO2 06/06/17 15:25 36.9 58 18 167/81 (109) 96 Room Air 06/06/17 15:15 Room Air 06/06/17 15:00 58 16 96 BiPAP/CPAP 2.0 Physical Exam: General- sitting in chair; no distress Neck- no JVD Lungs- mild diffuse wheezing; no respiratory distress Heart- RRR, no murmur or gallop appreciated Abdomen- + BS, soft, nontender Extremities- 1+ pretibial edema; no calf tenderness Skin- warm & dry; less erythema and warmth right leg below knee Neuro- alert . Laboratory Results: Last 24 Hours Test 06/05/17 20:52 06/06/17 02:04 06/06/17 02:39 06/06/17 06:20 Bedside Glucose 107 mg/dl 68 mg/dl 89 mg/dl Prothrombin Time 31.2 SECONDS Prothromb Time International Ratio 3.0 Sodium Level 140 mmol/L Potassium Level 3.4 mmol/L Chloride Level 106 mmol/L Carbon Dioxide Level 27 mmol/L Anion Gap 7.0 mmol/L Blood Urea Nitrogen 13 mg/dl Creatinine 0.77 mg/dl Est Creatinine Clear Calc Drug Dose 157.0 ml/min Estimated GFR () 113.5 Estimated GFR (Non- 97.9 BUN/Creatinine Ratio 16.7 Random Glucose 109 mg/dl Calcium Level 8.4 mg/dl Test 06/06/17 06:35 06/06/17 12:06 06/06/17 17:00 Bedside Glucose 100 mg/dl 185 mg/dl 249 mg/dl Assessment & Plan CELLULITIS RIGHT LOWER EXTREMITY Afebrile. Improving. Continue daptomycin and aztreonam. ID consulted for recommendations. CORONARY ARTERY DISEASE No anginal symptoms. Continue metoprolol. ATRIAL FIBRILLATION S/P ablation + cardioversion. Continue amiodarone, metoprolol, and warfarin. HYPERTENSION Continue metoprolol and lisinopril. OBSTRUCTIVE LUNG DISEASE (COPD / ASTHMA) Respiratory status stable. Continue usual regimen. SLEEP APNEA Continue CPAP. CHRONIC HYPOXIC RESPIRATORY FAILURE Continue supplemental O2. DM TYPE 2 Fair control at home. Hgb A1C 8.6. Hold metformin during hospital stay. Pharmacy consulted for glycemic management. Hypoglycemic last night. FBS today = 100. Continue NPH + NovoLog. DIARRHEA Stool negative for C diff. HYPOKALEMIA K as low as 3.2. K today = 3.4. Replace. Follow. VTE PROPHYLAXIS Continue warfarin. DISPOSITION Expected discharge to home. Primary Care follow-up with JULIA Gambino. Pulmonary follow-up with Tristen Gutierrez PA-C. Cardiology follow-up with Dr. Hansen. . Current Inpatient Medications: Current Inpatient Medications Medications (Trade) Dose Ordered Sig/Ramirez Route Start Time Stop Time Status Last Admin Dose Admin Tramadol HCl (Ultram Tab) 50 mg Q4H PRN PO 06/03/17 13:45 07/03/17 13:44 06/04/17 21:24 50 MG Glucose (Glucose 40% Gel) 15-30 GRAMS 15 GRAMS... UD PRN PO 06/03/17 13:45 07/03/17 13:44 Glucose (Glucose Chew Tab) 4-8 Tablets 4 Tabl... UD PRN PO 06/03/17 13:45 07/03/17 13:44 Dextrose (Dextrose 50% 50ML Syringe) 25-50ML OF 50% DW IV FOR... UD PRN IV 06/03/17 13:45 07/03/17 13:44 Glucagon (Glucagon Inj) 1 mg UD PRN SQ 06/03/17 13:45 07/03/17 13:44 Miscellaneous Information (Consult Glycemic Management Pharmacy) 1 ea UD PRN N/A 06/03/17 14:05 07/03/17 14:04 Daptomycin (Consult) 1 ea UD PRN N/A 06/03/17 14:00 07/03/17 13:59 Aztreonam (Consult) 1 ea UD PRN N/A 06/03/17 14:00 07/03/17 13:59 Alprazolam (Xanax Tab) 0.5 mg DAILY PRN PO 06/04/17 09:00 07/04/17 08:59 Amiodarone HCl (Cordarone Tab) 200 mg BID PO 06/03/17 21:00 07/03/17 20:59 12/10/17 07:48 200 MG Arformoterol Tartrate (Brovana 15MCG/ 2ML Neb Soln) 15 mcg DAILY INH 06/04/17 09:00 07/04/17 08:59 06/06/17 07:31 15 MCG Atorvastatin Calcium (Lipitor Tab) 40 mg HS PO 06/03/17 21:00 07/03/17 20:59 06/05/17 21:29 40 MG Ferrous Gluconate (Ferrous Gluconate Tab) 324 mg BID PO 06/03/17 21:00 07/03/17 20:59 06/06/17 07:48 324 MG Salmeterol Xinafoate/ Fluticasone (Advair Diskus 250/50 Inh) 1 puff BID INH 06/03/17 21:00 07/03/17 20:59 06/06/17 07:46 1 PUFF Furosemide (Lasix Tab) 40 mg BID17 PO 06/03/17 17:00 07/03/17 16:59 06/06/17 17:01 40 MG Gabapentin (Neurontin Cap) 100 mg BID PO 06/03/17 21:00 07/03/17 20:59 06/06/17 07:47 100 MG Lisinopril (Zestril Tab) 10 mg DAILY PO 06/04/17 09:00 07/04/17 08:59 06/06/17 07:47 10 MG Metoprolol Succinate (Toprol Xl Tab) 25 mg DAILY PO 06/04/17 09:00 07/04/17 08:59 06/06/17 07:48 25 MG Pantoprazole Sodium (Protonix Tab) 40 mg BID PO 06/03/17 21:00 07/03/17 20:59 06/06/17 07:48 40 MG Sertraline HCl (Zoloft Tab) 75 mg DAILY PO 06/04/17 09:00 07/04/17 08:59 06/06/17 07:48 75 MG Sucralfate (Carafate Susp) 1 gm BID@0800,1715 PO 06/03/17 17:15 07/03/17 17:14 06/06/17 17:02 1 GM Prednisone (PredniSONE TAB) 40 mg DAILY PO 06/04/17 09:00 07/04/17 08:59 06/06/17 07:49 40 MG Acetaminophen (Tylenol Tab) 650 mg Q4H PRN PO 06/03/17 14:00 07/03/17 13:59 Ipratropium [place] (Atrovent 0.02% 0.5MG/2.5ML Neb) 0.5 mg Q6RWA INH 06/03/17 15:00 07/03/17 14:59 06/06/17 15:00 0.5 MG Levalbuterol (Xopenex 0.63 Mg/ 3 Ml Neb) 0.63 mg Q6RWA INH 06/03/17 15:00 07/03/17 14:59 06/06/17 15:00 0.63 MG Daptomycin 450 mg/ Syringe 9 ml @ 4.5 mls/min Q24H IV 06/03/17 15:00 06/13/17 14:59 06/06/17 14:51 4.5 MLS/MIN Aztreonam 2000 mg/ Dextrose 110 ml @ 110 mls/hr Q8H IV 06/03/17 23:00 06/13/17 22:59 06/06/17 14:50 110 MLS/HR Warfarin Sodium (Coumadin Tab) 5 mg SuTuThSa@1600 PO 06/03/17 18:30 07/03/17 18:29 06/06/17 15:58 5 MG Warfarin Sodium (Coumadin Tab) 2.5 mg MoWeFr@1600 PO 06/04/17 16:00 07/04/17 15:59 06/04/17 16:04 2.5 MG Potassium Chloride (Klor-Con Tab) 20 meq BID PO 06/05/17 21:00 07/05/17 20:59 06/06/17 07:47 20 MEQ Insulin Human NPH (novoLIN-N NPH) 65 units QAM SC 06/06/17 09:00 07/06/17 08:59 06/06/17 08:55 65 UNITS Insulin Aspart (novoLOG ASPART) SLIDING SCALE If C... ACHS SC 06/06/17 17:15 07/06/17 17:14
[2017-06-06 20:48] VITALS: PULSE 55; O2SAT 96
[2017-06-06] MEDS ORDERED: INSULIN ASPART 100 UNITS/ML VIAL SC SCH (21:00)
[2017-06-06] MEDS: ATORVASTATIN 40 MG TAB PO SCH (21:16)
[2017-06-06 22:57] VITALS: BP 134/58; PULSE 55; TEMP 36.9; O2SAT 97
[2017-06-07] VITALS (9 sets, daily range): BP systolic 147–159; BP diastolic 65–85; PULSE 54–73; TEMP 36.7–37.2; O2SAT 95–99; Ht 172.7 cm; Wt 172.9 kg
[2017-06-07 06:23] LABS: INR 2.9 (0.9-1.1)
[2017-06-07] MEDS: AZTREONAM 2000 MG in DEXTROSE 5% 100 ML IV SCH (06:42)
[2017-06-07 06:49] LABS: BUN/CREATININE RATIO 15.9 (10-20); CALCIUM 8.4 mg/dl (8.5-10.1); CREATININE 0.89 mg/dl (0.60-1.40); POTASSIUM 3.5 mmol/L (3.5-5.1)
[2017-06-07] MEDS: LEVALBUTEROL 0.63MG/3 ML NEB INH SCH ×3 (07:31→20:08)
[2017-06-07] MEDS: IPRATROPIUM BROMIDE NEB SOLN 0.02% 2.5 ML VIAL INH SCH ×3 (07:31→20:08)
[2017-06-07] MEDS: ARFORMOTEROL TART 15MCG/2ML VIAL INH SCH (07:32)
[2017-06-07] MEDS ORDERED: INSULIN HUMAN NPH SC SCH (09:00)
[2017-06-07] MEDS: SUCRALFATE 1 GM/10 ML UDC PO SCH ×2 (09:30→16:57)
[2017-06-07] MEDS: FLUTICASONE/SALMETEROL 250/50 (ADVAIR) 14 PUFF/1 INHALER INH SCH ×2 (09:31→20:55)
[2017-06-07] MEDS: POTASSIUM CHLORIDE 20 MEQ TABCR PO SCH ×2 (09:31→20:56)
[2017-06-07] MEDS: FERROUS GLUCONATE 324 MG TAB PO SCH ×2 (09:31→20:55)
[2017-06-07] MEDS: FUROSEMIDE 40 MG TAB PO SCH ×2 (09:31→16:57)
[2017-06-07] MEDS: AMIODARONE 200 MG TAB PO SCH ×2 (09:32→20:57)
[2017-06-07] MEDS: GABAPENTIN 100 MG CAP PO SCH ×2 (09:32→20:55)
[2017-06-07] MEDS: METOPROLOL SUCC 25MG EXT REL TAB PO SCH (09:32)
[2017-06-07] MEDS: PANTOprazole SOD 40 MG TAB PO SCH ×2 (09:33→20:56)
[2017-06-07] MEDS: LISINOPRIL 10 MG TAB PO SCH (09:33)
[2017-06-07] MEDS: SERTRALINE HCL 50 MG TAB PO SCH (09:33)
[2017-06-07] MEDS: INSULIN ASPART 100 UNITS/ML VIAL SC SCH ×3 (09:40→18:15)
--- NOTE | 2017-06-07 10:00 | Pharmacy Progress Note ---
Pharmacy Glycemic Short Note 2 Date of Service Jun 07, 2017. OUTPATIENT ANTIDIABETIC REGIMEN: * Metformin 1 gm BID * A1c = 9.6 % 11/01/16 ASSESSMENT: * 62 y/o male admitted with leg cellulitis and possible COPD exacerbation, known to the pharmacy glycemic service from previous admissions * Fasting BSG at goal today - at 136 mg/dl. * LOW BSG last evening most likely secondary to large dose of NovoLog given with dinner. Pt received 51 units of NovoLog for BSG = 249 mg/dl & 73g CHO consumed which then yielded a LOW BSG of 56, 45, 58, 100 mg/dl after treatment per protocol * Will loosen CF/CR to prevent repeat low. * Prednisone dose remains at 40 mg po daily - will decrease NPH dose as prednisone dose is tapered. PLAN FOR INPATIENT GLYCEMIC CONTROL: * Hold outpatient oral diabetes medications * Basal insulin: * Decrease dose: -N-P-H- -6-5- -u-n-i-t-s- -S-Q- -d-a-i-l-y- -i-n- -A-M- - - ->- NPH 45 units SQ daily in AM * Bolus insulin: Loosen CF/CR * NovoLog per scale ACHS or Q6hrs while NPO * Goal Range: Low 110 mg/dL - High 140 mg/dL * Correction Factor: -8- -m-g--/--d-L--/--u-n-i-t- - - - > 10 mg/dl/unit * Nutritional / Prandial insulin per carb ratio of -1- -u-n-i-t- -p-e-r- -2- -g-r-a-m-s- -C-H-O- -z-d-c-s-u-m-e-d- - - - ->- 1 unit per 4 grams CHO consumed
--- NOTE | 2017-06-07 10:30 | Progress Note ---
Subjective Date of Service: Jun 07, 2017. Subjective Pt evaluation today including: conversation w/ patient, physical exam, chart review, lab review, conversation w/ marketing operations consultant pt feeling better today, asking to go home. no fevers overnight. leg feeling better, less pain, tolerating abx, blood cultures remain negative. able to walk without difficulty. concerned that he will relapse with transition to po abx. no drainage from rle. all remaining ros reviewed and are negative. Problem List Medical Problems: (1) Fluid overload Status: Acute (2) Hypomagnesemia Status: Acute (3) Rapid atrial fibrillation Status: Acute (4) Shortness of breath Status: Acute Objective Vital Signs Date Time Temp Pulse Resp B/P (MAP) Pulse Ox O2 Delivery O2 Flow Rate FiO2 06/07/17 08:20 99 CPAP 06/07/17 08:05 37.2 54 19 147/65 (92) 99 Room Air 06/07/17 07:31 59 16 98 BiPAP/CPAP 2.0 06/06/17 23:30 CPAP 2.0 06/06/17 22:57 36.9 55 18 134/58 (83) 97 BiPAP 06/06/17 20:48 55 16 96 Room Air 06/06/17 20:00 Room Air 06/06/17 15:25 36.9 58 18 167/81 (109) 96 Room Air 06/06/17 15:15 Room Air 06/06/17 15:00 58 16 96 BiPAP/CPAP 2.0 Physical Exam General Appearance: WD/WN, no apparent distress Eyes: EOMI Neck: supple Respiratory/Chest: lungs clear, normal breath sounds, no respiratory distress Cardiovascular: regular rate, rhythm, no edema Abdomen: non tender, soft Extremities: non-tender, no pedal edema Neurologic/Psychiatric: alert, oriented x 3 Skin: normal color, no rash Comments: rle with improving erythema medial calf, no warmth, tenderness, induration Laboratory Results Item Value Date Time Blood Culture - Preliminary Resulted 06/03/17 1420 Blood NO GROWTH TO DATE. Blood Culture - Preliminary Resulted 06/03/17 1417 Blood NO GROWTH TO DATE. Last 24 Hours Test 06/06/17 12:06 06/06/17 17:00 06/06/17 20:28 06/06/17 23:30 Bedside Glucose 185 mg/dl 249 mg/dl 186 mg/dl 56 mg/dl Test 06/06/17 23:50 06/07/17 00:38 06/07/17 01:12 06/07/17 03:04 Bedside Glucose 45 mg/dl 58 mg/dl 100 mg/dl 176 mg/dl Test 06/07/17 05:34 Prothrombin Time 30.0 SECONDS Prothromb Time International Ratio 2.9 Sodium Level 139 mmol/L Potassium Level 3.5 mmol/L Chloride Level 105 mmol/L Carbon Dioxide Level 28 mmol/L Anion Gap 6.0 mmol/L Blood Urea Nitrogen 14 mg/dl Creatinine 0.89 mg/dl Est Creatinine Clear Calc Drug Dose 135.9 ml/min Estimated GFR () 107.0 Estimated GFR (Non- 92.3 BUN/Creatinine Ratio 15.9 Random Glucose 185 mg/dl Calcium Level 8.4 mg/dl Assessment and Plan (1) Cellulitis Assessment & Plan: will stop aztreonam, continue dapto. he would prefer to remain on IV abx, would suggest dapto daily either at home or [facility] (closer to [facility]), would give 7 days. alternative option would be keflex 500mg po tid x 7 days ok for d/c when abx plan in place.
--- NOTE | 2017-06-07 14:04 | DIAGNOSTIC IMAGING REPORT ---
CHEST ONE VIEW PORTABLE CLINICAL HISTORY: PICC placement tube position COMPARISON STUDY: 06/03/2017 FINDINGS: Moderate stable cardiomegaly. PICC catheter placed in the superior vena cava. No evidence pneumothorax. Lungs otherwise are clear. IMPRESSION: PICC catheter placed in the superior vena cava. No evidence pneumothorax. The above report was generated using voice recognition software. It may contain grammatical, syntax or spelling errors. Electronically signed by: Humphrey Rodríguez M.D. 06/07/2017 2:03 PM Dictated Date/Time: 06/07/2017 2:03 PM
[2017-06-07] MEDS ORDERED: DAPT500I IV (15:49)
[2017-06-07] MEDS: WARFARIN SOD 2.5 MG TAB PO SCH (16:02)
[2017-06-07] MEDS: DAPTOmycin IV 450 MG in SYRINGE 0 ML IV SCH (16:02)
--- NOTE | 2017-06-07 20:16 | Progress Note ---
Medicine Progress Note Date & Time of Visit: Jun 07, 2017 at 10:30 . Subjective Hypoglycemic last night. Right leg feels better. No fever. No chest pain. Occasional cough; mild wheezing. No nausea or vomiting. No diarrhea. . Objective Last 8 Hrs Date Time Temp Pulse Resp B/P (MAP) Pulse Ox O2 Delivery O2 Flow Rate FiO2 06/07/17 20:08 73 16 95 Room Air 06/07/17 19:30 98 Room Air 06/07/17 15:34 36.8 59 20 159/75 (103) 95 Room Air 06/07/17 15:20 Room Air 06/07/17 14:11 58 16 96 Room Air Physical Exam: General- no distress Neck- no JVD Lungs- mild diffuse wheezing; no respiratory distress Heart- RRR, no murmur or gallop appreciated Abdomen- + BS, soft, nontender Extremities- 1+ pretibial edema; no calf tenderness Skin- warm & dry; less erythema and warmth right leg below knee Neuro- alert . Laboratory Results: Last 24 Hours Test 06/06/17 20:28 06/06/17 23:30 06/06/17 23:50 06/07/17 00:15 Bedside Glucose 186 mg/dl 56 mg/dl 45 mg/dl 65 mg/dl Test 06/07/17 00:38 06/07/17 01:12 06/07/17 03:04 06/07/17 05:34 Bedside Glucose 58 mg/dl 100 mg/dl 176 mg/dl Prothrombin Time 30.0 SECONDS Prothromb Time International Ratio 2.9 Sodium Level 139 mmol/L Potassium Level 3.5 mmol/L Chloride Level 105 mmol/L Carbon Dioxide Level 28 mmol/L Anion Gap 6.0 mmol/L Blood Urea Nitrogen 14 mg/dl Creatinine 0.89 mg/dl Est Creatinine Clear Calc Drug Dose 135.9 ml/min Estimated GFR () 107.0 Estimated GFR (Non- 92.3 BUN/Creatinine Ratio 15.9 Random Glucose 185 mg/dl Calcium Level 8.4 mg/dl Test 06/07/17 08:06 06/07/17 11:45 06/07/17 17:08 Bedside Glucose 136 mg/dl 156 mg/dl 219 mg/dl Assessment & Plan CELLULITIS RIGHT LOWER EXTREMITY Afebrile. Improving. Continue daptomycin and aztreonam. ID consulted for recommendations. Arrangements being made for outpatient IV daptomycin to complete course of therapy. CORONARY ARTERY DISEASE No anginal symptoms. Continue metoprolol. ATRIAL FIBRILLATION S/P ablation + cardioversion. Continue amiodarone, metoprolol, and warfarin. HYPERTENSION Continue metoprolol and lisinopril. OBSTRUCTIVE LUNG DISEASE (COPD / ASTHMA) Respiratory status stable. Continue usual regimen. SLEEP APNEA Continue CPAP. CHRONIC HYPOXIC RESPIRATORY FAILURE Continue supplemental O2. DM TYPE 2 Fair control at home. Hgb A1C 8.6. Hold metformin during hospital stay. Pharmacy consulted for glycemic management. Hypoglycemic last 2 nights. FBS today = 136. Insulin dosing adjusted by Pharmacy. Continue NPH + NovoLog. Taper steroids as able. DIARRHEA Stool negative for C diff. HYPOKALEMIA K as low as 3.2. K today = 3.5. Replace. Follow. VTE PROPHYLAXIS Continue warfarin. DISPOSITION Expected discharge to home. Primary Care follow-up with JULIA Gambino. Pulmonary follow-up with Tristen Gutierrez PA-C. Cardiology follow-up with Dr. Hansen. . Current Inpatient Medications: Current Inpatient Medications Medications (Trade) Dose Ordered Sig/Ramirez Route Start Time Stop Time Status Last Admin Dose Admin Tramadol HCl (Ultram Tab) 50 mg Q4H PRN PO 06/03/17 13:45 07/03/17 13:44 06/04/17 21:24 50 MG Glucose (Glucose 40% Gel) 15-30 GRAMS 15 GRAMS... UD PRN PO 06/03/17 13:45 07/03/17 13:44 06/06/17 23:56 30 GM Glucose (Glucose Chew Tab) 4-8 Tablets 4 Tabl... UD PRN PO 06/03/17 13:45 07/03/17 13:44 06/07/17 00:20 4 TABS Dextrose (Dextrose 50% 50ML Syringe) 25-50ML OF 50% DW IV FOR... UD PRN IV 06/03/17 13:45 07/03/17 13:44 06/07/17 00:51 25 ML Glucagon (Glucagon Inj) 1 mg UD PRN SQ 06/03/17 13:45 07/03/17 13:44 Miscellaneous Information (Consult Glycemic Management Pharmacy) 1 ea UD PRN N/A 06/03/17 14:05 1/6/18 14:04 Daptomycin (Consult) 1 ea UD PRN N/A 06/03/17 14:00 07/03/17 13:59 Alprazolam (Xanax Tab) 0.5 mg DAILY PRN PO 06/04/17 09:00 07/04/17 08:59 Amiodarone HCl (Cordarone Tab) 200 mg BID PO 06/03/17 21:00 07/03/17 20:59 06/07/17 09:32 200 MG Arformoterol Tartrate (Brovana 15MCG/ 2ML Neb Soln) 15 mcg DAILY INH 06/04/17 09:00 07/04/17 08:59 06/07/17 07:32 15 MCG Atorvastatin Calcium (Lipitor Tab) 40 mg HS PO 06/03/17 21:00 07/03/17 20:59 06/06/17 21:16 40 MG Ferrous Gluconate (Ferrous Gluconate Tab) 324 mg BID PO 06/03/17 21:00 07/03/17 20:59 06/07/17 09:31 324 MG Salmeterol Xinafoate/ Fluticasone (Advair Diskus 250/50 Inh) 1 puff BID INH 06/03/17 21:00 07/03/17 20:59 06/07/17 09:31 1 PUFF Furosemide (Lasix Tab) 40 mg BID17 PO 06/03/17 17:00 07/03/17 16:59 06/07/17 16:57 40 MG Gabapentin (Neurontin Cap) 100 mg BID PO 06/03/17 21:00 07/03/17 20:59 06/07/17 09:32 100 MG Lisinopril (Zestril Tab) 10 mg DAILY PO 06/04/17 09:00 07/04/17 08:59 06/07/17 09:33 10 MG Metoprolol Succinate (Toprol Xl Tab) 25 mg DAILY PO 06/04/17 09:00 07/04/17 08:59 06/07/17 09:32 25 MG Pantoprazole Sodium (Protonix Tab) 40 mg BID PO 06/03/17 21:00 07/03/17 20:59 06/07/17 09:33 40 MG Sertraline HCl (Zoloft Tab) 75 mg DAILY PO 06/04/17 09:00 07/04/17 08:59 06/07/17 09:33 75 MG Sucralfate (Carafate Susp) 1 gm BID@0800,1715 PO 06/03/17 17:15 07/03/17 17:14 06/07/17 16:57 1 GM Prednisone (PredniSONE TAB) 40 mg DAILY PO 06/04/17 09:00 07/04/17 08:59 06/07/17 09:33 40 MG Acetaminophen (Tylenol Tab) 650 mg Q4H PRN PO 06/03/17 14:00 07/03/17 13:59 Ipratropium [place] (Atrovent 0.02% 0.5MG/2.5ML Neb) 0.5 mg Q6RWA INH 06/03/17 15:00 07/03/17 14:59 06/07/17 20:08 0.5 MG Levalbuterol (Xopenex 0.63 Mg/ 3 Ml Neb) 0.63 mg Q6RWA INH 06/03/17 15:00 07/03/17 14:59 06/07/17 20:08 0.63 MG Daptomycin 450 mg/ Syringe 9 ml @ 4.5 mls/min Q24H IV 06/03/17 15:00 06/13/17 14:59 06/07/17 16:02 4.5 MLS/MIN Warfarin Sodium (Coumadin Tab) 5 mg SuTuThSa@1600 PO 06/03/17 18:30 07/03/17 18:29 06/06/17 15:58 5 MG Warfarin Sodium (Coumadin Tab) 2.5 mg MoWeFr@1600 PO 06/04/17 16:00 07/04/17 15:59 06/07/17 16:02 2.5 MG Potassium Chloride (Klor-Con Tab) 20 meq BID PO 06/05/17 21:00 07/05/17 20:59 06/07/17 09:31 20 MEQ Insulin Human NPH (novoLIN-N NPH) 45 units QAM SC 06/07/17 09:00 07/07/17 08:59 06/07/17 09:37 45 UNITS Insulin Aspart (novoLOG ASPART) SLIDING SCALE If C... AC SC 06/07/17 12:00 07/07/17 11:59 06/07/17 18:15 19 UNITS Heparin Sodium (Porcine) (Heparin 10 Unit/ ml 5 ml Flush) 5 ml PRN PRN FLUSH 06/07/17 14:45 07/07/17 14:44 06/07/17 16:03 5 ML
[2017-06-07] MEDS: ATORVASTATIN 40 MG TAB PO SCH (20:56)
[2017-06-08 06:52] LABS: INR 2.7 (0.9-1.1); PROTHROMBIN TIME (PATIENT) 27.4 SECONDS (9.0-12.0)
[2017-06-08 07:10] LABS: CALCIUM 8.3 mg/dl (8.5-10.1); CREATININE 0.72 mg/dl (0.60-1.40); POTASSIUM 3.5 mmol/L (3.5-5.1)
[2017-06-08 07:11] VITALS: BP 135/70; PULSE 59; TEMP 36.4; O2SAT 97
[2017-06-08 07:25] VITALS: PULSE 56; O2SAT 98
[2017-06-08] MEDS: IPRATROPIUM BROMIDE NEB SOLN 0.02% 2.5 ML VIAL INH SCH ×2 (07:25→14:13)
[2017-06-08] MEDS: ARFORMOTEROL TART 15MCG/2ML VIAL INH SCH (07:25)
[2017-06-08] MEDS: LEVALBUTEROL 0.63MG/3 ML NEB INH SCH ×2 (07:25→14:13)
[2017-06-08] MEDS ORDERED: INSULIN HUMAN NPH SC SCH (09:00)
[2017-06-08] MEDS: SUCRALFATE 1 GM/10 ML UDC PO SCH ×2 (09:19→16:34)
[2017-06-08] MEDS: FLUTICASONE/SALMETEROL 250/50 (ADVAIR) 14 PUFF/1 INHALER INH SCH (09:20)
[2017-06-08] MEDS: POTASSIUM CHLORIDE 20 MEQ TABCR PO SCH (09:20)
[2017-06-08] MEDS: SERTRALINE HCL 50 MG TAB PO SCH (09:20)
[2017-06-08] MEDS: LISINOPRIL 10 MG TAB PO SCH (09:21)
[2017-06-08] MEDS: FERROUS GLUCONATE 324 MG TAB PO SCH (09:21)
[2017-06-08] MEDS: METOPROLOL SUCC 25MG EXT REL TAB PO SCH (09:21)
[2017-06-08] MEDS: AMIODARONE 200 MG TAB PO SCH (09:21)
[2017-06-08] MEDS: GABAPENTIN 100 MG CAP PO SCH (09:21)
[2017-06-08] MEDS: PANTOprazole SOD 40 MG TAB PO SCH (09:21)
[2017-06-08] MEDS: FUROSEMIDE 40 MG TAB PO SCH ×2 (09:21→16:34)
[2017-06-08] MEDS: INSULIN ASPART 100 UNITS/ML VIAL SC SCH ×3 (09:25→16:35)
--- NOTE | 2017-06-08 10:12 | Pharmacy Progress Note ---
Pharmacy Glycemic Short Note 2 Date of Service Jun 08, 2017. OUTPATIENT ANTIDIABETIC REGIMEN: * Metformin 1 gm BID * A1c = 9.6 % 11/01/16 ASSESSMENT: * 62 y/o male admitted with leg cellulitis and possible COPD exacerbation, known to the pharmacy glycemic service from previous admissions * Pt is receiving a prednisone taper for COPD exacerbation. Outpatient Rx { metformin} on hold and pt receiving SQ basal bolus insulin regimen with NPH + NovoLog to cover steroid associated hyperglycemia secondary to once daily prednisone. * Pt had a LOW BSG on 06/06/17 evening secondary to large dose of NovoLog given for dinner (51 units) * Insulin regimen significantly lowered on 06/07/17 to prevent repeat low per patient/provider request. Will continue to taper insulin regimen with each step down in insulin dosing. * Prednisone dose lowered to 30 mg po daily - will decrease NPH dose to ~ 0.3units/kg of ADJUSTED BODY WEIGHT instead of actual body weight secondary to obesity. * Pt received 98 units of insulin on 06/07/17 * 45 units of basal with NPH * 53 units of prandial/correctional with NovoLog. * When using NPH/NovoLog for steroid induced hyperglycemia, preferred for NPH to be the majority of regimen & cover post-prandial hyperglycemia from prednisone. However, since patient had a low on 06/06/17, we are dosing more conservatively to prevent repeat low. * BSGs 136, 1256, 219, 191 yesterday. Since BSGs trending upwards will tighten novolog slightly for better post-prandial control. PLAN FOR INPATIENT GLYCEMIC CONTROL: * Hold outpatient oral diabetes medications * May resume at discharge * Basal insulin: * Decrease dose: -N-P-H- -4-5- -u-n-i-t-s- -S-Q- -d-a-i-l-y- -i-n- -A-M- - - ->- NPH 35 units SQ daily in AM to cover prednisone 30mg PO Daily * Bolus insulin: no change * NovoLog per scale AC ONLY (HS check/coverage stopped 06/07) * Goal Range: Low 110 mg/dL - High 140 mg/dL * Correction Factor: 10 mg/dl/unit * Nutritional / Prandial insulin per carb ratio of 1 unit per 4 grams CHO consumed RECOMMENDATIONS FOR DISCHARGE: * A1c is elevated at 8.6% --> recommend maximizing metformin dosing if patient tolerates and continuing once daily NPH daily in AM with prednisone taper (If patient agreeable) * Continue to titrate metformin dosing upwards as recommended. Dosage increases should be made in increments of 500 mg weekly, up to 2,000 mg/day PO, given in divided doses. Doses above 2000 mg/day may be better tolerated if divided and given 3 times per day with meals. Max: 2,550 mg/day PO, in divided doses * NPH dosing with Prednisone * Prednisone 30mg PO daily --> Administer 35 units of NPH daily in AM * Prednisone 20mg PO daily --> Administer 25 units of NPH daily in AM * Prednisone 10mg PO daily --> Administer 15 units of NPH daily in AM
[2017-06-08] MEDS: DAPTOmycin IV 450 MG in SYRINGE 0 ML IV SCH (14:08)
[2017-06-08 14:14] VITALS: PULSE 57; O2SAT 96
[2017-06-08 15:08] VITALS: BP 149/77; PULSE 60; TEMP 36.9; O2SAT 96
[2017-06-08] MEDS: WARFARIN SOD 5 MG TAB PO SCH (16:10)
--- NOTE | 2017-06-08 16:12 | Progress Note ---
Medicine Progress Note Date & Time of Visit: Jun 08, 2017 at 16:12 . Subjective Right leg feels better. No fever. Respiratory status at baseline. . Objective Last 8 Hrs Date Time Temp Pulse Resp B/P (MAP) Pulse Ox O2 Delivery O2 Flow Rate FiO2 06/08/17 15:15 Room Air 06/08/17 15:08 36.9 60 20 149/77 (101) 96 Room Air 06/08/17 14:14 57 16 96 Room Air Physical Exam: General- no distress Neck- no JVD Lungs- mild diffuse wheezing; no respiratory distress Heart- RRR, no murmur or gallop appreciated Abdomen- + BS, soft, nontender Extremities- 1+ pretibial edema; no calf tenderness Skin- warm & dry; less erythema and warmth right leg below knee Neuro- alert . Laboratory Results: Last 24 Hours Test 06/07/17 17:08 06/07/17 20:49 06/08/17 05:54 06/08/17 07:57 Bedside Glucose 219 mg/dl 191 mg/dl 122 mg/dl Prothrombin Time 27.4 SECONDS Prothromb Time International Ratio 2.7 Sodium Level 137 mmol/L Potassium Level 3.5 mmol/L Chloride Level 105 mmol/L Carbon Dioxide Level 25 mmol/L Anion Gap 7.0 mmol/L Blood Urea Nitrogen 14 mg/dl Creatinine 0.72 mg/dl Est Creatinine Clear Calc Drug Dose 167.9 ml/min Estimated GFR () 116.7 Estimated GFR (Non- 100.7 BUN/Creatinine Ratio 19.0 Random Glucose 122 mg/dl Calcium Level 8.3 mg/dl Test 06/08/17 12:01 Bedside Glucose 107 mg/dl Assessment & Plan CELLULITIS RIGHT LOWER EXTREMITY Presented with recurrent cellulitis right lower extremity. Blood cultures obtained and were negative. Received daptomycin and aztreonam with improvement. ID consulted for recommendations. Arrangements made for outpatient IV daptomycin to complete 14 course of therapy. CORONARY ARTERY DISEASE No anginal symptoms. Continue metoprolol. ATRIAL FIBRILLATION S/P ablation + cardioversion. Continue amiodarone, metoprolol, and warfarin. HYPERTENSION Continue metoprolol and lisinopril. OBSTRUCTIVE LUNG DISEASE (COPD / ASTHMA) Respiratory status stable. Continue usual regimen. Has been taking prednisone 40 mg daily. Decrease prednisone to 30 mg daily; further tapering as instructed by Pulmonary Medicine. SLEEP APNEA Continue CPAP. CHRONIC HYPOXIC RESPIRATORY FAILURE Continue supplemental O2. DM TYPE 2 Fair control at home. Hgb A1C 8.6. Held metformin during hospital stay. Pharmacy consulted for glycemic management. FBS today = 122. Discharge on usual regimen. DIARRHEA Stool negative for C diff. Improved. HYPOKALEMIA K as low as 3.2. K today = 3.5. Follow. DYSLIPIDEMIA Patient instructed to hold atorvastatin x 2 weeks due to daptomycin therapy. VTE PROPHYLAXIS Continue warfarin. DISPOSITION Discharge to home. Primary Care follow-up with JULIA Gambino. Pulmonary follow-up with Tristen Gutierrez PA-C. Cardiology follow-up with Dr. Hansen. . Consultants: ID . Procedures: US lower extremity IV medications PICC RUE . Current Inpatient Medications: Current Inpatient Medications Medications (Trade) Dose Ordered Sig/Ramirez Route Start Time Stop Time Status Last Admin Dose Admin Tramadol HCl (Ultram Tab) 50 mg Q4H PRN PO 06/03/17 13:45 07/03/17 13:44 06/04/17 21:24 50 MG Glucose (Glucose 40% Gel) 15-30 GRAMS 15 GRAMS... UD PRN PO 06/03/17 13:45 07/03/17 13:44 06/06/17 23:56 30 GM Glucose (Glucose Chew Tab) 4-8 Tablets 4 Tabl... UD PRN PO 06/03/17 13:45 07/03/17 13:44 06/07/17 00:20 4 TABS Dextrose (Dextrose 50% 50ML Syringe) 25-50ML OF 50% DW IV FOR... UD PRN IV 06/03/17 13:45 07/03/17 13:44 06/07/17 00:51 25 ML Glucagon (Glucagon Inj) 1 mg UD PRN SQ 06/03/17 13:45 07/03/17 13:44 Miscellaneous Information (Consult Glycemic Management Pharmacy) 1 ea UD PRN N/A 06/03/17 14:05 07/03/17 14:04 Daptomycin (Consult) 1 ea UD PRN N/A 06/03/17 14:00 07/03/17 13:59 Alprazolam (Xanax Tab) 0.5 mg DAILY PRN PO 06/04/17 09:00 07/04/17 08:59 Amiodarone HCl (Cordarone Tab) 200 mg BID PO 06/03/17 21:00 07/03/17 20:59 06/08/17 09:21 200 MG Arformoterol Tartrate (Brovana 15MCG/ 2ML Neb Soln) 15 mcg DAILY INH 06/04/17 09:00 07/04/17 08:59 06/08/17 07:25 15 MCG Atorvastatin Calcium (Lipitor Tab) 40 mg HS PO 06/03/17 21:00 07/03/17 20:59 06/07/17 20:56 40 MG Ferrous Gluconate (Ferrous Gluconate Tab) 324 mg BID PO 06/03/17 21:00 07/03/17 20:59 06/08/17 09:21 324 MG Salmeterol Xinafoate/ Fluticasone (Advair Diskus 250/50 Inh) 1 puff BID INH 06/03/17 21:00 07/03/17 20:59 06/08/17 09:20 1 PUFF Furosemide (Lasix Tab) 40 mg BID17 PO 06/03/17 17:00 07/03/17 16:59 06/08/17 09:21 40 MG Gabapentin (Neurontin Cap) 100 mg BID PO 06/03/17 21:00 07/03/17 20:59 06/08/17 09:21 100 MG Lisinopril (Zestril Tab) 10 mg DAILY PO 06/04/17 09:00 07/04/17 08:59 06/08/17 09:21 10 MG Metoprolol Succinate (Toprol Xl Tab) 25 mg DAILY PO 06/04/17 09:00 07/04/17 08:59 06/08/17 09:21 25 MG Pantoprazole Sodium (Protonix Tab) 40 mg BID PO 06/03/17 21:00 07/03/17 20:59 06/08/17 09:21 40 MG Sertraline HCl (Zoloft Tab) 75 mg DAILY PO 06/04/17 09:00 07/04/17 08:59 06/08/17 09:20 75 MG Sucralfate (Carafate Susp) 1 gm BID@0800,1715 PO 06/03/17 17:15 07/03/17 17:14 06/08/17 09:19 1 GM Acetaminophen (Tylenol Tab) 650 mg Q4H PRN PO 06/03/17 14:00 07/03/17 13:59 Ipratropium [place] (Atrovent 0.02% 0.5MG/2.5ML Neb) 0.5 mg Q6RWA INH 06/03/17 15:00 07/03/17 14:59 06/08/17 14:13 0.5 MG Levalbuterol (Xopenex 0.63 Mg/ 3 Ml Neb) 0.63 mg Q6RWA INH 06/03/17 15:00 07/03/17 14:59 06/08/17 14:13 0.63 MG Daptomycin 450 mg/ Syringe 9 ml @ 4.5 mls/min Q24H IV 06/03/17 15:00 06/13/17 14:59 06/08/17 14:08 4.5 MLS/MIN Warfarin Sodium (Coumadin Tab) 5 mg SuTuThSa@1600 PO 06/03/17 18:30 07/03/17 18:29 06/08/17 16:10 5 MG Warfarin Sodium (Coumadin Tab) 2.5 mg MoWeFr@1600 PO 06/04/17 16:00 07/04/17 15:59 06/07/17 16:02 2.5 MG Potassium Chloride (Klor-Con Tab) 20 meq BID PO 06/05/17 21:00 07/05/17 20:59 06/08/17 09:20 20 MEQ Insulin Aspart (novoLOG ASPART) SLIDING SCALE If C... AC SC 06/07/17 12:00 07/07/17 11:59 06/08/17 12:44 23 UNITS Heparin Sodium (Porcine) (Heparin 10 Unit/ ml 5 ml Flush) 5 ml PRN PRN FLUSH 06/07/17 14:45 07/07/17 14:44 06/08/17 14:08 5 ML Prednisone (PredniSONE TAB) 30 mg DAILY PO 06/08/17 09:00 07/08/17 08:59 06/08/17 09:20 30 MG Insulin Human NPH (novoLIN-N NPH) 35 units QAM SC 06/08/17 09:00 07/08/17 08:59 06/08/17 09:26 35 UNITS
[2017-06-08] MEDS ORDERED: PRED10TA PO (16:15)
[2017-06-08] MEDS ORDERED: LPT40 PO (16:19)
[2017-06-08] MEDS ORDERED: PRD10 PO (16:19)
--- NOTE | 2017-06-08 16:26 | Discharge Instructions ---
Discharge Instructions Date of Service Jun 08, 2017. Admission Reason for Admission: cellulitis (skin infection) right leg . Discharge Discharge Diagnosis / Problem: cellulitis (skin infection) right leg Discharge Goals Goal(s): Improve disease control Activity Recommendations Activity Limitations: resume your previous activity Lifting Limitations: no more than 10 pounds (with right arm while PICC in place ) . Instructions / Follow-Up Instructions / Follow-Up APPOINTMENTS: FAMILY MEDICINE 06/11/2017 2:50 PM [facility] PULMONARY MEDICINE Tristen Gutierrez PA-C. Please call his office for an appointment. OTHER INSTRUCTIONS: Hold atorvastatin for 2 weeks, then resume as before. Have PICC line removed as soon as you are done with intravenous antibiotic. Antibiotics may affect your INR and your warfarin (Coumadin) may have to be adjusted. Please have your INR checked within 1 week. Seek medical attention if you have: * temperature above 101 * chest pain or trouble breathing * abdominal pain, nausea, vomiting * diarrhea, dark stools or bloody stools * severe muscle aches or dark urine * worsening redness or pain in leg * any unanswered questions or concerns Call 911 if symptoms are severe. Call if you have any questions or problems. My cell # is [phone]. You can also reach a [facility] hospitalist on duty at [facility] 24 hours a day by calling [phone]. Please take good care of yourself. Tu Adam . Current Hospital Diet Patient's current hospital diet: Diabetes Type 2 Diet, Low Sodium Diet (2gm Na) Discharge Diet Recommended Diet: AHA Diet (Heart Healthy), Diabetes Type 2 Diet Procedures Procedures Performed: ultrasound legs- no signs of blood clots insertion of PICC line Pending Studies Studies pending at discharge: no Laboratory Results Hemoglobin A1c Test 06/04/17 06:13 Range/Units Estimated Average Glucose 200 mg/dl Hemoglobin A1c 8.6 H 4.5-5.6 % Medical Emergencies . Who to Call and When: Medical Emergencies: If at any time you feel your situation is an emergency, please call 911 immediately. . Non-Emergent Contact Non-Emergency issues call your: Primary Care Provider, Hospital Doctor, Operations Support Coordinator . . "Provider Documentation" section prepared by Tu Adam. . VTE Core Measure Inpt VTE Proph given/why not?: Warfarin (Coumadin)
[2017-06-08 16:56] VITALS: BP 149/77; PULSE 60; TEMP 36.9; O2SAT 96
--- NOTE | 2017-06-09 11:22 | Discharge Summary ---
Discharge Summary Date of Service Jun 09, 2017. Discharge Summary Admission Date: Jun 03, 2017 at 11:00 Discharge Date: Jun 08, 2017 Discharge Disposition: Home with services Principal Diagnosis: cellulitis right lower extremity . Secondary Diagnoses/Problems: Chronic and Resolved Medical Problems: (1) Asthma Status: Chronic (2) BODY MASS INDEX 50.0-59.9, ADULT Status: Chronic (3) Cerebral aneurysm Status: Resolved (4) CHRONIC OBSTRUCTIVE ASTHMA, W (ACUTE) EXACERBATION Status: Chronic (5) Chronic obstructive lung disease Status: Chronic (6) CHRONIC SYSTOLIC/DIASTOLIC HRT FAILURE Status: Chronic (7) Congestive heart failure Status: Chronic (8) CORONARY ATHEROSCLEROSIS OF [place] CORONARY VESSEL Status: Chronic (9) DIAB MCKAYLA WO COMPL, TYPE II OR UNSPEC TYPE, UNCONTROLLED Status: Chronic (10) Factor 5 Leiden mutation, heterozygous Status: Chronic (11) Hernia Status: Resolved (12) HYPERLIPIDEMIA NEC/NOS Status: Chronic (13) HYPERTENSION NOS Status: Chronic (14) MORBID OBESITY Status: Chronic (15) Nonruptured cerebral aneurysm Status: Resolved Surgical Problems: (1) Hx of appendectomy Status: Resolved (2) Hx of cholecystectomy Status: Resolved . Procedures: US lower extremity IV medications PICC RUE . Consultations: ID . Medication Reconciliation New Medications: Daptomycin (Daptomycin) 500 Mg Inj 500 MG IV DAILY for 8 Days, #8 DOSE Prednisone (Prednisone) 10 Mg Tab 30 MG PO DAILY for 30 Days, #90 TAB New dose 06/08/17. Further taper as instructed by Tristen Gutierrez PA-C. Changed Medications: Atorvastatin (Atorvastatin Calcium) 40 Mg Tab 40 MG PO HS for 30 Days, TAB 1 Refill (Medication details modified) Hold for 2 weeks, then resume. Continued Medications: Albuterol Sulf (Proventil 0.083% 2.5MG/3ML) 2.5 Mg/3 Ml Nebu 1 AMP INH QID PRN for SOB/Wheezing, #1 1 Refill Alprazolam (Xanax) 0.5 Mg Tab 0.5 MG PO BID, 0 Refills Amiodarone Hcl (Cordarone) 200 Mg Tab 1 TAB PO BID for 90 Days, #180 TAB 1 Refill Arformoterol Tartrate (Brovana) 15 Mcg/2 Ml Neb 1 VIAL NEB DIRECTED for 30 Days bid as directed Ferrous Gluconate (Iron Supplement) 324 Mg Tab 324 MG PO BID, TAB Fluticasone Prop/Salmeterol (Advair Diskus 250/50 60 Dose) 1 Ea Aerp 1 PUFF INH BID, INHALER Furosemide (Lasix) 40 Mg Tab 40 MG PO BID, TAB Gabapentin (Neurontin) 100 Mg Cap 100 MG PO BID, 0 Refills Lisinopril (Zestril) 10 Mg Tab 10 MG PO DAILY, TAB Metformin Hcl (Glucophage) 1,000 Mg Tab 1000 MG PO BID, TAB Metoprolol Succinate (Metoprolol Succinate ER) 25 Mg Tabcr 25 MG PO DAILY for 30 Days, #30 TAB 1 Refill Pantoprazole (Protonix) 40 Mg Tab 40 MG PO BID, #30 TAB Potassium Chloride (Potassium Chloride Er) 10 Meq Tab 10 MEQ PO BID Sertraline (Zoloft) 50 Mg Tab 1.5 TAB PO DAILY for 30 Days, #45 TAB 2 Refills Sucralfate (Carafate) 1 Gm/10 Ml Dali 10 ML PO Q12 Tramadol Hcl (Ultram) 50 Mg Tab 50-100 MG PO Q8 PRN for Pain, TAB Warfarin Sodium (Warfarin Sodium) 5 Mg Tab 5 MG PO 6XWK all days except wednesday Warfarin Sodium (Coumadin) 5 Mg Tab 2.5 MG PO WK TUESDAYS Discontinued Medications: Prednisone (Prednisone) 10 Mg Tab 40 MG PO DAILY, TAB Admission Information HPI (per Admitting provider): 62 year old male with history of DM, HTN, CHF, A fib on coumadin, COPD, KIRSTEN, Factor V Deficiency and other problems noted below presenting with progressive right lower extremity swelling, redness and pain. Follows with COLETTE Rainey for PCP, COLETTE Gutierrez for Pulm, Dr. Ruth for Cardio. Patient reports pain, redness and swelling on the right calf over the weekend, which progressed to involve his right knee and foot. He does report subjective fever. He was seen at the [facility] two days ago and was given Ceftri and prescription for Bactrim, with no improvement. Today, he was [facility] by COLETTE Gutierrez for increased dry cough and dyspnea for the past weeks, not improving with daily Prednisone 30mg. He was sent to the hospital for admission for worsening of possible leg cellulitis. On exam, patient seen resting in bed, pleasant, comfortable Reports moderate pain on the right lower leg worse with walking. Denies active chest pain, dyspnea, palpitations, dizziness, nausea. No other symptoms. . Physical Exam (per Admitting): Extremities/Musculoskelatal: + pertinent finding (right lower ext: (+) grade 1-2 edema, erythema mainly on the medial aspect, mild swelling on the right knee, poor rom due to pain, (+) mild warmth and tenderness) Hospital Course CELLULITIS RIGHT LOWER EXTREMITY Presented with recurrent cellulitis right lower extremity. Blood cultures obtained and were negative. Received daptomycin and aztreonam with improvement. ID consulted for recommendations. Arrangements made for outpatient IV daptomycin to complete 14 course of therapy. CORONARY ARTERY DISEASE No anginal symptoms. Continue metoprolol. ATRIAL FIBRILLATION S/P ablation + cardioversion. Continue amiodarone, metoprolol, and warfarin. HYPERTENSION Continue metoprolol and lisinopril. OBSTRUCTIVE LUNG DISEASE (COPD / ASTHMA) Respiratory status stable. Continue usual regimen. Has been taking prednisone 40 mg daily. Decrease prednisone to 30 mg daily; further tapering as instructed by Pulmonary Medicine. SLEEP APNEA Continue CPAP. CHRONIC HYPOXIC RESPIRATORY FAILURE Continue supplemental O2. DM TYPE 2 Fair control at home. Hgb A1C 8.6. Held metformin during hospital stay. Pharmacy consulted for glycemic management. FBS today = 122. Discharge on usual regimen. DIARRHEA Stool negative for C diff. Improved. HYPOKALEMIA K as low as 3.2. K today = 3.5. Follow. DYSLIPIDEMIA Patient instructed to hold atorvastatin x 2 weeks due to daptomycin therapy. VTE PROPHYLAXIS Continue warfarin. DISPOSITION Discharge to home. Primary Care follow-up with JULIA Gambino. Pulmonary follow-up with Tristen Gutierrez PA-C. Cardiology follow-up with Dr. Hansen. . Total time spent on discharge = 40 min. This includes examination of the patient, discharge planning, medication reconciliation, and communication with other providers. . Discharge Instructions Date of Service Jun 08, 2017. Admission Reason for Admission: cellulitis (skin infection) right leg . Discharge Discharge Diagnosis / Problem: cellulitis (skin infection) right leg Discharge Goals Goal(s): Improve disease control Activity Recommendations Activity Limitations: resume your previous activity Lifting Limitations: no more than 10 pounds (with right arm while PICC in place ) . Instructions / Follow-Up Instructions / Follow-Up APPOINTMENTS: FAMILY MEDICINE 06/11/2017 2:50 PM [facility] PULMONARY MEDICINE Tristen Gutierrez PA-C. Please call his office for an appointment. OTHER INSTRUCTIONS: Hold atorvastatin for 2 weeks, then resume as before. Have PICC line removed as soon as you are done with intravenous antibiotic. Antibiotics may affect your INR and your warfarin (Coumadin) may have to be adjusted. Please have your INR checked within 1 week. Seek medical attention if you have: * temperature above 101 * chest pain or trouble breathing * abdominal pain, nausea, vomiting * diarrhea, dark stools or bloody stools * severe muscle aches or dark urine * worsening redness or pain in leg * any unanswered questions or concerns Call 911 if symptoms are severe. Call if you have any questions or problems. My cell # is [phone]. You can also reach a [facility] hospitalist on duty at [facility] 24 hours a day by calling [phone]. Please take good care of yourself. Tu Adam . Current Hospital Diet Patient's current hospital diet: Diabetes Type 2 Diet, Low Sodium Diet (2gm Na) Discharge Diet Recommended Diet: AHA Diet (Heart Healthy), Diabetes Type 2 Diet Procedures Procedures Performed: ultrasound legs- no signs of blood clots insertion of PICC line Pending Studies Studies pending at discharge: no Laboratory Results Hemoglobin A1c Test 06/04/17 06:13 Range/Units Estimated Average Glucose 200 mg/dl Hemoglobin A1c 8.6 H 4.5-5.6 % Medical Emergencies . Who to Call and When: Medical Emergencies: If at any time you feel your situation is an emergency, please call 911 immediately. . Non-Emergent Contact Non-Emergency issues call your: Primary Care Provider, Hospital Doctor, It Administrator . . "Provider Documentation" section prepared by Tu Adam. . VTE Core Measure Inpt VTE Proph given/why not?: Warfarin (Coumadin) . Additional Copies To Odalis Rainey C.R.N.P.; Tristen Gutierrez PA-C; Siva Hansen MD
== END 2017-06-08 17:55 | disposition home health service (06) | DRG 603 ==
LOC: C.MSN 11:00
PROVIDERS: ADMIT Internal Medicine; ATTEND Hospitalist
PROC: 02HV33Z Insertion of Infusion Device into Superior Vena Cava, Percutaneous Approach (ICD-10-PCS; principal; 2017-06-07)
DX: L03.115 Cellulitis of right lower limb (principal); D68.51 Activated protein C resistance; J96.11 Chronic respiratory failure with hypoxia; Z68.43 Body mass index [BMI] 50.0-59.9, adult; J44.9 Chronic obstructive pulmonary disease, unspecified; E11.9 Type 2 diabetes mellitus without complications; I11.0 Hypertensive heart disease with heart failure; I50.9 Heart failure, unspecified; I48.91 Unspecified atrial fibrillation; G47.33 Obstructive sleep apnea (adult) (pediatric); R19.7 Diarrhea, unspecified; E87.6 Hypokalemia; E66.01 Morbid (severe) obesity due to excess calories; Z79.01 Long term (current) use of anticoagulants; Z79.84 Long term (current) use of oral hypoglycemic drugs; Z79.899 Other long term (current) drug therapy; Z88.0 Allergy status to penicillin; Z83.3 Family history of diabetes mellitus; Z91.041 Radiographic dye allergy status

== ENCOUNTER 2019-02-20 04:02 | Inpatient (IN) ==
[2019-02-20 04:55] LABS: Basophils # (auto) 0.03 K/uL (0-0.2); Basophils % (auto) 0.4 %; Eosinophils # (auto) 0.34 K/uL (0-0.5); Eosinophils % (auto) 4.4 %; Hematocrit (blood only) 36.7 % (42-52); Hemoglobin 11.9 g/dL (14.0-18.0); Immature Granulocytes # (auto) 0.02 K/uL (0.00-0.02); Immature Granulocytes % (auto) 0.3 %; Lymphocytes # (auto) 1.64 K/uL (1.2-3.4); Lymphocytes % (auto) 21.1 %; Mean Corpuscular Hemoglobin 26.9 pg (25-34); Mean Corpuscular Hgb Conc 32.4 g/dL (32-36); Monocytes # (auto) 0.58 K/uL (0.11-0.59); Monocytes % (auto) 7.5 %; Neutrophils # (auto) 5.15 K/uL (1.4-6.5); Neutrophils % (auto) 66.3 %; Platelet Count 199 K/uL (130-400); RDW Coefficient of Variation 14.5 % (11.5-14.5); RDW Standard Deviation 44.5 fL (36.4-46.3); Red Blood Count 4.42 M/uL (4.7-6.1); White Blood Count 7.76 K/uL (4.8-10.8)
[2019-02-20 05:08] LABS: INR 2.4 (0.9-1.1); Prothrombin Time 22.7 Seconds (9.0-12.0)
[2019-02-20 05:13] LABS: BUN Creatinine Ratio 14.1 (10-20); Calcium 8.4 mg/dl (8.5-10.1); Creatinine Clr Calc Pharmacy 154.7 ml/min; Est GFR (African American) 112.7; Est GFR (Non-African American) 97.3; Potassium 3.5 mmol/L (3.5-5.1)
[2019-02-20 05:42] LABS: Albumin Globulin Ratio 0.8 (0.9-2); Bilirubin,Total 1.2 mg/dl (0.2-1); Globulin 3.9 gm/dl (2.5-4.0); Total Protein 6.9 gm/dl (6.4-8.2); Troponin I 0.202 ng/ml (0-0.045)
[2019-02-20] MEDS ORDERED: FUROSEMIDE 40 MG/4 ML VIAL IV STA (05:45)
--- NOTE | 2019-02-20 06:15 | Emergency Department Note ---
Entered by Ned Schmitz acting as a scribe for Destiny Vides DO History of Present Illness General Chief complaint: Shortness of Breath/Dyspnea Stated complaint: SHORT OF BREATH,AFIB Time Seen by Provider: 02/20/19 04:09 Source: patient and family History of Present Illness Onset (ago): hour(s) (last evening around dinner time) Location: chest Pain Consistency: + other (worsening) Maximum Pain Intensity: 5 Quality: + other (SOB) Associated symptoms: + other (episode of a-fib, swelling in his legs) The patient is a 63 y/o male who presents to the ED w/ CC of worsening shortness of breath beginning last evening around dinner time. The patient states he was evaluated a few weeks ago for similar symptoms and was kept in the hospital for two weeks. He reports this evening he felt like he had an episode of a-fib and checked his heart rate. The patient notes his at-home PulseOx was 140. He states he felt chest pain go up his chest and into his shoulders. The patient report he laid in bed most of the day yesterday with his CPAP on. He notes he uses nebulizers and inhalers at home, and they did not help. His states they were in [place] and was walking a lot on Wednesday. She reports they drove home this morning, and the patient has trouble when sitting down for a while because he develops swelling in his legs. The notes he does not have history of blood clots and is on Coumadin. She states a history of CHF and COPD. 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 He notes he also has a history of several episodes of cellulitis on both of his legs. The states he also had severe anxiety while in the car on Wednesday. She reports this morning the patient to an all-you-can eat buffet and ate a lot and drank a lot of soda. The notes she was not sure if it was heart burn. Home Medications Home Medications Medication Instructions Recorded Confirmed Type Kemardueto 1 tab PO BIDM 01/04/19 02/20/19 History albuterol sulfate 2 inh INHALATION Q6H PRN 01/04/19 02/20/19 History alprazolam [Xanax] 1 mg PO HS 01/04/19 02/20/19 History atorvastatin 40 mg PO QPM 01/04/19 02/20/19 History ferrous sulfate 325 mg PO QAM 01/04/19 02/20/19 History fluticasone propion-salmeterol 1 inh INHALATION Q12H 01/04/19 02/20/19 History [Advair Diskus] losartan 50 mg PO QAM 01/04/19 02/20/19 History pantoprazole [Protonix] 40 mg PO BID 01/04/19 02/20/19 History sertraline [Zoloft] 100 mg PO QAM 01/04/19 02/20/19 History spironolactone [Aldactone] 25 mg PO QAM 01/04/19 02/20/19 History tramadol 50 mg PO Q6H PRN 01/04/19 02/20/19 History furosemide 40 mg tablet 120 mg PO QAM tab 02/07/19 02/20/19 History gabapentin 100 mg capsule 200 mg PO QAM cap 02/07/19 02/20/19 History hydralazine 10 mg tablet 10 mg PO BID tab 02/07/19 02/20/19 History Jardiance 25 mg PO DAILY 02/20/19 02/20/19 History gabapentin 100 mg PO QPM 02/20/19 02/20/19 History ipratropium-albuterol 3 ml INHALATION Q6H PRN 02/20/19 02/20/19 History metoprolol succinate 100 mg PO DAILY 02/20/19 02/20/19 History nifedipine 30 mg PO DAILY 02/20/19 02/20/19 History potassium chloride 10 meq PO BID 02/20/19 02/20/19 History warfarin 2.5 mg PO WK 02/20/19 02/20/19 History warfarin 5 mg PO 6XWK 02/20/19 02/20/19 History Allergies Allergy/AdvReac Type Severity Reaction Status Date / Time Iodinated Contrast- Oral and Allergy Severe SHORTNESS Verified 02/20/19 05:39 IV Dye OF BREATH duloxetine [From Cymbalta] Allergy Intermediate "DIFFICULTY Verified 02/20/19 05:39 FUNCTIONING" lorazepam Allergy Mild HIVES Verified 02/20/19 05:39 Penicillins Allergy Unknown UNSURE OF Verified 02/20/19 05:39 RXN, STATED ALLERGY A CHILD edetic acid AdvReac Severe SHORTNESS Verified 02/20/19 05:39 OF BREATH propylene glycol AdvReac Severe SHORTNESS Verified 02/20/19 05:39 OF BREATH regadenoson AdvReac Severe SHORTNESS Verified 02/20/19 05:39 OF BREATH Past Med/Surg History Medical History Anemia Anxiety Asthma Atrial fibrillation Chronic obstructive pulmonary disease Congestive heart failure Depression Diabetes mellitus, type 2 Dysphagia ESOPHAGEAL STRETCHING Factor 5 Leiden mutation, heterozygous GERD (gastroesophageal reflux disease) Gout Hyperlipidemia Hypertension On home oxygen therapy AT 2L WITH CPAP WHEN SLEEPING Peripheral neuropathy Pulmonary edema 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 (HAD 1 EPISODE 7 MONTHS AFTER SURGICAL INTERVENTION 2010) Sleep apnea CPAP Spinal stenosis Stomach ulcer Surgical History Cerebral aneurysm REPAIRED 2010 AT [facility] History of adenoidectomy History of anesthesia reaction "REQUIRES MORE THAN AVERAGE FOR EFFECTIVENESS" History of appendectomy History of cardiac cath NO STENTS OVER 1 YEAR AGO [facility] History of cholecystectomy History of colonoscopy History of esophagogastroduodenoscopy (EGD) History of herniorrhaphy History of myringotomy History of tonsillectomy History of tooth extraction History of vascular access device LEFT CHEST WALL (INTACT) POWER PORT Family History Other No significant family history Social History Preferred Language: [place] Communication Ability: Effective Freelance Data Entry Required: No Beliefs That Will Affect Care: None Current Living Situation: Spouse Feels Safe at Home: Yes Smoking Status: Never smoker Second Hand Exposure: No ; Hx Alcohol Use: No Hx Substance Use: No Review of Systems See HPI for pertinent positives & negatives. and A total of 10 systems reviewed and were otherwise negative Physical Exam Vital Signs Vital Signs - 24 hr 02/20/19 04:02 02/20/19 04:04 02/20/19 04:22 Temperature 37 C Temperature Source Oral Sepsis Recent Fever Within 48 Hours No Sepsis Action Taken by Nursing No Action Required Pulse Rate 73 Respiratory Rate 25 H Respiratory Effort / Characteristics Short of Breath Short of Breath Blood Pressure 192/93 H Blood Pressure Mean 126 Pulse Oximetry 93 96 93 Oxygen Delivery Method Room Air Room Air Room Air General: The patient is an obese male who appears short of breath and tachypneic. HEENT: Head - normocephalic and atraumatic Pupils are equal, round, and reactive to light. Extraocular eye muscles are intact, and sclera are anicteric. Nose - moist nasal mucosa without discharge. Mouth - moist buccal mucosa. Oropharynx is nonerythematous and there is no tonsillar exudate or edema noted. Neck: Supple; no JVD, nuchal rigidity, cervical lymphadenopathy. Heart: Regular rate and rhythm. There is a normal S1 and S2 with no murmurs, clicks, or gallops appreciated. Lungs: Clear to auscultation bilaterally with no wheezes, rales, or rhonchi. - Very minimal air movement on physical examination. Abdomen: Soft, protuberant, completely nontender, nondistended, with good bowel sounds. There are no palpable pulsatile masses or hepatosplenomegaly. There is no guarding, rigidity, or rebound noted. Extremities: No evidence of cyanosis or clubbing. 3+ pitting edema bilaterally. There are easily palpable peripheral pulses. Skin: warm and dry with good turgor and no rashes. Course 0414: The patient was evaluated in room A09. A complete history and physical examination were performed. Nursing notes and previous electronic medical records were reviewed. IV lock was established and labs were drawn as above. A twelve-lead EKG was obtained. Chest x-ray was performed. 0542: Upon reevaluation, I discussed findings and results with the patient. He states he has not taken his Lasix in the past four days because he has been traveling for a . He verbalized agreement of the treatment plan. The patient will be evaluated for further management and care. 0545: Ordered Lasix 40mg IV 0546: I spoke with Dr. Rose of the [facility]. The patient will be evaluated for further management and care. Medical Decision Making Differential Diagnosis Differential diagnosis includes: COPD exacerbation, acute coronary syndrome, CHF, pneumonia, PE. Medical Records Attestation: I reviewed the patient's medical records. Home Medications Current Medication List: was personally reviewed by me Laboratory Data Attestation: I reviewed the patient's lab results. Result diagrams: 02/20/19 04:46 02/20/19 04:46 Lab Results 02/20/19 02/20/19 02/20/19 Range/Units 04:46 04:46 04:46 WBC 7.76 (4.8-10.8) K/uL RBC 4.42 L (4.7-6.1) M/uL Hgb 11.9 L (14.0-18.0) g/dL Hct 36.7 L (42-52) % MCV 83.0 (80-100) fL MCH 26.9 (25-34) pg MCHC 32.4 (32-36) g/dL RDW Std Deviation 44.5 (36.4-46.3) fL RDW Coeff of Camryn 14.5 (11.5-14.5) % Plt Count 199 (130-400) K/uL MPV 9.0 (7.4-10.4) fL Immature Gran % (Auto) 0.3 % Neut % (Auto) 66.3 % Lymph % (Auto) 21.1 % [place] % (Auto) 7.5 % Eos % (Auto) 4.4 % Baso % (Auto) 0.4 % Immature Gran # (Auto) 0.02 (0.00-0.02) K/uL Neut # (Auto) 5.15 (1.4-6.5) K/uL Lymph # (Auto) 1.64 (1.2-3.4) K/uL [place] # (Auto) 0.58 (0.11-0.59) K/uL Eos # (Auto) 0.34 (0-0.5) K/uL Baso # (Auto) 0.03 (0-0.2) K/uL PT 22.7 H (9.0-12.0) Seconds INR 2.4 H (0.9-1.1) Sodium 137 (136-145) mmol/L Potassium 3.5 (3.5-5.1) mmol/L Chloride 100 (98-107) mmol/L Carbon Dioxide 28 (21-32) mmol/L Anion Gap 9.0 (3-11) BUN 11 (7-18) mg/dl Creatinine 0.77 (0.6-1.4) mg/dl Est Cr Clr Drug Dosing 154.7 ml/min Est GFR ( Amer) 112.7 Est GFR (Non-Af Amer) 97.3 BUN/Creatinine Ratio 14.1 (10-20) Glucose 294 H (70-99) mg/dl Calcium 8.4 L (8.5-10.1) mg/dl Total Bilirubin 1.2 H (0.2-1) mg/dl AST 19 (15-37) U/L ALT 26 (12-78) U/L Alkaline Phosphatase 72 (45-117) U/L Troponin I 0.202 H* (0-0.045) ng/ml NT-Pro-B Natriuret Pep 1243 H (0-900) pg/ml Total Protein 6.9 (6.4-8.2) gm/dl Albumin 3.0 L (3.4-5.0) gm/dl Globulin 3.9 (2.5-4.0) gm/dl Albumin/Globulin Ratio 0.8 L (0.9-2) Imaging Data Attestation: I personally reviewed and interpreted this imaging study as follows: My Impression: XR chest 2V: Cardiomegaly, mild CHF. No pleural effusion ECG Data Attestation: I personally reviewed and interpreted this ECG as follows: Indication: SOB/dyspnea Rate (beats per minute): 72 Rhythm: normal sinus Findings: + 1st degree AV block; no PAC, no PVC, no ST depression, no ST elevation, no acute ischemic change and no ectopy Blood Pressure Blood Pressure Findings: Elevated blood pressure Blood Pressure Disposition: further management by hospitalist SANTINO Narrative The patient is a 63 y/o male who presents to the ED w/ CC of worsening shortness of breath beginning last evening around dinner time. The patient has a history of COPD and CHF. He is unsure what the cause of his shortness of breath might be. Patient has evidence of heart failure on chest x-ray and has an elevated BNP. While I was reviewing the laboratory results with the patient and his , he did admit that he has not taken his Lasix for the past couple of days. Patient also has an elevated troponin. This is consistent with an end STEMI. Patient was given a dose of IV Lasix here in the emergency department and the case was discussed with the [facility] Hospitalist. They will evaluate for fu rther inpatient care. The patient takes Coumadin and is sufficiently anticoagulated with an INR of 2.4. He is hemodynamically stable at this time. Patient is also noted to have significantly elevated blood sugar with no obvious evidence of DKA. Impression & Plan Acute non-ST elevation myocardial infarction (NSTEMI), CHF (congestive heart failure), Acute hyperglycemia Critical Care Time Critical Care Time: Yes Total Critical Care Time: 45 I have personally spent 45 minutes of critical care time in the direct management of this patient. This includes bedside care, interpretation of diagnostic studies, and testing, discussion with consultants, patient, and family members, and other required patient management activities. This 45 erendira meri is in excess of all separately billable procedures. Discharge Plan Visit Data Chief Complaint: Shortness of Breath/Dyspnea Stated Complaint: SHORT OF BREATH,AFIB ED Provider: Destiny Vides Discharge Problem: Acute non-ST elevation myocardial infarction (NSTEMI), CHF (congestive heart failure), Acute hyperglycemia Patient Disposition: Being Evaluated by Hospitalist Forms Stand Alone Forms: My [facility] Prescriptions Prescriptions: No Action losartan 50 mg Tablet 50 mg PO QAM RF: 0 atorvastatin 40 mg Tablet 40 mg PO QPM RF: 0 fluticasone propion-salmeterol [Advair Diskus] 250-50 mcg/dose Blister With Device 1 inh INHALATION Q12H RF: 0 sertraline [Zoloft] 100 mg Tablet 100 mg PO QAM RF: 0 tramadol 50 mg Tablet 50 mg PO Q6H PRN (Reason: Pain) RF: 0 spironolactone [Aldactone] 25 mg Tablet 25 mg PO QAM RF: 0 alprazolam [Xanax] 0.5 mg Tablet 1 mg PO HS RF: 0 pantoprazole [Protonix] 40 mg Tablet,Delayed Release (Dr/Ec) 40 mg PO BID RF: 0 ferrous sulfate 325 mg (65 mg iron) Tablet 325 mg PO QAM RF: 0 Jentadueto 2.5-1,000 mg Tablet 1 tab PO BIDM RF: 0 albuterol sulfate 90 mcg/actuation Aerosol Powdr Breath Activated 2 inh INHALATION Q6H PRN (Reason: Shortness Of Breath Or Wheezing) RF: 0 furosemide 40 mg tablet 80 mg PO BID RF: 0 gabapentin [Neurontin] 100 mg capsule 200 mg PO QAM RF: 0 hydralazine 10 mg tablet 10 mg PO BID RF: 0 ipratropium-albuterol 0.5 mg-3 mg(2.5 mg base)/3 mL Solution For Nebulization 3 ml INHALATION Q6H PRN (Reason: Shortness Of Breath Or Wheezing) RF: 0 gabapentin 100 mg Capsule 100 mg PO QPM RF: 0 warfarin 5 mg Tablet 2.5 mg PO WK RF: 0 warfarin 5 mg tablet 5 mg PO 6XWK RF: 0 potassium chloride 10 mEq Tablet Extended Release 10 meq PO BID RF: 0 nifedipine 30 mg Tablet Extended Release 30 mg PO DAILY RF: 0 metoprolol succinate 100 mg tablet extended release 24 hr 100 mg PO DAILY RF: 0 Jardiance 25 mg 25 mg PO DAILY RF: 0 Referrals Referrals: Nidhi Sommer DO [Primary Care Provider] - Discharge Problem: CHF (congestive heart failure) Qualifiers: Heart failure type: unspecified Heart failure chronicity: acute Qualified Code(s): I50.9 - Heart failure, unspecified The scribe's documentation has been prepared under my direction and personally reviewed by me in its entirety. I confirm that the note above accurately reflects all work, treatment, procedures, and medical decision making performed by me.
--- NOTE | 2019-02-20 06:25 | XRay Report ---
XR chest 2V routine HISTORY: 63 years-old Male Chest Pain acute atypical chest pain with shortness of breath COMPARISON: Chest radiograph 06/07/2017 TECHNIQUE: PA and lateral views of the chest FINDINGS: Cardiac silhouette is enlarged, unchanged. Stable positioning of the left IJ central venous catheter. Mild blunting of the posterior costophrenic angles. Mild pulmonary vascular congestion. No pneumotho rax or large pleural effusion. Minimal bibasilar opacities suggest atelectasis. Healed remote fractur e of the anterior right fifth rib. Degenerative changes of the shoulders and spine. IMPRESSION: 1. Cardiomegaly with pulmonary vascular congestion. 2. Blunting of the costophrenic angles suggests trace pleural effusions. 3. Minimal bibasilar opacities suggest atelectasis. The above report was generated using voice recognition software. It may contain grammatical, syntax o r spelling errors. Electronically signed by: Juan Chicas M.D. 02/20/2019 6:24 AM
[2019-02-20] MEDS ORDERED: ALBUT/IPRATROP 3MG/0.5MG NEB 3 ML VIAL INH PRN (08:23)
[2019-02-20] MEDS ORDERED: NITROGLYCERIN SL 0.4 MG/TAB TAB SL PRN (08:23)
[2019-02-20] MEDS ORDERED: ACETAMINOPHEN 325 MG TAB PO PRN (08:23)
[2019-02-20] MEDS ORDERED: POLYETHYLENE (MIRALAX) 17 GM PACK PO PRN (08:23)
[2019-02-20] MEDS ORDERED: ALBUTEROL HFA 8 GM INHALER INH PRN (08:23)
[2019-02-20] MEDS ORDERED: TRAMADOL HCL 50 MG TABLET PO PRN (08:23)
[2019-02-20] MEDS ORDERED: ONDANSETRON INJ 2 MG/ML 2 ML VIAL IV PRN (08:23)
[2019-02-20] MEDS ORDERED: DEXTROSE 50% 50 ML SYRINGE IV PRN (09:00)
[2019-02-20] MEDS ORDERED: CARBOHYDRATES FOR HYPOGLYCEMIA PO PRN (09:00)
[2019-02-20] MEDS ORDERED: GLUCOSE 10 TABS/TUBE PO PRN (09:00)
[2019-02-20] MEDS ORDERED: FUROSEMIDE 40 MG in SYRINGE 0 ML IV SCH (09:00)
[2019-02-20] MEDS ORDERED: GLUCAGON FOR INJ 1 MG VIAL IM PRN (09:00)
[2019-02-20] MEDS ORDERED: GLUCOSE 40% GEL 15 GM TUBE PO PRN (09:00)
--- NOTE | 2019-02-20 10:03 | History and Physical Report ---
DATE OF ADMISSION: 02/20/2019 CHIEF COMPLAINT: Shortness of breath. HISTORY OF PRESENT ILLNESS: This is a 63-year-old male with past medical history significant for type 2 diabetes, diastolic CHF, obstructive sleep apnea - on CPAP, asthma, paroxysmal atrial fibrillation, history of right internal carotid artery aneurysm, status post clipping, nonobstructive CAD, morbid obesity, family history of factor V Leiden deficiency, history of noncompliance with medications, history of GERD, history of spondylolisthesis of lumbar region, history of iron-deficiency anemia, history of generalized anxiety disorder and depression, status post Port-A-Cath in place, presents with shortness of breath. The patient says he went to [place] this weekend and because he did not want to be bothered with going to bathroom, he did not take his Lasix on Wednesday. He is supposed to be on Lasix 80 mg b.i.d. but he says he is only taking Lasix 120 mg daily, in the morning only, because he does not want to wake up to go to bathroom in the night. Since yesterday, Wednesday, he started having some shortness of breath. He laid down the whole day with CPAP and his oxygen on, but he did not get any better and also he has noticed some right-sided chest pain radiating to his shoulder, it was 5/10 in severity associated with some sharp pains, pressure like feeling, so that is why he came to the ER. Currently, the pain is almost gone, just has 1/10 in severity of chest pain. He got a dose of Lasix in the ER and he is talking fine in full sentences and saturating okay on room air. Denies any cough. Godwin cold, but no fever. No dizziness, no headache, no blurred vision, no runny nose, no sore throat. He said he has some difficulties swallowing. He is supposed to get esophageal dilatation; mainly his difficulty swallowing is for potassium pills. Otherwise, he says he does not have too much difficulty with swallowing the food. No nausea, no vomiting, no abdominal pain. Normal bowel and bladder movements. He says his stools are loose, but denies any blood in stools or black stools, no hematuria, no dysuria. Swelling in the legs is same. No rash seen. He has recurrent cellulitis in both legs, but there is no erythema currently. He says he sleeps on his right side and is ambulating okay without any problems. Lives with his and daughter. Checks his blood pressure daily at home, but does not check his blood sugars. ALLERGIES: IODINATED DIAGNOSTIC AGENTS, LEXISCAN, LORAZEPAM, CEFEPIME, PENICILLINS. PAST MEDICAL HISTORY: As mentioned above. PAST SURGICAL HISTORY: Appendectomy, splenectomy, bilateral carpal tunnel surgery, colonoscopy, cardiac catheterization, tonsillectomy, EGD for esophageal stricture with dilatation, hernia repair, lumbosacral spine injection, tunneled catheter A port placement, aneurysm clips, laparoscopic cholecystectomy, myringotomy in left ear, lump removed from the head, vasectomy. FAMILY HISTORY: Significant for father has arthritis, heart disorder, hypertension, obesity, stroke. Mother had stroke, obesity, hypertension, heart disorder, eye problems, arthritis. SOCIAL HISTORY: and lives with his . No smoking, no alcohol, no drug use. MEDICATIONS: The patient is on albuterol 2 puffs inhalation q.6 hours p.r.n., Xanax 1 mg p.o. at bedtime, atorvastatin 40 mg p.o. q.p.m., ferrous sulfate 325 mg p.o. a.m., Advair Diskus 1 inhalation b.i.d., Lasix 120 mg p.o. daily, gabapentin 100 mg q.p.m. and 200 mg q.a.m., hydralazine 10 mg p.o. b.i.d., DuoNeb q.6 hours p.r.n., Jardiance 25 mg p.o. daily, Jentadueto 1 tablet b.i.d., losartan 50 mg p.o. q.a.m., Toprol-XL 100 mg p.o. daily, nifedipine 30 mg p.o. daily, Protonix 40 mg p.o. b.i.d., potassium chloride 10 mEq b.i.d., Zoloft 100 mg p.o. a.m., spironolactone 25 mg p.o. q.a.m., tramadol 50 mg p.o. q.6 hours p.r.n., warfarin 5 mg p.o. six times a week and 2.5 mg one time a week. REVIEW OF SYMPTOMS: As per HPI. Rest of the review of systems is negative. PHYSICAL EXAMINATION: GENERAL: The patient is alert and oriented, morbidly obese, not in acute distress. VITAL SIGNS: Temperature 37, pulse 72, respiratory rate 22, blood pressure 174/84, oxygen 96% room air. HEENT: No pallor, no icterus. Pupils equal, round, reactive to light. NECK: No JVD or neck masses, no carotid bruits. CARDIOVASCULAR: S1, S2 heard, regular rate and rhythm, no murmur, no gallop. LUNGS: clear to auscultation bilaterally, Mild bibasilar crackles. No wheezing. ABDOMEN: Soft, bowel sounds present, nontender. No distention. CENTRAL NERVOUS SYSTEM: Cranial nerves II-XII grossly intact. Nonfocal. EXTREMITIES: Pedal edema present, no erythema seen. LABORATORIES: WBC 7.7, hemoglobin 11.9, hematocrit 36.7, platelets 199. PT 22.7, INR 2.4. Sodium 137, potassium 3.5, chloride 100, bicarbonate 28, BUN 11, creatinine 0.7, serum glucose 294, calcium 8.4, total bilirubin 1.2, AST 19, ALT 26, alkaline phosphatase 72. Troponin I of 0.2. BNP 1243. CHEST X-RAY: Cardiomegaly with pulmonary vascular congestion, blunting of costophrenic angle suggests trace pleural effusions, minimal bibasilar opacity suggests atelectasis. ELECTROCARDIOGRAM: Sinus rhythm with first-degree AV block with PVCs at a rate of 72, no significant change from previous EKG. ASSESSMENT AND PLAN: This is a 63-year-old male who presents with shortness of breath and chest pain. 1. Shortness of breath and history of diastolic congestive heart failure. Acute on chronic diastolic CHF Supposed to be on Lasix 80 mg b.i.d. but he is taking only 120 mg daily in the morning to avoid going to bathroom in the night, and this weekend, he went to [place] and he did not want to go frequently to bathroom, so he did not take Lasix on Wednesday, and since Wednesday, he started to have shortness of breath, that is why he came to the Emergency Room. Chest x-ray showed mild congestion. Received IV Lasix 40 in the Emergency Room, we will continue with IV Lasix 40 b.i.d. Daily weights, intakes and outputs. Echocardiogram and consult cardiology for further recommendations. 2. Chest pain, currently is improving, but his troponin is 0.2. Electrocardiogram with no acute changes, possible non-ST elevated myocardial infarction. His INR is 2.4. He is on Toprol-XL and statin. We will follow serial cardiac enzymes and echocardiogram and consult cardiology. 3. History of atrial fibrillation. Recently last month had cardioversion, he says it only lasted for 2 weeks. Currently, electrocardiogram looks in normal sinus rhythm. INR is therapeutic.Was on Multaq and amiodarone in the past. Rate control with Toprol-XL. We will monitor in the telemetry floor. 4. Hypertension. Continue his metoprolol, nifedipine, losartan, hydralazine and diuretics, Lasix and spironolactone. Monitor his blood pressure. 5. Iron-deficiency anemia. Continue his iron sulfate. 6. Hyperlipidemia. Continue statin. 7. History of asthma. Continue his home inhalers and nebulizers, currently stable. 8. Obstructive sleep apnea, uses CPAP at bedtime with 2 liters oxygen, which we will continue. 9. History of nonobstructive coronary artery disease, on beta effie and statin. 10. Diabetes. Holding home p.o. medication, placing on insulin sliding scale and Lantus 5 units b.i.d. Follow the blood sugars, follow HbA1c levels.currently NPO. 11. Morbid obesity, needs counseling. 12. Depression and anxiety. Continue ativan and Zoloft. 13. Deep venous thrombosis prophylaxis. INR is therapeutic. DISPOSITION: Closely monitor in the tele floor. Level 1 full code. PT and OT prior to discharge. Social Service to help with discharge planning. DENITA
--- NOTE | 2019-02-20 10:27 | Cardiology Consultation ---
Date of Consultation February 20, 2019 Assessment & Plan (1) Acute on chronic diastolic (congestive) heart failure: He appears mildly hypervolemic. Heart failure exacerbation likely secondary to noncompliance both with diet and also medication as he has not taken his Lasix for the past 2 days. Agree with IV diuretics. Will increase Lasix to 80 mg twice daily. We discussed importance of compliance of both sodium consumption, less than 2000 mg daily, as well as diuretic therapy. Discussed with Ms. Price KELY to enroll him in the Heart failure program. Continue strict I&Os, daily weights and low-sodium diet. (2) Elevated troponin: Likely due to heart failure exacerbation and also it sounds as though he had tachyarrhythmia prior to presentation. No significant CAD noted on cardiac catheterization performed in 2018. No angina. No further ischemic evaluation recommended at this time. Echocardiogram pending as ordered by primary service. (3) Paroxysmal atrial fibrillation: He was unable to maintain sinus rhythm while on Multaq and also amiodarone. Amiodarone had been reduced to 100 mg daily due to bradycardia in the past but continued to revert back to atrial fibrillation. Now adopting a rate control strategy. If he has significant tachyarrhythmia or recurrence atrial flutter, may need to consider alternative treatment. Continue beta- effie for now. Continue anticoagulation for stroke risk reduction. Fortunately however, he is currently in sinus rhythm. (4) Hypertension: Blood pressure elevated. Continue home medications. Blood pressure may improve with diuresis. Otherwise, can titrate medications as appropriate. (5) CAD (coronary artery disease): Mild nonobstructive CAD noted in June of 2017 on cardiac catheterization. No angina. Continue high-intensity statin therapy and beta- effie. (6) Noncompliance: We discussed the importance of medication compliance. Will enroll into the Heart failure program to help assist with ongoing education. Disposition: Cardiology will continue to follow. I will be away from the hospital tomorrow however. Ms. Price will be available to assist in his care. Thank you for allowing me to participate in the care of your patient. Please call for any other questions or concerns. Sincerely, Chavez Hansen M.D. History of Present Illness Attending Physician: Kentrell Ortiz DO History of Present Illness Mr. Carroll is a pleasant 63-year-old gentleman with a history significant for paroxysmal atrial fibrillation/flutter, chronic diastolic CHF, hypertension, dyslipidemia, type 2 diabetes, mild nonobstructive CAD, morbid obesity, obstructive sleep apnea on CPAP q.h.s., right internal carotid aneurysm status post clipping, and a family history of factor V Leiden. He has a history of noncompliance with medications. He has had the following studies: 1. Echocardiogram 06/03/12: Mildly dilated LV with normal systolic function and no clear-cut regional wall motion abnormalities. EF 55-60%. Mild LVH. Mildly dilated RV with preserved systolic function. Mild left atrial dilation. No significant valvular abnormalities. 2. Lower extremity Doppler 06/01/12: No evidence of DVT. 3. VQ Scan 06/01/12: Low probability for PE. 4. Holter 04/28/13: Sinus rhythm. Average heart rate 65 (46-104). Occasional PVCs. Frequent PACs. Very rare ventricular and atrial couplets. No arrhythmia. 5. Echo 04/27/13: Normal biventricular systolic function. Moderate LVH. Moderate left atrial dilation. Mild RV dilation. No significant valvular abnormalities. 6. Nuclear stress 04/03/14: Possible very small area of mild ischemia in the anteroseptal wall at the apex. This defect was fixed with some reversibility and could represent infarct with some ischemia versus artifact. Probable diaphragmatic attenuation artifact also noted. Normal wall motion. EF 57%. Following Lexiscan administration, patient became acutely short of breath concerning for bronchospasm. He was treated with Aminophyllin, nebulizer treatments, and steroid therapy and eventually hospitalized. Would avoid Lexiscan administration in the future. 7. Echo 04/04/14: Mildly dilated LV with normal wall motion and systolic function. EF 65%. Moderate to severe LVH. Mildly dilated RV with normal systolic function. Moderate biatrial dilation. No significant valve abnormalities. Enhanced with Definity. 8. Event monitor 03/30/14-05/04/14: Paroxysmal atrial fibrillation with rapid ventricular response. Average heart rate in A. fib 96 BPM. Had one episode of ventricular tachycardia of 4 beats. No symptoms reported throughout. PACs and PVCs noted. Predominant rhythm is sinus. Estimated time in atrial fibrillation was 1% (4 hours and 51 minutes). 9. Echo 11/02/2016: Normal LV size with grossly normal systolic function. EF 50-55%. Moderate LVH. RV not well visualized. Mildly dilated RV with normal function. No significant valvular abnormalities. 10. Electrical cardioversion 12/10/2016 on Multaq: Successful 11. Electrical cardioversion 02/12/2017 on amiodarone: Successful 12. Echo at [facility] 07/19/2017: Mildly dilated left ventricle with normal systolic function. EF 60%. Normal wall motion. Mild LVH. Type 3 diastolic dysfunction. Mildly dilated RV. Mild left atrial dilation. Mild AI. Mild MR. RVSP 55. 13. Cardiac catheterization 07/22/2017 at [facility] [place]: Dominant circumflex. Mild disease involving the circumflex and non dominant RCA. PCWP 24. LVEDP 31. PA pressure 58/18 with a mean of 36. PVR 1.1 wood units. Cardiac output 11 liters/minute. 14. 24 hour Holter monitor 03/04/2018: Sinus rhythm with an average rate of 51 bpm and range of 32-96 bpm. Isolated PACs and PVCs. No complex atrial or ventricular arrhythmia. 15. Elective electrical cardioversion with successful conversion of atrial fibrillation to sinus rhythm 01/05/2019. He was last seen in the cardiology office on 01/24/2019 at which point the decision was made to rate control his atrial fibrillation given the fact that amiodarone therapy was unable to maintain sinus rhythm. This past weekend however he went to [place] and on Wednesday he ate at a buffet and states that he screwed up. He consumed large amounts of sodium and also did not take his Lasix which he has been taking 120 mg of Lasix each morning. His legs became more edematous, and became more short of breath. On Wednesday, he basically laid in bed with CPAP and supplemental oxygen due to shortness of breath. His shortness of breath began following his trip to [place]. Prior to that, his breathing was at baseline. He admits that he also did not take Lasix yesterday, Wednesday. It is not clear why he did not take Lasix yesterday but he states that he did not take it while in [place] so that he did not have to stop to use the restroom. He states that he has been compliant with his other medications. He felt palpitations and used a pulse oximeter noting that his heart rate was in the 130s to 140 with an oxygen saturation of 96%. He also developed a substernal chest pain that radiated to his right shoulder that began last night and persisted for approximately 8 hours before spontaneously resolving. Despite feeling palpitations and noting tachycardia on pulse oximeter at home, he was found to be in sinus rhythm here. He denies melena, hematochezia, hematuria, syncope, near-syncope, fevers, chills, diarrhea. He received 40 mg of IV Lasix in the ER and states that he is feeling somewhat better. He is currently chest pain-free. Review of systems: As above. Review of systems otherwise negative/unremarkable. Family history: His father had heart disease and at age of 80. His father apparently developed embolization of a plaque during a cardiac catheterization requiring surgical intervention of his lower extremities. His mother also has a history of heart disease and hypertension. Family history of factor V Leiden. Social history: Denies tobacco, alcohol, drug abuse. He was a former business management analyst. Not currently working. He is . 2 children. He enjoys hunting. No family at the bedside during today's meeting. Allergies Allergy/AdvReac Type Severity Reaction Status Date / Time Iodinated Contrast- Oral and Allergy Severe SHORTNESS Verified 02/20/19 05:39 IV Dye OF BREATH duloxetine [From Cymbalta] Allergy Intermediate "DIFFICULTY Verified 02/20/19 05:39 FUNCTIONING" lorazepam Allergy Mild HIVES Verified 02/20/19 05:39 Penicillins Allergy Unknown UNSURE OF Verified 02/20/19 05:39 RXN, STATED ALLERGY A CHILD edetic acid AdvReac Severe SHORTNESS Verified 02/20/19 05:39 OF BREATH propylene glycol AdvReac Severe SHORTNESS Verified 02/20/19 05:39 OF BREATH regadenoson AdvReac Severe SHORTNESS Verified 02/20/19 05:39 OF BREATH Home Medications Home Medications Medication Instructions Recorded Confirmed Type Jentadueto 1 tab PO BIDM 01/04/19 02/20/19 History albuterol sulfate 2 inh INHALATION Q6H PRN 01/04/19 02/20/19 History alprazolam [Xanax] 1 mg PO HS 01/04/19 02/20/19 History atorvastatin 40 mg PO QPM 01/04/19 02/20/19 History ferrous sulfate 325 mg PO QAM 01/04/19 02/20/19 History fluticasone propion-salmeterol 1 inh INHALATION Q12H 01/04/19 02/20/19 History [Advair Diskus] losartan 50 mg PO QAM 01/04/19 02/20/19 History pantoprazole [Protonix] 40 mg PO BID 01/04/19 02/20/19 History sertraline [Zoloft] 100 mg PO QAM 01/04/19 02/20/19 History spironolactone [Aldactone] 25 mg PO QAM 01/04/19 02/20/19 History tramadol 50 mg PO Q6H PRN 01/04/19 02/20/19 History furosemide 40 mg tablet 120 mg PO DAILY tab 02/07/19 02/20/19 History gabapentin 100 mg capsule 200 mg PO QAM cap 02/07/19 02/20/19 History hydralazine 10 mg tablet 10 mg PO BID tab 02/07/19 02/20/19 History Jardiance 25 mg PO DAILY 02/20/19 02/20/19 History gabapentin 100 mg PO QPM 02/20/19 02/20/19 History ipratropium-albuterol 3 ml INHALATION Q6H PRN 02/20/19 02/20/19 History metoprolol succinate 100 mg PO DAILY 02/20/19 02/20/19 History nifedipine 30 mg PO DAILY 02/20/19 02/20/19 History potassium chloride 10 meq PO BID 02/20/19 02/20/19 History warfarin 2.5 mg PO WK 02/20/19 02/20/19 History warfarin 5 mg PO 6XWK 02/20/19 02/20/19 History Patient History Medical History Anemia Anxiety Asthma Atrial fibrillation Chronic obstructive pulmonary disease Congestive heart failure Depression Diabetes mellitus, type 2 Dysphagia ESOPHAGEAL STRETCHING Factor 5 Leiden mutation, heterozygous GERD (gastroesophageal reflux disease) Gout Hyperlipidemia Hypertension On home oxygen therapy AT 2L WITH CPAP WHEN SLEEPING Peripheral neuropathy Pulmonary edema 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 History of adenoidectomy History of anesthesia reaction "REQUIRES MORE THAN AVERAGE FOR EFFECTIVENESS" History of appendectomy History of cardiac cath NO STENTS OVER 1 YEAR AGO [facility] History of cholecystectomy History of colonoscopy History of esophagogastroduodenoscopy (EGD) History of herniorrhaphy History of myringotomy History of tonsillectomy History of tooth extraction History of vascular access device LEFT CHEST WALL (INTACT) POWER PORT Family History Other No significant family history Social History Preferred Language: [place] Communication Ability: Effective Public Health Worker Required: No Beliefs That Will Affect Care: None Current Living Situation: Spouse and Family Other Information That Helps Us Care for You: No Feels Safe at Home: Yes Safety Concerns: Feels Safe At This Time Smoking Status: Never smoker Second Hand Exposure: No ; Hx Alcohol Use: No Hx Substance Use: No Physical Exam Physical Exam: Gen.: No acute distress. Alert and oriented. HEENT: Anicteric sclera. Neck: Thick neck . No bruits. Normal carotid upstrokes bilaterally. Cardiac: PMI was nonpalpable. No ventricular heave. Regular. Normal S1-S2. No murmurs, rubs, or gallops. Pulmonary: Clear to auscultation bilaterally without wheezes, rales, or rhonchi. Abdomen: Soft, nontender, nondistended, with normoactive bowel sounds. No bruits noted. Extremities: 2+ radial pulses bilaterally. 2+ posterior tibialis pulses bilaterally. Trace to 1+ bilateral lower extremity edema. No cyanosis. Psychiatric: Affect appears appropriate. Results & Data Vital Signs (Past 12 Hours) Vital Signs Temp Pulse Pulse Pulse Resp BP BP 02/20/19 09:18 70 02/20/19 08:23 02/20/19 08:09 37.0 C 69 19 170/88 H 02/20/19 07:34 37.2 C 69 22 168/91 H 02/20/19 06:02 71 22 174/84 H 02/20/19 04:22 02/20/19 04:04 37 C 73 25 H 192/93 H 02/20/19 04:02 Pulse Ox Pulse Ox 02/20/19 09:18 02/20/19 08:23 94 02/20/19 08:09 92 02/20/19 07:34 94 02/20/19 06:02 93 02/20/19 04:22 93 02/20/19 04:04 96 02/20/19 04:02 93 Laboratory Results Laboratory Results - last 24 hr 02/20/19 02/20/19 02/20/19 04:46 04:46 04:46 WBC 7.76 RBC 4.42 L Hgb 11.9 L Hct 36.7 L MCV 83.0 MCH 26.9 MCHC 32.4 RDW Std Deviation 44.5 RDW Coeff of Camryn 14.5 Plt Count 199 MPV 9.0 Immature Gran % (Auto) 0.3 Neut % (Auto) 66.3 Lymph % (Auto) 21.1 Candler % (Auto) 7.5 Eos % (Auto) 4.4 Baso % (Auto) 0.4 Immature Gran # (Auto) 0.02 Neut # (Auto) 5.15 Lymph # (Auto) 1.64 Candler # (Auto) 0.58 Eos # (Auto) 0.34 Baso # (Auto) 0.03 PT 22.7 H INR 2.4 H Sodium 137 Potassium 3.5 Chloride 100 Carbon Dioxide 28 Anion Gap 9.0 BUN 11 Creatinine 0.77 Est Cr Clr Drug Dosing 154.7 Est GFR ( Amer) 112.7 Est GFR (Non-Af Amer) 97.3 BUN/Creatinine Ratio 14.1 Glucose 294 H POC Glucose Calcium 8.4 L Total Bilirubin 1.2 H AST 19 ALT 26 Alkaline Phosphatase 72 Troponin I 0.202 H* NT-Pro-B Natriuret Pep 1243 H Total Protein 6.9 Albumin 3.0 L Globulin 3.9 Albumin/Globulin Ratio 0.8 L 02/20/19 02/20/19 07:41 08:44 WBC RBC Hgb Hct MCV MCH MCHC RDW Std Deviation RDW Coeff of Camryn Plt Count MPV Immature Gran % (Auto) Neut % (Auto) Lymph % (Auto) Candler % (Auto) Eos % (Auto) Baso % (Auto) Immature Gran # (Auto) Neut # (Auto) Lymph # (Auto) Candler # (Auto) Eos # (Auto) Baso # (Auto) PT INR Sodium Potassium Chloride Carbon Dioxide Anion Gap BUN Creatinine Est Cr Clr Drug Dosing Est GFR ( Amer) Est GFR (Non-Af Amer) BUN/Creatinine Ratio Glucose POC Glucose 263 H Calcium Total Bilirubin AST ALT Alkaline Phosphatase Troponin I 0.211 H* NT-Pro-B Natriuret Pep Total Protein Albumin Globulin Albumin/Globulin Ratio Diagnostic Findings Telemetry personally reviewed: Sinus rhythm. No arrhythmia. ECG personally reviewed: ECG 02/20/2019: Sinus rhythm first-degree AV block with PAC. 72 bpm. Nonspecific IVCD. Medications Administered Current Inpatient Medications Acetaminophen (Tylenol) 650 mg PO Q4H PRN PRN Reason: Pain or Fever Stop: 03/22/19 08:22 Albuterol (Duoneb) 3 ml INH Q6H PRN PRN Reason: Shortness Of Breath Or Wheezing Stop: 03/22/19 08:22 Albuterol (Ventolin Hfa) 2 puffs INH Q6H PRN PRN Reason: Shortness Of Breath Or Wheezin Stop: 03/22/19 08:22 Alprazolam (Xanax) 1 mg PO HS WILLIAM Stop: 03/22/19 20:59 Atorvastatin Calcium (Lipitor) 40 mg PO QPM WILLIAM Stop: 03/22/19 20:59 Dextrose (Dextrose 50%) 25 - 50 ml IV UD PRN; Protocol PRN Reason: Hypoglycemia Protocol Stop: 03/22/19 08:59 Ferrous Sulfate (Feosol) 325 mg PO QAM WILLIAM Stop: 03/22/19 08:59 Gabapentin (Neurontin) 100 mg PO QPM WILLIAM Stop: 03/22/19 20:59 Gabapentin (Neurontin) 200 mg PO QAM WILLIAM Stop: 03/22/19 08:59 Glucagon (Glucagen) 1 mg IM UD PRN; Protocol PRN Reason: Hypoglycemia Protocol Stop: 03/22/19 08:59 Glucose (Glucose 40%) 15 - 30 gm PO UD PRN; Protocol PRN Reason: Hypoglycemia Protocol Stop: 03/22/19 08:59 Glucose (Dex4 Glucose) 4 - 8 tabs PO UD PRN; Protocol PRN Reason: Hypoglycemia Protocol Stop: 03/22/19 08:59 Hydralazine HCl (Apresoline) 10 mg PO BID [facility] Stop: 03/22/19 08:59 Furosemide 40 mg/ Syringe 4 mls @ 4 mls/min IV [id number] WILLIAM Stop: 03/22/19 08:59 Insulin Aspart (Novolog Flexpen) 0 units SC ACHS [facility] Stop: 03/22/19 08:22 Insulin Glargine (Lantus Solostar Pen) 5 units SC BID [facility] Stop: 03/22/19 08:59 Losartan Potassium (Cozaar) 50 mg PO QAM [facility] Stop: 03/22/19 08:59 Metoprolol Succinate (Toprol Xl) 100 mg PO DAILY WILLIAM Stop: 03/22/19 08:59 Miscellaneous (Carbohydrates For Hypoglycemia) 15 - 30 gm PO UD PRN PRN Reason: Hypoglycemia Treatment Stop: 03/22/19 08:59 Nifedipine (Procardia Xl) 30 mg PO DAILY WILLIAM Stop: 03/22/19 08:59 Nitroglycerin (Nitrostat) 0.4 mg SL UD PRN PRN Reason: Chest Pain Stop: 03/22/19 08:22 Ondansetron HCl (Zofran) 4 mg IV Q6H PRN PRN Reason: Nausea Stop: 03/22/19 08:22 Pantoprazole Sodium (Protonix) 40 mg PO BID [facility] Stop: 03/22/19 08:59 Polyethylene Glycol (Miralax Powder Packet) 17 gm PO DAILY PRN PRN Reason: Constipation Stop: 03/22/19 08:22 Potassium Chloride (Klor-Con M10) 10 meq PO BID [facility] Stop: 03/22/19 08:59 Fluticasone/Salmeterol (Advair Diskus 250/50) 1 puffs INH Q12H [facility] Stop: 03/22/19 08:22 Sertraline HCl (Zoloft) 100 mg PO QAM [facility] Stop: 03/22/19 08:59 Spironolactone (Aldactone) 25 mg PO QAM [facility] Stop: 03/22/19 08:59 Tramadol HCl (Ultram) 50 mg PO Q6H PRN PRN Reason: Pain Stop: 03/22/19 08:22 Warfarin Sodium (Coumadin) 2.5 mg PO [id number]@1600 [facility] Stop: 03/24/19 15:59 Warfarin Sodium (Coumadin) 5 mg PO [id number] [facility] Stop: 03/22/19 15:59 PG Care Time/CCT Total # of Minutes Spent Total Time Spent with Patient: Total time spent is greater than 50% in coordination of care (as documented) at patient's floor/unit and/or counseling patient:
[2019-02-20] MEDS: INSULIN ASPART 100 UNITS/ML 3 ML PEN SC SCH ×4 (10:56→20:49)
[2019-02-20] MEDS: INSULIN GLARGINE SOLOSTAR 100 UNITS/ML 3 ML PEN SC SCH ×2 (10:57→20:49)
[2019-02-20] MEDS: FLUTICASONE/SALMETEROL 250/50 (ADVAIR) 14 PUFF/1 INHALER INH SCH ×2 (11:03→20:20)
[2019-02-20] MEDS: SPIRONOLACTONE 25 MG TAB PO SCH (11:06)
[2019-02-20] MEDS: PANTOprazole 40 MG TAB PO SCH ×2 (11:07→20:19)
[2019-02-20] MEDS: FERROUS SULFATE 325 MG TAB PO SCH (11:08)
[2019-02-20] MEDS: HydrALAZINE 10 MG TAB PO SCH ×2 (11:08→20:19)
[2019-02-20] MEDS: NIFEdipine EXTENDED REL 30 MG TABCR PO SCH (11:09)
[2019-02-20] MEDS: METOPROLOL SUCC 50MG EXT REL TAB PO SCH (11:09)
[2019-02-20] MEDS: GABAPENTIN 100 MG CAP PO SCH (11:14)
[2019-02-20] MEDS: LOSARTAN POTASSIUM 50 MG TAB PO SCH (11:15)
[2019-02-20] MEDS: SERTRALINE HCL 100 MG TABLET PO SCH (11:15)
[2019-02-20] MEDS: POTASSIUM CHLORIDE 10 MEQ TABCR PO SCH ×2 (11:16→20:19)
[2019-02-20] MEDS ORDERED: WARFARIN SOD 5 MG TAB PO SCH (16:00)
[2019-02-20] MEDS: FUROSEMIDE 80 MG in SYRINGE 0 ML IV SCH (16:42)
[2019-02-20] MEDS ORDERED: ALPRAZolam 0.5 MG TABLET PO SCH (21:00)
[2019-02-20] MEDS ORDERED: ATORVASTATIN 40 MG TAB PO SCH (21:00)
[2019-02-20] MEDS ORDERED: GABAPENTIN 100 MG CAP PO SCH (21:00)
[2019-02-21 05:53] LABS: Basophils # (auto) 0.05 K/uL (0-0.2); Basophils % (auto) 0.8 %; Eosinophils # (auto) 0.43 K/uL (0-0.5); Eosinophils % (auto) 6.5 %; Hematocrit (blood only) 36.5 % (42-52); Hemoglobin 11.9 g/dL (14.0-18.0); Immature Granulocytes # (auto) 0.01 K/uL (0.00-0.02); Immature Granulocytes % (auto) 0.2 %; Lymphocytes % (auto) 28.8 %; Mean Corpuscular Hemoglobin 27.1 pg (25-34); Mean Corpuscular Hgb Conc 32.6 g/dL (32-36); Mean Corpuscular Volume 83.1 fL (80-100); Mean Platelet Volume 9.1 fL (7.4-10.4); Monocytes # (auto) 0.56 K/uL (0.11-0.59); Monocytes % (auto) 8.5 %; Neutrophils # (auto) 3.64 K/uL (1.4-6.5); Neutrophils % (auto) 55.2 %; Platelet Count 207 K/uL (130-400); RDW Coefficient of Variation 14.8 % (11.5-14.5); Red Blood Count 4.39 M/uL (4.7-6.1); White Blood Count 6.59 K/uL (4.8-10.8)
[2019-02-21 06:14] LABS: Estimated Average Glucose 243 mg/dl; Hemoglobin A1C 10.1 % (4.5-5.6)
[2019-02-21 06:20] LABS: BUN Creatinine Ratio 17.4 (10-20); Calcium 8.3 mg/dl (8.5-10.1); Creatinine Clr Calc Pharmacy 159.7 ml/min; Est GFR (African American) 115.2; Est GFR (Non-African American) 99.4; Potassium 3.1 mmol/L (3.5-5.1)
[2019-02-21] MEDS: FLUTICASONE/SALMETEROL 250/50 (ADVAIR) 14 PUFF/1 INHALER INH SCH (07:44)
[2019-02-21] MEDS: POTASSIUM CHLORIDE 10 MEQ TABCR PO SCH (07:45)
[2019-02-21] MEDS: SPIRONOLACTONE 25 MG TAB PO SCH (07:46)
[2019-02-21] MEDS: NIFEdipine EXTENDED REL 30 MG TABCR PO SCH (07:47)
[2019-02-21] MEDS: PANTOprazole 40 MG TAB PO SCH (07:47)
[2019-02-21] MEDS: METOPROLOL SUCC 50MG EXT REL TAB PO SCH (07:47)
[2019-02-21] MEDS: SERTRALINE HCL 100 MG TABLET PO SCH (07:47)
[2019-02-21] MEDS: FERROUS SULFATE 325 MG TAB PO SCH (07:47)
[2019-02-21] MEDS: LOSARTAN POTASSIUM 50 MG TAB PO SCH (07:48)
[2019-02-21] MEDS: HydrALAZINE 10 MG TAB PO SCH (07:48)
[2019-02-21] MEDS: FUROSEMIDE 80 MG in SYRINGE 0 ML IV SCH (08:31)
[2019-02-21] MEDS: INSULIN ASPART 100 UNITS/ML 3 ML PEN SC SCH (08:31)
[2019-02-21] MEDS: INSULIN GLARGINE SOLOSTAR 100 UNITS/ML 3 ML PEN SC SCH (08:32)
[2019-02-21] MEDS: GABAPENTIN 100 MG CAP PO SCH (08:56)
--- NOTE | 2019-02-21 09:12 | Discharge Summary ---
Date of Service February 21, 2019 Admission HPI Per Admitting Provider This is a 63-year-old male with past medical history significant for type 2 diabetes, diastolic CHF, obstructive sleep apnea - on CPAP, asthma, paroxysmal atrial fibrillation, history of right internal carotid artery aneurysm, status post clipping, nonobstructive CAD, morbid obesity, family history of factor V Leiden deficiency, history of noncompliance with medications, history of GERD, history of spondylolisthesis of lumbar region, history of iron-deficiency anemia, history of generalized anxiety disorder and depression, status post Port-A-Cath in place, presents with shortness of breath. The patient says he went to [place] this weekend and because he did not want to be bothered with going to bathroom, he did not take his Lasix on Wednesday. He is supposed to be on Lasix 80 mg b.i.d. but he says he is only taking Lasix 120 mg daily, in the morning only, because he does not want to wake up to go to bathroom in the night. Since yesterday, Wednesday, he started having some shortness of breath. He laid down the whole day with CPAP and his oxygen on, but he did not get any better and also he has noticed some right-sided chest pain radiating to his shoulder, it was 5/10 in severity associated with some sharp pains, pressure like feeling, so that is why he came to the ER. Currently, the pain is almost gone, just has 1/10 in severity of chest pain. He got a dose of Lasix in the ER and he is talking fine in full sentences and saturating okay on room air. Denies any cough. [place] cold, but no fever. No dizziness, no headache, no blurred vision, no runny nose, no sore throat. He said he has some difficulties swallowing. He is supposed to get esophageal dilatation; mainly his difficulty swallowing is for potassium pills. Otherwise, he says he does not have too much difficulty with swallowing the food. No nausea, no vomiting, no abdominal pain. Normal bowel and bladder movements. He says his stools are loose, but denies any blood in stools or black stools, no hematuria, no dysuria. Swelling in the legs is same. No rash seen. He has recurrent cellulitis in both legs, but there is no erythema currently. He says he sleeps on his right side and is ambulating okay without any problems. Lives with his and daughter. Checks his blood pressure daily at home, but does not check his blood sugars. Admission Exam Per Admitting Provider PHYSICAL EXAMINATION: GENERAL: The patient is alert and oriented, morbidly obese, not in acute distress. VITAL SIGNS: Temperature 37, pulse 72, respiratory rate 22, blood pressure 174/84, oxygen 96% room air. HEENT: No pallor, no icterus. Pupils equal, round, reactive to light. NECK: No JVD or neck masses, no carotid bruits. CARDIOVASCULAR: S1, S2 heard, regular rate and rhythm, no murmur, no gallop. LUNGS: clear to auscultation bilaterally, Mild bibasilar crackles. No wheezing. ABDOMEN: Soft, bowel sounds present, nontender. No distention. CENTRAL NERVOUS SYSTEM: Cranial nerves II-XII grossly intact. Nonfocal. EXTREMITIES: Pedal edema present, no erythema seen. Principal Diagnosis 1. Shortness of breath and history of diastolic congestive heart failure. Acute on chronic diastolic CHF 2. Chest pain 3. History of atrial fibrillation. 4. Hypertension. 5. Iron-deficiency anemia. 6. Hyperlipidemia. 7. History of asthma. 8. Obstructive sleep apnea 9. History of nonobstructive coronary artery disease 10. Diabetes. 11. Morbid obesity. 12. Depression and anxiety. 13. Deep venous thrombosis prophylaxis. Discharge Exam ROS-No Headache, No Visual Changes, No Nausea, No Vomiting, No Fever, No Chills, No Neck Pain or Stiffness, No Chest Pain, No Palpitations, No SOB, No MATA, No Cough, No Sputum, No Wheezing, No Abdominal Pain, No Diarrhea, No Hematemesis, No Hemoptysis, No Unexpected Weight Loss, No Flank pain, No Melena, No Hematochezia, No Frequency, No Urgency, No Burning, No Hematuria, No Rashes, No Diaphoresis. Appetite is Normal Physical Exam Gen-AAO x 3, NAD, Afebrile, Obese, Feels great Head-NCAT, EOMI, PERRLA, Anicteric Sclera, No Posterior Pharyngeal Erythema Neck-Supple, No JVD, No Thyromegaly, No Masses, No LAD, No Bruits Lungs-Clear to Auscultation Bilaterally, No Rales, No Rhonchi, No Wheezing, No Crepitus Chest-No S4, +S1, +S2, No S3, No Murmurs, No Rubs, No Gallops, No Ectopy Abdomen-Soft, Bowel Sounds Present, Obese, Non Tender, Non Distended, No Hepatomegaly, No Splenomegaly, No Palpable Masses, No Rebound, No Rigidity, No Guarding Musculoskeletal-Full Range of Motion Bilaterally, No CVAT Extremities-No Cyanosis, No Clubbing, No Edema Nuero-Cranial Nerves II-XII grossly intact, Motor WNL, DTRs WNL, Strength WNL, Non Focal Psych-Normal Mood Discharge Data Allergies Allergy/AdvReac Type Severity Reaction Status Date / Time Iodinated Contrast- Oral and Allergy Severe SHORTNESS Verified 02/20/19 05:39 IV Dye OF BREATH duloxetine [From Cymbalta] Allergy Intermediate "DIFFICULTY Verified 02/20/19 05:39 FUNCTIONING" lorazepam Allergy Mild HIVES Verified 02/20/19 05:39 Penicillins Allergy Unknown UNSURE OF Verified 02/20/19 05:39 RXN, STATED ALLERGY A CHILD edetic acid AdvReac Severe SHORTNESS Verified 02/20/19 05:39 OF BREATH propylene glycol AdvReac Severe SHORTNESS Verified 02/20/19 05:39 OF BREATH regadenoson AdvReac Severe SHORTNESS Verified 02/20/19 05:39 OF BREATH Consultations 02/20/19 06:39 ED Decision to Admit Stat 02/20/19 08:23 Consult Cardiology Routine Consult Case Management - Discharge Planning Routine Current Diagnoses Essential (primary) hypertension (02/20/19) Atherosclerotic heart disease of [place] coronary artery without angina pectoris (02/20/19) Paroxysmal atrial fibrillation (02/20/19) Acute on chronic diastolic (congestive) heart failure (02/20/19) Abnormal levels of other serum enzymes (02/20/19) Patient's noncompliance with other medical treatment and regimen (02/20/19) Allergies Iodinated Contrast- Oral and IV Dye Allergy (Severe, Verified 02/20/19 05:39) SHORTNESS OF BREATH duloxetine [From Cymbalta] Allergy (Intermediate, Verified 02/20/19 05:39) "DIFFICULTY FUNCTIONING" lorazepam Allergy (Mild, Verified 02/20/19 05:39) HIVES Penicillins Allergy (Unknown, Verified 02/20/19 05:39) UNSURE OF RXN, STATED ALLERGY A CHILD edetic acid Adverse Reaction (Severe, Verified 02/20/19 05:39) SHORTNESS OF BREATH propylene glycol Adverse Reaction (Severe, Verified 02/20/19 05:39) SHORTNESS OF BREATH regadenoson Adverse Reaction (Severe, Verified 02/20/19 05:39) SHORTNESS OF BREATH Height/Weight/Isolation Height 5 ft 10 in Weight 159.5 kg Chemistry 02/20/19 02/21/19 04:46 05:16 Sodium 137 138 Potassium 3.5 3.1 L Chloride 100 99 Carbon Dioxide 28 30 Anion Gap 9.0 9.0 BUN 11 13 Creatinine 0.77 0.73 Glucose 294 H 242 H Hospital Course (1) Noncompliance: (2) CAD (coronary artery disease): (3) Hypertension: (4) Paroxysmal atrial fibrillation: (5) Acute on chronic diastolic (congestive) heart failure: (6) CHF (congestive heart failure): (7) Acute hyperglycemia: (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 Suggest [facility] at home if qualifies Total Time Total Time Spent Total Time Spent (In Minutes): 50 mins Total Time Includes: Examination of the Patient, Discharge Planning, Medication Reconciliation and Communication With Other Providers Discharge Plan Discharge Items Patient Disposition: Home - Self-Care Reason For Visit: SOB, CHEST PAIN Discharge Diagnosis: 1. Shortness of breath and history of diastolic congestive heart failure. Acute on chronic diastolic CHF 2. Chest pain 3. History of atrial fibrillation. 4. Hypertension. 5. Iron-deficiency anemia. 6. Hyperlipidemia. 7. History of asthma. 8. Obstructive sleep apnea 9. History of nonobstructive coronary artery disease 10. Diabetes. 11. Morbid obesity. 12. Depression and anxiety. 13. Deep venous thrombosis prophylaxis. Condition: Good Discharge Goals: Improve disease control Activity: Resume your previous activity Lifting: Gradually increase as tolerated Bathing: No limitations Sexual Activity: When tolerated Exercise/Sports: Gradually increase as tolerated Driving/Machine Use: No limitations Weightbearing: Full weightbearing Non-emergency contact: Primary Care Provider and Manager Balance Call non-emergency contact if: you have any medication questions Follow-up/Referrals: Nidhi Sommer DO [Primary Care Provider] - Diet: Carb Consistent or DM2 and Heart Healthy Addtl Provider Instructions: Consider Cardiac rehab or [facility] at home if qualifies Prescriptions: New nitroglycerin [Nitrostat] 0.4 mg Tablet, Sublingual 0.4 mg sublingual UD PRN (Reason: chest pain) Qty: 30 RF: 0 Continued losartan 50 mg Tablet 50 mg PO QAM RF: 0 atorvastatin 40 mg Tablet 40 mg PO QPM RF: 0 fluticasone propion-salmeterol [Advair Diskus] 250-50 mcg/dose Blister With Device 1 inh INHALATION Q12H RF: 0 sertraline [Zoloft] 100 mg Tablet 100 mg PO QAM RF: 0 tramadol 50 mg Tablet 50 mg PO Q6H PRN (Reason: Pain) RF: 0 spironolactone [Aldactone] 25 mg Tablet 25 mg PO QAM RF: 0 alprazolam [Xanax] 0.5 mg Tablet 1 mg PO HS RF: 0 pantoprazole [Protonix] 40 mg Tablet,Delayed Release (Dr/Ec) 40 mg PO BID RF: 0 ferrous sulfate 325 mg (65 mg iron) Tablet 325 mg PO QAM RF: 0 Jentadueto 2.5-1,000 mg Tablet 1 tab PO BIDM RF: 0 albuterol sulfate 90 mcg/actuation Aerosol Powdr Breath Activated 2 inh INHALATION Q6H PRN (Reason: Shortness Of Breath Or Wheezing) RF: 0 furosemide 40 mg tablet 120 mg PO DAILY RF: 0 gabapentin [Neurontin] 100 mg capsule 200 mg PO QAM RF: 0 hydralazine 10 mg tablet 10 mg PO BID RF: 0 ipratropium-albuterol 0.5 mg-3 mg(2.5 mg base)/3 mL Solution For Nebulization 3 ml INHALATION Q6H PRN (Reason: Shortness Of Breath Or Wheezing) RF: 0 gabapentin 100 mg Capsule 100 mg PO QPM RF: 0 warfarin 5 mg Tablet 2.5 mg PO WK RF: 0 warfarin 5 mg tablet 5 mg PO 6XWK RF: 0 potassium chloride 10 mEq Tablet Extended Release 10 meq PO BID RF: 0 nifedipine 30 mg Tablet Extended Release 30 mg PO DAILY RF: 0 metoprolol succinate 100 mg tablet extended release 24 hr 100 mg PO DAILY RF: 0 Jardiance 25 mg 25 mg PO DAILY RF: 0 Stand-Alone Forms: [facility] Discharge Orders: Discharge Order (Routine); Ordered 02/21/19 Ordered By: Kentrell Ortiz Admission Data Admit Date/Time: 02/20/19 06:30 Attending Provider: Kentrell Ortiz Admit Provider: Kirk Rose Primary Care Provider: Nidhi Sommer Other Providers: Kirk Rose ; Siva Hansen Service: Telemetry
[2019-02-22] MEDS ORDERED: WARFARIN SOD 2.5 MG TAB PO SCH (16:00)
== END 2019-02-21 12:05 | disposition home or self-care (01) | DRG 292 ==
LOC: ED 04:02 → 2S 06:30

== ENCOUNTER 2019-05-30 11:37 | Observation (INO) ==
[2019-05-30 12:42] LABS: Basophils # (auto) 0.04 K/uL (0-0.2); Basophils % (auto) 0.5 %; Eosinophils # (auto) 0.48 K/uL (0-0.5); Hematocrit (blood only) 34.9 % (42-52); Hemoglobin 11.3 g/dL (14.0-18.0); Immature Granulocytes # (auto) 0.01 K/uL (0.00-0.02); Immature Granulocytes % (auto) 0.1 %; Lymphocytes # (auto) 1.94 K/uL (1.2-3.4); Lymphocytes % (auto) 24.1 %; Mean Corpuscular Hemoglobin 27.6 pg (25-34); Mean Corpuscular Hgb Conc 32.4 g/dL (32-36); Mean Corpuscular Volume 85.3 fL (80-100); Mean Platelet Volume 9.3 fL (7.4-10.4); Monocytes # (auto) 0.71 K/uL (0.11-0.59); Monocytes % (auto) 8.8 %; Neutrophils # (auto) 4.87 K/uL (1.4-6.5); Neutrophils % (auto) 60.5 %; Platelet Count 257 K/uL (130-400); RDW Coefficient of Variation 16.3 % (11.5-14.5); RDW Standard Deviation 51.2 fL (36.4-46.3); Red Blood Count 4.09 M/uL (4.7-6.1); White Blood Count 8.05 K/uL (4.8-10.8)
[2019-05-30 12:49] LABS: Albumin Level 2.8 gm/dl (3.4-5.0); BUN Creatinine Ratio 11.3 (10-20); Calcium 8.6 mg/dl (8.5-10.1); Creatinine Clr Calc Pharmacy 95.3 ml/min; Est GFR (African American) 73.4; Est GFR (Non-African American) 63.3; Potassium 3.5 mmol/L (3.5-5.1)
[2019-05-30 12:58] LABS: Albumin Globulin Ratio 0.7 (0.9-2); Globulin 4.1 gm/dl (2.5-4.0); Total Protein 6.9 gm/dl (6.4-8.2); Troponin I 0.058 ng/ml (0-0.045)
--- NOTE | 2019-05-30 13:00 | XRay Report ---
XR chest 1V portable CLINICAL HISTORY: Atypical chest pain COMPARISON STUDY: 02/20/2019 FINDINGS: The heart remains enlarged. There is a left-sided A-Port catheter. There is no failure. The re is no lobar consolidation. There are no pleural effusions.[ IMPRESSION: Cardiomegaly. No acute findings. Electronically signed by: Mahad Baxter M.D. 05/30/2019 12:59 PM
[2019-05-30 13:09] LABS: INR 3.1 (0.9-1.1); Partial Thromboplastin Ratio 1.7; Prothrombin Time 29.2 Seconds (9.0-12.0)
[2019-05-30 13:28] LABS: Partial Thromboplastin Time 46.5 Seconds (21.0-31.0)
[2019-05-30] MEDS ORDERED: NITROGLYCERIN 2% OINTMENT 30GM TUBE EXT STA (13:30)
--- NOTE | 2019-05-30 14:55 | History & Physical Report ---
Date of Service May 30, 2019 Assessment & Plan (1) Chest pain: Experiencing chest pain on exertion, relieved by rest. History of nonocclusive coronary artery disease per cardiac catheterization in 2018. Serum troponin slightly elevated. Check serial troponins. Consult Cardiology. (2) CAD (coronary artery disease): History of nonocclusive coronary artery disease per cardiac cath 2018. Now with exertional chest pain as described above. Add aspirin to her regimen. Continue metoprolol and statin. (3) Chronic diastolic CHF (congestive heart failure): History of chronic left ventricular diastolic heart failure. Followed at [facility] CHF clinic. Appears to be compensated. Continue usual diuretic regimen. (4) Atrial fibrillation: History of atrial fibrillation, status post cardioversion. Now with recurrent atrial fibrillation, sometimes with rapid rate per patient's assessment at home. Continue metoprolol and warfarin. Consult Cardiology. (5) Hypertension: Continue metoprolol, nifedipine, hydralazine, diuretics. (6) COPD (chronic obstructive pulmonary disease) case management patient: Pulmonary status appears to be stable. Continue usual medications. (7) Sleep apnea: Continue CPAP with nocturnal O2. (8) Diabetes mellitus, type 2: DM type 2 managed with empagliflozin and linagliptin/metformin. Random blood sugar in ED 269. Hold oral agents during hospital stay. Check Hgb A1C. Insulin coverage as needed. (9) DVT prophylaxis: On warfarin for atrial fibrillation. Ambulate. (10) Discharge planning issues: Discharge to home. Primary care follow-up with Dr. Blair. Cardiology follow-up with Dr. Hansen and [facility] CHF clinic. History of Present Illness Chief Complaint: chest pain Primary Care Provider: Nidhi Sommer DO 64-year-old male followed by Dr. Blair for primary care and Dr. Hansen for Cardiology. History of atrial fibrillation, paroxysmal per patient's history. Has undergone cardioversion a few times. Other medical problems include hypertension, sleep apnea on CPAP, diabetes mellitus. A few days prior to admission he noticed some palpitations while [place] [employer] [place]. He checks his pulse rate with a pulse oximeter and it was as high as 150. Also experiencing some chest pain and dyspnea on exertion. Chest pain described as midsternal pressure radiating to his right shoulder associated with dyspnea and nausea, no emesis or sweats. Symptoms occur with exertion and relieved by rest. He did not take any nitroglycerin. Symptoms were more severe 3 days prior to admission. Next day he relaxed and did not have any problems. Yesterday he was hunting again and developed recurrent symptoms. Patient reports that he had a cardiac catheterization performed at [facility] 1 to 2 years ago without significant findings. Allergies Allergy/AdvReac Type Severity Reaction Status Date / Time Iodinated Contrast Media Allergy Severe SHORTNESS Verified 05/30/19 13:59 OF BREATH duloxetine [From Cymbalta] Allergy Intermediate "DIFFICULTY Verified 05/30/19 13:59 FUNCTIONING" lorazepam Allergy Mild HIVES Verified 05/30/19 13:59 Penicillins Allergy Unknown UNSURE OF Verified 05/30/19 13:59 RXN, STATED ALLERGY A CHILD edetic acid AdvReac Severe SHORTNESS Verified 05/30/19 13:59 OF BREATH propylene glycol AdvReac Severe SHORTNESS Verified 05/30/19 13:59 OF BREATH regadenoson AdvReac Severe SHORTNESS Verified 05/30/19 13:59 OF BREATH Home Medications Home Medications Medication Instructions Recorded Confirmed Type albuterol sulfate 2 inh INHALATION Q6H PRN 01/04/19 05/30/19 History alprazolam [Xanax] 1 mg PO HS 01/04/19 05/30/19 History ferrous sulfate 325 mg PO QAM 01/04/19 05/30/19 History losartan 50 mg PO QAM 01/04/19 05/30/19 History pantoprazole [Protonix] 40 mg PO BID 01/04/19 05/30/19 History spironolactone [Aldactone] 25 mg PO QAM 01/04/19 05/30/19 History tramadol 50 mg PO Q6H PRN 01/04/19 05/30/19 History furosemide 40 mg tablet 120 mg PO QAM tab 02/07/19 05/30/19 History gabapentin 100 mg PO BID 02/20/19 05/30/19 History nifedipine 30 mg PO QAM 02/20/19 05/30/19 History warfarin 2.5 mg PO WK 02/20/19 05/30/19 History nitroglycerin [Nitrostat] 0.4 mg SUBLINGUAL UD PRN #30 tab 02/21/19 05/30/19 Rx empagliflozin 25 mg tablet 25 mg PO QAM 03/01/19 05/30/19 History warfarin 5 mg tablet 5 mg PO 6XWK #100 tab 04/12/19 05/30/19 Rx ipratropium-albuterol 0.5 mg-3 3 ml INHALATION Q6H PRN #360 ml 04/21/19 05/30/19 Rx mg(2.5 mg base)/3 mL nebulization soln metolazone 5 mg tablet 5 mg PO DAILY PRN #30 tab 05/01/19 05/30/19 Rx benzonatate 100 mg capsule 100 mg PO BID PRN 05/09/19 05/30/19 History hydralazine 10 mg tablet 20 mg PO BID tab 05/09/19 05/30/19 History linagliptin 2.5 mg-metformin 1,000 1 tab PO BID tab 05/09/19 05/30/19 History mg tablet tizanidine 4 mg capsule 4 mg PO Q8H PRN 05/09/19 05/30/19 History atorvastatin 40 mg tablet 40 mg PO QPM #90 tab 05/10/19 05/30/19 Rx metoprolol succinate 100 mg PO PM 05/30/19 05/30/19 History Past Med/Surg History Medical History Anemia Anxiety Asthma Atrial fibrillation Atrial fibrillation, permanent Chronic diastolic CHF (congestive heart failure) Chronic obstructive pulmonary disease Congestive heart failure Depression Diabetes mellitus, type 2 Dysphagia ESOPHAGEAL STRETCHING Factor 5 Leiden mutation, heterozygous GERD (gastroesophageal reflux disease) Gout Hyperlipidemia Hypertension On home oxygen therapy AT 2L WITH CPAP WHEN SLEEPING Peripheral neuropathy Pulmonary edema 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 (HAD 1 EPISODE 7 MONTHS AFTER SURGICAL INTERVENTION 2010) Sleep apnea CPAP Spinal stenosis Stomach ulcer Surgical History Cerebral aneurysm REPAIRED 2010 AT [facility] History of adenoidectomy History of anesthesia reaction "REQUIRES MORE THAN AVERAGE FOR EFFECTIVENESS" History of appendectomy History of cardiac cath NO STENTS OVER 1 YEAR AGO [facility] History of cholecystectomy History of colonoscopy History of esophagogastroduodenoscopy (EGD) History of herniorrhaphy History of myringotomy History of tonsillectomy History of tooth extraction History of vascular access device LEFT CHEST WALL (INTACT) POWER PORT Family History (Updated 05/31/19 @ 04:37 by Tu Adam MD) Mother Heart disease Hypertension Stroke Father Heart disease Hypertension Stroke Other No significant family history Social History Preferred Language: Kitt[place] Communication Ability: Effective Heel [place] Required: No Beliefs That Will Affect Care: None Current Living Situation: Spouse and Family Current Living Situation Comment: lives with and children/grandchildren Other Information That Helps Us Care for You: No Feels Safe at Home: Yes Safety Concerns: Feels Safe At This Time Smoking Status: Never smoker Second Hand Exposure: No ; Hx Alcohol Use: No Hx Substance Use: No Review of Systems Constitutional: + weight loss (few pounds); no fever Eyes: no diplopia and no worsening vision Ear, Nose, Mouth, Throat: no nasal congestion, no sinus pain/pressure and no sore throat Respiratory: + cough (mild) and + dyspnea Cardiovascular: as per Subjective / HPI Gastrointestinal: + nausea; no vomiting, no constipation, no diarrhea/loose stools, no blood in stools and no melena Genitourinary: no dysuria and no hematuria Musculoskeletal: + joint pain Integumentary: no rash and no new lesions Neurologic: no headache(s) neuropathy Endocrine: no polydipsia and no polyuria does not check blood sugars regularly at home Hematologic / Lymphatic: + easy bruising; no easy bleeding and no lymphadenopathy Physical Exam Constitutional: WD/WN, vitals as above no acute distress Eyes: PERRL, conjunctivae normal, anicteric sclerae ENMT: external ear and nose normal, oropharynx normal Neck: trachea midline, no thyromegaly Respiratory: normal respiratory effort, lungs clear to auscultation Cardiovascular: Rate/Rhythm: + irregularly irregular Heart Sounds: no gallop, no murmur and no cardiac rub Vessels: no JVD Extremities: normal capillary refill and + edema (trace pretibial); no calf tenderness Gastrointestinal (Abdomen): normal bowel sounds, soft, nontender, no hepatosplenomegaly Musculoskeletal: Head/Neck/Chest: neck supple Extremities: strength 5/5 throughout; no cyanosis and no clubbing Skin: no rashes, warm and dry Neurologic: PERRL, EOMI no facial palsy no dysarthria or aphasia patellar DTR's 1/2 bilat Psychiatric: Orientation: alert and oriented x 3 Affect: euthymic affect Lymphatic: no cervical lymphadenopathy Results & Data Vital Signs (Past 12 Hours) Vital Signs Temp Pulse Pulse Resp BP BP Pulse Ox 05/30/19 14:34 94 H 20 109/76 96 05/30/19 13:56 95 05/30/19 12:43 93 H 23 115/66 96 05/30/19 11:39 36.7 C 79 22 165/83 H 96 Laboratory Results 05/30/19 12:08 05/30/19 12:08 Serum troponin 0 0.058. Diagnostic Findings Chest x-ray reviewed and demonstrated cardiomegaly, no infiltrates, effusions, CHF. ECG Additional Comments: EKG performed at 1146 reviewed and demonstrated atrial fibrillation with a ventricular rate of 80/minute, left axis deviation, right bundle branch block. Code Status & VTE Plan Code Status Patient has a living will. He would like resuscitation attempted in the event of a cardiopulmonary arrest. He does not want prolonged extraordinary measures continued if prognosis is very poor. VTE Prophylaxis Plan VTE Prophylaxis will be ordered: Yes
--- NOTE | 2019-05-30 15:44 | Emergency Department Note ---
Entered by Andrew Shane acting as a scribe for Tu Castro MD ED Provider Note CHIEF COMPLAINT: Chest pain HISTORY OF PRESENT ILLNESS: The patient is a 64 year old male who presents to the Emergency Room with complaints of constant central chest pain that started about 4 days ago. The patient reports the pain is a constant pressure that radiates to his right flo ulder. The patient also has associated lightheadedness with the pain. The patient adds that he has some shortness of breath as well and that both his breathing and chest pain worsen with exertion. The patient mentioned that he has a history of CHF but has lost about 10 pounds in the past 2 weeks and has no increase in lower extremity swelling. The patient also has a history of Afib and notes he felt himself going in and out of it frequently over the weekend. The patient follows with Dr. Tello for cardiology and is on Coumadin. Per the patient's , the patient was doing some heavy lifting recently. Pt denies LOC, headache, fevers, chills, diaphoresis, visual changes, neck pain, nausea, vomiting, abdominal pain, back pain, melena, hematochezia, urinary symptoms, numbness, weakness, lymphadenopathy, rash, or other complaints. REVIEW OF SYSTEMS: See HPI for pertinent positives and negatives. A total of ten systems were reviewed and were otherwise negative. PMHx/PSHx: CAD, HTN, CHF, Afib, NSTEMI, Cellulitis, Pancreatitis, Appendectomy, Cholecystectomy SOCIAL HISTORY: Patient lives at home. PHYSICAL EXAM: GENERAL: Awake, alert, uncomfortable-appearing, in no distress HENT: Normocephalic, atraumatic. Oropharynx unremarkable. EYES: Normal conjunctiva. Sclera non-icteric. NECK: Inspection normal. Non-tender. Supple. No nuchal rigidity. FROM. No masses. RESPIRATORY: Clear to auscultation. No wheezes. No rales. Normal respiratory effort. CARDIAC: Normal rate. Normal rhythm. No murmurs. No rubs. Extremities warm and well perfused. Pulses equal. No JVD. CHEST: Port in the left upper chest. GI: Soft, non-distended. No tenderness to palpation. No rebound or guarding. No masses. RECTAL: Deferred. MUSCULOSKELETAL: Atraumatic. Chest examination reveals no tenderness. The back is symmetrical on inspection without obvious abnormality. There is no CVA tenderness to palpation. No joint edema. LOWER EXTREMITIES: Calves are equal size bilaterally and non-tender. Trace edema. No discoloration. NEURO: Normal sensorium. No sensory or motor deficits noted. SKIN: No rash or jaundice noted. EMERGENCY DEPARTMENT COURSE: 1147: The patient was evaluated in room C03, and a complete history and physical examination were performed. 1350: I reevaluated the patient and updated him on results. We also discussed the treatment plan and he is agreeable. 1415: I spoke to Dr. Kia Dutta Hospitalist about the patient's case. He agreed to accept the patient for further evaluation. MEDICAL DECISION MAKING: Triage Nursing notes reviewed and agree them. Additional history obtained from the family. The patient's history was concerning for chest pain. Differential diagnosis: Etiologies such as cardiac ischemia, aortic dissection, pulmonary embolism, pneumonia, pneumothorax, musculoskeletal, infections, pericarditis, myocarditis, esophageal rupture, gastrointestinal, as well as others were entertained. Physical examination: As above. ER treatment provided: Nitropaste Monitoring On reassessment the patient felt better. Diagnostic interpretation by me: The electrocardiogram was negative for pathologic change. The labs revealed a mild anemia on CBC. Chemistry panel was unremarkable except a mild hyperglycemia. The patient does have a positive troponin. Imaging studies: Chest x-ray negative for acute process. The patient has had episodes of tachycardia. He has left-sided chest pain. He is anticoagulated. The patient has an elevated troponin. Further management in the hospital will be necessary. Consultation: A consultation was placed with the hospitalist. The case was discussed and diagnostics were reviewed. The patient was evaluated in the ER for further treatment. IMPRESSION: Left sided chest pain Elevated troponin PLAN: Being evaluated by the hospitalist The scribe's documentation has been prepared under my direction and personally reviewed by me in its entirety. I confirm that the note above accurately reflects all work, treatment, procedures, and medical decision making performed by me. 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 (HAD 1 EPISODE 7 MONTHS AFTER SURGICAL INTERVENTION 2010) Sleep apnea CPAP Spinal stenosis Stomach ulcer Surgical History Cerebral aneurysm REPAIRED 2010 AT [facility] History of adenoidectomy History of anesthesia reaction "REQUIRES MORE THAN AVERAGE FOR EFFECTIVENESS" History of appendectomy History of cardiac cath NO STENTS OVER 1 YEAR AGO [facility] History of cholecystectomy History of colonoscopy History of esophagogastroduodenoscopy (EGD) History of herniorrhaphy History of myringotomy History of tonsillectomy History of tooth extraction History of vascular access device LEFT CHEST WALL (INTACT) POWER PORT Family History Other No significant family history Social History Preferred Language: [place] Communication Ability: Effective School Janitor Required: No Beliefs That Will Affect Care: None Current Living Situation: Spouse and Family Feels Safe at Home: Yes Smoking Status: Never smoker Second Hand Exposure: No ; Hx Alcohol Use: No Hx Substance Use: No Results & Data Vital Signs Vital Signs - 24 hr 05/30/19 11:39 05/30/19 12:43 05/30/19 13:56 Temperature 36.7 C Temperature Source Oral Pulse Rate 79 Pulse Rate [Finger] 93 H Pulse Rhythm Regular Respiratory Rate 22 23 Respiratory Effort / Characteristics Short of Breath SOB on Exertion Blood Pressure 165/83 H Blood Pressure [Left Arm] 115/66 Blood Pressure Mean 110 Blood Pressure Mean [Left Arm] 82 Blood Pressure Position Sitting Pulse Oximetry 96 96 95 Oxygen Delivery Method Room Air Room Air Room Air Sepsis Recent Fever Within 48 Hours No Sepsis New/Unexplained Change in Mental Status No Sepsis Action Taken by Nursing No Action Required 05/30/19 14:34 Temperature Temperature Source Pulse Rate Pulse Rate [Finger] 94 H Pulse Rhythm Respiratory Rate 20 Respiratory Effort / Characteristics Blood Pressure Blood Pressure [Left Arm] 109/76 Blood Pressure Mean Blood Pressure Mean [Left Arm] 87 Blood Pressure Position Pulse Oximetry 96 Oxygen Delivery Method Room Air Sepsis Recent Fever Within 48 Hours Sepsis New/Unexplained Change in Mental Status Sepsis Action Taken by Intermediate Medications Current Medication List: was personally reviewed by ar Laboratory Data Attestation: I reviewed the patient's lab results. Result diagrams: 05/30/19 12:08 05/30/19 12:08 Lab Results 05/30/19 05/30/19 05/30/19 Range/Units 12:08 12:08 12:08 WBC 8.05 (4.8-10.8) K/uL RBC 4.09 L (4.7-6.1) M/uL Hgb 11.3 L (14.0-18.0) g/dL Hct 34.9 L (42-52) % MCV 85.3 (80-100) fL MCH 27.6 (25-34) pg MCHC 32.4 (32-36) g/dL RDW Std Deviation 51.2 H (36.4-46.3) fL RDW Coeff of Camryn 16.3 H (11.5-14.5) % Plt Count 257 (130-400) K/uL MPV 9.3 (7.4-10.4) fL Immature Gran % (Auto) 0.1 % Neut % (Auto) 60.5 % Lymph % (Auto) 24.1 % [place] % (Auto) 8.8 % Eos % (Auto) 6.0 % Baso % (Auto) 0.5 % Immature Gran # (Auto) 0.01 (0.00-0.02) K/uL Neut # (Auto) 4.87 (1.4-6.5) K/uL Lymph # (Auto) 1.94 (1.2-3.4) K/uL [place] # (Auto) 0.71 H (0.11-0.59) K/uL Eos # (Auto) 0.48 (0-0.5) K/uL Baso # (Auto) 0.04 (0-0.2) K/uL PT 29.2 H (9.0-12.0) Seconds INR 3.1 H (0.9-1.1) APTT 46.5 H* (21.0-31.0) Seconds PTT Ratio 1.7 Sodium 135 L (136-145) mmol/L Potassium 3.5 (3.5-5.1) mmol/L Chloride 103 (98-107) mmol/L Carbon Dioxide 25 (21-32) mmol/L Anion Gap 7.0 (3-11) BUN 14 (7-18) mg/dl Creatinine 1.21 (0.6-1.4) mg/dl Est Cr Clr Drug Dosing 95.3 ml/min Est GFR ( Amer) 73.4 Est GFR (Non-Af Amer) 63.3 BUN/Creatinine Ratio 11.3 (10-20) Glucose 269 H (70-99) mg/dl Calcium 8.6 (8.5-10.1) mg/dl Total Bilirubin 1.0 (0.2-1) mg/dl AST 14 L (15-37) U/L ALT 27 (12-78) U/L Alkaline Phosphatase 81 (45-117) U/L Troponin I 0.058 H* (0-0.045) ng/ml Total Protein 6.9 (6.4-8.2) gm/dl Albumin 2.8 L (3.4-5.0) gm/dl Globulin 4.1 H (2.5-4.0) gm/dl Albumin/Globulin Ratio 0.7 L (0.9-2) Lipase 254 (73-393) U/L Administered Medications Discontinued Medications Nitroglycerin (Nitro-Bid 2%) 0.5 inch EXT NOW STA Stop: 05/30/19 13:31 Last Admin: 05/30/19 13:56 Dose: 0.5 inch Documented by: [id number] Imaging Data Radiologist's Impression: Radiology results as stated below per my review and the radiologist's interpretation: R chest 1V portable CLINICAL HISTORY: Atypical chest pain COMPARISON STUDY: 02/20/2019 FINDINGS: The heart remains enlarged. There is a left-sided A-Port catheter. There is no failure. There is no lobar consolidation. There are no pleural effusions.[ IMPRESSION: Cardiomegaly. No acute findings. Electronically signed by: Mahad Baxter M.D. 05/30/2019 12:59 PM ECG Data Attestation: I personally reviewed and interpreted this ECG as follows: Indication: + chest pain Rate (beats per minute): 83 Rhythm: atrial fibrillation ECG Intervals/blocks: + Right Bundle branch block and + Normal QT ECG [place]: + Left axis deviation ECG ST segments: no ST depression and no ST elevation ECG Findings: no PACs and no PVCs Blood Pressure Blood Pressure Findings: Normal blood pressure Blood Pressure Disposition: further management by hospitalist Discharge Plan Visit Data Chief Complaint: Chest Pain Stated Complaint: CHEST PAIN,SOB, IN AND OUT OF AFIB ED Provider: Tu Castro Discharge Problem: Left-sided chest pain, Elevated troponin Patient Disposition: Being Evaluated by Hospitalist Forms Stand Alone Forms: Call Back Authorization, [facility] Prescriptions Prescriptions: No Action warfarin 5 mg tablet 5 mg PO 6XWK Qty: 100 RF: 3 metolazone 5 mg tablet 5 mg PO DAILY PRN (Reason: weight gain, swelling, dyspnea) Qty: 30 RF: 2 tizanidine 4 mg capsule 4 mg PO Q8H PRN (Reason: Back Pain) RF: 0 benzonatate 100 mg capsule 100 mg PO BID PRN (Reason: Cough) RF: 0 atorvastatin 40 mg tablet 40 mg PO QPM Qty: 90 RF: 3 Jardiance 25 mg tablet 25 mg PO QAM RF: 0 ipratropium-albuterol 0.5 mg-3 mg(2.5 mg base)/3 mL solution for nebulization 3 ml INHALATION Q6H PRN (Reason: Shortness Of Breath Or Wheezing) Qty: 360 RF: 5 losartan 50 mg Tablet 50 mg PO QAM RF: 0 tramadol 50 mg Tablet 50 mg PO Q6H PRN (Reason: Pain) RF: 0 spironolactone [Aldactone] 25 mg Tablet 25 mg PO QAM RF: 0 alprazolam [Xanax] 0.5 mg Tablet 1 mg PO HS RF: 0 pantoprazole [Protonix] 40 mg Tablet,Delayed Release (Dr/Ec) 40 mg PO BID RF: 0 ferrous sulfate 325 mg (65 mg iron) Tablet 325 mg PO QAM RF: 0 albuterol sulfate 90 mcg/actuation Aerosol Powdr Breath Activated 2 inh INHALATION Q6H PRN (Reason: Shortness Of Breath Or Wheezing) RF: 0 furosemide 40 mg tablet 120 mg PO QAM RF: 0 hydralazine 10 mg tablet 20 mg PO BID RF: 0 Jentadueto 2.5-1,000 mg tablet 1 tab PO BID RF: 0 metoprolol succinate 100 mg tablet extended release 24 hr 100 mg PO PM RF: 0 gabapentin 100 mg Capsule 100 mg PO BID RF: 0 warfarin 5 mg Tablet 2.5 mg PO WK RF: 0 nifedipine 30 mg Tablet Extended Release 30 mg PO QAM RF: 0 nitroglycerin [Nitrostat] 0.4 mg Tablet, Sublingual 0.4 mg sublingual UD PRN (Reason: chest pain) Qty: 30 RF: 0 Referrals Referrals: Nidhi Sommer DO [Primary Care Provider] - The scribe's documentation has been prepared under my direction and personally reviewed by me in its entirety. I confirm that the note above accurately reflects all work, treatment, procedures, and medical decision making performed by me.
[2019-05-30] MEDS ORDERED: NITROGLYCERIN SL 0.4 MG/TAB TAB SL PRN ×2 (15:55)
[2019-05-30] MEDS ORDERED: ALBUTEROL HFA 8 GM INHALER INH PRN (15:55)
[2019-05-30] MEDS ORDERED: TRAMADOL HCL 50 MG TABLET PO PRN (15:55)
[2019-05-30] MEDS ORDERED: ACETAMINOPHEN 325 MG TAB PO PRN (15:55)
[2019-05-30] MEDS ORDERED: ALBUT/IPRATROP 3MG/0.5MG NEB 3 ML VIAL INH PRN (15:55)
[2019-05-30] MEDS ORDERED: TIZANIDINE HCL 4 MG TABLET PO PRN (15:55)
[2019-05-30] MEDS ORDERED: WARFARIN SOD 5 MG TAB PO SCH (16:30)
[2019-05-30] MEDS: ASPIRIN 81 MG ECTAB PO SCH (17:19)
[2019-05-30] MEDS ORDERED: GLUCAGON FOR INJ 1 MG VIAL IM PRN (17:45)
[2019-05-30] MEDS ORDERED: CARBOHYDRATES FOR HYPOGLYCEMIA PO PRN (17:45)
[2019-05-30] MEDS ORDERED: DEXTROSE 50% 50 ML SYRINGE IV PRN (17:45)
[2019-05-30] MEDS ORDERED: GLUCOSE 10 TABS/TUBE PO PRN (17:45)
[2019-05-30] MEDS ORDERED: GLUCOSE 40% GEL 15 GM TUBE PO PRN (17:45)
--- NOTE | 2019-05-30 17:55 | Cardiology Consultation ---
Date of Consultation May 30, 2019 Assessment & Plan (1) Chest pain: I do not believe his chest pain is related to an acute coronary syndrome or coronary ischemia. He has had several days worth of discomfort without any significant elevation is cardiac biomarkers. Troponin is just above the level of normal which is not reflective of a significant event. I suspect his markers would be much higher in the setting of true ischemia. During a prior admission they were higher as well. I would not pursue any additional ischemic evaluation based on the symptoms. (2) Dyspnea on exertion: He has a history diastolic heart failure, but appears to be well compensated currently. His lung examination is normal. His x-ray does not suggest pulmonary congestion. He does not have worsening edema. His weight is down. I think he can be maintained on his usual outpatient regimen of diuretic. Perhaps he has some exacerbation of intrinsic lung disease. (3) Atrial fibrillation: It is unclear whether he cycles in and out of atrial fibrillation frequently. He has had EKGs with sinus rhythm recently. However, attempts at rhythm control have not been successful in the past. I do not think he requires any additional rhythm control currently. I would not advocate cardioversion. I think more aggressive rate control may be required. I think we will monitor his heart rates overnight and potentially increase his metoprolol tomorrow. There has been some concern regarding bradycardia in the past. However, review of his record suggests that he was on amiodarone previously and may also have contrib uted to bradycardia. He will continue on warfarin indefinitely. History of Present Illness Reason for Consultation: Chest pain, atrial fibrillation Requesting Physician: Kia Attending Physician: Tu Adam MD History of Present Illness Patient is a 64-year-old gentleman who is morbidly obese and suffers from diastolic heart failure and paroxysmal atrial fibrillation. It seems that approximately 4 days ago he began to experience symptoms of epigastric and lower chest discomfort which radiated through the right chest area to the right shoulder. He cannot recall any specific injury or event which precipitated his symptoms. However, the pain has been fairly constant since that time. He did not report any specific changes in position or alleviating factors. Based on the persistent nature of his symptom he eventually sought medical attention today. Patient states that after application of nitroglycerin in the emergency room he had improvement in his symptoms and gradual relief after a couple of hours. During the past 4 days the patient did go hunting. He tends to [place] from his car and does not hike up and down hills. He is able to ambulate and was able to perform his usual activities at home without worsening his symptoms. He did report some dyspnea over the past couple of days as well. He does not have orthopnea or paroxysmal nocturnal dyspnea because he uses supplemental oxygen and CPAP at nighttime. He has not noticed any worsening lower extremity edema although he does have chronic lower extremity edema. He does measure his weight regularly and claims to have lost weight over the past few weeks. He has been compliant with his medical therapy including his daily diuretic. Additionally, the patient has been noticing more palpitations recently. He apparently cycles in and out of atrial fibrillation and is commonly aware of the palpitations and associated higher heart rates. He has a pulse oximeter at home and at 1 point suggested that his heart rate was over 140 beats per minute. He generally does not have dizziness or lightheadedness although he has some mild orthostatic type symptoms when arising from a seated position to rapidly in the morning. He has not suffered syncope. Allergies Allergy/AdvReac Type Severity Reaction Status Date / Time Iodinated Contrast Media Allergy Severe SHORTNESS Verified 05/30/19 13:59 OF BREATH duloxetine [From Cymbalta] Allergy Intermediate "DIFFICULTY Verified 05/30/19 13:59 FUNCTIONING" lorazepam Allergy Mild HIVES Verified 05/30/19 13:59 Penicillins Allergy Unknown UNSURE OF Verified 05/30/19 13:59 RXN, STATED ALLERGY A CHILD edetic acid AdvReac Severe SHORTNESS Verified 05/30/19 13:59 OF BREATH propylene glycol AdvReac Severe SHORTNESS Verified 05/30/19 13:59 OF BREATH regadenoson AdvReac Severe SHORTNESS Verified 05/30/19 13:59 OF BREATH Home Medications Home Medications Medication Instructions Recorded Confirmed Type albuterol sulfate 2 inh INHALATION Q6H PRN 01/04/19 05/30/19 History alprazolam [Xanax] 1 mg PO HS 01/04/19 05/30/19 History ferrous sulfate 325 mg PO QAM 01/04/19 05/30/19 History losartan 50 mg PO QAM 01/04/19 05/30/19 History pantoprazole [Protonix] 40 mg PO BID 01/04/19 05/30/19 History spironolactone [Aldactone] 25 mg PO QAM 01/04/19 05/30/19 History tramadol 50 mg PO Q6H PRN 01/04/19 05/30/19 History furosemide 40 mg tablet 120 mg PO QAM tab 02/07/19 05/30/19 History gabapentin 100 mg PO BID 02/20/19 05/30/19 History nifedipine 30 mg PO QAM 02/20/19 05/30/19 History warfarin 2.5 mg PO WK 02/20/19 05/30/19 History nitroglycerin [Nitrostat] 0.4 mg SUBLINGUAL UD PRN #30 tab 02/21/19 05/30/19 Rx empagliflozin 25 mg tablet 25 mg PO QAM 03/01/19 05/30/19 History warfarin 5 mg tablet 5 mg PO 6XWK #100 tab 04/12/19 05/30/19 Rx ipratropium-albuterol 0.5 mg-3 3 ml INHALATION Q6H PRN #360 ml 04/21/19 05/30/19 Rx mg(2.5 mg base)/3 mL nebulization soln metolazone 5 mg tablet 5 mg PO DAILY PRN #30 tab 05/01/19 05/30/19 Rx benzonatate 100 mg capsule 100 mg PO BID PRN 05/09/19 05/30/19 History hydralazine 10 mg tablet 20 mg PO BID tab 05/09/19 05/30/19 History linagliptin 2.5 mg-metformin 1,000 1 tab PO BID tab 05/09/19 05/30/19 History mg tablet tizanidine 4 mg capsule 4 mg PO Q8H PRN 05/09/19 05/30/19 History atorvastatin 40 mg tablet 40 mg PO QPM #90 tab 05/10/19 05/30/19 Rx metoprolol succinate 100 mg PO PM 05/30/19 05/30/19 History Patient History Medical History Anemia Anxiety Asthma Atrial fibrillation Atrial fibrillation, permanent Chronic diastolic CHF (congestive heart failure) Chronic obstructive pulmonary disease Congestive heart failure Depression Diabetes mellitus, type 2 Dysphagia ESOPHAGEAL STRETCHING Factor 5 Leiden mutation, heterozygous GERD (gastroesophageal reflux disease) Gout Hyperlipidemia Hypertension On home oxygen therapy AT 2L WITH CPAP WHEN SLEEPING Peripheral neuropathy Pulmonary edema 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 (HAD 1 EPISODE 7 MONTHS AFTER SURGICAL INTERVENTION 2010) Sleep apnea CPAP Spinal stenosis Stomach ulcer Surgical History Cerebral aneurysm REPAIRED 2010 AT [facility] History of adenoidectomy History of anesthesia reaction "REQUIRES MORE THAN AVERAGE FOR EFFECTIVENESS" History of appendectomy History of cardiac cath NO STENTS OVER 1 YEAR AGO [facility] History of cholecystectomy History of colonoscopy History of esophagogastroduodenoscopy (EGD) History of herniorrhaphy History of myringotomy History of tonsillectomy History of tooth extraction History of vascular access device LEFT CHEST WALL (INTACT) POWER PORT Family History Other No significant family history Social History Preferred Language: [place] Communication Ability: Effective Lab[employer] Wharf Required: No Beliefs That Will Affect Care: None Current Living Situation: Spouse and Family Current Living Situation Comment: lives with and children/grandchildren Other Information That Helps Us Care for You: No Feels Safe at Home: Yes Safety Concerns: Feels Safe At This Time Smoking Status: Never smoker Second Hand Exposure: No ; Hx Alcohol Use: No Hx Substance Use: No Review of Systems Review of Systems: All systems reviewed & are unremarkable except as noted in HPI & below He did not endorse any change in his diet recently. No increased sodium intake. Physical Exam Physical Exam: The patient is alert and oriented. Mood and affect appeared normal. He answered all questions appropriately. Morbidly obese HEENT: Pupils are equal and reactive to light and accommodation. Extraocular movements are intact. The sclerae are anicteric. Neuro: Cranial nerves intact Neck: Redundant tissue precludes additional evaluation. Lungs: Clear to auscultation bilaterally. He has good air movement without use of accessory muscles. No rales wheezes or rhonchi. Chest: IV port in left upper pectoral area Cardiac: Heart demonstrates an irregular rate and rhythm. Normal S1 and S2. No murmurs on examination. Pulses: The patient has palpable radial pulses bilaterally that are equal in intensity Extremities: There was no evidence of hypoperfusion. There is no cyanosis or clubbing. Mild bilateral lower extremity edema. Skin: I did not appreciate any rashes on examination today. Results & Data Vital Signs (Past 12 Hours) Vital Signs Temp Pulse Pulse Resp BP BP Pulse Ox 05/30/19 16:00 86 05/30/19 15:58 37.3 C 76 18 131/84 95 05/30/19 15:49 81 18 104/70 96 05/30/19 14:34 94 H 20 109/76 96 05/30/19 13:56 95 05/30/19 12:43 93 H 23 115/66 96 05/30/19 11:39 36.7 C 79 22 165/83 H 96 Laboratory Results Abnormal Lab Results 05/30/19 05/30/19 05/30/19 12:08 12:08 12:08 WBC 8.05 RBC 4.09 L Hgb 11.3 L Hct 34.9 L MCV 85.3 MCH 27.6 MCHC 32.4 RDW Std Deviation 51.2 H RDW Coeff of Camryn 16.3 H Plt Count 257 MPV 9.3 Immature Gran % (Auto) 0.1 Neut % (Auto) 60.5 Lymph % (Auto) 24.1 [place] % (Auto) 8.8 Eos % (Auto) 6.0 Baso % (Auto) 0.5 Immature Gran # (Auto) 0.01 Neut # (Auto) 4.87 Lymph # (Auto) 1.94 [place] # (Auto) 0.71 H Eos # (Auto) 0.48 Baso # (Auto) 0.04 PT 29.2 H INR 3.1 H APTT 46.5 H* PTT Ratio 1.7 Sodium 135 L Potassium 3.5 Chloride 103 Carbon Dioxide 25 Anion Gap 7.0 BUN 14 Creatinine 1.21 Est Cr Clr Drug Dosing 95.3 Est GFR ( Amer) 73.4 Est GFR (Non-Af Amer) 63.3 BUN/Creatinine Ratio 11.3 Glucose 269 H POC Glucose Calcium 8.6 Total Bilirubin 1.0 AST 14 L ALT 27 Alkaline Phosphatase 81 Troponin I 0.058 H* Total Protein 6.9 Albumin 2.8 L Globulin 4.1 H Albumin/Globulin Ratio 0.7 L Lipase 254 05/30/19 05/30/19 16:27 16:53 WBC RBC Hgb Hct MCV MCH MCHC RDW Std Deviation RDW Coeff of Camryn Plt Count MPV Immature Gran % (Auto) Neut % (Auto) Lymph % (Auto) [place] % (Auto) Eos % (Auto) Baso % (Auto) Immature Gran # (Auto) Neut # (Auto) Lymph # (Auto) [place] # (Auto) Eos # (Auto) Baso # (Auto) PT INR APTT PTT Ratio Sodium Potassium Chloride Carbon Dioxide Anion Gap BUN Creatinine Est Cr Clr Drug Dosing Est GFR ( Amer) Est GFR (Non-Af Amer) BUN/Creatinine Ratio Glucose POC Glucose 162 H Calcium Total Bilirubin AST ALT Alkaline Phosphatase Troponin I 0.068 H* Total Protein Albumin Globulin Albumin/Globulin Ratio Lipase Diagnostic Findings Chest x-ray did not demonstrate evidence of pulmonary edema Echocardiogram obtained 02/20/2019 revealed preserved LV systolic function moderate concentric LVH. No significant valvular heart disease ECG Additional Comments: EKG obtained at the time of admission revealed atrial fibrillation and a right bundle branch block. Left anterior fascicular block. PG Care Time/CCT Total # of Minutes Spent Total Time Spent with Patient: Total time spent is greater than 50% in coordination of care (as documented) at patient's floor/unit and/or counseling patient:
[2019-05-30] MEDS: INSULIN ASPART 100 UNITS/ML 3 ML PEN SC SCH (20:50)
[2019-05-30] MEDS: GABAPENTIN 100 MG CAP PO SCH (20:52)
[2019-05-30] MEDS: PANTOprazole 40 MG TAB PO SCH (20:52)
[2019-05-30] MEDS: METOPROLOL SUCC 50MG EXT REL TAB PO SCH (20:52)
[2019-05-30] MEDS: ATORVASTATIN 40 MG TAB PO SCH (20:53)
[2019-05-30] MEDS: HydrALAZINE 10 MG TAB PO SCH (20:53)
[2019-05-30] MEDS: ALPRAZolam 0.5 MG TABLET PO SCH (20:59)
[2019-05-31 06:52] LABS: INR 2.5 (0.9-1.1); Prothrombin Time 24.1 Seconds (9.0-12.0)
[2019-05-31 07:13] LABS: Estimated Average Glucose 252 mg/dl; Hemoglobin A1C 10.4 % (4.5-5.6)
[2019-05-31 07:19] LABS: BUN Creatinine Ratio 17.4 (10-20); Calcium 8.8 mg/dl (8.5-10.1); Creatinine Clr Calc Pharmacy 121.3 ml/min; Est GFR (African American) 100.9; Est GFR (Non-African American) 87.1; Potassium 3.5 mmol/L (3.5-5.1)
[2019-05-31] MEDS: INSULIN ASPART 100 UNITS/ML 3 ML PEN SC SCH ×4 (08:03→20:28)
[2019-05-31] MEDS: PANTOprazole 40 MG TAB PO SCH ×2 (08:08→20:31)
[2019-05-31] MEDS: ASPIRIN 81 MG ECTAB PO SCH (08:09)
[2019-05-31] MEDS: HydrALAZINE 10 MG TAB PO SCH ×2 (08:09→20:30)
[2019-05-31] MEDS: NIFEdipine EXTENDED REL 30 MG TABCR PO SCH (08:10)
[2019-05-31] MEDS: LOSARTAN POTASSIUM 50 MG TAB PO SCH (08:10)
[2019-05-31] MEDS: GABAPENTIN 100 MG CAP PO SCH ×2 (08:11→20:29)
[2019-05-31] MEDS: FUROSEMIDE 40 MG TAB PO SCH (08:12)
[2019-05-31] MEDS: SPIRONOLACTONE 25 MG TAB PO SCH (08:12)
--- NOTE | 2019-05-31 13:01 | Cardiology Progress Note ---
Date of Service May 31, 2019 Assessment & Plan (1) Chest pain: Unclear etiology. Possibly musculoskeletal. While the cardiac biomarkers are very mildly elevated, the pattern is not consistent with an acute coronary syndrome. Given the duration of his symptoms I would have expected more elevation. I think we can't discount this as cardiac. He has not had an acute coronary syndrome. I do not believe he requires any additional ischemic evaluation. (2) Dyspnea on exertion: He did not report dyspnea this morning. I do not believe he has decompensated heart failure. Overall LV function is preserved. This point I would continue his outpatient diuretic regimen. (3) Atrial fibrillation: He does have some higher heart rates at times. However, this usually with activity. He seems to have done quite well on his current dose of beta-effie as an outpatient. I do not think he requires any adjustment in his beta-effie dose currently. He should continue systemic anticoagulation indefinitely. Subjective This morning the patient's main concern was dizziness. He was ambulatory in his room and reported feeling somewhat lightheaded. He did not report presyncope. His chest discomfort is improved but not resolved entirely. It was not made worse with activity or change in position. No current breathing difficulty. Review of Systems Review of Systems: Per HPI Physical Exam Physical Exam: The patient is alert and oriented. Mood and affect appeared normal. He answered all questions appropriately. Morbidly obese HEENT: Pupils are equal and reactive to light and accommodation. Extraocular movements are intact. The sclerae are anicteric. Neuro: Cranial nerves intact Neck: Redundant tissue precludes additional evaluation. Lungs: Clear to auscultation bilaterally. He has good air movement without use of accessory muscles. No rales wheezes or rhonchi. Chest: IV port in left upper pectoral area Cardiac: Heart demonstrates an irregular rate and rhythm. Normal S1 and S2. No murmurs on examination. Pulses: The patient has palpable radial pulses bilaterally that are equal in intensity Extremities: There was no evidence of hypoperfusion. There is no cyanosis or clubbing. Mild bilateral lower extremity edema. Skin: I did not appreciate any rashes on examination today. Results & Data Vital Signs (Past 12 Hours) Vital Signs Temp Pulse Pulse Resp BP Pulse Ox 05/31/19 11:07 91 H 05/31/19 11:01 86 20 123/94 96 05/31/19 07:32 36.8 C 83 20 146/69 H 98 05/31/19 07:15 80 18 96 05/31/19 03:05 36.6 C 81 20 115/87 95 Laboratory Results Abnormal Lab Results 05/30/19 05/30/19 05/30/19 12:08 16:27 16:53 PT 29.2 H INR 3.1 H APTT 46.5 H* PTT Ratio 1.7 Sodium Potassium Chloride Carbon Dioxide Anion Gap BUN Creatinine Est Cr Clr Drug Dosing Est GFR ( Amer) Est GFR (Non-Af Amer) BUN/Creatinine Ratio Glucose POC Glucose 162 H Estimat Average Glucose Hemoglobin A1c Calcium Troponin I 0.068 H* Triglycerides Cholesterol LDL Cholesterol, Calc VLDL Cholesterol, Calc HDL Cholesterol Cholesterol/HDL Ratio 05/30/19 05/30/19 05/31/19 20:13 23:02 06:03 PT 24.1 H INR 2.5 H APTT PTT Ratio Sodium Potassium Chloride Carbon Dioxide Anion Gap BUN Creatinine Est Cr Clr Drug Dosing Est GFR ( Amer) Est GFR (Non-Af Amer) BUN/Creatinine Ratio Glucose POC Glucose 179 H Estimat Average Glucose Hemoglobin A1c Calcium Troponin I 0.061 H* Triglycerides Cholesterol LDL Cholesterol, Calc VLDL Cholesterol, Calc HDL Cholesterol Cholesterol/HDL Ratio 05/31/19 05/31/19 05/31/19 06:03 06:03 07:15 PT INR APTT PTT Ratio Sodium 137 Potassium 3.5 Chloride 103 Carbon Dioxide 27 Anion Gap 7.0 BUN 16 Creatinine 0.93 Est Cr Clr Drug Dosing 121.3 Est GFR ( Amer) 100.9 Est GFR (Non-Af Amer) 87.1 BUN/Creatinine Ratio 17.4 Glucose 173 H POC Glucose 188 H Estimat Average Glucose 252 Hemoglobin A1c 10.4 H Calcium 8.8 Troponin I Triglycerides 221 H Cholesterol 110 LDL Cholesterol, Calc 30 VLDL Cholesterol, Calc 44 HDL Cholesterol 36 Cholesterol/HDL Ratio 3 05/31/19 11:21 PT INR APTT PTT Ratio Sodium Potassium Chloride Carbon Dioxide Anion Gap BUN Creatinine Est Cr Clr Drug Dosing Est GFR ( Amer) Est GFR (Non-Af Amer) BUN/Creatinine Ratio Glucose POC Glucose 203 H Estimat Average Glucose Hemoglobin A1c Calcium Troponin I Triglycerides Cholesterol LDL Cholesterol, Calc VLDL Cholesterol, Calc HDL Cholesterol Cholesterol/HDL Ratio PG Care Time/CCT Total # of Minutes Spent Total Time Spent with Patient: Total time spent is greater than 50% in coordination of care (as documented) at patient's floor/unit and/or counseling patient:
[2019-05-31] MEDS ORDERED: WARFARIN SOD 2.5 MG TAB PO SCH (16:00)
--- NOTE | 2019-05-31 17:04 | Hospitalist Progress Note ---
Date of Service May 31, 2019 Assessment & Plan (1) Chest pain: Likely musculoskeletal in origin Only minimal elevation of troponin Appreciate cardiology input Monitor (2) CAD (coronary artery disease): H/O nonocclusive coronary artery disease per cardiac cath 2018. Continue aspirin, Lipitor, metoprolol, nitroglycerin as needed (3) Chronic diastolic CHF (congestive heart failure): H/O chronic left ventricular diastolic heart failure. Followed at [facility] CHF clinic. No signs of decompensation Monitor volume status Continue home diuretics (4) Atrial fibrillation: H/O Atrial fibrillation S/P Cardioversion. Continue metoprolol and warfarin. Cardiology on board Monitor INR:2.5 (5) Hypertension: Continue metoprolol, nifedipine, hydralazine, diuretics. (6) COPD (chronic obstructive pulmonary disease) case management patient: No signs of COPD exacerbation Continue home medications (7) Sleep apnea: Continue CPAP with nocturnal O2. (8) Diabetes mellitus, type 2: DM type 2 managed with empagliflozin and linagliptin/metformin. Hold oral agents Hb A1C: 10.4 Continue Insulin while hospitalized Patient currently not interested in insulin therapy upon discharge and prefers to discuss with PCP prior to changing his home medications Counseled on diet, exercise, monitoring blood glucose levels frequently (9) DVT prophylaxis: On warfarin (10) Discharge planning issues: Expected discharge home when medically stable Primary care follow-up with Dr. Blair. Cardiology follow-up with Dr. Hansen and [facility] CHF clinic. Subjective Patient is seen and examined at bedside Complains of minimal dizziness earlier today Chest pain improved today Denies any shortness of breath, nausea, abdominal pain Offers no other complaints Review of Systems Review of Systems: All systems reviewed & are unremarkable except as noted in HPI & below Physical Exam Physical Exam: Physical Exam: Vitals signs as noted above General Appearance:Morbidly Obese, no apparent distress Head: normocephalic, Atraumatic Eyes: normal inspection, EOMI Neck: supple, Trachea midline Respiratory/Chest: Normal breath sounds, CTA, port on left-sided chest Cardiovascular: Irregularly irregular, No murmur Abdomen/GI:Soft, Non tender, Bowel sounds present Extremities/Musculoskelatal:normal inspection, trace b/l lower extremity edema Neurologic/Psych:AAOX3, grossly no focal neurological deficits Skin: normal color, warm Results & Data Vital Signs (Past 12 Hours) Vital Signs Temp Pulse Pulse Resp BP Pulse Ox 05/31/19 16:04 37.0 C 85 18 121/74 96 05/31/19 15:07 90 05/31/19 11:07 91 H 05/31/19 11:01 86 20 123/94 96 05/31/19 07:32 36.8 C 83 20 146/69 H 98 05/31/19 07:15 80 18 96 Laboratory Results BMP 05/31/19 06:03 Sodium 137 Potassium 3.5 Chloride 103 Carbon Dioxide 27 BUN 16 Creatinine 0.93 Glucose 173 H Calcium 8.8 Cardiac Enzymes 05/30/19 05/30/19 Range/Units 16:53 23:02 Troponin I 0.068 H* 0.061 H* (0-0.045) ng/ml
[2019-05-31] MEDS: ATORVASTATIN 40 MG TAB PO SCH (20:30)
[2019-05-31] MEDS: METOPROLOL SUCC 50MG EXT REL TAB PO SCH (20:31)
[2019-05-31] MEDS: ALPRAZolam 0.5 MG TABLET PO SCH (20:33)
[2019-06-01 08:02] LABS: INR 2.6 (0.9-1.1); Prothrombin Time 24.5 Seconds (9.0-12.0)
[2019-06-01] MEDS: INSULIN ASPART 100 UNITS/ML 3 ML PEN SC SCH ×2 (08:04→12:06)
[2019-06-01] MEDS: SPIRONOLACTONE 25 MG TAB PO SCH (08:06)
[2019-06-01] MEDS: FUROSEMIDE 40 MG TAB PO SCH (08:06)
[2019-06-01] MEDS: GABAPENTIN 100 MG CAP PO SCH (08:06)
[2019-06-01] MEDS: ASPIRIN 81 MG ECTAB PO SCH (08:06)
[2019-06-01] MEDS: PANTOprazole 40 MG TAB PO SCH (08:07)
[2019-06-01] MEDS: NIFEdipine EXTENDED REL 30 MG TABCR PO SCH (08:07)
[2019-06-01] MEDS: HydrALAZINE 10 MG TAB PO SCH (08:08)
[2019-06-01] MEDS: LOSARTAN POTASSIUM 50 MG TAB PO SCH (08:08)
[2019-06-01 08:18] LABS: Calcium 8.5 mg/dl (8.5-10.1); Creatinine Clr Calc Pharmacy 107.9 ml/min; Est GFR (African American) 89.2; Est GFR (Non-African American) 76.9; Potassium 3.3 mmol/L (3.5-5.1)
[2019-06-01] MEDS ORDERED: POTASSIUM CHLORIDE 20 MEQ TABCR PO STA (09:09)
--- NOTE | 2019-06-01 12:54 | Hospitalist Progress Note ---
Date of Service June 01, 2019 Assessment & Plan (1) Chest pain: Likely musculoskeletal in origin Only minimal elevation of troponin Appreciate cardiology input Chest pain resolved (2) CAD (coronary artery disease): H/O nonocclusive coronary artery disease per cardiac cath 2017. Continue aspirin, Lipitor, metoprolol, nitroglycerin as needed (3) Chronic diastolic CHF (congestive heart failure): H/O chronic left ventricular diastolic heart failure. Followed at [facility]F clinic. No signs of decompensation Monitor volume status Continue home diuretics (4) Atrial fibrillation: H/O Atrial fibrillation S/P Cardioversion. Continue metoprolol and warfarin. Cardiology on board Monitor INR:2.6 (5) Hypertension: Continue metoprolol, nifedipine, hydralazine, diuretics. (6) COPD (chronic obstructive pulmonary disease) case management patient: No signs of COPD exacerbation Continue home medications (7) Sleep apnea: Continue CPAP with nocturnal O2. (8) Diabetes mellitus, type 2: DM type 2 managed with empagliflozin and linagliptin/metformin. Hold oral agents Hb A1C: 10.4 Continue Insulin while hospitalized Patient currently not interested in insulin therapy upon discharge and prefers to discuss with PCP prior to changing his home medications Counseled on diet, exercise, monitoring blood glucose levels frequently (9) DVT prophylaxis: On warfarin (10) Discharge planning issues: Expected discharge home when medically stable Primary care follow-up with Dr. Blair. Cardiology follow-up with Dr. Hansen and [facility]F clinic. Subjective Patient is seen and examined at bedside Patient states feeling much better today Chest pain, dizziness resolved Offers no new complaints today Denies any shortness of breath, nausea, abdominal pain Review of Systems Review of Systems: All systems reviewed & are unremarkable except as noted in HPI & below Physical Exam Physical Exam: Physical Exam: Vitals signs as noted above General Appearance:Morbidly Obese, no apparent distress Head: normocephalic, Atraumatic Eyes: normal inspection, EOMI Neck: supple, Trachea midline Respiratory/Chest: Normal breath sounds, CTA, port on left-sided chest Cardiovascular: Irregularly irregular, No murmur Abdomen/GI:Soft, Non tender, Bowel sounds present Extremities/Musculoskelatal:normal inspection, trace b/l lower extremity edema Neurologic/Psych:AAOX3, grossly no focal neurological deficits Skin: normal color, warm Results & Data Vital Signs (Past 12 Hours) Vital Signs Temp Pulse Pulse Resp BP Pulse Ox 06/01/19 11:47 36.5 C 97 H 17 105/71 97 06/01/19 10:27 85 06/01/19 07:14 36.6 C 84 18 123/92 97 06/01/19 04:18 36.4 C L 84 18 117/76 96 Laboratory Results [facility] 06/01/19 07:28 Sodium 135 L Potassium 3.3 L Chloride 101 Carbon Dioxide 28 BUN 18 Creatinine 1.03 Glucose 204 H Calcium 8.5
--- NOTE | 2019-06-01 13:03 | Discharge Summary ---
Date of Service June 01, 2019 Admission HPI Per Admitting Provider 64-year-old male followed by Dr. Blair for primary care and Dr. Hansen for Cardiology. History of atrial fibrillation, paroxysmal per patient's history. Has undergone cardioversion a few times. Other medical problems include hypertension, sleep apnea on CPAP, diabetes mellitus. A few days prior to admission he [place] He checks his pulse rate with a pulse oximeter and it was as high as 150. Also experiencing some chest pain and dyspnea on exertion. Chest pain described as midsternal pressure radiating to his right shoulder associated with dyspnea and nausea, no emesis or sweats. Symptoms occur with exertion and relieved by rest. He did not take any nitroglycerin. Symptoms were more severe 3 days prior to admission. Next day he relaxed and did not have any problems. Yesterday he was hunting again and developed recurrent symptoms. Patient reports that he had a cardiac catheterization performed at [facility] 1 to 2 years ago without significant findings. Admission Exam Per Admitting Provider Constitutional: WD/WN, vitals as above no acute distress Eyes: PERRL, conjunctivae normal, anicteric sclerae ENMT: external ear and nose normal, oropharynx normal Neck: trachea midline, no thyromegaly Respiratory: normal respiratory effort, lungs clear to auscultation Cardiovascular: Rate/Rhythm: + irregularly irregular Heart Sounds: no gallop, no murmur and no cardiac rub Vessels: no JVD Extremities: normal capillary refill and + edema (trace pretibial); no calf tenderness Gastrointestinal (Abdomen): normal bowel sounds, soft, nontender, no hepatosplenomegaly Musculoskeletal: Head/Neck/Chest: neck supple Extremities: strength 5/5 throughout; no cyanosis and no clubbing Skin: no rashes, warm and dry Neurologic: PERRL, EOMI no facial palsy no dysarthria or aphasia patellar DTR's 1/2 bilat Psychiatric: Orientation: alert and oriented x 3 Affect: euthymic affect Lymphatic: no cervical lymphadenopathy Principal Diagnosis Atypical chest pain Discharge Data Allergies Allergy/AdvReac Type Severity Reaction Status Date / Time Iodinated Contrast Media Allergy Severe SHORTNESS Verified 05/30/19 13:59 OF BREATH duloxetine [From Cymbalta] Allergy Intermediate "DIFFICULTY Verified 05/30/19 13:59 FUNCTIONING" lorazepam Allergy Mild HIVES Verified 05/30/19 13:59 Penicillins Allergy Unknown UNSURE OF Verified 05/30/19 13:59 RXN, STATED ALLERGY A CHILD edetic acid AdvReac Severe SHORTNESS Verified 05/30/19 13:59 OF BREATH propylene glycol AdvReac Severe SHORTNESS Verified 05/30/19 13:59 OF BREATH regadenoson AdvReac Severe SHORTNESS Verified 05/30/19 13:59 OF BREATH Consultations 05/30/19 14:55 Consult Cardiology Routine Procedures Performed CXR: Cardiomegaly. No acute findings. Hospital Course (1) Chest pain: Likely musculoskeletal in origin Only minimal elevation of troponin Appreciate cardiology input Chest pain resolved (2) CAD (coronary artery disease): H/O nonocclusive coronary artery disease per cardiac cath 2017. Continue aspirin, Lipitor, metoprolol, nitroglycerin as needed (3) Chronic diastolic CHF (congestive heart failure): H/O chronic left ventricular diastolic heart failure. Followed at [facility]. No signs of decompensation Monitor volume status Continue home diuretics (4) Atrial fibrillation: H/O Atrial fibrillation S/P Cardioversion. Continue metoprolol and warfarin. Cardiology on board Monitor INR:2.6 (5) Hypertension: Continue metoprolol, nifedipine, hydralazine, diuretics. (6) COPD (chronic obstructive pulmonary disease) case management patient: No signs of COPD exacerbation Continue home medications (7) Sleep apnea: Continue CPAP with nocturnal O2. (8) Diabetes mellitus, type 2: DM type 2 managed with empagliflozin and linagliptin/metformin. Hold oral agents Hb A1C: 10.4 Continue Insulin while hospitalized Patient currently not interested in insulin therapy upon discharge and prefers to discuss with PCP prior to changing his home medications Counseled on diet, exercise, monitoring blood glucose levels frequently (9) DVT prophylaxis: On warfarin (10) Discharge planning issues: Expected discharge home when medically stable Primary care follow-up with Dr. Blair. Cardiology follow-up with Dr. Hansen and [facility]. Total Time Total Time Spent Total Time Spent (In Minutes): 36 Total Time Includes: Examination of the Patient, Discharge Planning, Medication Reconciliation, Communication With Other Providers and Other Discharge Plan Discharge Items Patient Disposition: Home - Self-Care Reason For Visit: CHEST PAIN, ATRIAL FIB Discharge Diagnosis: Atypical chest pain Activity: Resume your previous activity Exercise/Sports: Gradually increase as tolerated Non-emergency contact: Primary Care Provider Call non-emergency contact if: you have any medication questions, your symptoms worsen, your pain is not controlled, your pain is worsening, your pain is unusual for you and your pain is concerning for you Follow-up/Referrals: Nidhi Sommer DO [Primary Care Provider] - Diet: Carb Consistent or DM2 and Heart Healthy Addtl Attending Provider Instructions: Follow-up with your primary care physician Dr. Sommer on June 09, 2019 at 12:45 PM Follow-up with your commercial credit officer as needed Discuss with your physician for further adjustment of your diabetic medications as advised. Consider being started on insulin therapy as advised. Seek immediate medical attention if your symptoms reoccur or worsen Pending Studies at Discharge: No Stand-Alone Forms: Call Back Authorization, [employer], Smoking Cessation Medications and DC Order Prescriptions: Continued warfarin 5 mg tablet 5 mg PO [id number] Qty: 100 RF: 3 metolazone 5 mg tablet 5 mg PO DAILY PRN (Reason: weight gain, swelling, dyspnea) Qty: 30 RF: 2 tizanidine 4 mg capsule 4 mg PO Q8H PRN (Reason: Back Pain) RF: 0 benzonatate 100 mg capsule 100 mg PO BID PRN (Reason: Cough) RF: 0 atorvastatin 40 mg tablet 40 mg PO QPM Qty: 90 RF: 3 Jardiance 25 mg tablet 25 mg PO QAM RF: 0 ipratropium-albuterol 0.5 mg-3 mg(2.5 mg base)/3 mL solution for nebulization 3 ml INHALATION Q6H PRN (Reason: Shortness Of Breath Or Wheezing) Qty: 360 RF: 5 losartan 50 mg Tablet 50 mg PO QAM RF: 0 tramadol 50 mg Tablet 50 mg PO Q6H PRN (Reason: Pain) RF: 0 spironolactone [Aldactone] 25 mg Tablet 25 mg PO QAM RF: 0 alprazolam [Xanax] 0.5 mg Tablet 1 mg PO HS RF: 0 pantoprazole [Protonix] 40 mg Tablet,Delayed Release (Dr/Ec) 40 mg PO BID RF: 0 ferrous sulfate 325 mg (65 mg iron) Tablet 325 mg PO QAM RF: 0 albuterol sulfate 90 mcg/actuation Aerosol Powdr Breath Activated 2 inh INHALATION Q6H PRN (Reason: Shortness Of Breath Or Wheezing) RF: 0 furosemide 40 mg tablet 120 mg PO QAM RF: 0 hydralazine 10 mg tablet 20 mg PO BID RF: 0 Jentadueto 2.5-1,000 mg tablet 1 tab PO BID RF: 0 metoprolol succinate 100 mg tablet extended release 24 hr 100 mg PO PM RF: 0 gabapentin 100 mg Capsule 100 mg PO BID RF: 0 warfarin 5 mg Tablet 2.5 mg PO WK RF: 0 nifedipine 30 mg Tablet Extended Release 30 mg PO QAM RF: 0 nitroglycerin [Nitrostat] 0.4 mg Tablet, Sublingual 0.4 mg sublingual UD PRN (Reason: chest pain) Qty: 30 RF: 0 Discharge Orders: Discharge Order (Routine); Ordered 06/01/19 Ordered By: Jeromy Hinojosa/Other Patient Handouts: Diabetes Mcfp Complications, Diabetes Healthy Meals, Diabetes Carbs, Diabetes Exercise Benefits, Diabetes Activity Tips, Diabetes Living Life, A1C Admission Data Admit Date/Time: 05/30/19 14:26 Attending Provider: Jeromy Zuluaga Admit Provider: Tu Adam Primary Care Provider: Nidhi Sommer Other Providers: [employer] Gordon Other Interventions: Discharge Summary Assessment (RN) Last Done: 06/01/19 13:25 DC Date/Time DO NOT enter until pt leaves facility: 06/01/19 14:53
== END 2019-06-01 14:53 | disposition home or self-care (01) ==
LOC: ED 11:37 → 2E 11:37 → SUATTDRO 14:26 → 2E 15:49